=== PATIENT | female | born 1960 | race Caucasian/White ===

== ENCOUNTER → 2016-11-02 | Outpatient (CLI) | payer OTHER ==
--- NOTE | 2016-11-02 17:00 | XR ---
EXAMINATION TYPE: XR shoulder complete RT DATE OF EXAM: 11/02/2016 4:42 PM COMPARISON: NONE HISTORY: Pain after injury today, anterior pain TECHNIQUE: 3 views FINDINGS: Bones and joints and soft tissues are unremarkable. IMPRESSION: No acute process.
== END | disposition home or self-care (01) ==
LOC: RADXRMAIN 16:26
PROVIDERS: ATTEND Emergency Medicine
DX: S43.401A Unspecified sprain of right shoulder joint, initial encounter (principal); X58.XXXA Exposure to other specified factors, initial encounter; Y93.89 Activity, other specified; Y92.69 Other specified industrial and construction area as the place of occurrence of the external cause; Y99.0 Civilian activity done for income or pay

== ENCOUNTER → 2016-11-16 | Outpatient (CLI) | payer OTHER ==
--- NOTE | 2016-11-16 08:38 | MR ---
EXAMINATION TYPE: MR shoulder RT wo con DATE OF EXAM: 11/16/2016 7:30 AM COMPARISON: NONE HISTORY: Right shoulder pain TECHNIQUE: Multiplanar multispin echo imaging of the right shoulder was performed. FINDINGS: Rotator cuff : Partial intrasubstance tear involving the supraspinatus tendon near its humeral insert ion with superimposed chronic tendinopathy. Partial undersurface tear involving the infraspinatus ten don without full-thickness component. Bursa: No bursal effusion or thickening is seen. Musculature: There is no muscular tear, contusion, or atrophy. Acromioclavicular joint : Subacromial spur results in a degree of impingement. Mild AC joint arthropa thy. Osseous structures : There are no fractures or regions of abnormal bone marrow signal intensity. Long biceps tendon : The biceps tendon is normally situated within the bicipital groove. No complete or partial biceps tendon tear is present. Glenohumeral Joint fluid : There is no glenohumeral joint effusion. Cartilage and Bone : No focal hyaline cartilage defects are noted. No Hill-Sachs, reverse Hill-Sachs, or bony Bankart lesions are seen. Labrum : There are no SLAP or soft tissue Bankart lesions. No paralabral cysts are seen. OTHER FINDINGS : none IMPRESSION: 1. Partial tears of the supra and infraspinatus tendons superimposed chronic tendinopathy. 2. Mild impingement secondary subacromial spurring.
== END | disposition home or self-care (01) ==
LOC: RADMRIMAIN 06:51
PROVIDERS: ATTEND Emergency Medicine
DX: S46.811D Strain of other muscles, fascia and tendons at shoulder and upper arm level, right arm, subsequent encounter (principal); M25.811 Other specified joint disorders, right shoulder; M75.81 Other shoulder lesions, right shoulder

== ENCOUNTER → 2017-12-25 | Outpatient (CLI) | payer BC, OTHER ==
[2017-12-25 09:06] LABS: Basophils # (A) 0.1 k/uL (0-0.2); Basophils % (A) 1 %; Eosinophils # (A) 0.1 k/uL (0-0.7); Eosinophils % (A) 2 %; HCT 39.1 % (34.0-46.0); HGB 12.5 gm/dL (11.4-16.0); Lymphocytes # (A) 1.8 k/uL (1.0-4.8); Lymphocytes % (A) 33 %; MCH 26.6 pg (25.0-35.0); MCHC 31.9 g/dL (31.0-37.0); MCV 83.5 fL (80.0-100.0); Mean Platelet Volume 7.1; Monocytes # (A) 0.3 k/uL (0-1.0); Monocytes % (A) 5 %; Neutrophils % (A) 56 %; Platelet Count 248 k/uL (150-450); RBC 4.69 m/uL (3.80-5.40); RDW 13.2 % (11.5-15.5); WBC 5.4 k/uL (3.8-10.6)
[2017-12-25 09:25] LABS: ALT 50 U/L (9-52); AST 40 U/L (14-36); Albumin 4.3 g/dL (3.5-5.0); Alkaline Phosphatase 54 U/L (38-126); Anion Gap 12 mmol/L; Blood Urea Nitrogen 16 mg/dL (7-17); Calcium 9.7 mg/dL (8.4-10.2); Carbon Dioxide 30 mmol/L (22-30); Chloride 101 mmol/L (98-107); Cholesterol 153 mg/dL (<200); Glucose 91 mg/dL (74-99); HDL Cholesterol 60 mg/dL (40-60); LDL Cholesterol,Calculated 50 mg/dL (0-99); Potassium 4.5 mmol/L (3.5-5.1); Sodium 143 mmol/L (137-145); Total Bilirubin 0.2 mg/dL (0.2-1.3); Triglycerides 213 mg/dL (<150)
[2017-12-25 16:18] LABS: Vitamin D 25 Hydroxy 23.8 ng/mL (30.0-100.0)
[2017-12-25 16:32] LABS: Folate, Serum 17.3 ng/mL
[2017-12-27 14:17] LABS: Vitamin B1 90 ug/L (38-122)
[2017-12-28 05:30] LABS: Vitamin A 49 ug/dL (38-106)
== END | disposition home or self-care (01) ==
LOC: LABWHC1 08:20
DX: Z00.01 Encounter for general adult medical examination with abnormal findings (principal); Z98.84 Bariatric surgery status
CPT/HCPCS: 36415; 80053; 80061; 82306; 82607; 82728; 82746; 84425; 84443; 84590; 85025

== ENCOUNTER 2018-05-30 09:07 | Observation (INO) | payer BC, OTHER ==
[2018-05-30] MEDS ORDERED: ASPIRIN 81 MG PO STA (09:20)
[2018-05-30] MEDS ORDERED: LORazepam 2 MG/ML INJ IV STA (09:31)
--- NOTE | 2018-05-30 09:35 | ED ---
Chest Pain HPI - General Chief Complaint: Chest Pain Stated Complaint: CHEST PAIN Time Seen by Provider: 05/30/18 09:20 Source: patient, RN notes reviewed Mode of arrival: wheelchair Limitations: no limitations - History of Present Illness Initial Comments: This a 57-year-old female with past medical history significant for hypertension , anxiety, fibromyalgia presents emergency Department chief complaint of chest discomfort. She states she woke up this morning with the symptoms. She states that she is under a large amount of stress with her daughters which increases her anxiety. She states she normally takes Elavil at nighttime and Xanax when necessary which she normally does not take very often though she did take this morning with no relief of her symptoms. Patient states that she called her primary care physician to get some help with her anxiety but told her that she had chest pain and was directed towards the emergency department. Patient states that she has no cardiac history she states that she normally does not take anything for blood pressure because it has been controlled. Patient denies hyperlipidemia, diabetes, smoking history. She denies any current nausea , vomiting Diarrhea constipation, shortness of breath. Patient states that her symptoms are related to anxiety at this time. - Related Data Home Medications Medication Instructions Recorded Confirmed ALPRAZolam [Xanax] 0.25 mg PO DAILY PRN 05/30/18 05/30/18 Amitriptyline HCl [Elavil] 100 mg PO HS 05/30/18 05/30/18 Butalb/APAP/Caff 50-325-40Mg 1 tab PO Q4H PRN 05/30/18 05/30/18 [Fioricet 50-325-40] Cyanocobalamin (Vitamin B-12) 1,000 mcg PO DAILY 05/30/18 05/30/18 [Vitamin B-12] Multivitamins, Thera [Multivitamin 1 tab PO DAILY 05/30/18 05/30/18 (formulary)] Allergies Allergy/AdvReac Type Severity Reaction Status Date / Time codeine AdvReac gastric Verified 05/30/18 09:31 pain NSAIDS (Non-Steroidal AdvReac Unknown Verified 05/30/18 09:31 Anti-Inflamma ondansetron [From Zofran] AdvReac gastric Verified 05/30/18 09:31 pain oral steroids AdvReac Unknown Uncoded 05/30/18 09:31 Review of Systems ROS Statement: Those systems with pertinent positive or pertinent negative responses have been documented in the HPI. ROS Other: All systems not noted in ROS Statement are negative. EKG Findings - EKG Comments: EKG Findings:: EKG performed at 9:21 normal sinus rhythm with rate 81 OH 118 QRS 86 QT/ QTC 384/446 Past Medical History Past Medical History: Fibromyalgia, Hypertension Additional Past Medical History / Comment(s): ARTHRITIS History of Any Multi-Drug Resistant Organisms: None Reported Past Surgical History: Appendectomy, Cholecystectomy Additional Past Surgical History / Comment(s): GASTRIC BYPASS, LEFT OOPHERECTOMY Past Psychological History: Anxiety Smoking Status: Never smoker Past Alcohol Use History: None Reported Past Drug Use History: None Reported General Exam Limitations: no limitations General appearance: alert, in no apparent distress, anxious (Patient is tearful) Head exam: Present: atraumatic, normocephalic, normal inspection Eye exam: Present: normal appearance, PERRL, EOMI. Absent: scleral icterus, conjunctival injection, periorbital swelling ENT exam: Present: normal exam, normal oropharynx, mucous membranes moist, TM's normal bilaterally, normal external ear exam Neck exam: Present: normal inspection, full ROM. Absent: tenderness, meningismus, lymphadenopathy Respiratory exam: Present: normal lung sounds bilaterally. Absent: respiratory distress, wheezes, rales, rhonchi, stridor Cardiovascular Exam: Present: regular rate, normal rhythm, normal heart sounds. Absent: systolic murmur, diastolic murmur, rubs, gallop, clicks GI/Abdominal exam: Present: soft, normal bowel sounds. Absent: distended, tenderness, guarding, rebound, rigid Neurological exam: Present: alert, oriented X3, CN II-XII intact Course Vital Signs 05/30/18 05/30/18 09:09 10:33 Temperature 97.8 F Pulse Rate 98 80 Respiratory 18 16 Rate Blood Pressure 177/96 159/90 O2 Sat by Pulse 100 100 Oximetry Disposition Clinical Impression: Chest pain Disposition: ADMITTED IP TO THIS HOSP Condition: Stable Referrals: Mariano Franco MD [Primary Care Provider] - 1-2 days
[2018-05-30 10:06] LABS: Basophils % (A) 1 %; Eosinophils # (A) 0.1 k/uL (0-0.7); Eosinophils % (A) 2 %; Lymphocytes # (A) 1.5 k/uL (1.0-4.8); Lymphocytes % (A) 26 %; MCH 26.6 pg (25.0-35.0); MCHC 31.9 g/dL (31.0-37.0); MCV 83.4 fL (80.0-100.0); Mean Platelet Volume 7.3; Monocytes # (A) 0.3 k/uL (0-1.0); Monocytes % (A) 5 %; Neutrophils # (A) 3.6 k/uL (1.3-7.7); Neutrophils % (A) 64 %; Platelet Count 251 k/uL (150-450); RBC 5.28 m/uL (3.80-5.40); RDW 14.3 % (11.5-15.5); WBC 5.7 k/uL (3.8-10.6)
[2018-05-30 10:22] LABS: ALT 48 U/L (9-52); AST 50 U/L (14-36); Alkaline Phosphatase 56 U/L (38-126); Anion Gap 11 mmol/L; Blood Urea Nitrogen 17 mg/dL (7-17); Calcium 9.8 mg/dL (8.4-10.2); Carbon Dioxide 27 mmol/L (22-30); Chloride 103 mmol/L (98-107); Glucose 88 mg/dL (74-99); Lipase 180 U/L (23-300); Potassium 4.6 mmol/L (3.5-5.1); Sodium 141 mmol/L (137-145); Total Bilirubin 0.2 mg/dL (0.2-1.3); Total Protein 8.2 g/dL (6.3-8.2)
--- NOTE | 2018-05-30 10:26 | XR ---
EXAMINATION TYPE: XR chest 2V DATE OF EXAM: 05/30/2018 COMPARISON: None HISTORY: 57-year-old female with chest pain TECHNIQUE: Frontal and lateral views FINDINGS: The cardiomediastinal silhouette, aorta, and pulmonary vasculature are within normal limits. Right-si ded nipple shadow. Otherwise, lungs and pleural spaces are clear. IMPRESSION: No acute cardiopulmonary process.
[2018-05-30 10:34] LABS: Creatine Kinase 96 U/L (30-135)
[2018-05-30 10:47] LABS: Troponin I <0.012 ng/mL (0.000-0.034)
[2018-05-30 10:50] LABS: INR 1.1 (<1.2); Partial Thromboplastin Time 22.6 sec (22.0-30.0); Prothrombin Time 10.8 sec (9.0-12.0)
[2018-05-30] MEDS ORDERED: NITROGLYCERIN SL TABS 0.4 MG TAB SUBLINGUAL PRN (11:10)
[2018-05-30] MEDS ORDERED: HEPARIN SODIUM,PORCINE 5,000 UNIT/ML 1 ML VIAL IV ONE (11:10)
[2018-05-30] MEDS ORDERED: HEPARIN SOD,PORK IN 0.45% NACL 25,000 UNIT in 0.45% NACL 1 500ML.BAG IV SCH (11:15)
[2018-05-30] MEDS ORDERED: ALPRAZolam 0.25 MG TAB PO PRN (14:05)
--- NOTE | 2018-05-30 14:07 | P.HPIM ---
History of Present Illness H&P Date: 05/30/18 57 years old female patient of Dr. Simons with past medical history of fibromyalgia, depression/anxiety, hypertension comes in with acute chest pain that started this morning, substernal in location nonradiating in character and not associated with shortness of breath or sweating. Patient is undergoing a lot of stress in the family with a recent diagnosis of cancer in one of her daughters and the daughter dealing with mental health. 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 She has seeked psych counselling but has not seen one yet called her primary care this morning and was sent to ER for chest pain. Vitals in the ER suggested a temp of 97.8, pulse of 98, blood pressure 177/96 saturating well on room air. Labs were unremarkable including a CBC and CMP. Troponin 1 is negative EKG obtained in the ER was in normal sinus rhythm. Patient is awaiting cardiology evaluation. Another set of troponin will be obtained Review of Systems Constitutional: Denies chills, Denies fever, Denies lethargy, Denies malaise, Denies poor appetite, Denies weakness, Denies weight loss Eyes: denies decreased vision, denies diplopia, denies discharge, denies pain Ears: deny: decreased hearing Ears, nose, mouth and throat: Denies dental pain, Denies headache, Denies nasal discharge, Denies nose pain Cardiovascular: Endorses chest pain, Denies decreased exercise tolerance, Denies edema, Denies high blood pressure, Denies irregular heart beat, Denies palpitations, Denies paroxysmal nocturnal dyspnea, Denies rapid heart beat, Denies shortness of breath Respiratory: Denies congestion, Denies cough, Denies cough with sputum, Denies dyspnea, Denies home oxygen, Denies wheezing Gastrointestinal: Denies abdominal pain, Denies change in bowel habits, Denies coffee ground emesis, Denies early satiety, Denies excessive gas, Denies heartburn, Denies hematemesis, Denies hematochezia, Denies loss of appetite, Denies nausea, Denies vomiting Genitourinary: Denies dysuria, Denies flank pain, Denies kidney stones, Denies menorrhagia, Denies urgency, Denies urinary frequency Musculoskeletal: Denies gait dysfunction, Denies limitation of motion, Denies morning stiffness, Denies muscle cramps Integumentary: Denies rash, Denies wounds, Denies brittle nails, Denies change in hair/nails, Denies darkening of skin Neurological: Denies balance difficulties, Denies change in speech, Denies double vision, Denies gait dysfunction, Denies loss of vision, Denies motor disturbance, Denies numbness, Denies paralysis, Denies paresthesias, Denies seizures Psychiatric: Endorses anxiety, endorses depression Endocrine: Denies excessive sweating, Denies excessive thirst, Denies high blood sugars, Denies palpitations Hematologic/Lymphatic: Denies easy bruising, Denies lymphadenopathy Past Medical History Past Medical History: Fibromyalgia, Hypertension Additional Past Medical History / Comment(s): ARTHRITIS History of Any Multi-Drug Resistant Organisms: None Reported Past Surgical History: Appendectomy, Cholecystectomy Additional Past Surgical History / Comment(s): GASTRIC BYPASS, LEFT OOPHERECTOMY Past Psychological History: Anxiety Smoking Status: Never smoker Past Alcohol Use History: None Reported Past Drug Use History: None Reported Medications and Allergies Home Medications Medication Instructions Recorded Confirmed Type ALPRAZolam [Xanax] 0.25 mg PO DAILY PRN 05/30/18 05/30/18 History Amitriptyline HCl [Elavil] 100 mg PO HS 05/30/18 05/30/18 History Butalb/APAP/Caff 50-325-40Mg 1 tab PO Q4H PRN 05/30/18 05/30/18 History [Fioricet 50-325-40] Cyanocobalamin (Vitamin B-12) 1,000 mcg PO DAILY 05/30/18 05/30/18 History [Vitamin B-12] Multivitamins, Thera [Multivitamin 1 tab PO DAILY 05/30/18 05/30/18 History (formulary)] Allergies Allergy/AdvReac Type Severity Reaction Status Date / Time codeine AdvReac gastric Verified 05/30/18 09:31 pain NSAIDS (Non-Steroidal AdvReac Unknown Verified 05/30/18 09:31 Anti-Inflamma ondansetron [From Zofran] AdvReac gastric Verified 05/30/18 09:31 pain oral steroids AdvReac Unknown Uncoded 05/30/18 09:31 Physical Exam Vitals: Vital Signs Temp Pulse Resp BP Pulse Ox 05/30/18 13:41 100 16 147/90 100 05/30/18 12:02 78 16 150/76 100 05/30/18 10:33 80 16 159/90 100 05/30/18 09:09 97.8 F 98 18 177/96 100 Intake and Output 05/29/18 05/30/18 05/30/18 22:59 06:59 14:59 Other: Weight 70.307 kg - Constitutional General appearance: cooperative, no acute distress, obese - EENT Eyes: anicteric sclerae, PERRLA, normal appearance ENT: hearing grossly normal - Neck Neck: no lymphadenopathy, normal ROM, no other, no rigidity, no stridor, no thyromegaly - Respiratory Respiratory: bilateral: CTA, negative: diminished, dullness, rales, rhonchi - Cardiovascular Rhythm: regular Heart sounds: normal: S1, S2 Abnormal Heart Sounds: no systolic murmur, no diastolic murmur, no rub, no S3 Gallop, no S4 Gallop, no click, no other - Gastrointestinal General gastrointestinal: normal bowel sounds, soft - Integumentary Integumentary: no rash - Neurologic Neurologic: CNII-XII intact - Musculoskeletal Musculoskeletal: gait normal, strength equal bilaterally - Psychiatric Psychiatric: A&O x's 3, labile affect Results CBC & Chem 7: 05/30/18 09:25 05/30/18 09:25 Labs: Abnormal Lab Results - Last 24 Hours (Table) 05/30/18 Range/Units 09:25 AST 50 H (14-36) U/L Thrombosis Risk Factor Assmnt - DVT/VTE Prophylaxis DVT/VTE Prophylaxis: Pharmacologic Prophylaxis ordered Assessment and Plan Plan: #1 acute chest pain likely secondary to hypertension and anxiety. Unlikely to be ACS Troponin 2 ordered every 6 hours, EKG normal sinus rhythm. Continue heparin drip cardiology evaluation in the morning. Aspirin 1 time dose 325 mg given #2 hypertension initiated patient on lisinopril 5 mg by mouth daily #3 fibromyalgia currently on Elavil #4 anxiety/depression controlled with Elavil and Xanax 0.25 mg as needed. Will add Xanax as when necessary for anxiety in case needed #5 DVT prophylaxis currently patient on heparin drip #6 CODE STATUS full code
[2018-05-30 16:04] LABS: Creatine Kinase 65 U/L (30-135)
[2018-05-30 16:17] LABS: Creatine Kinase MB 0.6 ng/mL (0.0-2.4); Troponin I <0.012 ng/mL (0.000-0.034)
[2018-05-30] MEDS: LISINOPRIL 5 MG TAB PO SCH (16:34)
[2018-05-30] MEDS ORDERED: BUTALB/APAP/CAFF 50-325-40MG TAB PO PRN (18:39)
[2018-05-30 19:33] VITALS: RESP 16
[2018-05-30] MEDS ORDERED: HEPARIN SODIUM,PORCINE 5,000 UNIT/ML 1 ML VIAL IV PRN (20:45)
[2018-05-30] MEDS ORDERED: AMITRIPTYLINE HCL 50 MG TAB PO SCH (21:00)
[2018-05-30 21:19] LABS: Creatine Kinase 72 U/L (30-135)
[2018-05-30 21:33] LABS: Creatine Kinase MB 0.6 ng/mL (0.0-2.4); Troponin I <0.012 ng/mL (0.000-0.034)
[2018-05-31 05:16] LABS: Cholesterol 134 mg/dL (<200); HDL Cholesterol 65 mg/dL (40-60); LDL Cholesterol,Calculated 56 mg/dL (0-99); Triglycerides 63 mg/dL (<150)
[2018-05-31 07:59] VITALS: TEMP 98.3
[2018-05-31] MEDS ORDERED: ASPIRIN 325 MG TAB PO SCH (09:00)
[2018-05-31] MEDS ORDERED: CYANOCOBALAMIN 500 MCG TAB PO SCH (09:00)
[2018-05-31 10:30] VITALS: BP 112/72; PULSE 69
--- NOTE | 2018-05-31 11:01 | P.CRDCN ---
History of Present Illness History of present illness: Mrs. Ovalle is a pleasant 57-year-old female past medical history significant for hypertension not on medications currently, fibromyalgia, anxiety and depression. She also states she has an arrhythmia that causes her to feel palpitations diagnosed by Dr. Turcios, no intervention required. She denies history of coronary artery disease. We have been asked to see her in consultation for chest pain. She states she woke up yesterday with a prickly squeezing sensation in the mid-sternal region associated with palpitations, shortness of breath and mild dizziness. She states she feels symptoms like this frequently and is usually associated with extreme stress and elevated blood pressure. She checked her blood pressure at home and it was 164/100. She called her PCP and was advised to come to hospital for evaluation. Her chest pain lasted approximately 2-3 hours and ultimately subsided on its own. She states she doesn't take anything for blood pressure because every time she goes to her PCP her pressures are normal. She denies any further symptoms of chest pain since admission. She denies associated nausea, vomiting or diaphoresis associated with the pain. There was no radiation to the arm, back, neck or jaw. EKG reveals sinus mechanism with no acute ST or T-wave abnormalities. Chest xray negative for an acute cardiopulmonary process. Laboratory data reviewed, hgb 14.0, plt 251, sodium 141, potassium 4.6, magnesium 2.0, creatinine 0.57, cardiac enzymes negative x3, TSH 2.99, LDL 56, HDL 65. She currently takes no daily cardiac medications. Review of Systems At the time of my exam: CONSTITUTIONAL: Denies fever. Denies chills. EYES: Denies blurred vision. Denies vision changes. Denies eye pain. EARS, NOSE, MOUTH & THROAT: Denies headache. Denies sore throat. Denies ear pain. CARDIOVASCULAR: Denies chest pain. Denies shortness of breath. Denies orthopnea. Denies PND. Denies palpitations. RESPIRATORY: Denies cough. GASTROINTESTINAL: Denies abdominal pain. Denies diarrhea. Denies constipation. Denies nausea. Denies vomiting. MUSCULOSKELETAL: Denies myalgias. INTEGUMENTARY: Denies pruitis. Denies rash. NEUROLOGIC: Denies numbness. Denies tingling. Denies weakness. PSYCHIATRIC: Denies anxiety. Denies depression. ENDOCRINE: Denies fatigue. Denies weight change. Denies polydipsia. Denies polyurina. GENITOURINARY: Denies burning, hematuria or urgency with micturation. HEMATOLOGIC: Denies history of anemia. Denies bleeding. Past Medical History Past Medical History: Fibromyalgia, Hypertension Additional Past Medical History / Comment(s): ARTHRITIS, arrythmia, anxiety, kidney stones, migarines, past fx wrists no sx just casted.past hiatal hernia(sx ), rt pinky finger nodule History of Any Multi-Drug Resistant Organisms: None Reported Past Surgical History: Adenoidectomy, Appendectomy, Bariatric Surgery, Cholecystectomy, Tonsillectomy, Tubal Ligation Additional Past Surgical History / Comment(s): GASTRIC BYPASS and repair of hiatal hernia,inc hernia repair LEFT OOPHERECTOMY and alfredo tubes removed, rt breast bx-neg, lithotripsy several times,colonoscpy-neg, Past Anesthesia/Blood Transfusion Reactions: No Reported Reaction Smoking Status: Former smoker - Past Family History Mother Additional Family Medical History / Comment(s): arrythmia Father Family Medical History: Cancer, Hyperlipidemia, Hypertension, Prostate Disorder Additional Family Medical History / Comment(s): prostate cancer Medications and Allergies Home Medications Medication Instructions Recorded Confirmed Type ALPRAZolam [Xanax] 0.25 mg PO DAILY PRN 05/30/18 05/30/18 History Amitriptyline HCl [Elavil] 100 mg PO HS 05/30/18 05/30/18 History Butalb/APAP/Caff 50-325-40Mg 1 tab PO Q4H PRN 05/30/18 05/30/18 History [Fioricet 50-325-40] Cyanocobalamin (Vitamin B-12) 1,000 mcg PO DAILY 05/30/18 05/30/18 History [Vitamin B-12] Multivitamins, Thera [Multivitamin 1 tab PO DAILY 05/30/18 05/30/18 History (formulary)] Allergies Allergy/AdvReac Type Severity Reaction Status Date / Time codeine AdvReac gastric Verified 05/30/18 09:31 pain NSAIDS (Non-Steroidal AdvReac Unknown Verified 05/30/18 09:31 Anti-Inflamma ondansetron [From Zofran] AdvReac gastric Verified 05/30/18 09:31 pain oral steroids AdvReac Unknown Uncoded 05/30/18 09:31 Physical Exam Vitals: Vital Signs Temp Pulse Pulse Resp BP BP BP 05/31/18 07:55 98.3 F 73 16 117/74 05/31/18 03:46 16 05/31/18 03:35 97.9 F 71 16 101/63 05/31/18 00:05 97.2 F L 73 16 104/64 05/30/18 23:55 16 05/30/18 20:00 16 05/30/18 19:00 98.4 F 79 16 118/72 05/30/18 15:35 98.2 F 71 18 149/82 05/30/18 14:22 98.3 F 89 18 163/88 05/30/18 13:41 100 16 147/90 05/30/18 12:02 78 16 150/76 05/30/18 10:33 80 16 159/90 05/30/18 09:09 97.8 F 98 18 177/96 Pulse Ox 05/31/18 07:55 95 05/31/18 03:46 05/31/18 03:35 97 05/31/18 00:05 100 05/30/18 23:55 05/30/18 20:00 05/30/18 19:00 98 05/30/18 15:35 100 05/30/18 14:22 98 05/30/18 13:41 100 05/30/18 12:02 100 05/30/18 10:33 100 05/30/18 09:09 100 Intake and Output 05/30/18 05/31/18 05/31/18 22:59 06:59 14:59 Intake Total 472.111 380.712 Balance 472.111 380.712 Intake: IV 120 240 0.9@20 60 120 Heparin Sod,Pork in 0.45% 60 120 NaCl 25,000 unit In 0.45 % NaCl 1 500ml.bag @ 12 UNITS/KG/HR 16.87 mls/hr IV .Q24H [facility] Rx#: [id number] Intake, IV Titration 152.111 140.712 Amount Heparin Sod,Pork in 0.45% 152.111 140.712 NaCl 25,000 unit In 0.45 % NaCl 1 500ml.bag @ 12 UNITS/KG/HR 16.87 mls/hr IV .Q24H [facility] Rx#: [id number] Oral 200 Other: Voiding Method Toilet Toilet # Voids 1 1 Blood pressure 112/72 heart rate 69 afebrile maintaining oxygen saturation on room air GENERAL: This is a 57-year-old female in no apparent distress at the time of my examination. HEENT: Head is atraumatic, normocephalic. Pupils are equal, round. Sclerae anicteric. Conjunctivae are clear. Mucous membranes of the mouth are moist. Neck is supple. There is no jugular venous distention. No carotid bruit is heard. LUNGS: Clear to auscultation no wheezes, rales or rhonchi. No chest wall tenderness is noted on palpation or with deep breathing. HEART: Regular rate and rhythm without murmurs, rubs or gallops. S1 and S2 heard. ABDOMEN: Soft, nontender. Bowel sounds are heard. No organomegaly noted. EXTREMITIES: No evidence of peripheral edema and no calf tenderness noted. VASCULAR: Radial and dorsalis pedis pulses palpated, no evidence of clubbing. NEUROLOGIC: Patient is awake, alert and oriented x3. Results 05/30/18 09:25 05/30/18 09:25 Cardiac Enzymes 05/30/18 05/30/18 05/30/18 Range/Units 09:25 09:25 15:27 AST 50 H (14-36) U/L CK-MB (CK-2) 1.0 0.6 (0.0-2.4) ng/mL Troponin I <0.012 <0.012 (0.000-0.034) ng/mL 05/30/18 Range/Units 20:53 AST (14-36) U/L CK-MB (CK-2) 0.6 (0.0-2.4) ng/mL Troponin I <0.012 (0.000-0.034) ng/mL Coagulation 05/30/18 05/30/18 05/31/18 Range/Units :25 19:40 03:00 PT 10.8 (9.0-12.0) sec APTT 22.6 45.9 H 92.1 H (22.0-30.0) sec Lipids 05/31/18 Range/Units 03:00 Triglycerides 63 (<150) mg/dL Cholesterol 134 (<200) mg/dL HDL Cholesterol 65 H (40-60) mg/dL CBC 05/30/18 Range/Units 09:25 WBC 5.7 (3.8-10.6) k/uL RBC 5.28 (3.80-5.40) m/uL Hgb 14.0 (11.4-16.0) gm/dL Hct 44.0 (34.0-46.0) % Plt Count 251 (150-450) k/uL Comprehensive Metabolic Panel 05/30/18 Range/Units 09:25 Sodium 141 (137-145) mmol/L Potassium 4.6 (3.5-5.1) mmol/L Chloride 103 (98-107) mmol/L Carbon Dioxide 27 (22-30) mmol/L BUN 17 (7-17) mg/dL Creatinine 0.57 (0.52-1.04) mg/dL Glucose 88 (74-99) mg/dL Calcium 9.8 (8.4-10.2) mg/dL AST 50 H (14-36) U/L ALT 48 (9-52) U/L Alkaline Phosphatase 56 (38-126) U/L Total Protein 8.2 (6.3-8.2) g/dL Albumin 5.0 (3.5-5.0) g/dL Current Medications Generic Name Dose Route Start Last Admin Trade Name Freq PRN Reason Stop Dose Admin Acetaminophen/Butalbital/Caffeine 1 each 05/30/18 18:39 Fioricet 50-325-40 PO Q4H PRN Headache Alprazolam 0.25 mg 05/30/18 14:05 05/30/18 21:03 Xanax PO 0.25 mg BID PRN Administration Anxiety Amitriptyline HCl 100 mg 05/30/18 21:00 05/30/18 20:58 Elavil PO 100 mg HS [facility] Administration Aspirin 325 mg 05/31/18 09:00 Aspirin PO DAILY [facility] Cyanocobalamin 1,000 mcg 05/31/18 09:00 Vitamin B-12 PO DAILY [facility] Heparin Sodium (Porcine) 0 unit 05/30/18 20:45 05/30/18 20:58 Heparin IV 1,750 unit PER PROTOCOL PRN Administration Low PTT Protocol Lisinopril 5 mg 05/30/18 14:15 05/30/18 16:34 Zestril PO 5 mg DAILY [facility] Administration Multivitamins 1 each 05/31/18 12:00 Theragran PO DAILY@1200 [facility] Nitroglycerin 0.4 mg 05/30/18 11:10 Nitrostat SUBLINGUAL Q5M PRN Chest Pain Intake and Output 05/30/18 05/31/18 05/31/18 22:59 06:59 14:59 Intake Total 472.111 380.712 Balance 472.111 380.712 Intake: IV 120 240 0.9@20 60 120 Heparin Sod,Pork in 0.45% 60 120 NaCl 25,000 unit In 0.45 % NaCl 1 500ml.bag @ 12 UNITS/KG/HR 16.87 mls/hr IV .Q24H [facility] Rx#: [id number] Intake, IV Titration 152.111 140.712 Amount Heparin Sod,Pork in 0.45% 152.111 140.712 NaCl 25,000 unit In 0.45 % NaCl 1 500ml.bag @ 12 UNITS/KG/HR 16.87 mls/hr IV .Q24H [facility] Rx#: [id number] Oral 200 Other: Voiding Method Toilet Toilet # Voids 1 1 05/30/18 09:25 05/30/18 09:25 Assessment and Plan Assessment: ASSESSMENT Chest pain, atypical. An acute coronary event has been ruled out with no EKG evidence of ischemia and negative cardiac enzymes. Paroxysmal hypertension at home Anxiety Depression PLAN Discontinue heparin infusion, an acute coronary event has been ruled out. Obtain 2-D echocardiogram and Doppler study to assess cardiac structure and function. Perform stress echocardiogram to assess for stress-induced cardiac ischemia. Discussed with patient checking her blood pressure at varying times once daily and keeping a regular log for the next 2 weeks at home. If stress test is normal she is stable from a cardiac perspective. Thank you kindly for this consultation. Nurse Practitioner note has been reviewed, I agree with a documented findings and plan of care. Patient was seen and examined.
[2018-05-31] MEDS ORDERED: MULTIVITAMINS, THERA 1 EACH TAB PO SCH (12:00)
[2018-05-31] MEDS: LISINOPRIL 5 MG TAB PO SCH (12:04)
--- NOTE | 2018-05-31 13:13 | P.DS ---
Providers Date of admission: 05/30/18 11:20 Attending physician: Nilesh Masterson Consults: 05/30/18 11:10 Consult Physician Urgent Consulting Provider: Gerson Mccarthy Consult Reason/Comments: chest pain Do you want consulting provider notified?: Yes Primary care physician: Mariano [facility] Course: 57 years old female patient of Dr. Simons with past medical history of fibromyalgia, depression/anxiety, hypertension comes in with acute chest pain that started this morning, substernal in location nonradiating in character and not associated with shortness of breath or sweating. Patient is undergoing a lot of stress in the family with a recent diagnosis of cancer in one of her daughters and the daughter dealing with mental health. 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 She has seeked psych counselling but has not seen one yet called her primary care this morning and was sent to ER for chest pain. Vitals in the ER suggested a temp of 97.8, pulse of 98, blood pressure 177/96 saturating well on room air. Labs were unremarkable including a CBC and CMP. Troponin 1 is negative EKG obtained in the ER was in normal sinus rhythm. Patient is awaiting cardiology evaluation. Another set of troponin will be obtained 05/31: Patient was evaluated today, she reports she is feeling well, she denies any chest pain or shortness of breath. She is scheduled to have a 2-D echocardiogram and Doppler study, and stress echocardiogram today. If clear she 'll be discharged home. Discharge diagnoses: #1 acute chest pain likely secondary to hypertension and anxiety. #2 hypertension #3 fibromyalgia #4 anxiety/depression controlled with Elavil and Xanax The above impression and plan of care have been discussed and directed by signing physician. Sol Abbott nurse practitioner acting as scribe for signing physician. Patient Condition at Discharge: Good Plan - Discharge Summary Discharge Rx Participant: No New Discharge Prescriptions: No Action Multivitamins, Thera [Multivitamin (formulary)] 1 tab PO DAILY Butalb/APAP/Caff 50-325-40Mg [Fioricet 50-325-40] 1 tab PO Q4H PRN PRN Reason: Headache Amitriptyline HCl [Elavil] 100 mg PO HS ALPRAZolam [Xanax] 0.25 mg PO DAILY PRN PRN Reason: Anxiety Cyanocobalamin (Vitamin B-12) [Vitamin B-12] 1,000 mcg PO DAILY Discharge Medication List ALPRAZolam [Xanax] 0.25 mg PO DAILY PRN 05/30/18 [History] Amitriptyline HCl [Elavil] 100 mg PO HS 05/30/18 [History] Butalb/APAP/Caff 50-325-40Mg [Fioricet 50-325-40] 1 tab PO Q4H PRN 05/30/18 [ History] Cyanocobalamin (Vitamin B-12) [Vitamin B-12] 1,000 mcg PO DAILY 05/30/18 [ History] Multivitamins, Thera [Multivitamin (formulary)] 1 tab PO DAILY 05/30/18 [History ] Follow up Appointment(s)/Referral(s): Mariano Franco MD [Primary Care Provider] - 1-2 days
--- NOTE | 2018-05-31 13:31 | ECHOS ---
STRESS ECHOCARDIOGRAM DATE OF SERVICE: 05/31/2018 INDICATIONS: Chest pain. MEDICATIONS: Multivitamin, alprazolam, amitriptyline. BASELINE HEART RATE: 84 BASELINE BLOOD PRESSURE: 103/67 MAXIMUM HEART RATE: 156 MAXIMUM BLOOD PRESSURE: 178/54 85% MPHR: 140 100% MPHR: 165 METS: 9.7 MAXIMUM STAGE REACHED: III TOTAL EXERCISE TIME: 8 minutes CLINICAL INFORMATION: Patient was exercised for a total period of 8 minutes. Peak heart rate of 156 was achieved. Maximum blood pressure of 178/54 mmHg was noted. Resting EKG shows normal sinus rhythm with normal AK interval and QRS duration and normal ST-T waves. No ST- segment depression suggestive of ischemia is noted. The baseline echocardiographic images reveals normal left ventricular chamber size with normal left ventricular systolic function. In the immediate postexercise period, normal increase in the wall thickness and contractility is noted. FINAL IMPRESSION: This stress echocardiographic study is negative for stress-induced ischemia. EKG portion of the stress test is not suggestive of ischemia. Patient's exercise tolerance is normal. MMODL / IJN: [id number] /
--- NOTE | 2018-06-07 16:31 | ECHOF ---
Referral Reason: MEASUREMENTS -------- HEIGHT: 0.0 cm WEIGHT: 0.0 kg BP: 117/74 RVIDd: 2.3 cm (< 3.3) IVSd: 1.0 cm (0.6 - 1.1) LVIDd: 3.7 cm (3.9 - 5.3) LVPWd: 1.0 cm (0.6 - 1.1) IVSs: 1.5 cm LVIDs: 2.3 cm LVPWs: 1.4 cm LA Diam: 2.7 cm (2.7 - 3.8) LAESV Index (A-L): 27.83 ml/m Ao Diam: 2.8 cm (2.0 - 3.7) AV Cusp: 1.8 cm (1.5 - 2.6) MV EXCURSION: 13.275 mm (> 18.000) MV EF SLOPE: 88 mm/s (70 - 150) EPSS: 0.5 cm MV E Zachary: 0.94 m/s MV DecT: 226 ms MV A Zachary: 0.78 m/s MV E/A Ratio: 1.21 RAP: 5.00 mmHg RVSP: 24.18 mmHg FINDINGS -------- Sinus rhythm. The left ventricular size is normal. Left ventricular wall thickness is normal. Overall left vent ricular systolic function is normal with, an EF between 60 - 65 %. The right ventricle is normal in size. Normal LA size by volume 22+/-6 ml/m2. The right atrium is normal in size. The aortic valve is trileaflet and appears structurally normal. The mitral valve is normal. Mild tricuspid regurgitation present. Right ventricular systolic pressure is normal at < 35 mmHg. Trace/mild (physiologic) pulmonic regurgitation. The aortic root size is normal. Normal inferior vena cava with normal inspiratory collapse consistent with estimated right atrial pre ssure of 5 mmHg. There is no pericardial effusion. CONCLUSIONS -------- 1. Sinus rhythm. 2. The left ventricular size is normal. 3. Left ventricular wall thickness is normal. 4. Overall left ventricular systolic function is normal with, an EF between 60 - 65 %. 5. The right ventricle is normal in size. 6. Normal LA size by volume 22+/-6 ml/m2. 7. The right atrium is normal in size. 8. The aortic valve is trileaflet and appears structurally normal. 9. The mitral valve is normal. 10. Mild tricuspid regurgitation present. 11. Right ventricular systolic pressure is normal at < 35 mmHg. 12. Trace/mild (physiologic) pulmonic regurgitation. 13. The aortic root size is normal. 14. Normal inferior vena cava with normal inspiratory collapse consistent with estimated right atrial pressure of 5 mmHg. 15. There is no pericardial effusion. SANITARY ENGINEER: Opal Stanton RDCS
== END 2018-05-31 13:57 | disposition home or self-care (01) ==
LOC: EC 09:07 → 3OBS 11:20
PROVIDERS: ADMIT Internal Medicine Geriatric Medicine; ATTEND Internal Medicine Geriatric Medicine
DX: R07.89 Other chest pain (principal); F32.9 Major depressive disorder, single episode, unspecified; F41.9 Anxiety disorder, unspecified; I10 Essential (primary) hypertension; M19.90 Unspecified osteoarthritis, unspecified site; M79.7 Fibromyalgia; Z82.49 Family history of ischemic heart disease and other diseases of the circulatory system; Z87.442 Personal history of urinary calculi; Z87.891 Personal history of nicotine dependence; Z98.84 Bariatric surgery status; Z90.49 Acquired absence of other specified parts of digestive tract; Z79.899 Other long term (current) drug therapy; Z88.6 Allergy status to analgesic agent; Z88.5 Allergy status to narcotic agent; Z88.8 Allergy status to other drugs, medicaments and biological substances
CPT/HCPCS: 96365; 96366 ×2; 96376 ×2; 96375; 99285; 36415; 93306; 93351; 80061; 80053; 84443; 82550; 82553; 83690; 83735; 84484; 85025; 85610; 85730 ×2; 71046; G0378 ×2; J2060; J1644 ×2

== ENCOUNTER 2018-11-22 18:10 | Emergency (ER) | payer OTHER, BC ==
[2018-11-22 18:35] VITALS: BP 144/88; PULSE 76; RESP 18; TEMP 97.8
[2018-11-22] MEDS ORDERED: LIDOCAINE 1% INJ 10MG/ML (20 ML MDV) SQ ONE (18:38)
[2018-11-22] MEDS ORDERED: ACETAMINOPHEN TAB 325 MG TAB PO STA (18:42)
--- NOTE | 2018-11-22 18:58 | ED ---
Lower Extremity Injury HPI - General Chief Complaint: Extremity Injury, Lower Stated Complaint: Knee injury-[facility] Time Seen by Provider: 11/22/18 18:15 Source: patient Mode of arrival: ambulatory Limitations: no limitations - History of Present Illness Initial Comments: 58-year-old female presenting today for chief complaint of left knee pain. Patient states she planted her left foot while attempting to move a chair and rotate her knee. Patient denies dislocation. Patient states she noticed pain in her left knee. Patient states she continued to work. Patient states she noticed increasing pain especially with full range of motion. Patient was concerned of injury and presents emergency department for evaluation. Patient denies any numbness tingling or loss sensation coolness or pallor of the extremity. Patient denies fall or injury to any other extremity. Patient denies any pain at the ankle or foot. Review of systems negative upon arrival patient appears well, patient denies any recent fever, chills, shortness of breath, chest pain, back pain, abdominal pain, nausea or vomiting, numbness or tingling, dysuria or hematuria, constipation or diarrhea, headaches or visual changes, or any other complaints. - Related Data Home Medications Medication Instructions Recorded Confirmed ALPRAZolam [Xanax] 0.25 mg PO DAILY PRN 05/30/18 11/22/18 Amitriptyline HCl [Elavil] 100 mg PO HS 05/30/18 11/22/18 Butalb/APAP/Caff 50-325-40Mg 1 tab PO Q4H PRN 05/30/18 11/22/18 [Fioricet 50-325-40] Cyanocobalamin (Vitamin B-12) 1,000 mcg PO DAILY 05/30/18 11/22/18 [Vitamin B-12] Multivitamins, Thera [Multivitamin 1 tab PO DAILY 05/30/18 11/22/18 (formulary)] Calcium Carbonate/Vitamin D3 1 cap PO DAILY 11/22/18 11/22/18 [Calcium 600-Vit D3 500 Softgel] DULoxetine HCL [Cymbalta] 60 mg PO DAILY 11/22/18 11/22/18 Ferrous Sulfate [Feosol] 325 mg PO DAILY 11/22/18 11/22/18 L.acidoph,Paracasei, B.lactis 1 cap PO DAILY 11/22/18 11/22/18 [Probiotic] Losartan [Cozaar] 25 mg PO DAILY 11/22/18 11/22/18 [place]-3 Fatty Acids [[place]-3] 1,000 mg PO DAILY 11/22/18 11/22/18 Ubidecarenone [Co Q-10] 100 mg PO DAILY 11/22/18 11/22/18 amLODIPine [Norvasc] 10 mg PO DAILY 11/22/18 11/22/18 Allergies Allergy/AdvReac Type Severity Reaction Status Date / Time aspirin AdvReac Unknown Verified 11/22/18 19:31 codeine AdvReac gastric Verified 11/22/18 19:31 pain NSAIDS (Non-Steroidal AdvReac Unknown Verified 11/22/18 19:31 Anti-Inflamma ondansetron [From Zofran] AdvReac gastric Verified 11/22/18 19:31 pain oral steroids AdvReac Unknown Uncoded 11/22/18 18:43 Review of Systems ROS Statement: Those systems with pertinent positive or pertinent negative responses have been documented in the HPI. ROS Other: All systems not noted in ROS Statement are negative. Past Medical History Past Medical History: Fibromyalgia, Hypertension Additional Past Medical History / Comment(s): ARTHRITIS, arrythmia, anxiety, kidney stones, migarines, past fx wrists no sx just casted.past hiatal hernia(sx ), rt pinky finger nodule History of Any Multi-Drug Resistant Organisms: None Reported Past Surgical History: Adenoidectomy, Appendectomy, Bariatric Surgery, Cholecystectomy, Tonsillectomy, Tubal Ligation Additional Past Surgical History / Comment(s): GASTRIC BYPASS and repair of hiatal hernia,inc hernia repair LEFT OOPHERECTOMY and alfredo tubes removed, rt breast bx-neg, lithotripsy several times,colonoscpy-neg, Past Anesthesia/Blood Transfusion Reactions: No Reported Reaction Past Psychological History: Anxiety Smoking Status: Former smoker Past Alcohol Use History: None Reported Past Drug Use History: None Reported - Past Family History Mother Additional Family Medical History / Comment(s): arrythmia Father Family Medical History: Cancer, Hyperlipidemia, Hypertension, Prostate Disorder Additional Family Medical History / Comment(s): prostate cancer General Exam - General Exam Comments Initial Comments: General: The patient is awake and alert, in no distress, and does not appear acutely ill. Eye: Pupils are equal, round and reactive to light, extra-ocular movements are intact. No nystagmus. There is normal conjunctiva bilaterally. No signs of icterus. Ears, nose, mouth and throat: There are moist mucous membranes and no oral lesions. Neck: The neck is supple, there is no tenderness or JVD. Cardiovascular: There is a regular rate and rhythm. No murmur, rub or gallop is appreciated. Respiratory: Lungs are clear to auscultation, respirations are non-labored, breath sounds are equal. No wheezes, stridor, rales, or rhonchi. Musculoskeletal: Normal inspection the knees bilaterally there is no evidence of soft tissue swelling of the left knee. There is no significant tenderness palpation of the left knee. Normal ROM at the knees equal comparison bilaterally, no tenderness of the right knee however there is significant tenderness with full range of motion of the left knee no noted laxity. Strength 5/5. Sensation intact both proximal and distal to injury equal comparison to unaffected extremity. DP and radial pulses equal bilaterally 2+. Compartments soft and compressible. Extensor mechanism intact. No evidence of foot drop. Neurological: A&O x 3. CN II-XII intact, There are no obvious motor or sensory deficits. Coordination appears grossly intact. Speech is normal. Skin: Skin is warm and dry and no rashes or lesions are noted. Psychiatric: Cooperative, appropriate mood & affect, normal judgment. Limitations: no limitations Course Vital Signs 11/22/18 18:17 Temperature 97.8 F Pulse Rate 76 Respiratory 18 Rate Blood Pressure 144/88 O2 Sat by Pulse 98 Oximetry Medical Decision Making - Medical Decision Making Well-appearing 58-year-old male presenting for left knee pain. Patient neurovascularly intact. X-ray negative for acute osseous process. There is concern for meniscus injury. Given mechanism of action. Patient was placed in a knee immobilizer, given Rice instructions as well as instruction to use Tylenol for pain management. Patient given orthopedic surgery referral for further evaluation. Patient agreeable with plan and discharge, denied questions at this time. Patient discharged stable condition appearing well I did discuss the case attending provider Dr. Ferrell prior to patient's discharge. Disposition Clinical Impression: Knee sprain Disposition: HOME SELF-CARE Condition: Good Instructions (If sedation given, give patient instructions): Knee Sprain (ED) Additional Instructions: Please use medication as discussed. Please follow-up with orthopedic surgery in the next 1-2 days. Please return to emergency room if the symptoms increase or worsen or for any other concerns. Please wear knee immobilizer for ambulation. Is patient prescribed a controlled substance at d/c from ED?: No Referrals: Cristal Aguilar MD [Primary Care Provider] - 1-2 days Ac Gutierrez PAC [PHYSICIAN STRATEGIC PARTNERSHIP REPRESENTATIVE] - 1-2 days Time of Disposition: 19:45
--- NOTE | 2018-11-22 19:44 | XR ---
EXAMINATION TYPE: XR knee complete LT DATE OF EXAM: 11/22/2018 COMPARISON: NONE HISTORY: Knee pain TECHNIQUE: 3 views FINDINGS: I see no fracture nor dislocation. Joint spaces are normal. There are no pathologic calcifi cations. IMPRESSION: Negative left knee exam. No fracture seen.
--- NOTE | 2018-11-25 01:11 | CDI ---
Documentation Clarification OP Dear Jyoti CARTWIRGHT, PAC Please provide procedure done related to lidocaine administered. Thank you, Annika Villegas [employer] If you have any questions, please contact [employer] at [phone] [facility]
== END 2018-11-22 20:21 | disposition home or self-care (01) ==
LOC: EC 18:10
DX: S83.92XA Sprain of unspecified site of left knee, initial encounter (principal); I10 Essential (primary) hypertension; F41.9 Anxiety disorder, unspecified; Z87.891 Personal history of nicotine dependence; Z79.899 Other long term (current) drug therapy; Z88.5 Allergy status to narcotic agent; Z88.6 Allergy status to analgesic agent; Z88.8 Allergy status to other drugs, medicaments and biological substances; Z87.39 Personal history of other diseases of the musculoskeletal system and connective tissue; X50.1XXA Overexertion from prolonged static or awkward postures, initial encounter; Y93.89 Activity, other specified; Y99.0 Civilian activity done for income or pay
CPT/HCPCS: 99283; 73562; L1830; J2001

== ENCOUNTER → 2018-11-28 | Outpatient (CLI) | payer OTHER ==
--- NOTE | 2018-11-28 15:35 | MR ---
EXAMINATION TYPE: MR knee LT wo con DATE OF EXAM: 11/28/2018 COMPARISON: 11/22/2018 left knee x-ray HISTORY: Left knee pain TECHNIQUE: Multiplanar, multisequence imaging of the left knee is performed without IV contrast. FINDINGS: MEDIAL MENISCUS: There is a very small radial tear of the posterior horn of the medial meniscus as it extends towards the meniscal root. Meniscal root appears intact. Remainder of the medial meniscus is of unremarkable signal and morphology. LATERAL MENISCUS: Anterior and posterior horns are intact without tear. CRUCIATE LIGAMENTS: The anterior and posterior cruciate ligaments are intact however there is very mi ld increased signal of the insertional fibers of the anterior cruciate ligament suggestive of mild lo w-grade sprain. COLLATERAL LIGAMENTS: The medial collateral ligament and lateral collateral ligament complex are inta ct and unremarkable. EXTENSOR MECHANISM: Visualized quadriceps and patellar tendons are intact. Very minimal increased sig nal seen of the insertional fibers of the quadriceps tendon and patellar tendon with overlying subcut aneous edema of the insertion of the patellar tendon indicative of very mild tendinosis. EFFUSION: No significant suprapatellar joint effusion. POPLITEAL CYST: Small popliteal cyst is multiloculated. TRICOMPARTMENT SPACES: There is development of a subchondral cyst within the patellar apex with surro unding mild bone marrow edema secondary to a near full-thickness cartilaginous defect of the patellar apex extending into the lateral patellar facet measuring approximately 1.2 cm. Multifocal fissuring is seen within the patellofemoral cartilage. Generalized cartilaginous thinning of the medial compartment is seen. Lateral compartment cartilage i s maintained. Very small marginal osteophytes are present of the patellofemoral compartment. BONE MARROW SIGNAL: Focal abnormal bone marrow signal as described above within the patellar apex. IMPRESSION: 1. Very small radial tear of the posterior horn of the medial meniscus at the free edge as a extends posteriorly towards the meniscal root. 2. Low-grade sprain of the anterior cruciate ligament and mild insertional tendinosis of the patellar tendon and quadriceps tendon. 3. Near full-thickness cartilaginous defect of the patellar apex and lateral facet with underlying pa tellar bone marrow edema and development of a subchondral cyst. 4. Mild patellofemoral compartment arthrosis and mild medial compartment chondrosis.
== END | disposition home or self-care (01) ==
LOC: RADMRIMAIN 10:51
PROVIDERS: ATTEND Emergency Medicine
DX: S83.512A Sprain of anterior cruciate ligament of left knee, initial encounter (principal); S83.242A Other tear of medial meniscus, current injury, left knee, initial encounter; M17.12 Unilateral primary osteoarthritis, left knee; M85.48 Solitary bone cyst, other site

== ENCOUNTER → 2018-12-19 | Outpatient (CLI) | payer OTHER ==
[2018-12-19 16:54] LABS: Basophils # (A) 0.1 k/uL (0-0.2); Basophils % (A) 1 %; Eosinophils # (A) 0.1 k/uL (0-0.7); Eosinophils % (A) 1 %; HCT 41.1 % (34.0-46.0); HGB 13.2 gm/dL (11.4-16.0); Lymphocytes # (A) 2.9 k/uL (1.0-4.8); Lymphocytes % (A) 35 %; MCH 27.3 pg (25.0-35.0); MCHC 32.1 g/dL (31.0-37.0); Mean Platelet Volume 6.8; Monocytes # (A) 0.5 k/uL (0-1.0); Monocytes % (A) 6 %; Neutrophils # (A) 4.7 k/uL (1.3-7.7); Neutrophils % (A) 55 %; Platelet Count 298 k/uL (150-450); RBC 4.83 m/uL (3.80-5.40); RDW 14.7 % (11.5-15.5); WBC 8.5 k/uL (3.8-10.6)
== END | disposition home or self-care (01) ==
LOC: LABPAT 16:36
PROVIDERS: ATTEND Orthopaedic Surgery
DX: Z01.812 Encounter for preprocedural laboratory examination (principal); M23.92 Unspecified internal derangement of left knee
CPT/HCPCS: 80051; 85025

== ENCOUNTER 2018-12-26 13:25 | Day surgery (SDC) | payer BC, OTHER ==
[2018-12-23 16:15] VITALS: BMI 25.8
--- NOTE | 2018-12-25 19:02 | HP ---
HISTORY AND PHYSICAL DATE OF SURGERY: 12/26/2018 Kelsea Ovalle is a 58-year-old patient seen with progressive left knee pain. We discussed options for treatment. She elected to proceed with arthroscopy. Consent was obtained. PAST MEDICAL HISTORY: 1. Hyperlipidemia. 2. Hypertension. PAST SURGICAL HISTORY: 1. Appendectomy. 2. Tubal ligation. 3. Cholecystectomy. 4. Gastric bypass surgery. 5. Laparoscopy. DAILY MEDICATIONS: 1. Amitriptyline. 2. Cymbalta. 3. Losartan. 4. Norvasc. 5. Xanax. ALLERGIES: 1. NSAIDs. 2. ASPIRIN. 3. CODEINE. 4. ZOFRAN. 5. ORAL STEROIDS. SOCIAL HISTORY: She denies current tobacco use. PHYSICAL EVALUATION OF THE LEFT KNEE: Range of motion is 0 to 130 degrees. There is a mild to moderate effusion present. Tenderness along the medial and lateral joint lines. Positive medial Rony's. Plus 1 Rayna's. Ligaments otherwise stable. Distal neurovascular exam is intact. Hip rotation is without pain. RADIOGRAPHS: Radiographs of the left knee revealed mild osteoarthritic changes. Left knee MRI revealed medial meniscal tear, osteoarthritis changes and ACL sprain. IMPRESSION: Internal derangement of the left knee with medial meniscal tear. PLAN: Left knee arthroscopy with partial meniscectomy and debridement. MMODL / IJN: [id number] /
[~2018-12-26 13:25] MED LIST: DEXAMETHASONE SOD PHOSPHATE 10 MG/ML 1 ML VIAL IV ONE; LACTATED RINGERS 1,000 ML IV SCH; LIDOCAINE 1% 20 ML VIAL (10MG/ML) FOR IV START INTRADERMA PRN; MIDAZOLAM (PF) 2 MG/2 ML VIAL IV PRN; SCOPOLAMINE 1.5MG/72HR PATCH TRANSDERM ONE; ceFAZolin 1,000 MG in DEXTROSE/WATER 1 50ML.BAG IVPB ONE
[2018-12-26 13:59] VITALS: RESP 16
[2018-12-26] MEDS ORDERED: LIDOCAINE 1% INJ 10MG/ML (20 ML MDV) ONE (15:09)
[2018-12-26] MEDS ORDERED: fentaNYL (PF) 50 MCG/ML 2 ML AMP ONE (15:09)
[2018-12-26] MEDS ORDERED: PROPOFOL 10 MG/ML 20 ML VIAL IV ONE (15:09)
[2018-12-26] MEDS ORDERED: MIDAZOLAM 2 MG/2 ML VIAL ONE (15:09)
[2018-12-26] MEDS ORDERED: BUPIVACAIN-EPI 0.5%-1:200,000 30 ML VIAL SQ ONE (15:32)
--- NOTE | 2018-12-26 16:00 | P.OP ---
Date of Procedure: 12/26/18 Preoperative Diagnosis: Internal derangement left knee Postoperative Diagnosis: 1. Tear lateral meniscus left knee 2. Reactive synovitis medial, lateral and suprapatellar compartments left knee Procedure(s) Performed: 1. Arthroscopic partial lateral meniscectomy left knee 2. Arthroscopic partial synovectomy medial, lateral and suprapatellar compartments left knee Anesthesia: MARKA, local Surgeon: Angel Rodriguez Estimated Blood Loss (ml): 5 Pathology: none sent Condition: stable Disposition: PACU Indications for Procedure: 58-year-old patient seen with progressive left knee pain. After treatment options were discussed, she elected to proceed with arthroscopy. Operative Findings: See description of procedure Description of Procedure: Patient was taken to the operative suite. Patient underwent a general anesth etic by the department of anesthesia. Patient was given preoperative antibiotics. The left lower extremity was placed in a well-padded arthroscopic leg padilla. The left leg was prepped and draped in the normal sterile orthopedic fashion. A lateral parapatellar and suprapatellar incision was made. Trochars were inserted. Arthroscopy was initiated. Suprapatellar pouch revealed diffuse thick reactive synovitis. The patellofemoral joint appeared to articulate congruently. There was grade 1 chondromalacia with no osteochondral tears present. The scope was guided into the medial gutter. No loose bodies or plica were identified The scope was then guided into the medial compartment. A medial parapatellar incision was made. Trocar inserted followed by probe. Medial meniscus was found to be stable. There was thick reactive synovitis anteriorly. There was no significant chondromalacia. I performed a partial synovectomy decompressing the reactive synovitis. There was good decompression of the synovitis. Scope and probe were then guided into the intercondylar notch. Cruciates were identified, probed and found to be stable. The scope and probe were then guided into lateral compartment. There was a radial tear midbody lateral meniscus. There was thick reactive synovitis anteriorly. There was no significant chondromalacia present. I performed a partial lateral meniscectomy down to stable tissue. I performed a partial synovectomy decompressing the reactive synovitis. The residual meniscus was stable. There was good decompression of the synovitis. The scope was in guided back into the suprapatellar compartment. I introduced a motorized shaver into the super patellar compartment. I debrided some piecemeal fragments of meniscus I encountered. I performed a partial synovectomy decompressing the reactive synovitis. There was good decompression of synovitis. I took one more look on the entire knee, no residual debris. Instruments were now removed from the joint. The joint was infiltrated with .25% Marcaine. Steri-Strips were applied to the portal sites. Sterile dressings were applied. The patient was placed into a LIGIA hose. No tourniquet was utilized. The patient was awakened, transferred to a bed and taken to recovery stable satisfactory condition.
[2018-12-26 16:02] VITALS: TEMP 97.4
[2018-12-26] MEDS: HYDROmorphone 0.5 MG/0.5 ML SYRINGE IVP PRN ×4 (16:04→16:33)
[2018-12-26] MEDS ORDERED: LACTATED RINGERS 1,000 ML IV ONE ×2 (16:27)
[2018-12-26 17:11] VITALS: BP 138/70; PULSE 98
== END 2018-12-26 17:46 | disposition home or self-care (01) ==
LOC: OR 13:25
PROVIDERS: ATTEND Orthopaedic Surgery
DX: S83.282A Other tear of lateral meniscus, current injury, left knee, initial encounter (principal); M65.9 Synovitis and tenosynovitis, unspecified; I10 Essential (primary) hypertension; E78.5 Hyperlipidemia, unspecified; Z79.899 Other long term (current) drug therapy; Z88.6 Allergy status to analgesic agent; Z88.5 Allergy status to narcotic agent; Z88.8 Allergy status to other drugs, medicaments and biological substances
CPT/HCPCS: 29881; 29876; J2250 ×2; J2001; J3010; J0690; J2704; J1170

== ENCOUNTER 2019-03-31 16:51 | Emergency (ER) | payer BC, OTHER ==
[2019-03-31 18:08] VITALS: TEMP 97.8
--- NOTE | 2019-03-31 18:51 | XR ---
EXAMINATION TYPE: XR knee complete LT DATE OF EXAM: 03/31/2019 COMPARISON: 11/22/2018 HISTORY: 58-year-old female pain after twisting injury TECHNIQUE: 3 views FINDINGS: Prepatellar soft tissue swelling. No sizable joint effusion. Mild degenerative change patellofemoral compartment with a suspected 8 mm subchondral geode within the patella. No acute fracture, subluxatio n, or dislocation seen. IMPRESSION: 1. Prepatellar soft tissue swelling. 2. Mild degenerative change patellofemoral compartment with a suspected subchondral cyst in the hernández la. 3. No acute osseous abnormality otherwise seen.
--- NOTE | 2019-03-31 19:02 | ED ---
Lower Extremity Injury HPI - General Chief Complaint: Extremity Injury, Lower Stated Complaint: [facility] - lt knee injury Time Seen by Provider: 03/31/19 18:09 Source: patient Mode of arrival: ambulatory Limitations: no limitations - History of Present Illness Initial Comments: 58-year-old female presenting for left knee pain. Patient states she went from sitting to standing she states her foot was planted she twisted her left knee. Denies dislocation. Patient states she was told to come to work for evaluation because it occurred at work. Patient states she is able to weight-bear and bend at the knee without difficulty. Patient states it is slightly tender. Denies any significant soft tissue swelling. Patient denies numbness tingling loss sensation coolness or pallor of the extremity. Denies fall injury to head or neck. Remaining review of systems negative upon arrival patient appears well there is no signs of acute distress. Patient states she did have previous meniscal repair performed by Dr. Tyler - Related Data Home Medications Medication Instructions Recorded Confirmed ALPRAZolam [Xanax] 0.25 mg PO DAILY PRN 05/30/18 12/23/18 Amitriptyline HCl [Elavil] 100 mg PO HS 05/30/18 12/23/18 Butalb/APAP/Caff 50-325-40Mg 1 tab PO Q4H PRN 05/30/18 12/26/18 [Fioricet 50-325-40] Cyanocobalamin (Vitamin B-12) 1,000 mcg PO DAILY 05/30/18 12/23/18 [Vitamin B-12] Multivitamins, Thera [Multivitamin 1 tab PO DAILY 05/30/18 12/23/18 (formulary)] Calcium Carbonate/Vitamin D3 1 cap PO DAILY 11/22/18 12/23/18 [Calcium 600-Vit D3 500 Softgel] DULoxetine HCL [Cymbalta] 60 mg PO DAILY 11/22/18 12/23/18 L.acidoph,Paracasei, B.lactis 1 cap PO DAILY 11/22/18 12/23/18 [Probiotic] Losartan [Cozaar] 25 mg PO DAILY 11/22/18 12/23/18 [place]-3 Fatty Acids [[place]-3] 1,000 mg PO DAILY 11/22/18 12/23/18 Ubidecarenone [Co Q-10] 100 mg PO DAILY 11/22/18 12/23/18 amLODIPine [Norvasc] 10 mg PO DAILY 11/22/18 12/23/18 Acetaminophen [Tylenol Extra 1,000 mg PO Q6H PRN 12/23/18 12/23/18 Strength] Allergies Allergy/AdvReac Type Severity Reaction Status Date / Time aspirin AdvReac Unknown Verified 03/31/19 18:07 codeine AdvReac gastric Verified 03/31/19 18:07 pain NSAIDS (Non-Steroidal AdvReac Unknown Verified 03/31/19 18:07 Anti-Inflamma ondansetron [From Zofran] AdvReac gastric Verified 03/31/19 18:07 pain tramadol AdvReac Abdominal Verified 03/31/19 18:07 Pain oral steroids AdvReac Unknown Uncoded 03/31/19 18:07 Review of Systems ROS Statement: Those systems with pertinent positive or pertinent negative responses have been documented in the HPI. ROS Other: All systems not noted in ROS Statement are negative. Past Medical History Past Medical History: Fibromyalgia, Hypertension Additional Past Medical History / Comment(s): ARTHRITIS, arrythmia, anxiety,kidney stones, migarines, past fx wrists no sx just casted.past hiatal hernia(sx), rt pinky finger nodule History of Any Multi-Drug Resistant Organisms: None Reported Past Surgical History: Adenoidectomy, Appendectomy, Bariatric Surgery, Ale cystectomy, Tonsillectomy, Tubal Ligation Additional Past Surgical History / Comment(s): GASTRIC BYPASS and repair of hiatal hernia,inc hernia repair LEFT OOPHERECTOMY and alfredo tubes removed, rt breast bx-neg, lithotripsy several times,colonoscpy-neg, Past Anesthesia/Blood Transfusion Reactions: No Reported Reaction Past Psychological History: Anxiety Smoking Status: Former smoker - Past Family History Mother Additional Family Medical History / Comment(s): arrythmia Father Family Medical History: Cancer, Hyperlipidemia, Hypertension, Prostate Disorder Additional Family Medical History / Comment(s): prostate cancer General Exam - General Exam Comments Initial Comments: General: The patient is awake and alert, in no distress, and does not appear acutely ill. Eye: Pupils are equal, round and reactive to light, extra-ocular movements are intact. No nystagmus. There is normal conjunctiva bilaterally. No signs of icterus. Ears, nose, mouth and throat: There are moist mucous membranes and no oral lesions. Neck: The neck is supple, there is no tenderness or JVD. Cardiovascular: There is a regular rate and rhythm. No murmur, rub or gallop is appreciated. Respiratory: Lungs are clear to auscultation, respirations are non-labored, breath sounds are equal. No wheezes, stridor, rales, or rhonchi. Musculoskeletal: No inspection of the knees bilaterally. No soft tissue swelling. Normal ROM of the hips knees ankles bilaterally patient does have tenderness with range of motion at the left knee.. Strength 5/5 of the lower extremities equal bilaterally including distal to the knee.. Sensation intact both proximal and distal to injury site.. DP ulses equal bilaterally 2+. No noted laxity. Neurological: A&O x 3. CN II-XII intact, There are no obvious motor or sensory deficits. Coordination appears grossly intact. Speech is normal. Skin: Skin is warm and dry and no rashes or lesions are noted. Psychiatric: Cooperative, appropriate mood & affect, normal judgment. Limitations: no limitations Course Vital Signs 03/31/19 03/31/19 18:06 19:16 Temperature 97.8 F Pulse Rate 85 68 Respiratory 16 18 Rate Blood Pressure 159/102 152/85 O2 Sat by Pulse 100 100 Oximetry Medical Decision Making - Medical Decision Making 58yo female presenting for left knee pain. Patient states she planted her foot and twisted her knee. Patient had previous meniscal injury in that knee. Patient has no limitation to range of motion. Neurovascular intact. X-ray revealed no acute osseous injury. Patient most likely has left knee strain. It is recommended the patient follow up with her orthopedic surgeon. Patient states she has knee immobilizer hold needs to use it. Patient states that she is ready for discharge per patient was discharged. Well given [facility] instructions. Did discuss the case but they provider Dr. Romero prior to discharge. Disposition Clinical Impression: Left knee pain, Left knee injury, Elevated blood pressure reading Disposition: HOME SELF-CARE Condition: Good Instructions (If sedation given, give patient instructions): Knee Sprain (ED) Additional Instructions: Please use medication as discussed. Please follow-up with family doctor in the next 2 days, and Dr. Tyler in the next week if symptoms are persistent. Please return to emergency room if the symptoms increase or worsen or for any other concerns. Is patient prescribed a controlled substance at d/c from ED?: No Referrals: Cristal Aguilar MD [Primary Care Provider] - 1-2 days Angel Rodriguez DO [Doctor of Osteopathic Medicine] - 1-2 days Time of Disposition: 19:01
[2019-03-31 19:16] VITALS: BP 152/85; PULSE 68; RESP 18
== END 2019-03-31 19:16 | disposition home or self-care (01) ==
LOC: EC 16:51
DX: S89.92XA Unspecified injury of left lower leg, initial encounter (principal); I10 Essential (primary) hypertension; F41.9 Anxiety disorder, unspecified; Z87.891 Personal history of nicotine dependence; Z79.899 Other long term (current) drug therapy; Z88.5 Allergy status to narcotic agent; Z88.6 Allergy status to analgesic agent; Z88.8 Allergy status to other drugs, medicaments and biological substances; X50.1XXA Overexertion from prolonged static or awkward postures, initial encounter; Y92.69 Other specified industrial and construction area as the place of occurrence of the external cause; Y99.0 Civilian activity done for income or pay
CPT/HCPCS: 99283

== ENCOUNTER 2019-04-10 13:59 | Observation (INO) | payer BC, OTHER ==
[2019-04-10] MEDS ORDERED: NITROGLYCERIN OINT 1 INCH/GM PACKET TOPICAL STA (14:18)
[2019-04-10 14:43] LABS: Basophils # (A) 0.1 k/uL (0-0.2); Basophils % (A) 1 %; Eosinophils # (A) 0.1 k/uL (0-0.7); Eosinophils % (A) 1 %; HCT 40.7 % (34.0-46.0); HGB 13.2 gm/dL (11.4-16.0); Lymphocytes # (A) 1.8 k/uL (1.0-4.8); Lymphocytes % (A) 18 %; MCH 27.4 pg (25.0-35.0); MCHC 32.3 g/dL (31.0-37.0); MCV 84.7 fL (80.0-100.0); Mean Platelet Volume 6.9; Monocytes # (A) 0.4 k/uL (0-1.0); Monocytes % (A) 4 %; Neutrophils # (A) 7.9 k/uL (1.3-7.7); Neutrophils % (A) 75 %; Platelet Count 297 k/uL (150-450); RDW 12.8 % (11.5-15.5); WBC 10.4 k/uL (3.8-10.6)
[2019-04-10 15:00] LABS: Prothrombin Time 10.7 sec (9.0-12.0)
[2019-04-10 15:06] LABS: ALT 24 U/L (9-52); AST 46 U/L (14-36); African American GFR (CKD) >90 (>60 ml/min/1.73 sqM); Albumin 4.9 g/dL (3.5-5.0); Alkaline Phosphatase 67 U/L (38-126); Anion Gap 11 mmol/L; Blood Urea Nitrogen 20 mg/dL (7-17); Calcium 9.6 mg/dL (8.4-10.2); Carbon Dioxide 29 mmol/L (22-30); Chloride 98 mmol/L (98-107); Glucose 92 mg/dL (74-99); Magnesium 2.2 mg/dL (1.6-2.3); Potassium 5.1 mmol/L (3.5-5.1); Sodium 138 mmol/L (137-145); Total Bilirubin 0.4 mg/dL (0.2-1.3)
[2019-04-10 15:08] LABS: Partial Thromboplastin Time 19.8 sec (22.0-30.0)
--- NOTE | 2019-04-10 15:10 | XR ---
EXAMINATION TYPE: XR chest 2V DATE OF EXAM: 04/10/2019 COMPARISON: 05/30/2018 INDICATION: Chest pain x5 days TECHNIQUE: Frontal and lateral views of the chest are obtained. FINDINGS: The heart size is normal. The pulmonary vasculature is normal. The lungs are clear. IMPRESSION: 1. No acute pulmonary process.
--- NOTE | 2019-04-10 15:29 | ED ---
General Adult HPI - General Chief complaint: Chest Pain Stated complaint: chest pain Time Seen by Provider: 04/10/19 14:00 Source: patient, RN notes reviewed Mode of arrival: wheelchair Limitations: no limitations - History of Present Illness Initial comments: This is a 58-year-old female presents emergency department with past medical history significant for high blood pressure high cholesterol. Patient comes in today because she's been experiencing chest pain that radiates up into her neck intermittently since Sunday. Patient states the pain never goes away but it does subside quite a bit. Patient states he saw her primary medical care doctor on Sunday and things not improved since then. Patient states she has no shortness of breath she denies any diaphoretic episodes. Patient denies any nausea. Patient denies abdominal pain. Patient denies any lightheadedness dizziness or near syncopal episode. Patient denies any swelling to the legs or calf tenderness. Patient denies any recent fever chills or cough. Patient still is expecting chest pain. Patient also states she does have history of anxiety. - Related Data Home Medications Medication Instructions Recorded Confirmed ALPRAZolam [Xanax] 0.25 mg PO DAILY PRN 05/30/18 04/10/19 Amitriptyline HCl [Elavil] 100 mg PO HS 05/30/18 04/10/19 Butalb/APAP/Caff 50-325-40Mg 1 tab PO Q4H PRN 05/30/18 04/10/19 [Fioricet 50-325-40] Cyanocobalamin (Vitamin B-12) 1,000 mcg PO DAILY 05/30/18 04/10/19 [Vitamin B-12] Multivitamins, Thera [Multivitamin 1 tab PO DAILY 05/30/18 04/10/19 (formulary)] Calcium Carbonate/Vitamin D3 1 cap PO DAILY 11/22/18 04/10/19 [Calcium 600-Vit D3 500 Softgel] DULoxetine HCL [Cymbalta] 60 mg PO DAILY 11/22/18 04/10/19 L.acidoph,Paracasei, B.lactis 1 cap PO DAILY 11/22/18 04/10/19 [Probiotic] [place]-3 Fatty Acids [[place]-3] 1,000 mg PO DAILY 11/22/18 04/10/19 Ubidecarenone [Co Q-10] 100 mg PO DAILY 11/22/18 04/10/19 amLODIPine [Norvasc] 10 mg PO DAILY 11/22/18 04/10/19 Acetaminophen [Tylenol Extra 1,000 mg PO Q6H PRN 12/23/18 04/10/19 Strength] Hydrochlorothiazide [Hydrodiuril] 25 mg PO DAILY 04/10/19 04/10/19 Allergies Allergy/AdvReac Type Severity Reaction Status Date / Time aspirin AdvReac Unknown Verified 04/10/19 14:36 codeine AdvReac gastric Verified 04/10/19 14:36 pain NSAIDS (Non-Steroidal AdvReac Unknown Verified 04/10/19 14:36 Anti-Inflamma ondansetron [From Zofran] AdvReac gastric Verified 04/10/19 14:36 pain tramadol AdvReac Abdominal Verified 04/10/19 14:36 Pain oral steroids AdvReac Unknown Uncoded 04/10/19 14:04 Review of Systems ROS Statement: Those systems with pertinent positive or pertinent negative responses have been documented in the HPI. ROS Other: All systems not noted in ROS Statement are negative. Past Medical History Past Medical History: Fibromyalgia, Hypertension Additional Past Medical History / Comment(s): ARTHRITIS, arrythmia, anxiety,kidney stones, migarines, past fx wrists no sx just casted.past hiatal hernia(sx), rt pinky finger nodule History of Any Multi-Drug Resistant Organisms: None Reported Past Surgical History: Adenoidectomy, Appendectomy, Bariatric Surgery, Cholecystectomy, Tonsillectomy, Tubal Ligation Additional Past Surgical History / Comment(s): GASTRIC BYPASS and repair of hiatal hernia,inc hernia repair LEFT OOPHERECTOMY and alfredo tubes removed, rt breast bx-neg, lithotripsy several times,colonoscpy-neg, Past Anesthesia/Blood Transfusion Reactions: No Reported Reaction Past Psychological History: Anxiety Smoking Status: Former smoker Past Alcohol Use History: None Reported Past Drug Use History: None Reported - Past Family History Mother Additional Family Medical History / Comment(s): arrythmia Father Family Medical History: Cancer, Hyperlipidemia, Hypertension, Prostate Disorder Additional Family Medical History / Comment(s): prostate cancer General Exam - General Exam Comments Initial Comments: GENERAL: Patient is well-developed and well-nourished. Patient is nontoxic and well- hydrated and is in mild distress. ENT: Neck is soft and supple. No significant lymphadenopathy is noted. Oropharynx is clear. Moist mucous membranes. Neck has full range of motion without eliciting any pain. EYES: The sclera were anicteric and conjunctiva were pink and moist. Extraocular movements were intact and pupils were equal round and reactive to light. Eyelids were unremarkable. PULMONARY: Unlabored respirations. Good breath sounds bilaterally. No audible rales rhonchi or wheezing was noted. CARDIOVASCULAR: There is a regular rate and rhythm without any murmurs gallops or rubs. ABDOMEN: Soft and nontender with normal bowel sounds. No palpable organomegaly was noted. There is no palpable pulsatile mass. SKIN: Skin is clear with no lesions or rashes and otherwise unremarkable. NEUROLOGIC: Patient is alert and oriented x3. Cranial nerves II through XII are grossly intact. Motor and sensory are also intact. Normal speech, volume and content. Symmetrical smile. MUSCULOSKELETAL: Normal extremities with adequate strength and full range of motion. LYMPHATICS: No significant lymphadenopathy is noted PSYCHIATRIC: Normal psychiatric evaluation. Limitations: no limitations Course Vital Signs 04/10/19 04/10/19 04/10/19 14:01 14:47 15:45 Temperature 97.8 F Pulse Rate 94 82 81 Respiratory 16 20 13 Rate Blood Pressure 144/79 137/76 147/75 O2 Sat by Pulse 100 99 98 Oximetry Medical Decision Making - Medical Decision Making EKG shows normal sinus rhythm at 70 bpm HI interval is 116 QRS 86 QT interval 376 QTC is 428. Patient's EKG shows no ST segment elevation or depression or T wave abnormalities are noted. Chest x-ray shows no acute abnormality. I spoke with Dr. Masterson he agreed to admit the patient admitted the patient and I consult cardiology. - Lab Data Result diagrams: 04/10/19 14:25 04/10/19 14:25 Lab Results 04/10/19 04/10/19 04/10/19 Range/Units 14:25 14:25 14:25 WBC 10.4 (3.8-10.6) k/uL RBC 4.80 (3.80-5.40) m/uL Hgb 13.2 (11.4-16.0) gm/dL Hct 40.7 (34.0-46.0) % MCV 84.7 (80.0-100.0) fL MCH 27.4 (25.0-35.0) pg MCHC 32.3 (31.0-37.0) g/dL RDW 12.8 (11.5-15.5) % Plt Count 297 (150-450) k/uL Neutrophils % 75 % Lymphocytes % 18 % Monocytes % 4 % Eosinophils % 1 % Basophils % 1 % Neutrophils # 7.9 H (1.3-7.7) k/uL Lymphocytes # 1.8 (1.0-4.8) k/uL Monocytes # 0.4 (0-1.0) k/uL Eosinophils # 0.1 (0-0.7) k/uL Basophils # 0.1 (0-0.2) k/uL PT 10.7 (9.0-12.0) sec INR 1.0 (<1.2) APTT 19.8 L (22.0-30.0) sec Sodium 138 (137-145) mmol/L Potassium 5.1 (3.5-5.1) mmol/L Chloride 98 (98-107) mmol/L Carbon Dioxide 29 (22-30) mmol/L Anion Gap 11 mmol/L BUN 20 H (7-17) mg/dL Creatinine 0.63 (0.52-1.04) mg/dL Est GFR (CKD-EPI)AfAm >90 (>60 ml/min/1.73 sqM) Est GFR (CKD-EPI)NonAf >90 (>60 ml/min/1.73 sqM) Glucose 92 (74-99) mg/dL Calcium 9.6 (8.4-10.2) mg/dL Magnesium 2.2 (1.6-2.3) mg/dL Total Bilirubin 0.4 (0.2-1.3) mg/dL AST 46 H (14-36) U/L ALT 24 (9-52) U/L Alkaline Phosphatase 67 (38-126) U/L Troponin I (0.000-0.034) ng/mL Total Protein 8.0 (6.3-8.2) g/dL Albumin 4.9 (3.5-5.0) g/dL 04/10/19 Range/Units 14:25 WBC (3.8-10.6) k/uL RBC (3.80-5.40) m/uL Hgb (11.4-16.0) gm/dL Hct (34.0-46.0) % MCV (80.0-100.0) fL MCH (25.0-35.0) pg MCHC (31.0-37.0) g/dL RDW (11.5-15.5) % Plt Count (150-450) k/uL Neutrophils % % Lymphocytes % % Monocytes % % Eosinophils % % Basophils % % Neutrophils # (1.3-7.7) k/uL Lymphocytes # (1.0-4.8) k/uL Monocytes # (0-1.0) k/uL Eosinophils # (0-0.7) k/uL Basophils # (0-0.2) k/uL PT (9.0-12.0) sec INR (<1.2) APTT (22.0-30.0) sec Sodium (137-145) mmol/L Potassium (3.5-5.1) mmol/L Chloride (98-107) mmol/L Carbon Dioxide (22-30) mmol/L Anion Gap mmol/L BUN (7-17) mg/dL Creatinine (0.52-1.04) mg/dL Est GFR (CKD-EPI)AfAm (>60 ml/min/1.73 sqM) Est GFR (CKD-EPI)NonAf (>60 ml/min/1.73 sqM) Glucose (74-99) mg/dL Calcium (8.4-10.2) mg/dL Magnesium (1.6-2.3) mg/dL Total Bilirubin (0.2-1.3) mg/dL AST (14-36) U/L ALT (9-52) U/L Alkaline Phosphatase (38-126) U/L Troponin I <0.012 (0.000-0.034) ng/mL Total Protein (6.3-8.2) g/dL Albumin (3.5-5.0) g/dL Disposition Clinical Impression: Chest pain Disposition: ADMITTED IP TO THIS [facility] Referrals: Cristal Aguilar MD [Primary Care Provider] - 1-2 days Time of Disposition: 16:22
[2019-04-10] MEDS ORDERED: TRANEXAMIC ACID 1,000 MG in SODIUM CHLORIDE 0.9% 100 ML IVPB ONE (15:50)
[2019-04-10] MEDS ORDERED: NITROGLYCERIN SL TABS 0.4 MG TAB SUBLINGUAL PRN (16:24)
[2019-04-10] MEDS: NITROGLYCERIN OINT 1 INCH/GM PACKET TOPICAL SCH (17:48)
[2019-04-10] MEDS ORDERED: ALPRAZolam 0.25 MG TAB PO PRN (18:39)
[2019-04-10] MEDS ORDERED: ACETAMINOPHEN TAB 500 MG TAB PO PRN (18:39)
[2019-04-10] MEDS ORDERED: BUTALB/APAP/CAFF 50-325-40MG TAB PO PRN (18:39)
[2019-04-10 19:39] VITALS: RESP 16
[2019-04-10] MEDS ORDERED: AMITRIPTYLINE HCL 50 MG TAB PO SCH (21:00)
[2019-04-11] MEDS: NITROGLYCERIN OINT 1 INCH/GM PACKET TOPICAL SCH ×2 (00:21→06:16)
[2019-04-11 03:15] LABS: Cholesterol 151 mg/dL (<200); HDL Cholesterol 64 mg/dL (40-60); LDL Cholesterol,Calculated 71 mg/dL (0-99); Triglycerides 81 mg/dL (<150)
[2019-04-11] MEDS ORDERED: DULoxetine HCL 60 MG CAPSULE.DR PO SCH (09:00)
[2019-04-11] MEDS ORDERED: CALCIUM CARB-VIT D 500MG-200UN 1 EACH TAB PO SCH (09:00)
[2019-04-11] MEDS ORDERED: MULTIVITAMINS, THERA 1 EACH TAB PO SCH (09:00)
[2019-04-11] MEDS ORDERED: amLODIPine 10 MG TAB PO SCH (09:00)
[2019-04-11] MEDS ORDERED: NON-FORMULARY DRUG (Ubidecarenone [Co Q-10] 100 MG) PO SCH (09:00)
[2019-04-11] MEDS ORDERED: HYDROCHLOROTHIAZIDE 25 MG TAB PO SCH (09:00)
[2019-04-11] MEDS ORDERED: LACTOBACILLUS ACIDOPH & BULGAR 1 EACH PACKET PO SCH (09:00)
[2019-04-11] MEDS ORDERED: CYANOCOBALAMIN 500 MCG TAB PO SCH (09:00)
[2019-04-11] MEDS ORDERED: NON-FORMULARY DRUG (Omega-3 Fatty Acids [Omega-3] 1,000 MG) PO SCH (09:00)
[2019-04-11] MEDS: ASPIRIN 325 MG TAB PO SCH ×2 (09:04→12:06)
--- NOTE | 2019-04-11 11:33 | P.CRDCN ---
History of Present Illness History of present illness: This is a pleasant 58-year-old female past medical history significant for hypertension fibromyalgia, anxiety and remote history of arrhythmia in the past. Should follow-up with Dr. Jewell many years ago. She denies history of coronary artery disease. We've been asked to see her in consultation secondary to chest discomfort. She complains of chest pressure off an on for the last few days with achy feeling in mid-sternal region with intermittent sharp pains behind the left breast. She states she does feel these symptoms intermittently at times when her blood pressure is elevated. She has been checking her blood pressures at home and they range from 150-160/90. She was in the emergency department last week secondary to an injury at work at that time her blood pres sure is elevated as well. She saw follow-up for post-hospital evaluation and her blood pressure regimen was adjusted. She just started taking hydrochlorothiazide for the first time yesterday. She denies radiation of pain to the arm, back, neck or jaw. She denies associated shortness of breath, palpitations, dizziness, nausea, vomiting or diaphoresis. Since approximately February she has noticed increased swelling in her bilateral lower extremities. She is maintained on amlodipine. EKG reveals sinus mechanism with no acute ST or T wave abnormalities noted. Chest x-ray is negative for an acute cardiopulmonary process. Laboratory data reviewed, cardiac enzymes negative 3, LDL 71. Current cardiac medications include hydrochlorothiazide 25 mg daily and amlodipine 10 mg daily. Most recent stress test performed in July 2018 reveals no evidence of stress-induced ischemia. At the time of my exam: CONSTITUTIONAL: Denies fever. Denies chills. EYES: Denies blurred vision. Denies vision changes. Denies eye pain. EARS, NOSE, MOUTH & THROAT: Denies headache. Denies sore throat. Denies ear pain. CARDIOVASCULAR: Denies chest pain. Denies shortness of breath. Denies orthopnea. Denies PND. Denies palpitations. RESPIRATORY: Denies cough. GASTROINTESTINAL: Denies abdominal pain. Denies diarrhea. Denies constipation. Denies nausea. Denies vomiting. MUSCULOSKELETAL: Denies myalgias. INTEGUMENTARY: Denies pruitis. Denies rash. NEUROLOGIC: Denies numbness. Denies tingling. Denies weakness. PSYCHIATRIC: Denies anxiety. Denies depression. ENDOCRINE: Denies fatigue. Denies weight change. Denies polydipsia. Denies polyurina. GENITOURINARY: Denies burning, hematuria or urgency with micturation. HEMATOLOGIC: Denies history of anemia. Denies bleeding. Blood pressure 123/76 heart rate 89 afebrile maintaining oxygen saturation on room air GENERAL: This is a 58-year-old female in no apparent distress at the time of my examination. HEENT: Head is atraumatic, normocephalic. Pupils are equal, round. Sclerae anicteric. Conjunctivae are clear. Mucous membranes of the mouth are moist. Neck is supple. There is no jugular venous distention. No carotid bruit is heard. LUNGS: Clear to auscultation no wheezes, rales or rhonchi. No chest wall tenderness is noted on palpation or with deep breathing. HEART: Regular rate and rhythm without murmurs, rubs or gallops. S1 and S2 heard. ABDOMEN: Soft, nontender. Bowel sounds are heard. No organomegaly noted. EXTREMITIES: No evidence of peripheral edema and no calf tenderness noted. VASCULAR: Radial and dorsalis pedis pulses palpated, no evidence of clubbing. NEUROLOGIC: Patient is awake, alert and oriented x3. ASSESSMENT Chest pain, atypical. An acute coronary event has been ruled out. Bilateral lower extremity edema, possibly secondary to amlodipine. Hypertension Fibromyalgia Anxiety PLAN An acute coronary event has been ruled out. Increase activity and ambulation in the halls. No evidence of ischemic heart disease, recent normal stress test. Repeat echocardiogram and doppler study to assess cardiac structure and function. Check D-dimer, if elevated will check b/l lower extremity duplex. Swelling of the legs could be secondary to amlodipine. Thank you kindly for this consultation. Nurse Practitioner note has been reviewed, I agree with a documented findings and plan of care. Patient was seen and examined. Past Medical History Past Medical History: Fibromyalgia, Hypertension Additional Past Medical History / Comment(s): ARTHRITIS, arrythmia, anxiety, kidney stones, migarines, past fx wrists no sx just casted.past hiatal hernia(sx), rt pinky finger nodule History of Any Multi-Drug Resistant Organisms: None Reported Past Surgical History: Adenoidectomy, Appendectomy, Bariatric Surgery, Cholecystectomy, Tonsillectomy, Tubal Ligation Additional Past Surgical History / Comment(s): GASTRIC BYPASS and repair of hiatal hernia,inc hernia repair LEFT OOPHERECTOMY and alfredo tubes removed, rt breast bx-neg, lithotripsy several times,colonoscpy-neg, arthroscopic surgery for torn maniscus Past Anesthesia/Blood Transfusion Reactions: No Reported Reaction Past Psychological History: Anxiety Additional Psychological History / Comment(s): pt is independant. 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 1 pack per week Past Drug Use History: None Reported - Past Family History Mother Additional Family Medical History / Comment(s): arrythmia Father Family Medical History: Cancer, Hyperlipidemia, Hypertension, Prostate Disorder Additional Family Medical History / Comment(s): prostate cancer Medications and Allergies Home Medications Medication Instructions Recorded Confirmed Type ALPRAZolam [Xanax] 0.25 mg PO DAILY PRN 05/30/18 04/10/19 History Amitriptyline HCl [Elavil] 100 mg PO HS 05/30/18 04/10/19 History Butalb/APAP/Caff 50-325-40Mg 1 tab PO Q4H PRN 05/30/18 04/10/19 History [Fioricet 50-325-40] Cyanocobalamin (Vitamin B-12) 1,000 mcg PO DAILY 05/30/18 04/10/19 History [Vitamin B-12] Multivitamins, Thera [Multivitamin 1 tab PO DAILY 05/30/18 04/10/19 History (formulary)] Calcium Carbonate/Vitamin D3 1 cap PO DAILY 11/22/18 04/10/19 History [Calcium 600-Vit D3 500 Softgel] DULoxetine HCL [Cymbalta] 60 mg PO DAILY 11/22/18 04/10/19 History L.acidoph,Paracasei, B.lactis 1 cap PO DAILY 11/22/18 04/10/19 History [Probiotic] [place]-3 Fatty Acids [[place]-3] 1,000 mg PO DAILY 11/22/18 04/10/19 History Ubidecarenone [Co Q-10] 100 mg PO DAILY 11/22/18 04/10/19 History amLODIPine [Norvasc] 10 mg PO DAILY 11/22/18 04/10/19 History Acetaminophen [Tylenol Extra 1,000 mg PO Q6H PRN 12/23/18 04/10/19 History Strength] Hydrochlorothiazide [Hydrodiuril] 25 mg PO DAILY 04/10/19 04/10/19 History Allergies Allergy/AdvReac Type Severity Reaction Status Date / Time aspirin AdvReac Unknown Verified 04/10/19 14:36 codeine AdvReac gastric Verified 04/10/19 14:36 pain NSAIDS (Non-Steroidal AdvReac Unknown Verified 04/10/19 14:36 Anti-Inflamma ondansetron [From Zofran] AdvReac gastric Verified 04/10/19 14:36 pain tramadol AdvReac Abdominal Verified 04/10/19 14:36 Pain oral steroids AdvReac Unknown Uncoded 04/10/19 14:04 Physical Exam Vitals: Vital Signs Temp Pulse Pulse Resp BP BP Pulse Ox 04/11/19 04:00 98.5 F 74 16 126/66 96 04/10/19 23:57 98.5 F 89 16 112/68 95 04/10/19 19:38 97.6 F 100 16 123/69 97 04/10/19 17:03 98.7 F 84 19 138/77 100 04/10/19 15:45 81 13 147/75 98 04/10/19 15:15 98.3 F 87 16 133/76 100 04/10/19 14:47 82 20 137/76 99 04/10/19 14:01 97.8 F 94 16 144/79 100 Intake and Output 04/10/19 04/11/19 04/11/19 22:59 06:59 14:59 Other: # Voids 2 Results 04/10/19 14:25 04/10/19 14:25 Cardiac Enzymes 04/10/19 04/10/19 04/10/19 Range/Units 14:25 14:25 21:05 AST 46 H (14-36) U/L Troponin I <0.012 <0.012 (0.000-0.034) ng/mL 04/11/19 Range/Units 02:43 AST (14-36) U/L Troponin I <0.012 (0.000-0.034) ng/mL Coagulation 04/10/19 Range/Units 14:25 PT 10.7 (9.0-12.0) sec APTT 19.8 L (22.0-30.0) sec Lipids 04/11/19 Range/Units 02:43 Triglycerides 81 (<150) mg/dL Cholesterol 151 (<200) mg/dL HDL Cholesterol 64 H (40-60) mg/dL CBC 04/10/19 Range/Units 14:25 WBC 10.4 (3.8-10.6) k/uL RBC 4.80 (3.80-5.40) m/uL Hgb 13.2 (11.4-16.0) gm/dL Hct 40.7 (34.0-46.0) % Plt Count 297 (150-450) k/uL Comprehensive Metabolic Panel 04/10/19 Range/Units 14:25 Sodium 138 (137-145) mmol/L Potassium 5.1 (3.5-5.1) mmol/L Chloride 98 (98-107) mmol/L Carbon Dioxide 29 (22-30) mmol/L BUN 20 H (7-17) mg/dL Creatinine 0.63 (0.52-1.04) mg/dL Glucose 92 (74-99) mg/dL Calcium 9.6 (8.4-10.2) mg/dL AST 46 H (14-36) U/L ALT 24 (9-52) U/L Alkaline Phosphatase 67 (38-126) U/L Total Protein 8.0 (6.3-8.2) g/dL Albumin 4.9 (3.5-5.0) g/dL Current Medications Generic Name Dose Route Start Last Admin Trade Name Freq PRN Reason Stop Dose Admin Acetaminophen 1,000 mg 04/10/19 18:39 Tylenol Tab PO Q6H PRN Pain Acetaminophen/Butalbital/Caffeine 1 each 04/10/19 18:39 Fioricet 50-325-40 PO Q4H PRN Migraine Headache Alprazolam 0.25 mg 04/10/19 18:39 Xanax PO DAILY PRN Anxiety Amitriptyline HCl 100 mg 04/10/19 21:00 04/10/19 20:51 Elavil PO 100 mg HS DEBRA Administration Amlodipine Besylate 10 mg 04/11/19 09:00 Norvasc PO DAILY DEBRA Aspirin 325 mg 04/11/19 09:00 Aspirin PO DAILY [facility] Calcium Carbonate 1 each 04/11/19 09:00 Oscal 500+D PO DAILY [facility] Cyanocobalamin 1,000 mcg 04/11/19 09:00 Vitamin B-12 PO DAILY [facility] Duloxetine HCl 60 mg 04/11/19 09:00 Cymbalta PO DAILY [facility] Hydrochlorothiazide 25 mg 04/11/19 09:00 Hydrodiuril PO DAILY [facility] Lactobacillus Acidoph/Bulgaricus 1 each 04/11/19 09:00 Lactinex PO DAILY [facility] Multivitamins 1 each 04/11/19 09:00 Theragran PO DAILY [facility] Nitroglycerin 1 inch 04/10/19 18:00 04/11/19 06:16 Nitro-Bid Oint TOPICAL Not Given Q6HR [facility] Nitroglycerin 0.4 mg 04/10/19 16:24 Nitrostat SUBLINGUAL Q5M PRN Chest Pain Intake and Output 04/10/19 04/11/19 04/11/19 22:59 06:59 14:59 Other: # Voids 2 04/10/19 14:25 04/10/19 14:25
--- NOTE | 2019-04-11 11:58 | ECHOF ---
Referral Reason:cp, sob, lower extrem swelling MEASUREMENTS -------- HEIGHT: 167.6 cm WEIGHT: 77.1 kg BP: 126/66 RVIDd: 2.5 cm (< 3.3) IVSd: 1.0 cm (0.6 - 1.1) LVIDd: 4.2 cm (3.9 - 5.3) LVPWd: 1.0 cm (0.6 - 1.1) IVSs: 1.2 cm LVIDs: 2.7 cm LVPWs: 1.3 cm LA Diam: 2.5 cm (2.7 - 3.8) LAESV Index (A-L): 24.52 ml/m Ao Diam: 3.0 cm (2.0 - 3.7) AV Cusp: 1.7 cm (1.5 - 2.6) MV EXCURSION: 13.015 mm (> 18.000) MV EF SLOPE: 75 mm/s (70 - 150) EPSS: 0.6 cm MV E Zachary: 0.85 m/s MV DecT: 294 ms MV A Zachary: 0.84 m/s MV E/A Ratio: 1.01 FINDINGS -------- Sinus rhythm. This was a technically good study. The left ventricular size is normal. Left ventricular wall thickness is normal. Overall left vent ricular systolic function is normal with, an EF between 60 - 65 %. The right ventricle is normal in size. Normal LA size by volume 22+/-6 ml/m2. The right atrium is normal in size. Interatrial and interventricular septum intact. The aortic valve is trileaflet and appears structurally normal. The mitral valve is normal. Trace tricuspid regurgitation present. Trace/mild (physiologic) pulmonic regurgitation. The aortic root size is normal. Normal inferior vena cava with normal inspiratory collapse consistent with estimated right atrial pre ssure of 5 mmHg. There is no pericardial effusion. CONCLUSIONS -------- 1. Sinus rhythm. 2. This was a technically good study. 3. The left ventricular size is normal. 4. Left ventricular wall thickness is normal. 5. Overall left ventricular systolic function is normal with, an EF between 60 - 65 %. 6. The right ventricle is normal in size. 7. Normal LA size by volume 22+/-6 ml/m2. 8. The right atrium is normal in size. 9. Interatrial and interventricular septum intact. 10. The aortic valve is trileaflet and appears structurally normal. 11. The mitral valve is normal. 12. Trace tricuspid regurgitation present. 13. Trace/mild (physiologic) pulmonic regurgitation. 14. The aortic root size is normal. 15. Normal inferior vena cava with normal inspiratory collapse consistent with estimated right atrial pressure of 5 mmHg. 16. There is no pericardial effusion. SPEECH THERAPY DIRECTOR: Opal Stanton RDCS
[2019-04-11 12:18] VITALS: BP 127/77; PULSE 88; TEMP 98.3
--- NOTE | 2019-04-11 13:39 | P.HPIM ---
History of Present Illness H&P Date: 04/11/19 HISTORY AND PHYSICAL AND DISCHARGE SUMMARY: This is a 58-year-old female patient of Dr. Aguilar with past medical history of fibromyalgia, depression/anxiety, hypertension. Patient was recently started on hydrochlorothiazide. The patient comes in the hospital with complaints of chest pain on and off for several days and achy feeling in the midsternal region. She states pain radiates into her neck. It has been constant but sometimes less intense. Patient denies any shortness of breath, diaphoresis, nausea, and abdominal pain. She denies lightheadedness or dizziness. Patient was evaluated in the emergency center and placed on the observation unit. Her initial blood pressure 145/79, heart rate 94, pulse ox 100% on room air. Troponins have been negative on 3 draws. Tragus is 81, cholesterol 151, LDL 71, HDL 64. EKG reveals sinus mechanism with no acute ST or T wave abnormalities noted. Echocardiogram revealed EF of 60-65% with trace tricuspid regurgitation. Patient has been evaluated by cardiology and cleared for discharge home. Patient will be discharged home today in stable condition. Review of Systems All systems: negative Constitutional: Denies chills, Denies fatigue, Denies fever, Denies malaise, Denies weakness Eyes: denies blurred vision, denies pain Ears, nose, mouth and throat: Denies dysphagia, Denies headache, Denies sore throat Cardiovascular: Reports chest pain, Denies decreased exercise tolerance, Denies dyspnea on exertion, Denies edema, Denies leg edema, Denies lightheadedness, Denies shortness of breath, Denies syncope Respiratory: Denies cough, Denies cough with sputum, Denies dyspnea, Denies excessive sputum, Denies hemoptysis, Denies home oxygen, Denies wheezing Gastrointestinal: Denies abdominal pain, Denies diarrhea, Denies nausea, Denies vomiting Genitourinary: Denies dysuria, Denies hematuria Musculoskeletal: Denies frequent falls, Denies gait dysfunction, Denies muscle weakness, Denies myalgias Integumentary: Denies pruritus, Denies rash, Denies wounds Neurological: Denies aphasia, Denies change in mentation, Denies change in speech, Denies numbness, Denies seizures, Denies weakness Psychiatric: Denies anxiety, Denies depression Endocrine: Denies fatigue, Denies weight change Past Medical History Past Medical History: Fibromyalgia, Hypertension Additional Past Medical History / Comment(s): ARTHRITIS, arrythmia, anxiety, kidney stones, migarines, past fx wrists no sx just casted.past hiatal hernia(sx), rt pinky finger nodule History of Any Multi-Drug Resistant Organisms: None Reported Past Surgical History: Adenoidectomy, Appendectomy, Bariatric Surgery, Cholecystectomy, Tonsillectomy, Tubal Ligation Additional Past Surgical History / Comment(s): GASTRIC BYPASS and repair of hiatal hernia,inc hernia repair LEFT OOPHERECTOMY and alfredo tubes removed, rt breast bx-neg, lithotripsy several times,colonoscpy-neg, arthroscopic surgery for torn maniscus Past Anesthesia/Blood Transfusion Reactions: No Reported Reaction Past Psychological History: Anxiety Additional Psychological History / Comment(s): pt is independant. 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 1 pack per week Past Drug Use History: None Reported - Past Family History Mother Additional Family Medical History / Comment(s): arrythmia Father Family Medical History: Cancer, Hyperlipidemia, Hypertension, Prostate Disorder Additional Family Medical History / Comment(s): prostate cancer Medications and Allergies Home Medications Medication Instructions Recorded Confirmed Type ALPRAZolam [Xanax] 0.25 mg PO DAILY PRN 05/30/18 04/10/19 History Amitriptyline HCl [Elavil] 100 mg PO HS 05/30/18 04/10/19 History Butalb/APAP/Caff 50-325-40Mg 1 tab PO Q4H PRN 05/30/18 04/10/19 History [Fioricet 50-325-40] Cyanocobalamin (Vitamin B-12) 1,000 mcg PO DAILY 05/30/18 04/10/19 History [Vitamin B-12] Multivitamins, Thera [Multivitamin 1 tab PO DAILY 05/30/18 04/10/19 History (formulary)] Calcium Carbonate/Vitamin D3 1 cap PO DAILY 11/22/18 04/10/19 History [Calcium 600-Vit D3 500 Softgel] DULoxetine HCL [Cymbalta] 60 mg PO DAILY 11/22/18 04/10/19 History L.acidoph,Paracasei, B.lactis 1 cap PO DAILY 11/22/18 04/10/19 History [Probiotic] [place]-3 Fatty Acids [[place] Heart-3] 1,000 mg PO DAILY 11/22/18 04/10/19 History Ubidecarenone [Co Q-10] 100 mg PO DAILY 11/22/18 04/10/19 History amLODIPine [Norvasc] 10 mg PO DAILY 11/22/18 04/10/19 History Acetaminophen [Tylenol Extra 1,000 mg PO Q6H PRN 12/23/18 04/10/19 History Strength] Hydrochlorothiazide [Hydrodiuril] 25 mg PO DAILY 04/10/19 04/10/19 History Allergies Allergy/AdvReac Type Severity Reaction Status Date / Time aspirin AdvReac Unknown Verified 04/10/19 14:36 codeine AdvReac gastric Verified 04/10/19 14:36 pain NSAIDS (Non-Steroidal AdvReac Unknown Verified 04/10/19 14:36 Anti-Inflamma ondansetron [From Zofran] AdvReac gastric Verified 04/10/19 14:36 pain tramadol AdvReac Abdominal Verified 04/10/19 14:36 Pain oral steroids AdvReac Unknown Uncoded 04/10/19 14:04 Physical Exam Vitals: Vital Signs Temp Pulse Pulse Resp BP BP Pulse Ox 04/11/19 08:00 98.1 F 89 16 123/76 98 04/11/19 04:00 98.5 F 74 16 126/66 96 04/10/19 23:57 98.5 F 89 16 112/68 95 04/10/19 19:38 97.6 F 100 16 123/69 97 04/10/19 17:03 98.7 F 84 19 138/77 100 04/10/19 15:45 81 13 147/75 98 04/10/19 15:15 98.3 F 87 16 133/76 100 04/10/19 14:47 82 20 137/76 99 04/10/19 14:01 97.8 F 94 16 144/79 100 Intake and Output 04/10/19 04/11/19 04/11/19 22:59 06:59 14:59 Other: # Voids 2 Gen: This is a 58-year-old female. Patient is resting in bed and appears to be comfortable and in no acute distress. HEENT: Head is atraumatic, normocephalic. Pupils equal, round. Sclerae is anicteric. NECK: Supple. No JVD. No lymphadenopathy. No thyromegaly. LUNGS: Clear to auscultation. No wheezes or rhonchi. No intercostal retractions. HEART: Regular rate and rhythm. No murmur. ABDOMEN: Soft. Bowel sounds are present. No masses. No tenderness. EXTREMITIES: No pedal edema. No calf tenderness. NEUROLOGICAL: Patient is awake, alert and oriented x3. Cranial nerves 2 through 12 are grossly intact. Results CBC & Chem 7: 04/10/19 14:25 04/10/19 14:25 Labs: Abnormal Lab Results - Last 24 Hours (Table) 04/10/19 04/10/19 04/10/19 Range/Units 14:25 14:25 14:25 Neutrophils # 7.9 H (1.3-7.7) k/uL APTT 19.8 L (22.0-30.0) sec BUN 20 H (7-17) mg/dL AST 46 H (14-36) U/L HDL Cholesterol (40-60) mg/dL 04/11/19 Range/Units 02:43 Neutrophils # (1.3-7.7) k/uL APTT (22.0-30.0) sec BUN (7-17) mg/dL AST (14-36) U/L HDL Cholesterol 64 H (40-60) mg/dL Thrombosis Risk Factor Assmnt - Choose All That Apply Any of the Below Risk Factors Present?: Yes Each Factor Represents 1 point: Age 41-60 years, Obesity (BMI >25) Other Risk Factors: No Thrombosis Risk Factor Assessment Total Risk Factor Score: 2 Thrombosis Risk Factor Assessment Level: Low Risk Assessment and Plan Plan: 1. Chest pain, acute coronary syndrome ruled out, possibly related to hypertension versus anxiety. 2. Hypertension. 3. Fibromyalgia. 4. Generalized anxiety disorder, recurrent depression. Patient placed on the observation unit. Discharge plan: Return home Discharge Medication List--no changes to her home medications have been made. ALPRAZolam [Xanax] 0.25 mg PO DAILY PRN 05/30/18 [History] Amitriptyline HCl [Elavil] 100 mg PO HS 05/30/18 [History] Butalb/APAP/Caff 50-325-40Mg [Fioricet 50-325-40] 1 tab PO Q4H PRN 05/30/18 [History] Cyanocobalamin (Vitamin B-12) [Vitamin B-12] 1,000 mcg PO DAILY 05/30/18 [History] Multivitamins, Thera [Multivitamin (formulary)] 1 tab PO DAILY 05/30/18 [History] Calcium Carbonate/Vitamin D3 [Calcium 600-Vit D3 500 Softgel] 1 cap PO DAILY 11/22/18 [History] DULoxetine HCL [Cymbalta] 60 mg PO DAILY 11/22/18 [History] L.acidoph,Paracasei, B.lactis [Probiotic] 1 cap PO DAILY 11/22/18 [History] [place] Heart-3 Fatty Acids [[place] Heart-3] 1,000 mg PO DAILY 11/22/18 [History] Ubidecarenone [Co Q-10] 100 mg PO DAILY 11/22/18 [History] amLODIPine [Norvasc] 10 mg PO DAILY 11/22/18 [History] Acetaminophen [Tylenol Extra Strength] 1,000 mg PO Q6H PRN 12/23/18 [History] Hydrochlorothiazide [Hydrodiuril] 25 mg PO DAILY 04/10/19 [History] Impression and plan of care have been directed as dictated by the signing physician. Porsha Ellis nurse practitioner acting as scribe for signing physician.
== END 2019-04-11 14:10 | disposition home or self-care (01) ==
LOC: EC 13:59 → 1SOBS 16:24
PROVIDERS: ADMIT Internal Medicine Geriatric Medicine; ATTEND Internal Medicine Geriatric Medicine
DX: R07.89 Other chest pain (principal); R60.0 Localized edema; I10 Essential (primary) hypertension; F41.1 Generalized anxiety disorder; F33.9 Major depressive disorder, recurrent, unspecified; M79.7 Fibromyalgia; M19.90 Unspecified osteoarthritis, unspecified site; G43.909 Migraine, unspecified, not intractable, without status migrainosus; E78.00 Pure hypercholesterolemia, unspecified; I49.9 Cardiac arrhythmia, unspecified; E66.9 Obesity, unspecified; Z68.27 Body mass index [BMI] 27.0-27.9, adult; Z88.5 Allergy status to narcotic agent; Z79.899 Other long term (current) drug therapy; Z88.6 Allergy status to analgesic agent; Z88.8 Allergy status to other drugs, medicaments and biological substances; Z87.442 Personal history of urinary calculi; Z90.49 Acquired absence of other specified parts of digestive tract; Z98.84 Bariatric surgery status; Z87.891 Personal history of nicotine dependence; Z82.49 Family history of ischemic heart disease and other diseases of the circulatory system; Z80.42 Family history of malignant neoplasm of prostate
CPT/HCPCS: 99285; 36415; 93005; 93306; 85379; 80061; 80053; 83735; 84484 ×2; 85025; 85610; 85730; 71046; G0378 ×2

== ENCOUNTER 2019-07-10 13:58 | Emergency (ER) | payer BC, OTHER ==
[2019-07-10 14:03] VITALS: TEMP 97.9
[2019-07-10] MEDS ORDERED: diphenhydrAMINE 50 MG/ML 1 ML VIAL IVP STA (14:18)
[2019-07-10] MEDS ORDERED: METOCLOPRAMIDE 5 MG/ML 2 ML VIAL IVP STA (14:18)
[2019-07-10] MEDS ORDERED: HYDROmorphone 0.5 MG/0.5 ML SYRINGE IVP STA (14:18)
[2019-07-10] MEDS ORDERED: SODIUM CHLORIDE 0.9% 1,000 ML IV STA (14:18)
[2019-07-10] MEDS ORDERED: SODIUM CHLORIDE 0.9% 500 ML 500 ML IV STA (14:18)
--- NOTE | 2019-07-10 14:29 | ED ---
Abdominal Pain HPI - General Chief Complaint: Abdominal Pain Stated Complaint: Kidney stone Time Seen by Provider: 07/10/19 14:10 Source: patient Mode of arrival: ambulatory Limitations: no limitations - History of Present Illness Initial Comments: 58 year-old female patient presents to the emergency department today for evaluation of right flank pain. Patient does have history of kidney stone and states her pain feels similar. States pain started suddenly 2 hours ago. States she has been nauseated but has not vomited. She denies any constipation or diarrhea. She denies any hematuria, dysuria, urinary frequency, urinary urgency. Denies fever or chills. She denies any chest pain, shortness breath, or cough. Patient denies any recent rash, shortness breath, numbness, tingling, dizziness, weakness, headache, visual changes, or any other complaints. - Related Data Home Medications Medication Instructions Recorded Confirmed ALPRAZolam [Xanax] 0.25 mg PO DAILY PRN 05/30/18 04/10/19 Amitriptyline HCl [Elavil] 100 mg PO HS 05/30/18 04/10/19 Butalb/APAP/Caff 50-325-40Mg 1 tab PO Q4H PRN 05/30/18 04/10/19 [Fioricet 50-325-40] Cyanocobalamin (Vitamin B-12) 1,000 mcg PO DAILY 05/30/18 04/10/19 [Vitamin B-12] Multivitamins, Thera [Multivitamin 1 tab PO DAILY 05/30/18 04/10/19 (formulary)] Calcium Carbonate/Vitamin D3 1 cap PO DAILY 11/22/18 04/10/19 [Calcium 600-Vit D3 500 Softgel] DULoxetine HCL [Cymbalta] 60 mg PO DAILY 11/22/18 04/10/19 L.acidoph,Paracasei, B.lactis 1 cap PO DAILY 11/22/18 04/10/19 [Probiotic] [place]-3 Fatty Acids [[place]-3] 1,000 mg PO DAILY 11/22/18 04/10/19 Ubidecarenone [Co Q-10] 100 mg PO DAILY 11/22/18 04/10/19 amLODIPine [Norvasc] 10 mg PO DAILY 11/22/18 04/10/19 Acetaminophen [Tylenol Extra 1,000 mg PO Q6H PRN 12/23/18 04/10/19 Strength] Hydrochlorothiazide [Hydrodiuril] 25 mg PO DAILY 04/10/19 04/10/19 Allergies Allergy/AdvReac Type Severity Reaction Status Date / Time aspirin AdvReac Unknown Verified 04/10/19 14:36 codeine AdvReac gastric Verified 04/10/19 14:36 pain NSAIDS (Non-Steroidal AdvReac Unknown Verified 04/10/19 14:36 Anti-Inflamma ondansetron [From Zofran] AdvReac gastric Verified 04/10/19 14:36 pain tramadol AdvReac Abdominal Verified 04/10/19 14:36 Pain oral steroids AdvReac Unknown Uncoded 04/10/19 14:04 Review of Systems ROS Statement: Those systems with pertinent positive or pertinent negative responses have been documented in the HPI. ROS Other: All systems not noted in ROS Statement are negative. Past Medical History Past Medical History: Fibromyalgia, Hypertension Additional Past Medical History / Comment(s): ARTHRITIS, arrythmia, anxiety, kidney stones, migarines, past fx wrists no sx just casted.past hiatal hernia(sx), rt pinky finger nodule History of Any Multi-Drug Resistant Organisms: None Reported Past Surgical History: Adenoidectomy, Appendectomy, Bariatric Surgery, Cholecystectomy, Hernia Repair, Tonsillectomy, Tubal Ligation Additional Past Surgical History / Comment(s): GASTRIC BYPASS and repair of hiatal hernia,inc hernia repair LEFT OOPHERECTOMY and alfredo tubes removed, rt breast bx-neg, lithotripsy several times,colonoscpy-neg, arthroscopic surgery for torn maniscus Past Anesthesia/Blood Transfusion Reactions: No Reported Reaction Past Psychological History: Anxiety Smoking Status: Former smoker Past Alcohol Use History: None Reported Past Drug Use History: None Reported - Past Family History Mother Additional Family Medical History / Comment(s): arrythmia Father Family Medical History: Cancer, Hyperlipidemia, Hypertension, Prostate Disorder Additional Family Medical History / Comment(s): prostate cancer General Exam Limitations: no limitations General appearance: alert, in distress (Mild), other (Physical well-developed, well-nourished adult female patient in mild distress related to pain. Vital signs upon presentation are temperature 97.9F, pulse 92, respirations 18, blood pressure 156/90, pulse ox 100% on room air.) Eye exam: Present: normal appearance, PERRL, EOMI. Absent: scleral icterus, conjunctival injection, periorbital swelling ENT exam: Present: normal exam, normal oropharynx, mucous membranes moist Respiratory exam: Present: normal lung sounds bilaterally. Absent: respiratory distress, wheezes, rales, rhonchi, stridor Cardiovascular Exam: Present: regular rate, normal rhythm, normal heart sounds. Absent: systolic murmur, diastolic murmur, rubs, gallop, clicks GI/Abdominal exam: Present: soft, tenderness (Right upper quadrant), normal bowel sounds. Absent: distended, guarding, rebound, rigid Back exam: Present: normal inspection, CVA tenderness (R). Absent: CVA tenderness (L) Neurological exam: Present: alert, oriented X3, CN II-XII intact Psychiatric exam: Present: normal affect, normal mood Skin exam: Present: warm, dry, intact, normal color. Absent: rash Course Vital Signs 07/10/19 07/10/19 14:00 16:19 Temperature 97.9 F Pulse Rate 92 74 Respiratory 18 16 Rate Blood Pressure 156/90 145/82 O2 Sat by Pulse 100 100 Oximetry Medical Decision Making - Medical Decision Making 58 year-old female patient presents to the emergency department today for evaluation of right flank pain. Physical examination reveals right CVA tenderness and right upper quadrant tenderness. Labs reviewed and are unremarkable. Urinalysis is negative shows no hematuria. Given patient's level of pain we will perform CT abdomen and pelvis. CT was also unremarkable. Upon reevaluation patient states her pain has resolved, she did not receive pain medication. We did give IV fluids. We did discuss possible passage of a small kidney stone. She'll be discharged home at this time to follow-up with her primary care physician. Return parameters were discussed in detail. She verbalizes understanding and agrees with this plan for - Lab Data Result diagrams: 07/10/19 15:08 07/10/19 15:08 Lab Results 07/10/19 07/10/19 07/10/19 Range/Units 15:08 15:08 15:15 WBC 7.8 (3.8-10.6) k/uL RBC 4.75 (3.80-5.40) m/uL Hgb 12.3 (11.4-16.0) gm/dL Hct 40.1 (34.0-46.0) % MCV 84.3 (80.0-100.0) fL MCH 25.8 (25.0-35.0) pg MCHC 30.6 L (31.0-37.0) g/dL RDW 13.7 (11.5-15.5) % Plt Count 299 (150-450) k/uL Neutrophils % 65 % Lymphocytes % 25 % Monocytes % 5 % Eosinophils % 1 % Basophils % 1 % Neutrophils # 5.1 (1.3-7.7) k/uL Lymphocytes # 2.0 (1.0-4.8) k/uL Monocytes # 0.4 (0-1.0) k/uL Eosinophils # 0.1 (0-0.7) k/uL Basophils # 0.0 (0-0.2) k/uL Sodium 139 (137-145) mmol/L Potassium 4.9 (3.5-5.1) mmol/L Chloride 101 (98-107) mmol/L Carbon Dioxide 28 (22-30) mmol/L Anion Gap 10 mmol/L BUN 13 (7-17) mg/dL Creatinine 0.62 (0.52-1.04) mg/dL Est GFR (CKD-EPI)AfAm >90 (>60 ml/min/1.73 sqM) Est GFR (CKD-EPI)NonAf >90 (>60 ml/min/1.73 sqM) Glucose 101 H (74-99) mg/dL Calcium 9.6 (8.4-10.2) mg/dL Total Bilirubin 0.2 (0.2-1.3) mg/dL AST 40 H (14-36) U/L ALT 28 (9-52) U/L Alkaline Phosphatase 74 (38-126) U/L Total Protein 7.6 (6.3-8.2) g/dL Albumin 4.6 (3.5-5.0) g/dL Amylase 68 (30-110) U/L Lipase 179 (23-300) U/L Urine Color Yellow Urine Appearance Clear (Clear) Urine pH 6.5 (5.0-8.0) Ur Specific [place] 1.010 (1.001-1.035) Urine Protein Negative (Negative) Urine Glucose (UA) Negative (Negative) Urine Ketones Negative (Negative) Urine Blood Negative (Negative) Urine Nitrite Negative (Negative) Urine Bilirubin Negative (Negative) Urine Urobilinogen <2.0 (<2.0) mg/dL Ur Leukocyte Esterase Negative (Negative) - Radiology Data Radiology results: report reviewed, image reviewed CT abdomen and pelvis is obtained. Report was reviewed in its entirety. Impression by Dr. Manjarrez shows no suspicious acute abnormality. Disposition Clinical Impression: Right flank pain Disposition: HOME SELF-CARE Condition: Good Instructions (If sedation given, give patient instructions): Flank Pain (ED) Additional Instructions: Increase fluids. Rest. Follow-up through primary care physician for recheck in 1-2 days. Return to the emergency department immediately for any new, worsening, or concerning symptoms. Is patient prescribed a controlled substance at d/c from ED?: No Referrals: Todd Fuentes MD [Primary Care Provider] - 1-2 days Time of Disposition: 16:39
[2019-07-10 15:16] LABS: Basophils % (A) 1 %; Eosinophils # (A) 0.1 k/uL (0-0.7); Eosinophils % (A) 1 %; HCT 40.1 % (34.0-46.0); HGB 12.3 gm/dL (11.4-16.0); Lymphocytes % (A) 25 %; MCH 25.8 pg (25.0-35.0); MCHC 30.6 g/dL (31.0-37.0); MCV 84.3 fL (80.0-100.0); Mean Platelet Volume 6.8; Monocytes # (A) 0.4 k/uL (0-1.0); Monocytes % (A) 5 %; Neutrophils # (A) 5.1 k/uL (1.3-7.7); Neutrophils % (A) 65 %; Platelet Count 299 k/uL (150-450); RBC 4.75 m/uL (3.80-5.40); RDW 13.7 % (11.5-15.5); WBC 7.8 k/uL (3.8-10.6)
[2019-07-10 15:25] LABS: ALT 28 U/L (9-52); AST 40 U/L (14-36); African American GFR (CKD) >90 (>60 ml/min/1.73 sqM); Albumin 4.6 g/dL (3.5-5.0); Alkaline Phosphatase 74 U/L (38-126); Amylase 68 U/L (30-110); Anion Gap 10 mmol/L; Blood Urea Nitrogen 13 mg/dL (7-17); Calcium 9.6 mg/dL (8.4-10.2); Carbon Dioxide 28 mmol/L (22-30); Chloride 101 mmol/L (98-107); Glucose 101 mg/dL (74-99); Potassium 4.9 mmol/L (3.5-5.1); Sodium 139 mmol/L (137-145); Total Bilirubin 0.2 mg/dL (0.2-1.3); Total Protein 7.6 g/dL (6.3-8.2)
[2019-07-10 15:33] LABS: Appearance,Urine Clear (Clear); Bilirubin,Urine Negative (Negative); Blood,Urine Negative (Negative); Color,Urine Yellow; Glucose,Urine (UA) Negative (Negative); Ketones,Urine Negative (Negative); Leukocyte Esterase,Urine Negative (Negative); Nitrite,Urine Negative (Negative); PH, Urine 6.5 (5.0-8.0); Protein,Urine Negative (Negative); Urobilinogen,Urine <2.0 mg/dL (<2.0)
[2019-07-10 16:20] VITALS: BP 145/82; PULSE 74; RESP 16
--- NOTE | 2019-07-10 16:20 | CT ---
EXAMINATION TYPE: CT abdomen pelvis w con DATE OF EXAM: 07/10/2019 COMPARISON: None INDICATION: Right sided abdominal pain DLP: 962.9 mGycm, Automated exposure control for dose reduction was used. CONTRAST: 100 mL of Isovue 300. Study performed without Oral Contrast TECHNIQUE: Axial images were obtained from above the diaphragm to the pubic rami in the axial plane a t 5 mm thick sections. Reconstructed images are reviewed on the computer in the coronal plane. FINDINGS: Limited CT sections are obtained the lung bases. The lung bases are clear. There is a hiatal hernia . CT ABDOMEN: Liver: Normal Spleen: Normal Pancreas: Normal Adrenal glands: The adrenal glands are normal. Gallbladder: Surgically absent Kidneys: No masses are evident. No hydronephrosis is present. No cysts are present. Delayed images were obtained through the kidneys, which remain unremarkable. Aorta: Normal Inferior vena cava: Normal. CT PELVIS: Loops of bowel within the abdomen and pelvis are normal. This study is performed without oral con trast limiting bowel evaluation. Appendix: Not identified. No suspicious tubular structures or inflammatory changes are evident. Urinary bladder: Normal. Genitourinary structures: Uterus is unremarkable. Adnexal regions are clear. Osseous structures: No suspicious lytic or sclerotic lesions. IMPRESSIONS: 1. No suspicious acute abnormality.
== END 2019-07-10 17:30 | disposition home or self-care (01) ==
LOC: EC 13:58
DX: R10.11 Right upper quadrant pain (principal); R11.0 Nausea; I10 Essential (primary) hypertension; M79.7 Fibromyalgia; F41.9 Anxiety disorder, unspecified; Z87.891 Personal history of nicotine dependence; Z87.442 Personal history of urinary calculi; Z87.19 Personal history of other diseases of the digestive system; Z87.81 Personal history of (healed) traumatic fracture; Z90.49 Acquired absence of other specified parts of digestive tract; Z90.721 Acquired absence of ovaries, unilateral; Z98.51 Tubal ligation status; Z98.84 Bariatric surgery status; Z98.890 Other specified postprocedural states; Z79.899 Other long term (current) drug therapy; Z88.5 Allergy status to narcotic agent; Z88.6 Allergy status to analgesic agent; Z88.8 Allergy status to other drugs, medicaments and biological substances
CPT/HCPCS: 36415; 80053; 82150; 83690; 85025; 81003; 74177; 99284; 96360; Q9967

== ENCOUNTER → 2019-12-12 | Outpatient (CLI) | payer OTHER ==
--- NOTE | 2019-12-12 17:09 | XR ---
EXAMINATION TYPE: XR shoulder complete RT DATE OF EXAM: 12/12/2019 COMPARISON: 11/02/2016 HISTORY: Shoulder pain heavy lifting. TECHNIQUE: 3 views FINDINGS: I see no fracture nor dislocation. Joint spaces are fairly normal. AC joint is intact. Ther e are no pathologic calcifications. IMPRESSION: Negative right shoulder exam. No fracture. No change.
== END | disposition home or self-care (01) ==
LOC: RADXRMAIN 16:50
PROVIDERS: ATTEND Emergency Medicine
DX: S46.011A Strain of muscle(s) and tendon(s) of the rotator cuff of right shoulder, initial encounter (principal)

== ENCOUNTER → 2019-12-23 | Outpatient (CLI) | payer BC, OTHER ==
--- NOTE | 2019-12-23 11:41 | MR ---
EXAMINATION TYPE: MR shoulder RT wo con DATE OF EXAM: 12/23/2019 COMPARISON: 11/16/2016, radiograph 12/12/2019 HISTORY: 59 year-old female right shoulder pain, pulling injury TECHNIQUE: Multiplanar, multisequence imaging of the right shoulder is performed without contrast. FINDINGS: The long head biceps tendon is intact and remains situated along the bicipital. Mild tenosynovial flu id is noted. Subscapularis tendon is intact. Moderate degenerative joint space narrowing with marginal spurring and capsular hypertrophy at the ac romioclavicular joint. Mild mass effect onto the underlying myotendinous junction of the supraspinatu s. Mild to moderate effusion/thickening of the subacromial/subdeltoid bursa. There is heterogeneous signal of both supraspinatus and infraspinatus tendons. There is a full-thickness tear of the anterior supraspinatus tendon measuring 1.1 x 1.1 cm versus 9 x 6 mm on 11/16/2016. There is some articular sided tearing extending 8 mm back into the mid supraspina tus tendon. Heterogeneous signal of the infraspinatus tendon without tear. No atrophy of the rotator cuff musculature. Glenohumeral joint appears intact. No significant joint effusion. Degenerative and blunted posterior labrum. No paralabral cyst. There is bony irregularity at the greater tuberosity suggesting chronic tendinopathy but no Hill-Sach s deformity. No os acromiale. No suspicious bone marrow replacement. IMPRESSION: 1. Diffuse rotator cuff tendinosis with a full-thickness tear of the anterior supraspinatus tendon me asuring 11 x 11 mm (increased in size from 11/16/2016). Some contiguous articular sided tearing extend s 8 mm back into the mid supraspinatus tendon. No rotator cuff muscle atrophy. 2. Moderate AC joint OA with mild subacromial impingement and mild subacromial/subdeltoid bursitis/ef fusion. 3. Degenerative and blunted posterior labrum.
== END | disposition home or self-care (01) ==
LOC: RADMRIMAIN 09:59
PROVIDERS: ATTEND Emergency Medicine
DX: M75.101 Unspecified rotator cuff tear or rupture of right shoulder, not specified as traumatic (principal); M19.011 Primary osteoarthritis, right shoulder; M25.811 Other specified joint disorders, right shoulder

== ENCOUNTER → 2020-02-11 | Outpatient (CLI) | payer BC, OTHER ==
[2020-02-11 14:48] VITALS: BP 143/85; PULSE 101; RESP 20; TEMP 98.1; BMI 30.4
--- NOTE | 2020-02-11 15:35 | P.HPBAR ---
Bariatric H&P - History & Physicial H&P Date: 02/11/20 History & Physicial: Visit/CC: Getting established with Dr Shearer today Patient initial contact: Initial weight: Initial weight in pounds: Height: 5 ft 6 in Initial BMI: Last weight: Current weight: 85.684 kg Current weight in pounds: 188.90 Current BMI: 30.4 [place] body weight (based on NIH guidelines): 58.967 kg Excess body weight loss: The patient is a 59 year-old F who presents for Bariatric Assessment. DATE OF SERVICE: 02/11/2020 REASON FOR CONSULTATION: Status post gastric bypass with dysphagia HISTORY OF PRESENT ILLNESS: Kelsea Ovalle is a 59-year-old female who comes with lifelong morbid obesity. She comes in for the first time to establish bariatric care. She had surgery in 2005 gastric bypass at [facility] with micro-pouch. She has regained weigh in the past 4 to 5 years and has been lost to follow-up in the same time frame. She was seeing Dr. Norris. No labs has been done since 2018. Her highest weight was 273 pounds. Lowest weight was 129 pounds 10 months after surgery. Since then, she skin 60 pounds in over 14 years. She denies any immediate complications following surgery. She reports incisional hernia repair with mesh failure following her surgery. She denies troubles with her gastric pouch. She had open surgery done. She reports troubles from her hernia. She reports a clip failure from her hernia surgery. She got food getting stuck on occassion. She had her gallbladder removed. She has occasional dumping syndrome. Her last colonoscopy was 1 year ago without polyps. She has not had an upper endoscopy. She has hair loss. She has short term memory loss. She denies numbness. She reports poor nails. She is not taking any multivitamins. Her protein intake is low. She reports trouble with her skin. At height of 5 feet 6 inches, her ideal body weight is 154 pounds. Her highest weight was 273 pounds, BMI 44.2. Her lowest weight was 129 pounds. She has gained 60 pounds in 14 years. She comes in 189 pounds. Her body mass index is 30.5. She has lost 84 pounds. Her percent excess weight loss is 71%. She is 35 pounds overweight. PAST MEDICAL HISTORY: 1. Morbid obesity due to excess calories 2. Body mass index of 44.2, initial 3. Generalized anxiety disorder 4. Depressive disorder 5. Hypertensive heart disease 6. Kidney stones PAST SURGICAL HISTORY: 1. Gastric bypass 2. Cholecystectomy 3. Appendectomy 4. Adenoidectomy 5. Open incisional hernia repair 6. Tonsillectomy 7. Tubal ligation 8. Left oophorectomy 9. Right breast biopsy 10. Arthroscopy 11. Lithotripsy 12. Colonoscopy HOME MEDICATIONS: Home Medications Medication Instructions Recorded Confirmed ALPRAZolam [Xanax] 0.25 mg PO DAILY PRN 05/30/18 02/11/20 Amitriptyline HCl [Elavil] 100 mg PO HS 05/30/18 02/11/20 Butalb/APAP/Caff 50-325-40Mg 1 tab PO Q4H PRN 05/30/18 02/11/20 [Fioricet 50-325-40] Cyanocobalamin (Vitamin B-12) 1,000 mcg PO DAILY 05/30/18 02/11/20 [Vitamin B-12] Multivitamins, Thera [Multivitamin 1 tab PO DAILY 05/30/18 02/11/20 (formulary)] Calcium Carbonate/Vitamin D3 1 cap PO DAILY 11/22/18 02/11/20 [Calcium 600-Vit D3 500 Softgel] DULoxetine HCL [Cymbalta] 60 mg PO DAILY 11/22/18 02/11/20 L.acidoph,Paracasei, B.lactis 1 cap PO DAILY 11/22/18 02/11/20 [Probiotic] [place]-3 Fatty Acids [[place]-3] 1,000 mg PO DAILY 11/22/18 02/11/20 amLODIPine [Norvasc] 10 mg PO DAILY 11/22/18 02/11/20 Acetaminophen [Tylenol Extra 1,000 mg PO Q6H PRN 12/23/18 02/11/20 Strength] Hydrochlorothiazide [Hydrodiuril] 25 mg PO DAILY 04/10/19 02/11/20 Cholecalciferol (Vitamin D3) 5,000 unit PO 02/11/20 [Vitamin D3] ALLERGIES: SOCIAL HISTORY: Past tobacco use. FAMILY HISTORY: No family history of ulcerative colitis disease or Crohn's disease. Family history of morbid obesity. No lupus in the family. No reports of stomach or esophageal cancer. REVIEW OF ORGAN SYSTEMS: CONSTITUTIONAL: At height of 5 feet 6 inches, her ideal body weight is 154 pounds. Her highest weight was 273 pounds, BMI 44.2. Her lowest weight was 129 pounds. HEENT: Denies any active troubles with vision or hearing. Has troubles with swallowing. ENDOCRINE: No diabetes. No hypothyroidism. CARDIOVASCULAR: Denies palpitations or heart attacks or chest pain. RESPIRATORY: Denies daytime somnolence. No asthma. GASTROINTESTINAL: Denies any bright red blood per rectum. Has dumping syndrome. No constipation. MUSCULOSKELETAL: Has lower back pain and joint pain. Has osteoarthritis of the knees. NEURO: No headaches. No seizure disorders. PSYCH: Has depression. No suicidal ideation. Has anxiety. RHEUMATOLOGIC: No lupus. No rheumatoid arthritis. HEMATOLOGIC: Denies any abnormal bleeding or bruising. No personal history of DVTs. SKIN: Has rash along pannus. No skin cancer. PHYSICAL EXAM: VITAL SIGNS: Height 5 foot 6 inches, weight 189 pounds. BMI 30.5 Vital Signs Temp 98.1 F 02/11/20 14:42 Pulse 101 H 02/11/20 14:42 Resp 20 02/11/20 14:42 BP 143/85 02/11/20 14:42 Pulse Ox GENERAL: Well-developed in no acute distress. HEENT: No scleral icterus. Extraocular movements grossly intact. Hears conversational speech. No nasal drainage. NECK: Supple without lymphadenopathy. CHEST: Nonlabored respirations with equal bilateral excursions. CARDIOVASCULAR: Tachycardic. Distal 2+ pulses. ABDOMEN: Obese, soft, nontender, nondistended. MUSCULOSKELETAL: No clubbing, cyanosis. NEURO: No focal or lateralizing signs. Cranial nerves 2 through 12 grossly within normal limits. PSYCH: Appropriate affect. Alert and oriented to person, place and time. SKIN: Good skin turgor. Well perfused. ASSESSMENT: 1. Morbid obesity due to excess calories 2. Body mass index of 44.2 to 30.5 3. Generalized anxiety disorder 4. Depressive disorder 5. Hypertensive heart disease 6. Kidney stones 7. Dysphagia 8. Hair loss 9. Inadequate protein intake 10. Diverticulitis PLAN: 1. Recommend bariatric labs to identify macro and micro-nutritional deficiencies 2. Recommend upper endoscopy for history of dysphagia 3. Recommend bariatric dietitian regarding dumping syndrome and inadequate protein intake 4 Recommend start multivitamin for appropriate nutritional augmentation 5. Recommend CT scan of the abdomen for diverticulitis Past Medical History Past Medical History: Fibromyalgia, Hypertension Additional Past Medical History / Comment(s): ARTHRITIS, arrythmia, anxiety, kidney stones, migarines, past fx wrists no sx just casted.past hiatal hernia(sx), rt pinky finger nodule History of Any Multi-Drug Resistant Organisms: None Reported Past Surgical History: Adenoidectomy, Appendectomy, Bariatric Surgery, Cholecystectomy, Hernia Repair, Tonsillectomy, Tubal Ligation Additional Past Surgical History / Comment(s): GASTRIC BYPASS and repair of hiatal hernia,inc hernia repair LEFT OOPHERECTOMY and alfredo tubes removed, rt breast bx-neg, lithotripsy several times,colonoscpy-neg, arthroscopic surgery for torn maniscus Past Anesthesia/Blood Transfusion Reactions: No Reported Reaction Smoking Status: Former smoker - Past Family History Mother Additional Family Medical History / Comment(s): arrythmia Father Family Medical History: Cancer, Hyperlipidemia, Hypertension, Prostate Disorder Additional Family Medical History / Comment(s): prostate cancer Surgical - Exam Vital Signs Temp Pulse Resp BP 98.1 F 101 H 20 143/85 02/11/20 14:42 02/11/20 14:42 02/11/20 14:42 02/11/20 14:42 Bariatric Checklist Checklist: Plan: Checklist: EGD: 1. Hiatal hernia: 2. H. Pylori: HgbA1c: Vitamin D: Smoking: Former smoker Primary care physician referral: Alfredo Psychiatry clearance: Cardiology clearance: Sleep study: Diet journal: VTE risk score: VTE risk level: Rehab needs at discharge:
== END | disposition home or self-care (01) ==
LOC: BARWHC3 14:19
PROVIDERS: ATTEND Surgery Plastic and Reconstructive Surgery
DX: Z48.815 Encounter for surgical aftercare following surgery on the digestive system (principal); E66.01 Morbid (severe) obesity due to excess calories; F41.8 Other specified anxiety disorders; I11.9 Hypertensive heart disease without heart failure; N20.0 Calculus of kidney; R13.10 Dysphagia, unspecified; L65.9 Nonscarring hair loss, unspecified; E46 Unspecified protein-calorie malnutrition; K57.92 Diverticulitis of intestine, part unspecified, without perforation or abscess without bleeding; Z87.891 Personal history of nicotine dependence; Z68.30 Body mass index [BMI] 30.0-30.9, adult; Z98.84 Bariatric surgery status; Z83.49 Family history of other endocrine, nutritional and metabolic diseases; Z79.899 Other long term (current) drug therapy
CPT/HCPCS: 97803; 99211

== ENCOUNTER → 2020-02-12 | Outpatient (CLI) | payer BC, OTHER ==
[2020-02-12 10:16] LABS: HCT 37.6 % (34.0-46.0); HGB 11.8 gm/dL (11.4-16.0); Hypochromasia Slight; MCH 25.9 pg (25.0-35.0); MCHC 31.4 g/dL (31.0-37.0); MCV 82.6 fL (80.0-100.0); Mean Platelet Volume 7.5; Platelet Count 265 k/uL (150-450); RBC 4.55 m/uL (3.80-5.40); RDW 13.7 % (11.5-15.5); WBC 6.5 k/uL (3.8-10.6)
[2020-02-12 10:39] LABS: Partial Thromboplastin Time 22.1 sec (22.0-30.0); Prothrombin Time 10.5 sec (9.0-12.0)
[2020-02-12 17:43] LABS: % Iron Saturation 10.34 (12.00-45.00); African American GFR (CKD) 111.5 (60.0-200.0); Albumin 4.2 g/dL (3.80-4.90); Albumin/Globulin Ratio 1.91 (1.60-3.17); Anion Gap 14.1 mmol/L (4.00-12.00); BUN/Creat Ratio 22.86 Ratio (12.00-20.00); Calcium 9.4 mg/dL (8.7-10.3); Carbon Dioxide 27.9 mmol/L (21.6-31.8); Chol/HDL Ratio 2.47; Globulin 2.2 g/dL (1.6-3.3); LDL Cholesterol,Calculated 101.8 mg/dL (0.0-131.0); Non-African American GFR(CKD) 96.2 (60.0-200.0); Phosphorus 4.3 mg/dL (2.4-5.1); Potassium 4.2 mmol/L (3.5-5.5); Total Bilirubin 0.3 mg/dL (0.3-1.2); Total Protein 6.4 g/dL (6.2-8.2); VLDL Calculation 11.2 mg/dL (5.00-40.00)
[2020-02-12 17:51] LABS: Hemoglobin A1C 5.8 % (4.0-6.0)
[2020-02-12 18:02] LABS: Ferritin 6.3 ng/mL (10.0-291.0)
== END | disposition home or self-care (01) ==
LOC: LABWHC1 09:05
PROVIDERS: ATTEND Surgery Plastic and Reconstructive Surgery
DX: E21.1 Secondary hyperparathyroidism, not elsewhere classified (principal); E89.1 Postprocedural hypoinsulinemia; E50.9 Vitamin A deficiency, unspecified; K90.89 Other intestinal malabsorption; E55.9 Vitamin D deficiency, unspecified; N19 Unspecified kidney failure; K50.90 Crohn's disease, unspecified, without complications
CPT/HCPCS: 36415; 80053; 80061; 82306; 82525; 82607; 82728; 82746; 83036; 83540; 83550; 83735; 83970; 84100; 84134; 84255; 84425; 84443; 84590; 84630; 85027; 85610; 85730

== ENCOUNTER → 2020-02-24 | Outpatient (CLI) | payer BC, OTHER | END | disposition home or self-care (01) | LOC: LABWHC1 08:19 | PROVIDERS: ATTEND Surgery Plastic and Reconstructive Surgery | DX: Z11.59 Encounter for screening for other viral diseases (principal) ==

== ENCOUNTER 2020-02-26 09:00 | Day surgery (SDC) | payer BC, OTHER ==
[2020-02-25 10:32] VITALS: BMI 30.7
--- NOTE | 2020-02-25 19:48 | P.GSHP ---
History of Present Illness H&P Date: 02/26/20 CHIEF COMPLAINT: GERD HISTORY OF PRESENT ILLNESS: The patient is a 59-year-old female who presents reports gastroesophageal reflux disease. Upper endoscopy was offered for further evaluation and management. PAST MEDICAL HISTORY: Please see list. PAST SURGICAL HISTORY: Please see list. MEDICATIONS: Please see list. ALLERGIES: Please see list. SOCIAL HISTORY: No illicit drug use FAMILY HISTORY: No reports of Crohn disease or ulcerative colitis. REVIEW OF ORGAN SYSTEMS: CONSTITUTIONAL: No reports of fevers or chills. GI: Denies any blood in stools or constipation. PHYSICAL EXAM: VITAL SIGNS: Stable GENERAL: Well-developed and pleasant in no acute distress. HEENT: No scleral icterus. Extraocular movements grossly intact. Moist buccal mucosa. NECK: Supple without lymphadenopathy. CHEST: Unlabored respirations. Equal bilateral excursions. CARDIOVASCULAR: Regular rate and rhythm. Distal 2+ pulses. ABDOMEN: Soft, nondistended. MUSCULOSKELETAL: No clubbing, cyanosis, or edema. ASSESSMENT: 1. Gastroesophageal reflux disease PLAN: 1. Recommend proceeding with an upper endoscopy Past Medical History Past Medical History: Fibromyalgia, Hypertension, Osteoarthritis (OA) Additional Past Medical History / Comment(s): hx of atrial tachycardia hx kidney stones, migraines, past hiatal hernia(sx), rt pinky finger nodule History of Any Multi-Drug Resistant Organisms: None Reported Past Surgical History: Adenoidectomy, Appendectomy, Bariatric Surgery, Cholecystectomy, Hernia Repair, Tonsillectomy, Tubal Ligation Additional Past Surgical History / Comment(s): GASTRIC BYPASS 2005, and repair of hiatal hernia, inc hernia repair LEFT OOPHERECTOMY and alfredo tubes removed, rt breast bx-neg, lithotripsy several times,colonoscpy-neg, arthroscopic surgery for torn meniscus left knee Past Anesthesia/Blood Transfusion Reactions: No Reported Reaction Smoking Status: Former smoker - Past Family History Mother Additional Family Medical History / Comment(s): arrythmia Father Family Medical History: Cancer, Hyperlipidemia, Hypertension, Prostate Disorder Additional Family Medical History / Comment(s): prostate cancer Medications and Allergies Home Medications Medication Instructions Recorded Confirmed Type ALPRAZolam [Xanax] 0.25 mg PO DAILY PRN 05/30/18 02/25/20 History Amitriptyline HCl [Elavil] 100 mg PO HS 05/30/18 02/25/20 History Cyanocobalamin (Vitamin B-12) 1,000 mcg PO DAILY 05/30/18 02/25/20 History [Vitamin B-12] Multivitamins, Thera [Multivitamin 1 tab PO DAILY 05/30/18 02/25/20 History (formulary)] Calcium Carbonate/Vitamin D3 1 cap PO DAILY 11/22/18 02/25/20 History [Calcium 600-Vit D3 500 Softgel] DULoxetine HCL [Cymbalta] 60 mg PO QAM 11/22/18 02/25/20 History L.acidoph,Paracasei, B.lactis 1 cap PO DAILY 11/22/18 02/25/20 History [Probiotic] [place]-3 Fatty Acids [[place]-3] 1,000 mg PO DAILY 11/22/18 02/25/20 History Acetaminophen [Tylenol Extra 1,000 mg PO Q6H PRN 12/23/18 02/25/20 History Strength] Hydrochlorothiazide [Hydrodiuril] 25 mg PO QAM 04/10/19 02/25/20 History Cholecalciferol (Vitamin D3) 5,000 unit PO DAILY 02/11/20 02/25/20 History [Vitamin D3] Metoprolol Tartrate [Lopressor] 25 mg PO QAM 02/25/20 02/25/20 History amLODIPine [Norvasc] 5 mg PO QAM 02/25/20 02/25/20 History Allergies Allergy/AdvReac Type Severity Reaction Status Date / Time aspirin AdvReac does not Verified 02/25/20 10:25 take r/t gastric bypass codeine AdvReac gastric Verified 02/11/20 14:49 pain NSAIDS (Non-Steroidal AdvReac Unknown Verified 02/11/20 14:49 Anti-Inflamma ondansetron [From Zofran] AdvReac gastric Verified 02/11/20 14:49 pain tramadol AdvReac Abdominal Verified 02/11/20 14:49 Pain oral steroids AdvReac Unknown Uncoded 02/11/20 14:49
[~2020-02-26 09:00] MED LIST changes: -DEXAMETHASONE SOD PHOSPHATE 10 MG/ML 1 ML VIAL IV ONE; -LIDOCAINE 1% 20 ML VIAL (10MG/ML) FOR IV START INTRADERMA PRN; -MIDAZOLAM (PF) 2 MG/2 ML VIAL IV PRN; -SCOPOLAMINE 1.5MG/72HR PATCH TRANSDERM ONE; -ceFAZolin 1,000 MG in DEXTROSE/WATER 1 50ML.BAG IVPB ONE
[2020-02-26 09:31] VITALS: TEMP 97.4
[2020-02-26] MEDS ORDERED: PROPOFOL 10 MG/ML 20 ML VIAL IV ONE (10:24)
[2020-02-26] MEDS ORDERED: LIDOCAINE 1% INJ 10MG/ML (20 ML MDV) ONE (10:24)
--- NOTE | 2020-02-26 10:35 | P.HPADDEND ---
H&P Addendum H&P Addendum Date: 02/26/20 Patient presents with history of intermittent dysphagia. We'll proceed with upper endoscopy.
[2020-02-26 10:44] VITALS: BP 110/71
[2020-02-26 10:53] VITALS: PULSE 77; RESP 18
--- NOTE | 2020-02-26 10:57 | P.PCN ---
Date of Procedure: 02/26/20 Description of Procedure: PREOPERATIVE DIAGNOSES: 1. Dysphagia POSTOPERATIVE DIAGNOSES: 1. Dysphagia PROCEDURE PERFORMED: Esophagogastrojejunoscopy. SURGEON: Kelsea Shearer MD ANESTHESIA: MAC. INDICATIONS: The patient is a 59-year-old male with prior history of Good-en-Y gastric bypass approximately over 8 years ago. She has history of intermittent dysphagia. With her history of Good-en-Y gastric bypass, upper endoscopy was offered for further evaluation and management. DESCRIPTION: Patient was brought to the endoscopy suite and laid in the left lateral decubitus position. After adequate IV sedation, a bite block was placed. An Olympus gastroscope was passed along the posterior oropharynx down to the distal esophagus where the squamocolumnar junction was found at approximately 38 cm from the incisors. Her anastomosis was found at 43 cm, consistent with approximately 5 cm gastric pouch. The scope was advanced 60 cm from the incisors. No evidence of foreign body was found. No evidence of active gastrojejunal ulcerations were encountered. The GI tract was desufflated. The patient tolerated the procedure well. FINDINGS: 1. No acute gastrojejunal ulceration. 2. No foreign body found along the anastomosis. 3. Blind jejunal limb 5 cm PLAN: 1. Recommend upper endoscopy as needed. Plan - Discharge Summary Discharge Rx Participant: No New Discharge Prescriptions: Continue RX: Multivitamins, Thera [Multivitamin (formulary)] 1 tab PO DAILY RX: Amitriptyline HCl [Elavil] 100 mg PO HS RX: ALPRAZolam [Xanax] 0.25 mg PO DAILY PRN PRN Reason: Anxiety RX: Cyanocobalamin (Vitamin B-12) [Vitamin B-12] 1,000 mcg PO DAILY RX: DULoxetine HCL [Cymbalta] 60 mg PO QAM RX: Satin-3 Fatty Acids [Satin-3] 1,000 mg PO DAILY RX: L.acidoph,Paracasei, B.lactis [Probiotic] 1 cap PO DAILY RX: Calcium Carbonate/Vitamin D3 [Calcium 600-Vit D3 500 Softgel] 1 cap PO DAILY RX: Acetaminophen [Tylenol Extra Strength] 1,000 mg PO Q6H PRN PRN Reason: Pain RX: Hydrochlorothiazide [Hydrodiuril] 25 mg PO QAM RX: Cholecalciferol (Vitamin D3) [Vitamin D3] 5,000 unit PO DAILY RX: amLODIPine [Norvasc] 5 mg PO QAM RX: Metoprolol Tartrate [Lopressor] 25 mg PO QAM Discharge Medication List RX: ALPRAZolam [Xanax] 0.25 mg PO DAILY PRN 05/30/18 [History] RX: Amitriptyline HCl [Elavil] 100 mg PO HS 05/30/18 [History] RX: Cyanocobalamin (Vitamin B-12) [Vitamin B-12] 1,000 mcg PO DAILY 05/30/18 [History] RX: Multivitamins, Thera [Multivitamin (formulary)] 1 tab PO DAILY 05/30/18 [History] RX: Calcium Carbonate/Vitamin D3 [Calcium 600-Vit D3 500 Softgel] 1 cap PO DAILY 11/22/18 [History] RX: DULoxetine HCL [Cymbalta] 60 mg PO QAM 11/22/18 [History] RX: L.acidoph,Paracasei, B.lactis [Probiotic] 1 cap PO DAILY 11/22/18 [History] RX: Satin-3 Fatty Acids [Satin-3] 1,000 mg PO DAILY 11/22/18 [History] RX: Acetaminophen [Tylenol Extra Strength] 1,000 mg PO Q6H PRN 12/23/18 [History] RX: Hydrochlorothiazide [Hydrodiuril] 25 mg PO QAM 04/10/19 [History] RX: Cholecalciferol (Vitamin D3) [Vitamin D3] 5,000 unit PO DAILY 02/11/20 [History] RX: Metoprolol Tartrate [Lopressor] 25 mg PO QAM 02/25/20 [History] RX: amLODIPine [Norvasc] 5 mg PO QAM 02/25/20 [History] [facility] [facility] [place] [place] [facility] [place] [facility] Patient Instructions/Handouts: *[facility] - (Anesthesia) Endoscopy Discharge Instructions Discharge Disposition: HOME SELF-CARE
== END 2020-02-26 11:31 | disposition home or self-care (01) ==
LOC: ORWHC2ENDO 09:00
PROVIDERS: ATTEND Surgery Plastic and Reconstructive Surgery
DX: R13.10 Dysphagia, unspecified (principal); I10 Essential (primary) hypertension; F41.9 Anxiety disorder, unspecified; M79.7 Fibromyalgia; G43.909 Migraine, unspecified, not intractable, without status migrainosus; Z87.442 Personal history of urinary calculi; Z98.84 Bariatric surgery status; Z79.899 Other long term (current) drug therapy; Z88.5 Allergy status to narcotic agent; Z88.6 Allergy status to analgesic agent; Z88.8 Allergy status to other drugs, medicaments and biological substances
CPT/HCPCS: 43235; J2001; J2704

== ENCOUNTER → 2020-02-27 | Outpatient (CLI) | payer BC, OTHER ==
--- NOTE | 2020-02-27 11:27 | CT ---
EXAMINATION TYPE: CT abdomen pelvis w con DATE OF EXAM: 02/27/2020 HISTORY: Diverticulitis of intestine unspecified. Food sticking after gastric bypass surgery per nakita ent. CT DLP: 1155mGycm Automated Exposure Control for Dose Reduction was Utilized. CONTRAST: CT scan of the abdomen and pelvis is performed with oral and with IV Contrast, patient injected with 100 ml mL of Isovue 300. COMPARISON: CT abdomen and pelvis July 10, 2019 FINDINGS: LUNG BASES: No significant abnormality is appreciated. LIVER/GB: Cholecystectomy clips are redemonstrated. PANCREAS: No significant abnormality is seen. SPLEEN: No significant abnormality is seen. ADRENALS: No significant abnormality is seen. KIDNEYS: No significant abnormality is seen. BOWEL: The oral contrast reaches the level of the cecum. Surgical changes above and below diaphragmat ic hiatus from gastric bypass surgery redemonstrated with stable small size hiatal hernia. Remnant by passed stomach is poorly distended and thus suboptimally evaluated. There is no suspicious small or l arge bowel dilatation. Suboptimal evaluation of some small enlarged bowel loops due to poor contrast opacification particularly right mid abdominal small bowel loops where there is suggestion of mild/mo derate wall thickening coronal image 32 for reference. Surgical sutures near this level are suspected . Mild to moderate amount of fecal prominent in the transverse and left colon. No CT evidence for sig nificant diverticulosis or acute diverticulitis. UTERUS/ADNEXA: No gross abnormality seen. LYMPH NODES: No greater than 1cm abdominal or pelvic lymph nodes are appreciated. OSSEOUS STRUCTURES: Some facet arthropathy lower lumbar spine. OTHER: Numerous coils from ventral wall hernia repair surgery are redemonstrated. No recurrent hernia is seen. A few scattered pelvic phleboliths. IMPRESSION: No CT evidence for diverticulosis or acute diverticulitis. Overall nonobstructive bowel g as pattern. Gastric bypass changes redemonstrated with fixed small hiatal hernia. Mild to moderate mi d to distal colonic fecal stasis noted. Possible uncomplicated mild right-sided acute enteritis, pasha elate clinically.
--- NOTE | 2020-02-27 11:54 | FL ---
EXAMINATION TYPE: FL barium swallow DATE OF EXAM: 02/27/2020 CLINICAL HISTORY: History of gastric bypass, dysphagia, globus sensation. TECHNIQUE: A single contrast esophagram is performed utilizing air and barium. A total of 1 minute and 16 seconds of fluoroscopic time was utilized during procedure. 37 fluoroscopic images were saved during the examination. COMPARISON: None FINDINGS: The esophagus shows normal motility and emptying into the stomach. Moderate hiatal hernia i s seen increasing in size over the examination there are time in the supine position. No stricture st ricture noted. Mild degree gastroesophageal reflux was seen during real time performance of this stud y. Gastric bypass performed. Contrast extends from the stomach into the proximal small bowel smoothly . IMPRESSION: Moderate hiatal hernia in the supine position, sliding-type increasing in size over the e xamination. Mild degree gastroesophageal reflux.
== END | disposition home or self-care (01) ==
LOC: RADCTMAIN 09:08
PROVIDERS: ATTEND Surgery Plastic and Reconstructive Surgery
DX: R13.10 Dysphagia, unspecified (principal); K44.9 Diaphragmatic hernia without obstruction or gangrene; Z98.84 Bariatric surgery status; Z88.5 Allergy status to narcotic agent; Z88.8 Allergy status to other drugs, medicaments and biological substances; Z88.6 Allergy status to analgesic agent
CPT/HCPCS: 74220; 74177; Q9967

== ENCOUNTER → 2020-03-09 | Outpatient (CLI) | payer BC, OTHER ==
[2020-03-09 11:51] LABS: Basophils % (A) 1 %; Eosinophils # (A) 0.1 k/uL (0-0.7); Eosinophils % (A) 2 %; HCT 38.2 % (34.0-46.0); Hypochromasia Moderate; Lymphocytes # (A) 1.8 k/uL (1.0-4.8); Lymphocytes % (A) 25 %; MCH 26.1 pg (25.0-35.0); MCHC 31.3 g/dL (31.0-37.0); MCV 83.2 fL (80.0-100.0); Mean Platelet Volume 7.5; Monocytes # (A) 0.4 k/uL (0-1.0); Monocytes % (A) 6 %; Neutrophils # (A) 4.7 k/uL (1.3-7.7); Neutrophils % (A) 65 %; Platelet Count 291 k/uL (150-450); RBC 4.59 m/uL (3.80-5.40); RDW 13.7 % (11.5-15.5); WBC 7.2 k/uL (3.8-10.6)
[2020-03-09 12:00] LABS: Potassium 4.5 mmol/L (3.5-5.1)
== END | disposition home or self-care (01) ==
LOC: LABPAT 09:36
PROVIDERS: ATTEND Orthopaedic Surgery
DX: Z01.818 Encounter for other preprocedural examination (principal); M75.41 Impingement syndrome of right shoulder
CPT/HCPCS: 80051; 85025

== ENCOUNTER → 2020-03-10 | Outpatient (CLI) | payer BC, OTHER ==
[2020-03-10 13:57] VITALS: BP 114/78; PULSE 102; RESP 16; TEMP 98; BMI 29.8
--- NOTE | 2020-03-10 14:33 | P.PN ---
Subjective Progress Note Date: 03/10/20 DATE OF SERVICE: 03/10/2020 CHIEF COMPLAINT: Morbid obesity HISTORY OF PRESENT ILLNESS: Kelsea Ovalle is a 59-year-old female status post gastric bypass in 2005 at [facility] with micro-pouch. Her highest weight was 273 pounds. Lowest weight was 129 pounds 10 months after surgery. She reports complications from her surgeries including incisional hernia with mesh failure. She had dysphagia now improved. At present, she denies any current problems. She has not been taking nutritional supplements. She does not take iron. At height of 5 feet 6 inches, her ideal body weight is 154 pounds. Her highest weight was 273 pounds, BMI 44.2. Her lowest weight was 129 pounds. She comes in 185 pounds from 189 pounds. She has lost 4 pounds in 1 month. Her body mass index is 29.9. She has lost 88 pounds. Her percent excess weight loss is 74%. She is 31 pounds overweight. PAST MEDICAL HISTORY: 1. Morbid obesity due to excess calories 2. Body mass index of 44.2, initial 3. Generalized anxiety disorder 4. Depressive disorder 5. Hypertensive heart disease 6. Kidney stones PAST SURGICAL HISTORY: 1. Gastric bypass 2. Cholecystectomy 3. Appendectomy 4. Adenoidectomy 5. Open incisional hernia repair 6. Tonsillectomy 7. Tubal ligation 8. Left oophorectomy 9. Right breast biopsy 10. Arthroscopy 11. Lithotripsy 12. Colonoscopy HOME MEDICATIONS: Home Medications Medication Instructions Recorded Confirmed ALPRAZolam [Xanax] 0.25 mg PO DAILY PRN 05/30/18 02/11/20 Amitriptyline HCl [Elavil] 100 mg PO HS 05/30/18 02/11/20 Butalb/APAP/Caff 50-325-40Mg 1 tab PO Q4H PRN 05/30/18 02/11/20 [Fioricet 50-325-40] Cyanocobalamin (Vitamin B-12) 1,000 mcg PO DAILY 05/30/18 02/11/20 [Vitamin B-12] Multivitamins, Thera [Multivitamin 1 tab PO DAILY 05/30/18 02/11/20 (formulary)] Calcium Carbonate/Vitamin D3 1 cap PO DAILY 11/22/18 02/11/20 [Calcium 600-Vit D3 500 Softgel] DULoxetine HCL [Cymbalta] 60 mg PO DAILY 11/22/18 02/11/20 L.acidoph,Paracelenai, B.lactis 1 cap PO DAILY 11/22/18 02/11/20 [Probiotic] Columbia-3 Fatty Acids [Columbia-3] 1,000 mg PO DAILY 11/22/18 02/11/20 amLODIPine [Norvasc] 10 mg PO DAILY 11/22/18 02/11/20 Acetaminophen [Tylenol Extra 1,000 mg PO Q6H PRN 12/23/18 02/11/20 Strength] Hydrochlorothiazide [Hydrodiuril] 25 mg PO DAILY 04/10/19 02/11/20 Cholecalciferol (Vitamin D3) 5,000 unit PO 02/11/20 [Vitamin D3] ALLERGIES: SOCIAL HISTORY: Past tobacco use. FAMILY HISTORY: No family history of ulcerative colitis disease or Crohn's disease. Family history of morbid obesity. No lupus in the family. No reports of stomach or esophageal cancer. REVIEW OF ORGAN SYSTEMS: CONSTITUTIONAL: At height of 5 feet 6 inches, her ideal body weight is 154 pounds. Her highest weight was 273 pounds, BMI 44.2. Her lowest weight was 129 pounds. HEENT: Denies any active troubles with vision or hearing. Has troubles with swallowing, now improved. ENDOCRINE: No diabetes. No hypothyroidism. CARDIOVASCULAR: Denies palpitations or heart attacks or chest pain. RESPIRATORY: Denies daytime somnolence. No asthma. GASTROINTESTINAL: Denies any bright red blood per rectum. Has dumping syndrome. No constipation. MUSCULOSKELETAL: Has lower back pain and joint pain. Has osteoarthritis of the knees. NEURO: No headaches. No seizure disorders. PSYCH: Has depression. No suicidal ideation. Has anxiety. RHEUMATOLOGIC: No lupus. No rheumatoid arthritis. HEMATOLOGIC: Denies any abnormal bleeding or bruising. No personal history of DVTs. SKIN: Has rash along pannus. No skin cancer. PHYSICAL EXAM: VITAL SIGNS: Height 5 foot 6 inches, weight 185 pounds. BMI 29.9 Vital Signs Temp 98 F 03/10/20 13:54 Pulse 102 H 03/10/20 13:54 Resp 16 03/10/20 13:54 BP 114/78 03/10/20 13:54 Pulse Ox GENERAL: Well-developed in no acute distress. HEENT: No scleral icterus. Extraocular movements grossly intact. Hears conversational speech. No nasal drainage. NECK: Supple without lymphadenopathy. CHEST: Nonlabored respirations with equal bilateral excursions. CARDIOVASCULAR: Tachycardic. Distal 2+ pulses. ABDOMEN: Obese, soft, nontender, nondistended. MUSCULOSKELETAL: No clubbing, cyanosis. NEURO: No focal or lateralizing signs. Cranial nerves 2 through 12 grossly within normal limits. PSYCH: Appropriate affect. Alert and oriented to person, place and time. SKIN: Good skin turgor. Well perfused. LABS: Iron is low, 42. Zinc is low. MEDICAL REPORT: EGD FINDINGS: 1. No acute gastrojejunal ulceration. 2. No foreign body found along the anastomosis. 3. Blind jejunal limb 5 cm STUDIES: CT of the abdomen/pelvis independently reviewed shows hiatal hernia. Moderate retained stool. Multiple mesh studding of the abdominal wall from prior ventral hernia repair. Esophagram independently reviewed shows moderate sliding hiatal hernia including reflux. RADIOLOGY: CT of the abdomen and pelvis with right sided enteritis including fecal stasis disease. Esophagram report Also confirms hiatal hernia and reflux disease. ASSESSMENT: 1. Morbid obesity due to excess calories 2. Body mass index of 44.2 to 29.9 3. Generalized anxiety disorder 4. Depressive disorder 5. Hypertensive heart disease 6. Kidney stones 7. Dysphagia 8. Hair loss 9. Inadequate protein intake 10. Diverticulitis 11. Hiatal hernia 12. Gastroesophageal reflux disease PLAN: 1. She reports having surgery tomorrow. 2. Her labs reviewed shows low Zinc and iron. Currently, she does not take iron. Recommend start of iron supplement and zinc supplement. 3. All studies were reviewed with her showing hiatal hernia identified on CT scan and esophogram. May benefit from repair. 4. Gastric protection with NSAIDS include protonix 40 mg BID advised. 5. Otherwise, routine follow-up for any abdominal pain or bariatric related issues described. Objective - Vital Signs Vital signs: Vital Signs Temp 98 F 03/10/20 13:54 Pulse 102 H 03/10/20 13:54 Resp 16 03/10/20 13:54 BP 114/78 03/10/20 13:54 Pulse Ox Intake & Output 03/09/20 03/10/20 03/10/20 18:59 06:59 18:59 Weight 83.915 kg
== END | disposition home or self-care (01) ==
LOC: BARWHC3 13:23
PROVIDERS: ATTEND Surgery Plastic and Reconstructive Surgery
DX: E66.01 Morbid (severe) obesity due to excess calories (principal); F41.9 Anxiety disorder, unspecified; F32.9 Major depressive disorder, single episode, unspecified; N20.0 Calculus of kidney; I11.9 Hypertensive heart disease without heart failure; R13.10 Dysphagia, unspecified; K57.92 Diverticulitis of intestine, part unspecified, without perforation or abscess without bleeding; Z68.29 Body mass index [BMI] 29.0-29.9, adult; Z79.899 Other long term (current) drug therapy; Z79.891 Long term (current) use of opiate analgesic
CPT/HCPCS: 99211

== ENCOUNTER 2020-03-11 06:03 | Day surgery (SDC) | payer BC, OTHER ==
[2020-03-09 15:24] VITALS: BMI 30.7
--- NOTE | 2020-03-10 17:47 | HP ---
HISTORY AND PHYSICAL DATE OF SURGERY: 03/11/2020 Kelsea Ovalle is a 59-year-old patient seen with progressive right shoulder pain. We discussed options. She elected to proceed with arthroscopy. Consent was obtained. PAST MEDICAL HISTORY: Hyperlipidemia. Hypertension. PAST SURGICAL HISTORY: Appendectomy, tubal ligation, cholecystectomy, gastric bypass, knee arthroscopy. DAILY MEDICATIONS: Amitriptyline, Norvasc, Xanax. ALLERGIES: NSAIDS, ASPIRIN, CODEINE, ZOFRAN. SOCIAL HISTORY: She denies current tobacco use. PHYSICAL EVALUATION OF THE RIGHT SHOULDER: Flexion 50 degrees, abduction 30 degrees. External rotation is 20 degrees with pain and weakness. Tenderness along the anterolateral acromion and rotator cuff insertion site. Impingement is positive at 90 degrees. Drop-arm sign is positive. Distal neurovascular exam is intact. RADIOGRAPHS: Radiographs of the right shoulder revealed a type 2 anterior acromion, cystic changes of the tuberosity. Right shoulder MRI revealed rotator cuff tendon tear, possible labral tear and acromioclavicular joint osteoarthritis. IMPRESSION: 1. Right shoulder impingement with rotator cuff tear. 2. Right shoulder acromioclavicular joint osteoarthritis. 3. Right shoulder possible labral tear. 4. Hypertension. PLAN: Right shoulder arthroscopy with subacromial decompression, arthroscopic rotator cuff repair, Matthias procedure and debridement. MMODL / IJN: [id number] /
[~2020-03-11 06:03] MED LIST changes: +DEXAMETHASONE SOD PHOSPHATE 10 MG/ML 1 ML VIAL IV ONE; +LIDOCAINE 1% (10MG/ML) FOR IV START INTRADERMA PRN
[2020-03-11] MEDS ORDERED: MIDAZOLAM 2 MG/2 ML VIAL IV ONE (07:08)
[2020-03-11] MEDS ORDERED: MIDAZOLAM 2 MG/2 ML VIAL ONE (07:22)
[2020-03-11] MEDS ORDERED: SUCCINYLCHOLINE CHLORIDE 100 MG/5 ML SYR IV ONE (07:22)
[2020-03-11] MEDS ORDERED: PROPOFOL 10 MG/ML 20 ML VIAL IV ONE (07:22)
[2020-03-11] MEDS ORDERED: fentaNYL (PF) 50 MCG/ML 2 ML AMP ONE (07:22)
[2020-03-11] MEDS ORDERED: DEXAMETHASONE SOD PHOSPHATE 10 MG/ML 1 ML VIAL ONE (07:22)
[2020-03-11] MEDS ORDERED: ROPIVACAINE 5 MG/ML 30 ML VIAL ONE (07:22)
[2020-03-11] MEDS ORDERED: LACTATED RINGERS 1,000 ML IV ONE (08:30)
[2020-03-11 08:52] VITALS: TEMP 96.8
--- NOTE | 2020-03-11 08:52 | P.OP ---
Date of Procedure: 03/11/20 Preoperative Diagnosis: Right shoulder impingement Postoperative Diagnosis: 1. Right shoulder rotator cuff tear 2. Right shoulder impingement 3. Right shoulder acromioclavicular joint osteoarthritis 4. Right shoulder partial long head biceps tendon tear 5. Right shoulder superficial anterior labral tear Procedure(s) Performed: 1. Right shoulder arthroscopic rotator cuff repair 2. Right shoulder arthroscopic subacromial decompression 3. Right shoulder arthroscopic Matthias procedure 4. Right shoulder arthroscopic biceps tenotomy 5. Right shoulder arthroscopic debridement labral tear Implants: 25.5 Arthrex swivel lock anchors Anesthesia: GETA, regional (Interscalene block) Surgeon: Angel Rodriguez License Clerk #1: Jonathan Newton Estimated Blood Loss (ml): 7 Pathology: none sent Condition: stable Disposition: PACU Indications for Procedure: 59-year-old patient seen with progressive right shoulder pain. After treatment options were discussed, she elected to proceed with arthroscopy. Operative Findings: See description of procedure Description of Procedure: Patient underwent an interscalene block by department of anesthesia. The patient was then taken to the operative suite. The patient underwent a general anesthetic by the department of anesthesia. The patient was placed into a lateral position and secured. There was appropriate padding of the bony prominence. Right shoulder was then prepped and draped in normal sterile orthopedic fashion. We placed the extremity in 10 pounds of longitudinal traction. A posterior incision was now made for a posterior working portal site. The trocar and cannula were inserted into the glenohumeral joint. Arthroscopy was initiated. Spinal needle was now inserted anteriorly, to ascertain the anterior working portal site. An incision was now made in that area, a trocar was inserted followed by a probe. There was superficial tearing of the anterior labrum. There was some hyperemia and partial tearing long head biceps tendon. I could visualize the rotator cuff tear from the glenohumeral joint. I performed an arthroscopic biceps tenotomy. I debrided the labral tear getting down to stable labral tissue. The residual labrum was stable. Instruments were now removed from glenohumeral joint. Utilizing the posterior working portal site, the trocar and cannula were inserted into the subacromial space. Arthroscopy initiated. I made an incision 2 fingerbreadths lateral to the acromion. I introduced my trocar followed by my ArthroCare ablator. I now began ablating thick subacromial bursal tissue, which exposed the undersurface of the anterior acromion. There was diminished subacromial space. There was a very prominent anterior acromion. A motorized bur was introduced and a subacromial decompression was performed. I also excised some osteophytes off the inferior aspect of the distal clavicle. The AC joint was visualized and noted to be fairly arthritic. The motorized bur was introd uced in the anterior portal site and a Matthias procedure was performed without difficulty, decompressing the AC joint nicely. I turned my attention to the rotator cuff. There was a 1. 52 cm rotator cuff tear. I debrided the margins getting down to stable tendon tissue. I introduced my motorized bur and abraded the footprint area, getting some petechial bleeding. I now passed for everted mattress sutures through good bites of rotator cuff tendon with the assistance of Kavon OROZCO. We now punched 2 holes for insertion of anchors. I now one at a time introduced and the anchor with all suture limbs through the pre-punch hole and held in position while Kavon OROZCO tensioned the sutures and deployed the anchor. This was done anteriorly and posteriorly. All residual suture limbs were now clipped. We had good compression of the tendon along the entire footprint. I injected 1 mL Renyte intra-articular. Instruments now removed from the portal sites. All portal sites were approximated with nylon suture. Sterile dressings were applied followed by a shoulder sling. Jonathan OROZCO assisted in this complex case. The patient was awakened, transferred to a bed, and taken to recovery in stable condition.
[2020-03-11] MEDS: HYDROmorphone 0.5 MG/0.5 ML SYRINGE IVP PRN ×3 (09:22→09:46)
[2020-03-11 10:31] VITALS: BP 141/83; PULSE 99; RESP 18
[2020-03-11] MEDS ORDERED: ACETAMINOPHEN TAB 500 MG TAB ONE (10:55)
--- NOTE | 2020-03-12 09:02 | P.ANPRN ---
Procedure Note - Anesthesia - Nerve Block Performed Right Interscalene Single Time Out Performed: Yes Date of Procedure: 03/12/20 Procedure Start Time: 06:52 Procedure Stop Time: 06:59 Location of Patient: PreOp Indication: Acute Post-Operative Pain, Requested by Surgeon Sedation Type: Sedate with meaningful contact maintained Preparation: Sterile Prep Position: Supine Needle Types: Pajunk Needle Gauge: 21 Ultrasound used to visualize needle placement: Yes Ultrasound used to observe medication spread: Yes Blood Aspirated: No Pain Paresthesia on Injection Noted: No Resistance on Injection: Normal Image Stored and Saved: Yes Events: Uneventful and Well Tolerated (ropi .5% 30cc plus dexamethasone 4mg)
== END 2020-03-11 11:25 | disposition home or self-care (01) ==
LOC: OR 06:03
PROVIDERS: ATTEND Orthopaedic Surgery
DX: M75.101 Unspecified rotator cuff tear or rupture of right shoulder, not specified as traumatic (principal); M75.41 Impingement syndrome of right shoulder; M19.011 Primary osteoarthritis, right shoulder; S43.431A Superior glenoid labrum lesion of right shoulder, initial encounter; S46.111A Strain of muscle, fascia and tendon of long head of biceps, right arm, initial encounter; I10 Essential (primary) hypertension; E78.5 Hyperlipidemia, unspecified; F41.9 Anxiety disorder, unspecified; Z88.5 Allergy status to narcotic agent; Z88.6 Allergy status to analgesic agent; Z88.8 Allergy status to other drugs, medicaments and biological substances; Z79.899 Other long term (current) drug therapy; Z90.49 Acquired absence of other specified parts of digestive tract; Z90.89 Acquired absence of other organs; Z98.84 Bariatric surgery status; Z98.51 Tubal ligation status
CPT/HCPCS: 64415; 76942; 29824; 29826; 29827; C1713; C1894; Q4212; J2250; J1100; J0690; J3010; J2795; J0330; J2704; J1170

== ENCOUNTER → 2020-05-25 | Outpatient (CLI) | payer BC, OTHER ==
--- NOTE | 2020-05-25 11:26 | XR ---
EXAMINATION TYPE: XR lumbar spine 3 views, XR Hip Complete 2 views RT DATE OF EXAM: 05/25/2020 Comparison: None Clinical History: 59-year-old female M47.16 Lumbar spondylosis M25.551 R hip pain Findings: LUMBAR SPINE: Coils from prior mesh repair. Cholecystectomy clips. 5 lumbar type vertebral bodies. Facet arthropath y mid to lower lumbar spine. Mild endplate spondylosis throughout. Vertebral body heights are preserv ed and alignment is maintained. Straightening of the normal lumbar lordosis. RIGHT HIP: Mild marginal spurring at the femoral head neck junction. Hip joint spaces relatively maintained. No acute fracture, subluxation, or dislocation. Phleboliths in the right side of the pelvis. Impression: 1. Lumbar spine: Facet arthropathy mid to lower lumbar spine. No vertebral compression collapse or ma lalignment. Straightening of the normal lumbar lordosis could be positional or due to muscle spasm. 2. Right hip: Mild degenerative spurring. No acute osseous abnormality seen.
== END | disposition home or self-care (01) ==
LOC: RADXRMAIN 10:33
PROVIDERS: ATTEND Internal Medicine
DX: M25.751 Osteophyte, right hip (principal); M47.16 Other spondylosis with myelopathy, lumbar region
CPT/HCPCS: 72100; 73502

== ENCOUNTER → 2020-07-09 | Outpatient (CLI) | payer BC, OTHER ==
--- NOTE | 2020-07-10 07:40 | MR ---
EXAMINATION TYPE: MR lumbar spine wo con DATE OF EXAM: 07/09/2020 COMPARISON: X-ray 9 1999 HISTORY: LOW BACK PAIN AND SEVERE RT HIP PAIN AND THIGH/XRAY ON PACS TECHNIQUE: T1 and T2 axial and sagittal images of the lumbar spine are submitted. FINDINGS: There is no abnormal signal seen within the visualized spinal cord or paraspinal soft tissu es. Heterogeneous marrow signal basis of osteopenia reconversion. At L1-2 there is mild disc desiccation but no disc herniation or canal stenosis. No foraminal encroac hment. At L2-3 there is degenerative disc disease with circumferential disc bulging but no focal herniation canal stenosis hypertrophic change of the ligamentum flavum and facet joints. At L3-4 there is moderate to advanced facet arthropathy. No disc herniation, canal stenosis or encroa chment. Degenerative disc disease noted. At L4-5 there is advanced facet arthropathy. No disc herniation or canal stenosis. No foraminal encro achment. Disc desiccation noted. At L5-S1 there is a annular tear and small broad-based central disc protrusion with mild effacement o f thecal sac. No Canal stenosis. Advanced facet arthropathy. Mild bilateral foraminal encroachment. IMPRESSION: 1. Multilevel mild degenerative disease multilevel severe advanced arthropathy. 2. broad-based disc protrusion with annular tear L5-S1 and mild effacement of thecal sac. 3. Circumferential disc bulging L2-L3 but no canal stenosis or foraminal
== END | disposition home or self-care (01) ==
LOC: RADMRIMAIN 21:27
PROVIDERS: ATTEND Orthopaedic Surgery
DX: M51.26 Other intervertebral disc displacement, lumbar region (principal); M51.27 Other intervertebral disc displacement, lumbosacral region; M51.36 Other intervertebral disc degeneration, lumbar region; M46.96 Unspecified inflammatory spondylopathy, lumbar region
CPT/HCPCS: 72148

== ENCOUNTER 2020-08-24 12:05 | Day surgery (SDC) | payer BC, OTHER ==
[2020-08-18 15:22] VITALS: BMI 30.7
[2020-08-24 12:26] VITALS: RESP 16; TEMP 98.1
[2020-08-24] MEDS ORDERED: LACTATED RINGERS 1,000 ML IV ONE (12:32)
[2020-08-24] MEDS ORDERED: LIDOCAINE 1% (10MG/ML) FOR IV START INTRADERMA ONE (12:33)
[2020-08-24] MEDS ORDERED: MIDAZOLAM 2 MG/2 ML VIAL ONE (12:45)
[2020-08-24] MEDS ORDERED: fentaNYL (PF) 50 MCG/ML 2 ML AMP ONE (12:45)
[2020-08-24] MEDS ORDERED: IOPAMIDOL M200 10 ML VIAL ONE (12:45)
[2020-08-24] MEDS ORDERED: DEXAMETHASONE SOD PHOSPHATE 10 MG/ML 1 ML VIAL ONE (12:45)
[2020-08-24] MEDS ORDERED: IV FLUID CONTINUATION 650 ML IV ONE (13:05)
--- NOTE | 2020-08-24 13:17 | FL ---
Fluoroscopy HISTORY: Pain 15 seconds fluoroscopy time supplied to the referring clinician. 2 intraoperative C-arm images docum ent the procedure. See dictated report from anesthesia.
[2020-08-24 13:31] VITALS: BP 117/70; PULSE 56
--- NOTE | 2020-09-06 14:44 | P.PCN ---
Date of Procedure: 08/24/20 Description of Procedure: PREOPERATIVE DIAGNOSIS: Lumbar radiculopathy POSTOPERATIVE DIAGNOSIS: Lumbar radiculopathy Attending physician: Nicolas Houser PROCEDURE 1. Transforaminal epidural steroid injection under fluoroscopic guidance L5- P4rpuen, R side 2. Lumbar epidurogram ANESTHESIA: Local with 1% lidocaine 3 ml ; PROCEDURE INDICATION: The patient with low back pain and radiculopathy symptoms unresponsive to conservative treatment. Fluoroscopy was used for the procedure and fluoroscopic images were saved to the radiology portion of patient's chart. PROCEDURE DESCRIPTION / TECHNIQUE: The patient was seen and identified in the preoperative area. Risks, benefits, complications, and alternatives were discussed with the patient. The patient agreed to proceed with the procedure and signed the consent. IV was started, and vital signs were stable. Patient was taken to the OR and time out was completed. The patient was placed in the prone position on procedure table and a pillow was placed under the abdomen to reduce lumbar lordosis. The lumbosacral area was prepped and draped in the usual sterile fashion. Vital signs were closely monitored during the procedure. Conscious sedation was used. Using oblique fluoroscopy, the chin of the ``Carmine dog and the skin and de eper tissues just below was localized with 1% lidocaine. Subsequently, a 22- gauge 3.5-inch spinal needle was advanced under a tunneled view fluoroscopic guidance just underneath the chin of the ``Carmine dog . Under lateral fluoroscopy, the needle was then advanced to the posterior border of the foramen. After negative aspiration of CSF and blood and with no paresthesias, 1 mL of Isovue-200 contrast dye was injected under live fluoroscopy and there was no evidence of intravascular injection. The injectate solution consisting of 10 mg of dexamethasone with 1 mL of 1% lidocaine was then delivered. The needle was withdrawn intact. At the end of the procedure, skin was cleansed, and bandages were applied. COMPLICATIONS: None COMMENTS: DISPOSITION / PLANS: The patient was placed in a supine position and transferred to the recovery area in a stable condition for observation. There was no evidence of lower extremity motor or sensory deficit after the procedure. Patient was discharged from the recovery room after meeting discharge criteria. Home discharge instructions were given to the patient by the staff. The patient will follow up procedure in 2-4 weeks.
== END 2020-08-24 13:46 | disposition home or self-care (01) ==
LOC: ORPAIN 12:05
PROVIDERS: ATTEND Anesthesiology
DX: M54.5 Low back pain (principal); Z88.6 Allergy status to analgesic agent; Z88.5 Allergy status to narcotic agent; Z88.8 Allergy status to other drugs, medicaments and biological substances; Z98.51 Tubal ligation status
CPT/HCPCS: 64483; J2250; J1100; J3010; Q9966; 99152

== ENCOUNTER → 2020-08-31 | Outpatient (CLI) | payer BC, OTHER ==
--- NOTE | 2020-09-01 10:09 | MM ---
Reason for exam: screening (asymptomatic). Last mammogram was performed 5 years and 1 month ago. History: Patient is postmenopausal. Benign excisional biopsy of the right breast, 2013. Physical Findings: A clinical breast exam by your physician is recommended on an annual basis and results should be correlated with mammographic findings. MG 3D Screening Mammo W/Cad Bilateral CC and MLO view(s) were taken. Prior study comparison: August 02, 2015, mammogram, performed at [facility]. December 22, 2013, mammogram, performed at [facility]. There are scattered fibroglandular densities. No significant changes when compared with prior studies. ASSESSMENT: Benign, BI-RAD 2 RECOMMENDATION: Routine screening mammogram of both breasts in 1 year.
== END | disposition home or self-care (01) ==
LOC: RADMAMWWP 09:00
PROVIDERS: ATTEND Obstetrics & Gynecology
DX: Z12.31 Encounter for screening mammogram for malignant neoplasm of breast (principal)
CPT/HCPCS: 77063; 77067

== ENCOUNTER 2020-09-09 07:59 | Day surgery (SDC) | payer BC, OTHER ==
[2020-09-09 08:14] VITALS: RESP 18; TEMP 97.8
[2020-09-09] MEDS ORDERED: LACTATED RINGERS 1,000 ML IV SCH (08:16)
[2020-09-09] MEDS ORDERED: methylPREDNISolone ACETATE 80 MG/ML 1 ML VIAL ONE (08:21)
[2020-09-09] MEDS ORDERED: IOPAMIDOL M200 10 ML VIAL ONE (08:21)
--- NOTE | 2020-09-09 08:47 | P.PCN ---
Date of Procedure: 09/09/20 Procedure(s) Performed: PREOPERATIVE DIAGNOSIS: Lumbar radiculopathy . POSTOPERATIVE DIAGNOSIS: Same as preoperative diagnoses. PROCEDURE 1. Transforaminal epidural steroid injection under fluoroscopic guidance at right L5-S1 level. (Fluoroscopy images stored on file in the radiology Department ) 2. Lumbar epidurogram . ANESTHESIA: Local with 1% lidocaine 3 ml . EBL: Minimal PROCEDURE INDICATION: The patient with low back pain and radiculopathy symptoms unresponsive to conservative treatment. PROCEDURE DESCRIPTION / TECHNIQUE: The patient was seen and identified in the preoperative area. Risks, benefits, complications, and alternatives were discussed with the patient. The patient agreed to proceed with the procedure and signed the consent. IV was started, and vital signs were stable. Patient was taken to the OR and time out was completed. The patient was placed in the prone position on procedure table and a pillow was placed under the abdomen to reduce lumbar lordosis. The lumbosacral area was prepped and draped in the usual sterile fashion. Critical pause was taken. Vital signs were closely monitored during the procedure. Conscious sedation was used during the procedure to decrease patient s anxiety. Using oblique fluoroscopy, the chin of the ``Carmine dog at right L5-S1 level was identified, and the skin and deeper tissues just below was localized with 1% lidocaine. Subsequently, a 22-gauge 5-inch spinal needle was advanced under a tunneled view fluoroscopic guidance just underneath the chin of the ``Carmine dog at the right L5-S1 Under lateral fluoroscopy, the needle was then advanced to the posterior border of the interforaminal space. After negative aspiration of CSF and blood and with no paresthesias, 1 mL Isovue 200 contrast dye was injected excellent epidurogram and outlining of the nerve root Subsequently, 3 mL of block solution containing 80 mg Depo-Medrol and 2 mL of 0.9% normal saline PF was injected. Needle was removed . At the end of the procedure, skin was cleansed, and bandages were applied. COMPLICATIONS:none DISPOSITION / PLANS: The patient was placed in a supine position and transferred to the recovery area in a stable condition for observation. There was no eviden ce of lower extremity motor or sensory deficit after the procedure. Patient was discharged from the recovery room after meeting discharge criteria. Home discharge instructions were given to the patient by the staff. The patient was reexamined prior to discharge.
[2020-09-09 08:57] VITALS: BP 120/80; PULSE 79
--- NOTE | 2020-09-09 11:09 | FL ---
Fluoroscopy INDICATION: Pain FINDINGS: Fluoroscopy time: 0.16 minutes Images obtained: 4. IMPRESSIONS: 1. Documentation of fluoroscopy.
== END 2020-09-09 09:10 | disposition home or self-care (01) ==
LOC: ORPAIN 07:59
PROVIDERS: ATTEND Specialist
DX: M54.16 Radiculopathy, lumbar region (principal); Z88.6 Allergy status to analgesic agent; Z88.5 Allergy status to narcotic agent; Z78.0 Asymptomatic menopausal state
CPT/HCPCS: 64483; J1040; Q9966

== ENCOUNTER 2020-11-04 12:20 | Day surgery (SDC) | payer BC, OTHER ==
[2020-11-04 12:56] VITALS: TEMP 98.4
[2020-11-04] MEDS ORDERED: LACTATED RINGERS 1,000 ML IV SCH (13:07)
[2020-11-04] MEDS ORDERED: LIDOCAINE 1% (10MG/ML) FOR IV START INTRADERMA ONE (13:09)
[2020-11-04] MEDS ORDERED: LACTATED RINGERS 1,000 ML IV ONE (13:09)
[2020-11-04] MEDS ORDERED: fentaNYL (PF) 50 MCG/ML 2 ML AMP ONE (13:17)
[2020-11-04] MEDS ORDERED: methylPREDNISolone ACETATE 80 MG/ML 1 ML VIAL ONE (13:17)
[2020-11-04] MEDS ORDERED: MIDAZOLAM 2 MG/2 ML VIAL ONE (13:17)
[2020-11-04] MEDS ORDERED: IOPAMIDOL M200 10 ML VIAL ONE (13:17)
--- NOTE | 2020-11-04 13:40 | P.PCN ---
Date of Procedure: 11/04/20 Procedure(s) Performed: PREOPERATIVE DIAGNOSIS: Lumbar radiculopathy . POSTOPERATIVE DIAGNOSIS: Same as preoperative diagnoses. PROCEDURE 1. Transforaminal epidural steroid injection under fluoroscopic guidance at right L5-S1 level. (Fluoroscopy images stored on file in the radiology Department ) 2. Lumbar epidurogram . ANESTHESIA: Moderate sedation with Versed 2 mg and fentanyl 50 g Local with 1% lidocaine 3 ml . EBL: Minimal PROCEDURE INDICATION: The patient with low back pain and radiculopathy symptoms unresponsive to conservative treatment. PROCEDURE DESCRIPTION / TECHNIQUE: The patient was seen and identified in the preoperative area. Risks, benefits, complications, and alternatives were discussed with the patient. The patient agreed to proceed with the procedure and signed the consent. Moderate sedation was given to decrease the patient's anxiety IV was started, and vital signs were stable. Patient was taken to the OR and time out was completed. The patient was placed in the prone position on procedure table and a pillow was placed under the abdomen to reduce lumbar lordosis. The lumbosacral area was prepped and draped in the usual sterile fashion. Critical pause was taken. Vital signs were closely monitored during the procedure. Conscious sedation was used during the procedure to decrease patient s anxiety. Using oblique fluoroscopy, the chin of the ``Carmine dog at right L5-S1 level was identified, and the skin and deeper tissues just below was localized with 1% lidocaine. Subsequently, a 22-gauge 5-inch spinal needle was advanced under a tunneled view fluoroscopic guidance just underneath the chin of the ``Carmine dog at the right L5-S1 Under lateral fluoroscopy, the needle was then advanced to the posterior border of the interforaminal space. After negative aspiration of CSF and blood and with no paresthesias, 1 mL Isovue 200 contrast dye was injected excellent epidurogram and outlining of the nerve root Subsequently, 3 mL of block solution containing 80 mg Depo-Medrol and 2 mL of 0.9% normal saline PF was injected. Needle was removed . At the end of the procedure, skin was cleansed, and bandages were applied. COMPLICATIONS:none DISPOSITION / PLANS: The patient was placed in a supine position and transferred to the recovery area in a stable condition for observation. There was no evidence of lower extremity motor or sensory deficit after the procedure. Patient was discharged from the recovery room after meeting discharge criteria. Home discharge instructions were given to the patient by the staff. The patient was reexamined prior to discharge.
[2020-11-04] MEDS ORDERED: IV FLUID CONTINUATION 1,000 ML IV ONE ×2 (13:45)
--- NOTE | 2020-11-04 13:59 | FL ---
Fluoroscopy History: R. transthoracic epi 12 sec fl time, Dr. Brantley, 1 image saved
[2020-11-04 14:08] VITALS: BP 125/82; PULSE 63; RESP 18
== END 2020-11-04 14:15 | disposition home or self-care (01) ==
LOC: ORPAIN 12:20
PROVIDERS: ATTEND Specialist
DX: M54.16 Radiculopathy, lumbar region (principal); Z88.6 Allergy status to analgesic agent; Z88.5 Allergy status to narcotic agent; Z88.8 Allergy status to other drugs, medicaments and biological substances
CPT/HCPCS: 64483; J2250; J1040; J3010; Q9966; 99152

== ENCOUNTER → 2020-12-27 | Outpatient (CLI) | payer BC, OTHER ==
[2020-12-27 14:08] VITALS: BP 132/80; PULSE 106; RESP 16; TEMP 97.8
--- NOTE | 2020-12-27 14:22 | P.PN ---
Subjective Progress Note Date: 12/27/20 This is for visit for this 60 years old female with a chronic history of severe low back pain she is diagnosed with lumbar radiculopathy, lumbar degenerative disc disease and lumbar spondylosis with lumbar facet arthropathy, status post right-sided transforaminal epidural steroid injection at L5-S1 x3 , patient had minimal benefit from it, she continued to have severe low back pain the pain is constant and increases with any activity interference with the quality of life, she denies any change in the bowel movements or urination, she feels some weakness in her lower extremity, she had some numbness and tingling sensation in the posterior lateral aspect of her right lower extremity. Objective - Vital Signs Vital signs: Vital Signs Temp 97.8 F 12/27/20 14:02 Pulse 106 H 12/27/20 14:02 Resp 16 12/27/20 14:02 BP 132/80 12/27/20 14:02 Pulse Ox 100 12/27/20 14:02 - Constitutional Constitutional Comment(s): Physical Examinations : -Constitutiona : Cooperative , not in acute distress . -HEENT : nech : supple , no Lymphadenopathy , normal thyroid size . : eyes : no ptosis , no icterus, no photophobia . - neurologic : Cranial nerve II to XII intact , no focal neurological deffecit . -psychatric : alert , oriented X 3 , appropriate affect , intact judgment and insight . -Lymphatic : no Lymphadenopathy . - musculoskeltal : Lumber spine moter stegnth lower extremities ,thigh and legs 5/5 Right side , 5/5 Left side deep tendon reflexes : normal Knee Jerk , normal ankle Jerk lumber facet Loading Test =positive Right , positive Left Range of motion of the lumbar spine Flexion 30 degrees, extension 10 degrees strait leg raising test = positive at 60 degree Fabere test= positive Right , and positive LT . Sever tenderness over the Sacroiliac joint on the Right , and Left sides Tenderness over the right trochanteric bursa. MRI of the lumbar spine multilevel lumbar degenerative disc disease, L5-S1 disc protrusion, multilevel lumbar facet arthropathy Assessment and Plan Plan: Assessment and plan=1-lumbar radiculopathy. 2-lumbar degenerative disc disease. 3-lumbar spondylosis with lumbar facet arthropathy without myelopathy. Patient continued to have severe low back pain after a right transforaminal epidural steroid injection at L5-S1 x3 Patient will be referred to Dr Lawrence for evaluation. Patient could benefit from diagnostic medial branch block and possible RFA - PQRS measures = - Patient's medications are documented in the chart. -Tobacco use is negative and counseling.Given. -Patient's has not received pneumococcal vaccine. -Advanced care planning discussed, patient not eligible. -Opiate contract not signed. -Pain positive and follow-up visit/procedure is scheduled. -Patient's blood pressure measured [132/80 ] , and documented in the record ,and patient will follow up with the primary care. -Patient's weight was measured and body mass index [ ] above the,n ormal limits and counseling was done. and patient instructed to follow-up with the primary care physician. -Patient was not identified as an unhealthy alcohol user Time with Patient: Less than 30
== END ==
LOC: PNWHC3 13:33
PROVIDERS: ATTEND Specialist
DX: M47.26 Other spondylosis with radiculopathy, lumbar region (principal); M51.36 Other intervertebral disc degeneration, lumbar region; Z87.891 Personal history of nicotine dependence
CPT/HCPCS: 99211

== ENCOUNTER → 2021-01-17 | Outpatient (CLI) | payer BC, OTHER ==
--- NOTE | 2021-01-18 04:29 | MR ---
EXAMINATION TYPE: MR shoulder RT wo con DATE OF EXAM: 01/17/2021 COMPARISON: 12/23/2019 HISTORY: Right shoulder pain, hurts to raise her arm up. Prior Surgery in February 2020, had a recent fal l on it and re-injured it. Multiplanar multiecho imaging of the right shoulder was performed without contrast. There are artifact from pins in the greater tuberosity of the humerus. The subscapularis tendon is in tact. There is some edema on both sides of the AC joint. There is small amount of fluid in the subacr omial bursa. There is small shoulder joint effusion. There is increased signal in the supraspinatus t endon with small areas of full-thickness tear. There is no retraction. There is no evidence for fract ure. IMPRESSION: There is small tear in the supraspinatus tendon that is significantly smaller than the previous MR sc an before the surgery.. There is evidence for supraspinatus mild tendinitis. There is mild shoulder j oint effusion and also subacromial effusion which is increased compared to old exam. There is new sma ll degenerative cyst formation or bone bruise in the superior head compared to old exam.
== END | disposition home or self-care (01) ==
LOC: RADMRIMAIN 13:02
PROVIDERS: ATTEND Orthopaedic Surgery
DX: S46.011A Strain of muscle(s) and tendon(s) of the rotator cuff of right shoulder, initial encounter (principal)

== ENCOUNTER → 2021-02-02 | Outpatient (CLI) | payer BC, OTHER ==
--- NOTE | 2021-02-02 13:36 | MR ---
EXAMINATION TYPE: MR lumbar spine wo con DATE OF EXAM: 02/02/2021 1:22 PM COMPARISON: NONE HISTORY: Low back pain, right hip pain Multiplanar, MultiSpin echo imaging of the lumbar spine was performed. L1-L2: Normal disc appearance without desiccation. No herniation, protrusion or disc bulging. No ca nal stenosis is present. Foramina are patent bilaterally. L2-L3: Mild decreased signal ossified compatible degenerative disc disease. Posterior disc bulge with small annular tear. No evidence of herniation or protrusion. No central stenosis or foraminal encroa chment. L3-L4: Normal disc appearance without desiccation. No herniation, protrusion or disc bulging. No ca nal stenosis is present. Foramina are patent bilaterally. L4-L5: Normal disc appearance without desiccation. No herniation, protrusion or disc bulging. No ca nal stenosis is present. Foramina are patent bilaterally. L5-S1: Mild decreased signal ossified compatible degenerative disc disease. Posterior disc bulge with small annular tear. No evidence of herniation or protrusion. No central stenosis or foraminal encroa chment. Lumbar segments are intact. No paraspinal masses are identified. Conus medullaris has a normal appe arance. IMPRESSION: 1. Degenerative disc disease with posterior disc bulge and annular tear at L2-3 and L5-S1.
== END | disposition home or self-care (01) ==
LOC: RADMRIMAIN 12:45
PROVIDERS: ATTEND Orthopaedic Surgery
DX: M51.37 Other intervertebral disc degeneration, lumbosacral region (principal); M51.27 Other intervertebral disc displacement, lumbosacral region
CPT/HCPCS: 72148

== ENCOUNTER → 2021-02-02 | Outpatient (CLI) | payer BC, OTHER ==
[2021-02-02 15:19] VITALS: BP 136/78; PULSE 79; RESP 18; TEMP 98.3; BMI 32.5
--- NOTE | 2021-02-02 15:24 | P.HPBAR ---
Bariatric H&P - History & Physicial H&P Date: 02/02/21 History & Physicial: Visit/CC: follow up Patient initial contact: Initial weight: 83.915 kg Initial weight in pounds: 185.00 Height: 5 ft 6 in Initial BMI: 29.8 Last weight: Current weight: 91.626 kg Current weight in pounds: 202.00 Current BMI: 32.5 [place] body weight (based on NIH guidelines): 58.967 kg Excess body weight loss: The patient is a 60 year-old F who presents for Bariatric Assessment. She reports GERD and had gastric bypass. She has recurrent symptoms and she had retorn her right shoulder repair. She reports possible tear of skin. Recommend EGD. She has hernia repair. She reports weight gain since 2013. She has midline incision. She has gained 20 pounds. Will get EGD. CT scan reviewed. She has moderate scar tissue. Has upper esophageal dysphagia. 12-lead EKG for pre-surg. Get Labs. Past Medical History Past Medical History: Fibromyalgia, Hypertension Additional Past Medical History / Comment(s): ARTHRITIS, arrythmia, anxiety, kidney stones, migarines, past fx wrists no sx just casted.past hiatal hernia(sx), rt pinky finger nodule History of Any Multi-Drug Resistant Organisms: None Reported Past Surgical History: Adenoidectomy, Appendectomy, Bariatric Surgery, Cholecystectomy, Hernia Repair, Orthopedic Surgery, Tonsillectomy, Tubal Ligation Additional Past Surgical History / Comment(s): GASTRIC BYPASS and repair of hiatal hernia,inc hernia repair LEFT OOPHERECTOMY and alfredo tubes removed, rt breast bx-neg, lithotripsy several times,colonoscpy-neg, arthroscopic surgery for torn meniscus, EGD. right rotator cuff repair Past Anesthesia/Blood Transfusion Reactions: No Reported Reaction Past Psychological History: Anxiety Additional Psychological History / Comment(s): pt is independant. 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 1 pack per week Past Drug Use History: None Reported - Past Family History Mother Additional Family Medical History / Comment(s): arrythmia Father Family Medical History: Cancer, Hyperlipidemia, Hypertension, Prostate Disorder Additional Family Medical History / Comment(s): prostate cancer Surgical - Exam Vital Signs Temp Pulse Resp BP 98.3 F 79 18 136/78 02/02/21 15:08 02/02/21 15:08 02/02/21 15:08 02/02/21 15:08 Bariatric Checklist Checklist: Plan: Checklist: EGD: 1. Hiatal hernia: 2. H. Pylori: HgbA1c: Vitamin D: Smoking: Former smoker Primary care physician referral: Dr. Fuentes Psychiatry clearance: Cardiology clearance: Sleep study: Diet journal: VTE risk score: VTE risk level: Rehab needs at discharge:
[2021-02-02 17:19] LABS: HCT 42.3 % (34.0-46.0); HGB 13.6 gm/dL (11.4-16.0); MCH 27.2 pg (25.0-35.0); MCHC 32.1 g/dL (31.0-37.0); MCV 84.6 fL (80.0-100.0); Mean Platelet Volume 7.5; Platelet Count 313 k/uL (150-450); RDW 13.5 % (11.5-15.5)
[2021-02-02 17:24] LABS: Prothrombin Time 10.8 sec (9.0-12.0)
[2021-02-03 00:40] LABS: Hemoglobin A1C 5.5 % (4.0-6.0)
[2021-02-03 04:36] LABS: % Iron Saturation 14.16 (12.00-45.00); African American GFR (CKD) 110.7 (60.0-200.0); Albumin 4.4 g/dL (3.80-4.90); Albumin/Globulin Ratio 1.83 (1.60-3.17); Anion Gap 10.6 mmol/L (4.00-12.00); BUN/Creat Ratio 22.86 Ratio (12.00-20.00); Calcium 9.4 mg/dL (8.7-10.3); Carbon Dioxide 30.4 mmol/L (21.6-31.8); Chol/HDL Ratio 3.4; Ferritin 10.2 ng/mL (10.0-291.0); Folate, Serum 11.1 ng/mL; Globulin 2.4 g/dL (1.6-3.3); LDL Cholesterol,Calculated 100.2 mg/dL (0.0-131.0); Non-African American GFR(CKD) 95.5 (60.0-200.0); Phosphorus 4.2 mg/dL (2.4-5.1); Potassium 4.1 mmol/L (3.5-5.5); Total Bilirubin 0.3 mg/dL (0.3-1.2); Total Protein 6.8 g/dL (6.2-8.2); VLDL Calculation 38.8 mg/dL (5.00-40.00)
[2021-02-04 12:26] LABS: Zinc, Serum 69 ug/dL (60-130)
[2021-02-07 05:54] LABS: Vit B1(Thiamine) 95 ug/L (38-122)
[2021-02-07 07:17] LABS: Vitamin A 55 ug/dL (38-106)
[2021-02-07 19:32] LABS: Selenium 148 mcg/L (63-160)
== END ==
LOC: BARWHC3 13:50
PROVIDERS: ATTEND Surgery Plastic and Reconstructive Surgery
DX: E66.01 Morbid (severe) obesity due to excess calories (principal); E89.1 Postprocedural hypoinsulinemia; D50.8 Other iron deficiency anemias; E44.0 Moderate protein-calorie malnutrition; E55.9 Vitamin D deficiency, unspecified; K74.1 Hepatic sclerosis; N19 Unspecified kidney failure; K50.90 Crohn's disease, unspecified, without complications; F41.9 Anxiety disorder, unspecified; I10 Essential (primary) hypertension; M19.90 Unspecified osteoarthritis, unspecified site; Z68.31 Body mass index [BMI] 31.0-31.9, adult; Z88.6 Allergy status to analgesic agent; Z88.8 Allergy status to other drugs, medicaments and biological substances; Z88.5 Allergy status to narcotic agent; Z79.899 Other long term (current) drug therapy; Z87.891 Personal history of nicotine dependence
CPT/HCPCS: 36415; 80053; 80061; 82306; 82525; 82607; 82728; 82746; 83036; 83540; 83550; 83735; 83970; 84100; 84134; 84255; 84425; 84443; 84590; 84630; 85027; 85610; 85730; 99211

== ENCOUNTER 2021-02-28 08:05 | Day surgery (SDC) | payer BC, OTHER ==
[2021-02-24 13:22] VITALS: BMI 32.3
[~2021-02-28 08:05] MED LIST changes: -DEXAMETHASONE SOD PHOSPHATE 10 MG/ML 1 ML VIAL IV ONE
--- NOTE | 2021-02-28 08:06 | P.GSHP ---
History of Present Illness H&P Date: 02/28/21 CHIEF COMPLAINT: GERD HISTORY OF PRESENT ILLNESS: The patient is a 60-year-old female who presents reports gastroesophageal reflux disease. Upper endoscopy was offered for further evaluation and management. PAST MEDICAL HISTORY: Please see list. PAST SURGICAL HISTORY: Please see list. MEDICATIONS: Please see list. ALLERGIES: Please see list. SOCIAL HISTORY: No illicit drug use FAMILY HISTORY: No reports of Crohn disease or ulcerative colitis. REVIEW OF ORGAN SYSTEMS: CONSTITUTIONAL: No reports of fevers or chills. GI: Denies any blood in stools or constipation. PHYSICAL EXAM: VITAL SIGNS: Stable GENERAL: Well-developed and pleasant in no acute distress. HEENT: No scleral icterus. Extraocular movements grossly intact. Moist buccal mucosa. NECK: Supple without lymphadenopathy. CHEST: Unlabored respirations. Equal bilateral excursions. CARDIOVASCULAR: Regular rate and rhythm. Distal 2+ pulses. ABDOMEN: Soft, nondistended. MUSCULOSKELETAL: No clubbing, cyanosis, or edema. ASSESSMENT: 1. Gastroesophageal reflux disease PLAN: 1. Recommend proceeding with an upper endoscopy Past Medical History Past Medical History: Fibromyalgia, Hypertension, Osteoarthritis (OA) Additional Past Medical History / Comment(s): arrythmia, migraines, hx kidney stones, hx hiatal hernia, "food getting stuck", History of Any Multi-Drug Resistant Organisms: None Reported Past Surgical History: Adenoidectomy, Appendectomy, Bariatric Surgery, Cholecystectomy, Hernia Repair, Orthopedic Surgery, Tonsillectomy, Tubal Ligation Additional Past Surgical History / Comment(s): GASTRIC BYPASS and repair of hiatal hernia,Rt OOPHERECTOMY and alfredo salpinectomy, rt breast biopsy, lithotripsy several times,colonoscpy, arthroscopic surgery for left torn meniscus, EGD. right shoulder rotator cuff Past Anesthesia/Blood Transfusion Reactions: No Reported Reaction Smoking Status: Former smoker - Past Family History Mother Additional Family Medical History / Comment(s): arrythmia Father Family Medical History: Cancer Additional Family Medical History / Comment(s): prostate cancer Medications and Allergies Home Medications Medication Instructions Recorded Confirmed Type ALPRAZolam [Xanax] 0.25 mg PO DAILY PRN 05/30/18 02/24/21 History Amitriptyline HCl [Elavil] 100 mg PO HS 05/30/18 02/24/21 History Cyanocobalamin (Vitamin B-12) 1,000 mcg PO DAILY 05/30/18 02/24/21 History [Vitamin B-12] Multivitamins, Thera [Multivitamin 1 tab PO DAILY 05/30/18 02/24/21 History (formulary)] Calcium Carbonate/Vitamin D3 1 cap PO DAILY 11/22/18 02/24/21 History [Calcium 600-Vit D3 12.5 Mcg (500 Iu)] DULoxetine HCL [Cymbalta] 60 mg PO QAM 11/22/18 02/24/21 History L.acidoph,Paracasei, B.lactis 1 cap PO DAILY 11/22/18 02/24/21 History [Probiotic] [place]-3 Fatty Acids [[place]-3] 1,000 mg PO DAILY 11/22/18 02/24/21 History Acetaminophen [Tylenol Extra 1,000 mg PO Q6H PRN 12/23/18 02/24/21 History Strength] hydroCHLOROthiazide [Hydrodiuril] 25 mg PO QAM 04/10/19 02/24/21 History Metoprolol Tartrate [Lopressor] 50 mg PO QAM 02/25/20 02/24/21 History Gabapentin [Neurontin] 300 mg PO HS 12/08/20 02/24/21 History Cetirizine HCl [Zyrtec] 10 mg PO DAILY 02/24/21 02/24/21 History Cholecalciferol (Vitamin D3) 125 mcg PO DAILY 02/24/21 02/24/21 History [Vitamin D3 (5000 Iu)] Allergies Allergy/AdvReac Type Severity Reaction Status Date / Time aspirin AdvReac does not Verified 02/24/21 13:10 take r/t gastric bypass codeine AdvReac gastric Verified 02/24/21 13:10 pain NSAIDS (Non-Steroidal AdvReac Patient Verified 02/24/21 13:10 Anti-Inflamma states she cannot take due to gastric bypass ondansetron [From Zofran] AdvReac gastric Verified 02/24/21 13:10 pain tramadol AdvReac Abdominal Verified 02/24/21 13:10 Pain oral steroids AdvReac Patient Uncoded 02/24/21 13:10 states she cannot take due to gastric bypass
[2021-02-28] MEDS ORDERED: LIDOCAINE 1% (10MG/ML) FOR IV START INTRADERMA ONE (08:38)
[2021-02-28] MEDS ORDERED: LACTATED RINGERS 1,000 ML IV ONE (08:39)
[2021-02-28 08:43] VITALS: RESP 16; TEMP 98.2
[2021-02-28] MEDS ORDERED: LIDOCAINE 1% INJ 10MG/ML (20 ML MDV) ONE (08:57)
[2021-02-28] MEDS ORDERED: PROPOFOL 10 MG/ML 20 ML VIAL IV ONE (08:57)
--- NOTE | 2021-02-28 09:27 | P.PCN ---
Date of Procedure: 02/28/21 Description of Procedure: PREOPERATIVE DIAGNOSIS: Dysphagia. History of gastric bypass POSTOPERATIVE DIAGNOSIS: Esophageal stenosis, upper History of gastric bypass Diaphragmatic hiatal hernia OPERATION: Esophagogastrojejunoscopy with rigid dilatation, 54 Fr SURGEON: Kelsea Shearer MD ANESTHESIA: MAC. INDICATIONS: The patient is a 60-year-old female who presents with a history of dysphagia. Benefits and risks of the procedure were described. Informed consent was obtained. DESCRIPTION: The patient was brought into the endoscopy suite and laid in the left lateral decubitus position. After a timeout was confirmed, the procedure was initiated. An Olympus gastroscope was passed along the posterior oropharynx down to the distal esophagus where the squamocolumnar junction was unremarkable. The gastric pouch was entered. Additional findings below. Esophageal dysmotility was found as the adult gastroscope was 9.5 mm in size. A guidewire was placed through the scope. The scope was removed. A rigid dilator 54-Norwegian placed for dilation performed for 2 minutes. The patient tolerated the procedure well. FINDINGS: Esophageal dysmotility addressed with rigid dilator, 54-Norwegian No chronic gastrojejunal ulceration encountered. Diaphragmatic hiatal hernia, 33-38 cm (5cm) from the incisors RECOMMENDATIONS: 1. Upper endoscopy as needed 2. Hiatal hernia repair recommended Plan - Discharge Summary New Discharge Prescriptions: Continue Multivitamins, Thera [Multivitamin (formulary)] 1 tab PO DAILY Amitriptyline HCl [Elavil] 100 mg PO HS ALPRAZolam [Xanax] 0.25 mg PO DAILY PRN PRN Reason: Anxiety Cyanocobalamin (Vitamin B-12) [Vitamin B-12] 1,000 mcg PO DAILY DULoxetine HCL [Cymbalta] 60 mg PO QAM [place]-3 Fatty Acids [[place]-3] 1,000 mg PO DAILY L.acidoph,Paracasei, B.lactis [Probiotic] 1 cap PO DAILY Calcium Carbonate/Vitamin D3 [Calcium 600-Vit D3 12.5 Mcg (500 Iu)] 1 cap PO DAILY Acetaminophen [Tylenol Extra Strength] 1,000 mg PO Q6H PRN PRN Reason: Pain hydroCHLOROthiazide [Hydrodiuril] 25 mg PO QAM Metoprolol Tartrate [Lopressor] 50 mg PO QAM Gabapentin [Neurontin] 300 mg PO HS Cholecalciferol (Vitamin D3) [Vitamin D3 (5000 Iu)] 125 mcg PO DAILY Cetirizine HCl [Zyrtec] 10 mg PO DAILY Discharge Medication List ALPRAZolam [Xanax] 0.25 mg PO DAILY PRN 05/30/18 [History] Amitriptyline HCl [Elavil] 100 mg PO HS 05/30/18 [History] Cyanocobalamin (Vitamin B-12) [Vitamin B-12] 1,000 mcg PO DAILY 05/30/18 [History] Multivitamins, Thera [Multivitamin (formulary)] 1 tab PO DAILY 05/30/18 [History] Calcium Carbonate/Vitamin D3 [Calcium 600-Vit D3 12.5 Mcg (500 Iu)] 1 cap PO DAILY 11/22/18 [History] DULoxetine HCL [Cymbalta] 60 mg PO QAM 11/22/18 [History] L.acidoph,Paracasei, B.lactis [Probiotic] 1 cap PO DAILY 11/22/18 [History] [place]-3 Fatty Acids [[place]-3] 1,000 mg PO DAILY 11/22/18 [History] Acetaminophen [Tylenol Extra Strength] 1,000 mg PO Q6H PRN 12/23/18 [History] hydroCHLOROthiazide [Hydrodiuril] 25 mg PO QAM 04/10/19 [History] Metoprolol Tartrate [Lopressor] 50 mg PO QAM 02/25/20 [History] Gabapentin [Neurontin] 300 mg PO HS 12/08/20 [History] Cetirizine HCl [Zyrtec] 10 mg PO DAILY 02/24/21 [History] Cholecalciferol (Vitamin D3) [Vitamin D3 (5000 Iu)] 125 mcg PO DAILY 02/24/21 [History] Follow [facility]ment[facility] [place] [facility] - [facility]21 Patient Instructions/Handouts: Esophageal Dilation (DC) Activity/Diet/Wound Care/Special Instructions: Diet as tolerated Discharge Disposition: HOME SELF-CARE
[2021-02-28 09:40] VITALS: BP 125/79; PULSE 63
== END 2021-02-28 10:00 | disposition home or self-care (01) ==
LOC: ORWHC2ENDO 08:05
PROVIDERS: ATTEND Surgery Plastic and Reconstructive Surgery
DX: K22.2 Esophageal obstruction (principal); Z98.84 Bariatric surgery status; K44.9 Diaphragmatic hernia without obstruction or gangrene; Z79.899 Other long term (current) drug therapy; M79.7 Fibromyalgia; I10 Essential (primary) hypertension; M19.90 Unspecified osteoarthritis, unspecified site; Z98.890 Other specified postprocedural states; Z88.6 Allergy status to analgesic agent; Z88.5 Allergy status to narcotic agent; Z88.8 Allergy status to other drugs, medicaments and biological substances
CPT/HCPCS: 43249; J2001; J2704

== ENCOUNTER → 2021-03-09 | Outpatient (CLI) | payer BC, OTHER ==
[2021-03-09 15:36] VITALS: BP 137/78; PULSE 83; RESP 18; TEMP 98.2; BMI 32.8
--- NOTE | 2021-03-09 15:58 | P.PN ---
Subjective Progress Note Date: 03/09/21 DATE OF SERVICE: 03/09/2021 CHIEF COMPLAINT: Status post gastric bypass HISTORY OF PRESENT ILLNESS: Kelsea Ovalle is a 60-year-old female status post gastric bypass in 2005 at [facility] with micro-pouch. She reports dysphagia for over 1 month. She also reports weight re-gain. She presents for management of her morbid obesity. At height of 5 feet 6 inches, her ideal body weight is 154 pounds. Her highest weight was 273 pounds, BMI 44.2. Her lowest weight was 129 pounds. She comes in 203 pounds from 202 pounds 1 month ago. She has gained 1 pounds in 1 month. Her body mass index is 32.9. She has lost 70 pounds lifetime. Her percent excess weight loss is 59 % lifetime. She is 49 pounds overweight. PAST MEDICAL HISTORY: 1. Morbid obesity due to excess calories 2. Body mass index of 44.2, initial 3. Generalized anxiety disorder 4. Depressive disorder 5. Hypertensive heart disease 6. Kidney stones PAST SURGICAL HISTORY: 1. Gastric bypass 2. Cholecystectomy 3. Appendectomy 4. Adenoidectomy 5. Open incisional hernia repair 6. Tonsillectomy 7. Tubal ligation 8. Left oophorectomy 9. Right breast biopsy 10. Arthroscopy 11. Lithotripsy 12. Colonoscopy 13. Shoulder repair HOME MEDICATIONS: Home Medications Medication Instructions Recorded Confirmed ALPRAZolam [Xanax] 0.25 mg PO DAILY PRN 05/30/18 03/09/21 Amitriptyline HCl [Elavil] 100 mg PO HS 05/30/18 03/09/21 Cyanocobalamin (Vitamin B-12) 1,000 mcg PO DAILY 05/30/18 03/09/21 [Vitamin B-12] Multivitamins, Thera [Multivitamin 1 tab PO DAILY 05/30/18 03/09/21 (formulary)] Calcium Carbonate/Vitamin D3 1 cap PO DAILY 11/22/18 03/09/21 [Calcium 600-Vit D3 12.5 Mcg (500 Iu)] DULoxetine HCL [Cymbalta] 60 mg PO QAM 11/22/18 03/09/21 L.acidoph,Paracasei, B.lactis 1 cap PO DAILY 11/22/18 03/09/21 [Probiotic] [place]-3 Fatty Acids [[place]-3] 1,000 mg PO DAILY 11/22/18 03/09/21 Acetaminophen [Tylenol Extra 1,000 mg PO Q6H PRN 12/23/18 03/09/21 Strength] hydroCHLOROthiazide [Hydrodiuril] 25 mg PO QAM 04/10/19 03/09/21 Metoprolol Tartrate [Lopressor] 50 mg PO QAM 02/25/20 03/09/21 Gabapentin [Neurontin] 300 mg PO HS 12/08/20 03/09/21 Cetirizine HCl [Zyrtec] 10 mg PO DAILY 02/24/21 03/09/21 Cholecalciferol (Vitamin D3) 125 mcg PO DAILY 02/24/21 03/09/21 [Vitamin D3 (5000 Iu)] Previous Rx's Medication Instructions Recorded Levothyroxine Sodium [Synthroid] 25 mcg PO DAILY #30 tab 03/09/21 ALLERGIES: Allergies Allergy/AdvReac Type Severity Reaction Status Date / Time aspirin AdvReac does not Verified 03/09/21 15:36 take r/t gastric bypass codeine AdvReac gastric Verified 03/09/21 15:36 pain NSAIDS (Non-Steroidal AdvReac Patient Verified 03/09/21 15:36 Anti-Inflamma states she cannot take due to gastric bypass ondansetron [From Zofran] AdvReac gastric Verified 03/09/21 15:36 pain tramadol AdvReac Abdominal Verified 03/09/21 15:36 Pain oral steroids AdvReac Patient Uncoded 03/09/21 15:36 states she cannot take due to gastric bypass SOCIAL HISTORY: Past tobacco use. FAMILY HISTORY: No family history of ulcerative colitis disease or Crohn's disease. Family history of morbid obesity. No lupus in the family. No reports of stomach or esophageal cancer. REVIEW OF ORGAN SYSTEMS: CONSTITUTIONAL: At height of 5 feet 6 inches, her ideal body weight is 154 pounds. Her highest weight was 273 pounds, BMI 44.2. Her lowest weight was 129 pounds. HEENT: Denies any active troubles with vision or hearing. Has troubles with swallowing, now improved. ENDOCRINE: No diabetes. No hypothyroidism. CARDIOVASCULAR: Denies palpitations or heart attacks or chest pain. RESPIRATORY: Denies daytime somnolence. No asthma. GASTROINTESTINAL: Denies any bright red blood per rectum. Has dumping syndrome. No constipation. MUSCULOSKELETAL: Has lower back pain and joint pain. Has osteoarthritis of the knees. NEURO: No headaches. No seizure disorders. PSYCH: Has depression. No suicidal ideation. Has anxiety. RHEUMATOLOGIC: No lupus. No rheumatoid arthritis. HEMATOLOGIC: Denies any abnormal bleeding or bruising. No personal history of DVTs. SKIN: Has rash along pannus. No skin cancer. PHYSICAL EXAM: VITAL SIGNS: Height 5 foot 6 inches, weight 203 pounds. BMI 32.9 Vital Signs Temp 98.2 F 03/09/21 15:31 Pulse 83 03/09/21 15:31 Resp 18 03/09/21 15:31 BP 137/78 03/09/21 15:31 Pulse Ox GENERAL: Well-developed in no acute distress. HEENT: No scleral icterus. Extraocular movements grossly intact. Hears conversational speech. No nasal drainage. NECK: Supple without lymphadenopathy. CHEST: Nonlabored respirations with equal bilateral excursions. CARDIOVASCULAR: Regular rate and rhythm. Distal 2+ pulses. ABDOMEN: Obese, soft, nontender, nondistended. She has midline incision. MUSCULOSKELETAL: No clubbing, cyanosis. NEURO: No focal or lateralizing signs. Cranial nerves 2 through 12 grossly within normal limits. PSYCH: Appropriate affect. Alert and oriented to person, place and time. SKIN: Good skin turgor. Well perfused. LABS: Reviewed. No vitamin deficiences. Triglycerides elevated. TSH 1.790. EGD FINDINGS: Esophageal dysmotility addressed with rigid dilator, 54-Slovak No chronic gastrojejunal ulceration encountered. Diaphragmatic hiatal hernia, 33-38 cm (5cm) from the incisors IMAGES: CT of the abdomen and pelvis reviewed with large hiatal hernia with incarceration of gastric pouch. This is my independent interpretation. Barium swallow reviewed with moderate reflux. This is my independent interpretation. ASSESSMENT: 1. Morbid obesity due to excess calories 2. Body mass index of 44.2 to 32.9 3. Generalized anxiety disorder 4. Depressive disorder 5. Hypertensive heart disease 6. Kidney stones 7. Dysphagia 8. Hair loss 9. Inadequate protein intake 10. Diverticulitis 11. Hiatal hernia 12. Gastroesophageal reflux disease 13. Dietary surveillance and counseling. PLAN: 1. She has symtomatic hiatal hernia. Recommend robotic repair of hiatal hernia. She is elevated risk of complications due to multiple prior abdominal surgies. 2. Her TSH is over 1.0. Trial of synthroid for goal TSH 1.0 described. 3. Recommend increase protein intake 65 grams daily. 4. Last EKG and cardiology clearance in 2019. Recommend update. Objective - Vital Signs Vital signs: Vital Signs Temp 98.2 F 03/09/21 15:31 Pulse 83 03/09/21 15:31 Resp 18 03/09/21 15:31 BP 137/78 03/09/21 15:31 Pulse Ox Intake & Output 03/08/21 03/09/21 03/09/21 18:59 06:59 18:59 Weight 92.442 kg
== END ==
LOC: BARWHC3 14:29
PROVIDERS: ATTEND Surgery Plastic and Reconstructive Surgery
DX: E66.01 Morbid (severe) obesity due to excess calories (principal); F32.9 Major depressive disorder, single episode, unspecified; F41.1 Generalized anxiety disorder; I11.9 Hypertensive heart disease without heart failure; K21.9 Gastro-esophageal reflux disease without esophagitis; K44.9 Diaphragmatic hernia without obstruction or gangrene; K57.92 Diverticulitis of intestine, part unspecified, without perforation or abscess without bleeding; L65.9 Nonscarring hair loss, unspecified; N20.0 Calculus of kidney; Z71.3 Dietary counseling and surveillance; Z98.84 Bariatric surgery status; Z79.899 Other long term (current) drug therapy; Z88.5 Allergy status to narcotic agent; Z87.891 Personal history of nicotine dependence; Z88.6 Allergy status to analgesic agent; Z88.8 Allergy status to other drugs, medicaments and biological substances; Z68.32 Body mass index [BMI] 32.0-32.9, adult
CPT/HCPCS: 99211

== ENCOUNTER → 2021-03-25 | Outpatient (CLI) | payer BC, OTHER | END | disposition home or self-care (01) | LOC: LABWHC1 09:17 | PROVIDERS: ATTEND Surgery Plastic and Reconstructive Surgery | DX: E03.9 Hypothyroidism, unspecified (principal) | CPT/HCPCS: 36415; 84443 ==

== ENCOUNTER → 2021-05-05 | Outpatient (CLI) | payer BC, OTHER | END | disposition home or self-care (01) | LOC: LABWHC1 12:43 | PROVIDERS: ATTEND Surgery Plastic and Reconstructive Surgery | DX: E66.01 Morbid (severe) obesity due to excess calories (principal); E44.0 Moderate protein-calorie malnutrition; E45 Retarded development following protein-calorie malnutrition; Z98.84 Bariatric surgery status | CPT/HCPCS: 36415; 84443 ==

== ENCOUNTER → 2021-06-28 | Outpatient (CLI) | payer BC, OTHER ==
--- NOTE | 2021-07-01 09:38 | P.PN ---
Progress Note - Text Progress Note Date: 07/01/21 Synthroid 50 mcg sent for refill.
== END | disposition home or self-care (01) ==
LOC: LABWHC1 11:20
PROVIDERS: ATTEND Surgery Plastic and Reconstructive Surgery
DX: E03.9 Hypothyroidism, unspecified (principal)
CPT/HCPCS: 36415; 84443

== ENCOUNTER 2021-08-11 21:31 | Emergency (ER) | payer BC, OTHER ==
[2021-08-11] MEDS ORDERED: ACETAMINOPHEN TAB 500 MG TAB PO STA (21:45)
--- NOTE | 2021-08-11 21:55 | ED ---
General Adult HPI - General Chief complaint: Shortness of Breath Stated complaint: Covid+,SOB Time Seen by Provider: 08/11/21 21:41 Source: patient Mode of arrival: ambulatory Limitations: no limitations - History of Present Illness Initial comments: Dictation was produced using [employer] dictation software. please excuse any grammatical, word or spelling errors. Chief Complaint: 61-year-old female past medical history of hypertension fibromyalgia osteo-arthritis presents to emergency department for coronavirus History of Present Illness: Patient is a 61-year-old female she is vaccinated for Covid 19. She received her vaccinations in January. She received the Pfizer vaccine. She has never had Covid. Over the last 2 days she's been having symptoms of myalgias, dry cough shortness of breath and fever. She tested positive at work yesterday. She is not sure how she contracted disease. The ROS documented in this emergency department record has been reviewed and confirmed by me. Those systems with pertinent positive or negative responses have been documented in the HPI. All other systems are other negative and/or noncontributory. PHYSICAL EXAM: General Impression: Alert and oriented x3, not in acute distress HEENT: Normocephalic atraumatic, extra-ocular movements intact, pupils equal and reactive to light bilaterally, mucous membranes moist. Cardiovascular: Heart regular rate and rhythm Chest: Able to complete full sentences, no retractions, no tachypnea Musculoskeletal: no peripheral edema Motor: no focal deficits noted Neurological: CN II-XII grossly intact, no focal motor or sensory deficits noted Skin: Intact with no visualized rashes Psych: Normal affect and mood ED course: 61-year-old feel presents to the emergency department for Covid 19. Patient's been symptomatic for 2 days. She is vaccinated. As upon arrival shows temperature 11.8, heart rate of 106, rest of vital signs within acceptable limits. She is 90% on room air. She is vaccinated. Patient given Tylenol. X- ray ordered. Patient requesting monoclonal antibodies. Chest x-ray is unremarkable. Patient given monoclonal antibodies. She is observed in the emergency department. Patient discharged after observation period. - Related Data Home Medications Medication Instructions Recorded Confirmed ALPRAZolam [Xanax] 0.25 mg PO DAILY PRN 05/30/18 08/11/21 Amitriptyline HCl [Elavil] 100 mg PO HS 05/30/18 08/11/21 Cyanocobalamin (Vitamin B-12) 1,000 mcg PO DAILY 05/30/18 08/11/21 [Vitamin B-12] Multivitamins, Thera [Multivitamin 1 tab PO DAILY 05/30/18 08/11/21 (formulary)] DULoxetine HCL [Cymbalta] 60 mg PO DAILY 11/22/18 08/11/21 L.acidoph,Paracasei, B.lactis 1 cap PO DAILY 11/22/18 08/11/21 [Probiotic] [place]-3 Fatty Acids [[place]-3] 1,000 mg PO DAILY 11/22/18 08/11/21 Acetaminophen [Tylenol Extra 1,000 mg PO Q6H PRN 12/23/18 08/11/21 Strength] hydroCHLOROthiazide [Hydrodiuril] 25 mg PO DAILY 04/10/19 08/11/21 Metoprolol Tartrate [Lopressor] 50 mg PO DAILY 02/25/20 08/11/21 Gabapentin [Neurontin] 300 mg PO HS 12/08/20 08/11/21 Cholecalciferol (Vitamin D3) 125 mcg PO DAILY 02/24/21 08/11/21 [Vitamin D3 (5000 Iu)] Calcium Carbonate [Calcium] 600 mg PO DAILY 08/11/21 08/11/21 valACYclovir HCL [Valtrex] 1,000 mg PO DAILY PRN 08/11/21 08/11/21 Previous Rx's Medication Instructions Recorded Levothyroxine Sodium [Synthroid] 50 mcg PO DAILY #30 tab 05/11/21 Allergies Allergy/AdvReac Type Severity Reaction Status Date / Time aspirin AdvReac does not Verified 08/11/21 22:17 take r/t gastric bypass codeine AdvReac gastric Verified 08/11/21 22:17 pain NSAIDS (Non-Steroidal AdvReac Patient Verified 08/11/21 22:17 Anti-Inflamma states she cannot take due to gastric bypass ondansetron [From Zofran] AdvReac gastric Verified 08/11/21 22:17 pain tramadol AdvReac Abdominal Verified 08/11/21 22:17 Pain oral steroids AdvReac Patient Uncoded 08/11/21 22:17 states she cannot take due to gastric bypass Review of Systems ROS Statement: Those systems with pertinent positive or pertinent negative responses have been documented in the HPI. ROS Other: All systems not noted in ROS Statement are negative. Past Medical History Past Medical History: Fibromyalgia, Hypertension, Osteoarthritis (OA) Additional Past Medical History / Comment(s): arrythmia, migraines, hx kidney stones, hx hiatal hernia, "food getting stuck", History of Any Multi-Drug Resistant Organisms: None Reported Past Surgical History: Adenoidectomy, Appendectomy, Bariatric Surgery, Cholecy stectomy, Hernia Repair, Orthopedic Surgery, Tonsillectomy, Tubal Ligation Additional Past Surgical History / Comment(s): GASTRIC BYPASS and repair of hiatal hernia,Rt OOPHERECTOMY and alfredo salpinectomy, rt breast biopsy, lithotripsy several times,colonoscpy, arthroscopic surgery for left torn meniscus, EGD. right shoulder rotator cuff Past Anesthesia/Blood Transfusion Reactions: No Reported Reaction Past Psychological History: Anxiety Smoking Status: Former smoker Past Alcohol Use History: Occasional Past Drug Use History: None Reported - Past Family History Father Family Medical History: Cancer, Hyperlipidemia, Hypertension, Prostate Disorder Additional Family Medical History / Comment(s): prostate cancer General Exam Limitations: no limitations Course Vital Signs 08/11/21 08/11/21 08/11/21 21:35 22:20 22:45 Temperature 101.8 F H 100.4 F H 100.1 F H Pulse Rate 106 H 91 91 Respiratory 24 18 18 Rate Blood Pressure 125/73 133/89 110/72 O2 Sat by Pulse 99 96 96 Oximetry 08/11/21 23:59 Temperature 98.7 F Pulse Rate 87 Respiratory 16 Rate Blood Pressure 133/78 O2 Sat by Pulse 95 Oximetry Disposition Clinical Impression: COVID-19 virus infection Disposition: HOME SELF-CARE Condition: Good Instructions (If sedation given, give patient instructions): Coronavirus Disease 2019 (COVID-19) Is patient prescribed a controlled substance at d/c from ED?: No Referrals: Todd Fuentes MD [Primary Care Provider] - 1-2 days
--- NOTE | 2021-08-11 22:04 | XR ---
EXAMINATION TYPE: XR chest 1V portable DATE OF EXAM: 08/11/2021 CLINICAL HISTORY: covid. TECHNIQUE: Portable frontal view of the chest. COMPARISON: 04/10/2019 FINDINGS: The cardiomediastinal silhouette is within normal limits for size. Pulmonary vasculature i s normal. There is no focal air space opacity. No pleural effusion. No pneumothorax seen. No acute d isplaced osseous fracture. IMPRESSION: No acute cardiopulmonary process.
[2021-08-11] MEDS ORDERED: SODIUM CHLORIDE 0.9% 50 ML IVPB ONE (22:15)
[2021-08-11] MEDS ORDERED: BAMLANIVIMAB (EUA) 700 MG, ETESEVIMAB (EUA) 1,400 MG in SODIUM CHLORIDE 0.9% 50 ML IVPB ONE (22:15)
[2021-08-12 00:01] VITALS: BP 133/78; PULSE 87; RESP 16; TEMP 98.7
== END 2021-08-12 00:01 | disposition home or self-care (01) ==
LOC: EC 21:31
DX: U07.1 COVID-19 (principal); I10 Essential (primary) hypertension; M19.90 Unspecified osteoarthritis, unspecified site; F41.9 Anxiety disorder, unspecified; Z88.5 Allergy status to narcotic agent; Z88.1 Allergy status to other antibiotic agents; Z87.442 Personal history of urinary calculi; Z90.49 Acquired absence of other specified parts of digestive tract; Z90.89 Acquired absence of other organs; Z98.51 Tubal ligation status; Z98.84 Bariatric surgery status; Z87.891 Personal history of nicotine dependence
CPT/HCPCS: 99284; 96365; 71045; J3490

== ENCOUNTER → 2021-11-03 | Outpatient (CLI) | payer BC, OTHER ==
[~2021-11-03] MED LIST changes: +DOBUTamine DRIP for NUC MED 500 MG in DEXTROSE/WATER 1 250ML.BAG IV PRN; -LACTATED RINGERS 1,000 ML IV SCH; -LIDOCAINE 1% (10MG/ML) FOR IV START INTRADERMA PRN
--- NOTE | 2021-11-10 09:26 | HM ---
HOLTER MONITOR REPORT Patient was monitored for 24 hours. The baseline rhythm is a sinus mechanism with normal conduction, the average rate 67 beats per minute, minimum 49, maximum 104 beats per minute. Ventricular ectopic activity was present in the form of rare single PVCs. Supraventricular ectopic activity was present in the form of rare single PACs. There were short bursts of PSVT, the longest being 7 complexes. Symptoms of chest discomfort and palpitations did not correlate with any dysrhythmia. CONCLUSION: 1. Sinus mechanism baseline rhythm. 2. Rare ventricular ectopic activity. 3. Rare supraventricular ectopic activity with short bursts of PSVT. 4. Symptoms did not correlate with any dysrhythmia. MMODL / IJN: [id number] /
== END | disposition home or self-care (01) ==
LOC: RADECHMAIN 11:53
PROVIDERS: ATTEND Internal Medicine
DX: I49.3 Ventricular premature depolarization (principal)
CPT/HCPCS: 93225; 93226

== ENCOUNTER → 2021-11-09 | Outpatient (CLI) | payer BC, OTHER ==
[~2021-11-09] MED LIST changes: +DOBUTamine DRIP for NUC MED 500 MG/250 ML BAG IV ONE
--- NOTE | 2021-11-09 14:06 | ECHOS ---
STRESS ECHOCARDIOGRAM INDICATIONS: Palpitations BASELINE HEART RATE: 91 BASELINE BLOOD PRESSURE: 118/55 MAXIMUM HEART RATE: 137 MAXIMUM BLOOD PRESSURE: 209/44 85% MPHR: 137 100% MPHR: 161 METS: NA MAXIMUM STAGE REACHED: III TOTAL EXERCISE TIME: 7:51 CLINICAL INFORMATION: Baseline rhythm is sinus mechanism, rate of 91, normal axis and intervals. Voltage criteria for left ventricular hypertrophy. Baseline blood pressure 118/55 mmHg. Patient exercised on Yuan protocol for 7 minutes 51 seconds, reaching peak rate of 137 beats per minute, which is equal to 85% of maximum predicted heart rate. Peak blood pressure 100/64 mmHg. Test was terminated secondary to fatigue. There was no chest pain. Electrocardiograph monitoring revealed no evidence of diagnostic ischemic ST deviation. FINDINGS: Baseline echocardiogram revealed normal wall thickening and motion. At peak exercise there was normal wall motion augmentation with no hypokinesis or dyskinesis. CONCLUSION: 1. Average exercise tolerance with normal echocardiograph response to exercise. 2. Hypotensive response to exercise. 3. Normal stress echocardiogram with no evidence of stress-induced ischemia. MMODL / IJN: [id number] /
== END | disposition home or self-care (01) ==
LOC: RADNMMAIN 09:12
PROVIDERS: ATTEND Internal Medicine
DX: R00.2 Palpitations (principal)
CPT/HCPCS: 93351

== ENCOUNTER → 2021-11-25 | Outpatient (CLI) | payer BC, OTHER ==
--- NOTE | 2021-11-28 14:07 | MM ---
Reason for exam: screening (asymptomatic). Last mammogram was performed 1 year and 3 months ago. History: Patient is postmenopausal. Benign excisional biopsy of the right breast, 2013. Physical Findings: A clinical breast exam by your physician is recommended on an annual basis and results should be correlated with mammographic findings. MG 3D Screening Mammo W/Cad Bilateral CC and MLO view(s) were taken. Prior study comparison: August 31, 2020, bilateral MG 3d screening mammo w/cad. August 02, 2015, mammogram, performed at [facility]. There are scattered fibroglandular densities. No significant changes when compared with prior studies. ASSESSMENT: Benign, BI-RAD 2 RECOMMENDATION: Routine screening mammogram of both breasts in 1 year.
== END | disposition home or self-care (01) ==
LOC: RADMAMWWP 09-30 15:09
PROVIDERS: ATTEND Obstetrics & Gynecology
DX: Z12.31 Encounter for screening mammogram for malignant neoplasm of breast (principal); Z78.0 Asymptomatic menopausal state
CPT/HCPCS: 77063; 77067

== ENCOUNTER 2022-01-06 06:07 | Day surgery (SDC) | payer BC, OTHER ==
[2022-01-05 12:58] VITALS: BMI 31.4
[~2022-01-06 06:07] MED LIST changes: -DOBUTamine DRIP for NUC MED 500 MG in DEXTROSE/WATER 1 250ML.BAG IV PRN; -DOBUTamine DRIP for NUC MED 500 MG/250 ML BAG IV ONE; +LACTATED RINGERS 1,000 ML IV SCH; +LIDOCAINE 1% (10MG/ML) FOR IV START INTRADERMA PRN
[2022-01-06 06:45] VITALS: TEMP 97
[2022-01-06] MEDS ORDERED: ROPIVACAINE 5MG/ML 20ML VIAL ONE (06:55)
[2022-01-06] MEDS ORDERED: methylPREDNISolone ACETATE 40 MG/ML 1 ML VIAL ONE (06:55)
[2022-01-06] MEDS ORDERED: MIDAZOLAM 2 MG/2 ML VIAL ONE (06:57)
--- NOTE | 2022-01-06 07:12 | P.PCN ---
Date of Procedure: 01/06/22 Procedure(s) Performed: PREOPERATIVE DIAGNOSIS : 1- Lumbar spondylosis with Facet Arthropathy without myelopathy . 2- Lumber degenerative disc disease POSTOPERATIVE DIAGNOSIS: 1- Lumbar spondylosis with Facet Arthropathy without myelopathy . 2- Lumber degenerative disc disease PROCEDURE: Diagnostic Right L4 , and L5 medial branch block under fluoroscopy guidance(fluoroscopy images available in the radiology Department ) ( To target the facet joint between Right L5-S1 ) ANESTHESIA:, monitered anesthesia care as per anesthesia department. EBL: Minimal COMPLICATION: None PROCEDURE INDICATION: Chronic low back pain secondary to Facet arthropathy unresponsive to conservative treatment. PROCEDURE DESCRIPTION: the patient was seen and identified in the preop holding area , risks and benefits and possible complications of the procedure and alternative were discussed with the patient, and the patient agreed to proceed with the procedure and signed the consent and vital signs monitored during the procedure and fluoroscopy was used to maximize the benefit and accuracy of the needle placement, and sedation was given to decrease patient anxiety, patient was taken to the procedure room and placed in prone position vital signs monitored in the back prepped with chlorhexidine X3 then under strict sterile technique using a right oblique fluoroscopy ,the junction of the transverse process and the superior articulating process of the right L4 , and L5 vertebra which corresponding to the fluoroscopy image of the eye of the Carmine dog on the block side for the medial branches and subsequently , after local infiltration of skin and subcu tissuies with Ropivacaine 0.5 % , one mL at each level ,then 22-gauge Quincke-type needles , 2 needle was used , each one of them placed at the junction of the base of the transverse process and the superior articular process at the appropriate level, and the needle was advanced until the periosteum contacted, needle placement confirmed with AP oblique and lateral view and after appropriate needle placement confirmed, and after negative aspiration for heme and CSF and there was no paresthesia 1 mL of Ropivacaine 0.5% mixed with 20 mg Depo-Medrol , then half mL injected at each level after negative aspiration the needle subsequently removed At the end of the procedure and the needles removed and a bandage applied after the skin was cleaned the cleaning solution patient taken to recovery room in stable condition and monitors in the recovery room for 20-30 minutes and discharged home in stable condition after discharge criteria met and patient will follow up with the pain clinic in 2-4 weeks
[2022-01-06] MEDS ORDERED: IV FLUID CONTINUATION 750 ML IV ONE (07:14)
[2022-01-06 07:19] VITALS: BP 121/78
--- NOTE | 2022-01-06 07:29 | FL ---
EXAMINATION TYPE: FL guided pain mgmt statistic DATE OF EXAM: 01/06/2022 CLINICAL HISTORY: Low back pain. TECHNIQUE: Fluoroscopy. COMPARISON: None. FINDINGS: Fluoroscopic guidance was provided during pain relief procedure performed by Dr. Pinedo . A total of 4 seconds of fluoroscopic time was utilized during the procedure and two spot images ar e acquired. Images acquired shows needle localization at L5 level. IMPRESSION: As Above.
[2022-01-06 07:34] VITALS: PULSE 74; RESP 16
== END 2022-01-06 07:46 | disposition home or self-care (01) ==
LOC: ORPAIN 06:07
PROVIDERS: ATTEND Specialist
DX: M47.816 Spondylosis without myelopathy or radiculopathy, lumbar region (principal); M51.36 Other intervertebral disc degeneration, lumbar region
CPT/HCPCS: 64493; J2250; J1030; J2795

== ENCOUNTER → 2022-01-31 | Outpatient (CLI) | payer BC, OTHER ==
[2022-01-31 15:19] LABS: Basophils # (A) 0.05 X 10*3/uL (0.00-0.10); Basophils % (A) 0.8 %; Eosinophils # (A) 0.11 X 10*3/uL (0.04-0.35); Eosinophils % (A) 1.8 %; HCT 39.5 % (37.2-46.3); HGB 12.2 g/dL (12.0-15.0); Immature Grans, Automated 0.3 %; Lymphocytes # (A) 1.98 X 10*3/uL (0.90-5.00); Lymphocytes % (A) 32.5 %; MCH 25.9 pg (27.0-32.0); MCHC 30.9 g/dL (32.0-37.0); MCV 83.9 fL (80.0-97.0); Mean Platelet Volume 11.1 fL (9.5-12.2); Monocytes % (A) 8.2 %; NRBC Per 100 WBC 0 /100 WBCS (0.0-0.0); Neutrophils # (A) 3.44 X 10*3/uL (1.80-7.70); Neutrophils % (A) 56.4 %; Platelet Count 272 X 10*3/uL (140-440); RBC 4.71 X 10*6/uL (4.10-5.20); RBC Morphology NORMAL; RDW 15.4 % (11.5-14.5)
[2022-01-31 16:11] LABS: Estradiol <5.0 pg/mL
[2022-01-31 17:04] LABS: ALT 29 U/L (8-44); AST 28 U/L (13-35); African American GFR (CKD) 107.9 (60.0-200.0); Albumin 4.2 g/dL (3.8-4.9); Albumin/Globulin Ratio 1.78 (1.60-3.17); Alkaline Phosphatase 72 U/L (41-126); BUN/Creat Ratio 19.83 Ratio (12.00-20.00); Blood Urea Nitrogen 14.1 mg/dL (9.0-27.0); Calcium 9.2 mg/dL (8.7-10.3); Carbon Dioxide 30.3 mmol/L (20.0-27.5); Chloride 101 mmol/L (96-109); Ferritin 12.6 ng/mL (10.0-291.0); Globulin 2.4 g/dL (1.6-3.3); Glucose 95 mg/dL (70-110); Non-African American GFR(CKD) 93.1 (60.0-200.0); Potassium 4.6 mmol/L (3.5-5.5); Sodium 141 mmol/L (135-145); Total Bilirubin <0.15 mg/dL (0.30-1.20); Total Protein 6.6 g/dL (6.2-8.2)
[2022-01-31 17:05] LABS: Thyroid Peroxidase Antibodies <9.0 U/mL (0.0-33.0)
[2022-02-02 10:30] LABS: Methylmalonic Acid 0.29 umol/L (<0.40)
== END | disposition home or self-care (01) ==
LOC: LABWHC1 09:17
PROVIDERS: ATTEND Nurse Practitioner
DX: I10 Essential (primary) hypertension (principal); K21.9 Gastro-esophageal reflux disease without esophagitis; G89.29 Other chronic pain; L20.84 Intrinsic (allergic) eczema; Z98.84 Bariatric surgery status; R68.82 Decreased libido; N95.1 Menopausal and female climacteric states; M79.7 Fibromyalgia
CPT/HCPCS: 36415; 80053; 82306; 82533; 82627; 82670; 82728; 82746; 83036; 83090; 83704; 83735; 83921; 84140; 84144; 84207; 84305; 84402; 84403; 84439; 84443; 84481; 84482; 85025; 86141; 86376; 86800

== ENCOUNTER → 2022-02-27 | Outpatient (CLI) | payer BC, OTHER ==
[2022-02-27 11:13] VITALS: BMI 33.4
== END ==
LOC: BARWHC3 08:35
PROVIDERS: ATTEND Surgery Plastic and Reconstructive Surgery
DX: E66.01 Morbid (severe) obesity due to excess calories (principal); Z71.3 Dietary counseling and surveillance; Z88.6 Allergy status to analgesic agent; Z88.5 Allergy status to narcotic agent; Z88.8 Allergy status to other drugs, medicaments and biological substances; Z68.33 Body mass index [BMI] 33.0-33.9, adult; Z87.891 Personal history of nicotine dependence
CPT/HCPCS: 97804

== ENCOUNTER 2022-03-03 10:36 | Day surgery (SDC) | payer BC, OTHER ==
[2022-03-03] MEDS ORDERED: LIDOCAINE 1% (10MG/ML) FOR IV START INTRADERMA PRN (11:22)
[2022-03-03] MEDS ORDERED: LACTATED RINGERS 1,000 ML IV SCH (11:22)
[2022-03-03 11:33] VITALS: RESP 16; TEMP 97.5
[2022-03-03] MEDS ORDERED: MIDAZOLAM 2 MG/2 ML VIAL ONE (13:04)
[2022-03-03] MEDS ORDERED: ROPIVACAINE 5MG/ML 20ML VIAL ONE (13:04)
[2022-03-03] MEDS ORDERED: methylPREDNISolone ACETATE 40 MG/ML 1 ML VIAL ONE (13:04)
[2022-03-03] MEDS ORDERED: fentaNYL (PF) 50 MCG/ML 2 ML AMP ONE (13:04)
--- NOTE | 2022-03-03 13:16 | P.PCN ---
Date of Procedure: 03/03/22 Procedure(s) Performed: PREOPERATIVE DIAGNOSIS : 1- Lumbar spondylosis with Facet Arthropathy without myelopathy . 2- Lumber degenerative disc disease POSTOPERATIVE DIAGNOSIS: 1- Lumbar spondylosis with Facet Arthropathy without myelopathy . 2- Lumber degenerative disc disease PROCEDURE: Diagnostic Right L4 , and L5 medial branch block under fluoroscopy guidance(fluoroscopy images available in the radiology Department ) ( To target the facet joint between Right L5-S1 )# 2nd ANESTHESIA:, monitered anesthesia care as per anesthesia department. EBL: Minimal COMPLICATION: None PROCEDURE INDICATION: Chronic low back pain secondary to Facet arthropathy unresponsive to conservative treatment. PROCEDURE DESCRIPTION: the patient was seen and identified in the preop holding area , risks and benefits and possible complications of the procedure and alternative were discussed with the patient, and the patient agreed to proceed with the procedure and signed the consent and vital signs monitored during the procedure and fluoroscopy was used to maximize the benefit and accuracy of the needle placement, and sedation was given to decrease patient anxiety, patient was taken to the procedure room and placed in prone position vital signs monitored in the back prepped with chlorhexidine X3 then under strict sterile technique using a right oblique fluoroscopy ,the junction of the transverse process and the superior articulating process of the right L4 , and L5 vertebra which corresponding to the fluoroscopy image of the eye of the Carmine dog on the block side for the medial branches and subsequently , after local infiltration of skin and subcu tissuies with Ropivacaine 0.5 % , one mL at each level ,then 22-gauge Quincke-type needles , 2 needle was used , each one of them placed at the junction of the base of the transverse process and the superior articular process at the appropriate level, and the needle was advanced until the periosteum contacted, needle placement confirmed with AP oblique and lateral view and after appropriate needle placement confirmed, and after negative aspiration for heme and CSF and there was no paresthesia 1 mL of Ropivacaine 0.5% mixed with 20 mg Depo-Medrol , then half mL injected at each level after negative aspiration the needle subsequently removed At the end of the procedure and the needles removed and a bandage applied after the skin was cleaned the cleaning solution patient taken to recovery room in stable condition and monitors in the recovery room for 20-30 minutes and discharged home in stable condition after discharge criteria met and patient will follow up with the pain clinic in 2-4 weeks note= recommend to use 150 mm nedles for the RFA
[2022-03-03] MEDS ORDERED: IV FLUID CONTINUATION 1,000 ML IV ONE (13:20)
[2022-03-03 13:43] VITALS: BP 119/66; PULSE 69
--- NOTE | 2022-03-03 16:57 | FL ---
EXAMINATION TYPE: FL guided pain mgmt statistic DATE OF EXAM: 03/03/2022 FLUOROSCOPY Fluoroscopy time of 6 seconds was used during lumbar facet block. 2 image/s document/s the procedure .
== END 2022-03-03 14:02 | disposition home or self-care (01) ==
LOC: ORPAIN 10:36
PROVIDERS: ATTEND Specialist
DX: M51.36 Other intervertebral disc degeneration, lumbar region (principal); M54.50 Low back pain, unspecified; M47.816 Spondylosis without myelopathy or radiculopathy, lumbar region
CPT/HCPCS: 64493; 64494; J2250; J1030; J3010; J2795

== ENCOUNTER → 2022-03-30 | Outpatient (CLI) | payer BC, OTHER ==
[2022-03-30 09:32] VITALS: BP 113/78; PULSE 61; RESP 18; TEMP 98.1
--- NOTE | 2022-03-30 10:32 | P.PAINPG ---
Objective - Vital Signs Vital signs: Vital Signs Temp 98.1 F 03/30/22 09:20 Pulse 61 03/30/22 09:20 Resp 18 03/30/22 09:20 BP 113/78 03/30/22 09:20 Pulse Ox 97 03/30/22 09:20 FiO2 Intake & Output 03/29/22 03/30/22 03/30/22 18:59 06:59 18:59 Weight 96.162 kg PQRS Measure Charge Sheet Mode of Arrival: Ambulatory Comment: A 61 yr old female with a history of severe and chronic low back pain secondary to lumbar degenerative disc diseases and lumbar spondylosis with facet arthropathy presents today for evaluation status post R MBB L5-S1 #1. Patient states she experienced 20% relief x 3 days s/p procedure. Pain level is currently at 4/10 in intensity, localized in the lower aspect of her lumbar sine/ tail bone region, R side > L and shoots towards back of R knee occasionally. Pain is provoked by laying supine. Pain is alleviated with heat, occasional Tylenol use, standing. Interventional pain procedures completed include R TFESI L5-S1 x 2 Patient is currently on Tylenol Patient denies any side effects of the medication(s), denies excessive drowsiness or sleepiness, denies suicidal ideation and reports that the current pain medication is helping to control the pain and improve activities of daily living. Patient denies any motor or sensory deficits. Patient denies any fever or night sweats, denies any change in the bowel movements or urination. Physical Examination: -Constitutional: Cooperative. Not in acute distress . - Neurologic: Cranial nerve II to XII intact. No focal neurological deficits. - Psychatric: Alert & oriented x 3. Matching mood & appropriate affect. Judgment and insight intact. - Musculoskeletal: Cervical spine: Muscle bulk/ tone/ strength in the bilateral upper extremities normal Vertebral body tenderness to palpation over Spurling test positive Distraction test positive Facet loading test positive Thoracic spine Muscle bulk / tone/ strength in the bilateral paraspinal muscles normal Vertebral body tender to palpation over Facet loading test positive Lumbar spine: Motor bulk/ tone/ strength lower extremities , thigh and legs : 5/5 Deep tendon reflexes : Normal Knee Jerk. Normal Ankle Jerk . Vertebral body tenderness to palpation over Lumbar Facet Loading Test positive Straight Leg Raise: positive at 30 degrees right side/ left side Gaenslen's Test positive Sacral spine : Severe tenderness over the Sacroiliac joint: right side / left side Range of motion: Flexion of the lumbar spine <60 degrees Range of motion: Extension of the lumbar spine <20 degrees Gaenslen's Test positive Mehdi's Test positive Pelon test: positive right side > left side Thigh Thrust Test BL Sacral Thrust Test BL Assessment and plan: Chronic low back pain secondary to lumbar degenerative disc disease , lumbar spondylosis with facet arthropathy without myelopathy Recommendation of BL SI joint injection. He need a series of injections, up to every 3 months as needed, for optimal pain relief. Risks, benefits of procedure discussed and pt verbalized understanding. Denies anticoagulant use or medical history of diabetes. All patient questions answered MAPS reviewed and it was appropriate. I have spent less than 30 minutes on patient care today. Dr Pinedo was available by phone for the evaluation of this patient. The time was used to review the medical records including relevant urine studies and Prescription history (MAPs), review of the available imaging, evaluation and examination of the patient, coordination of care with the medical staff and if applicable referring physicians, as well as creation of the medical record - Pain Location Right Lower Back Non-Pharmacological Interventions: Heat, Standing Pharmacological Interventions: Block, Epidural, PRN Medication PQRS Narrative: Smoking Status Former smoker Blood Pressure 113/78 Pain Intensity [Right Lower 4 Back] Scale Used Numeric (1 - 10) Hx Alcohol Use (MH) No Home Medications: Ambulatory Orders ALPRAZolam [Xanax] 0.25 mg PO DAILY PRN 05/30/18 Amitriptyline HCl [Elavil] 100 mg PO HS 05/30/18 Cyanocobalamin (Vitamin B-12) [Vitamin B-12] 1,000 mcg PO DAILY 05/30/18 Multivitamins, Thera [Multivitamin (formulary)] 1 tab PO DAILY 05/30/18 DULoxetine HCL [Cymbalta] 60 mg PO DAILY 11/22/18 L.acidoph,Paracasei, B.lactis [Probiotic] 1 cap PO DAILY 11/22/18 [place]-3 Fatty Acids [[place]-3] 1,000 mg PO DAILY 11/22/18 Acetaminophen [Tylenol Extra Strength] 1,000 mg PO Q6H PRN 12/23/18 hydroCHLOROthiazide [Hydrodiuril] 25 mg PO DAILY 04/10/19 Metoprolol Tartrate [Lopressor] 25 mg PO BID 02/25/20 Gabapentin [Neurontin] 300 mg PO HS 12/08/20 Cholecalciferol (Vitamin D3) [Vitamin D3 (5000 Iu)] 125 mcg PO DAILY 02/24/21 Calcium Carbonate [Calcium] 600 mg PO DAILY 08/11/21 Controlled Substance Measures - Controlled Substance Measures Is patient prescribed a controlled substance at discharge?: No
== END ==
LOC: PNWHC3 09:08
PROVIDERS: ATTEND Specialist
DX: M51.36 Other intervertebral disc degeneration, lumbar region (principal); M47.816 Spondylosis without myelopathy or radiculopathy, lumbar region; G89.29 Other chronic pain; Z87.891 Personal history of nicotine dependence
CPT/HCPCS: 99211

== ENCOUNTER 2022-05-09 05:57 | Day surgery (SDC) | payer BC, OTHER ==
[2022-05-09] MEDS ORDERED: LACTATED RINGERS 1,000 ML IV ONE (06:30)
[2022-05-09 06:32] VITALS: TEMP 96.7
[2022-05-09] MEDS ORDERED: LIDOCAINE 1% (10MG/ML) FOR IV START INTRADERMA PRN (06:39)
[2022-05-09] MEDS ORDERED: LACTATED RINGERS 1,000 ML IV SCH (06:45)
[2022-05-09] MEDS ORDERED: MIDAZOLAM 2 MG/2 ML VIAL ONE (06:58)
[2022-05-09] MEDS ORDERED: fentaNYL (PF) 50 MCG/ML 2 ML AMP ONE (06:58)
[2022-05-09] MEDS ORDERED: methylPREDNISolone ACETATE 80 MG/ML 1 ML VIAL ONE (06:58)
[2022-05-09] MEDS ORDERED: ROPIVACAINE 5 MG/ML 20 ML AMPULE ONE (06:58)
--- NOTE | 2022-05-09 07:12 | P.PCN ---
Date of Procedure: 05/09/22 Procedure(s) Performed: Procedure= bilateral sacroiliac joints steroid injection under fluoroscopy guidance (fluoroscopy image stored on file in the radiology Department ) Preoperative diagnosis= 1-bilateral sacroiliitis 2-lumbar degenerative disc disease 3-lumbar facet arthropathy Postoperative diagnosis=Same as preop Diagnosis . Complication = none Condition= stable Anesthesia= moderate sedation with intravenous Versed 2 mg , and fentanyl 100 micrograms . Sedation start time: 06:59 Sedation end time : 07:09 Indication for the procedure= patient complaining of low back pain , examination was positive for severe tenderness over the sacroiliac joints bilaterally and patient diagnosed with sacroiliitis, for this reason , she was good candidate for sacroiliac joint steroid injection. Description of the procedure= procedure risk and benefits discussed with the patient, including but not limited, risk of infection and bleeding, and ALLERGIC reaction to the medication and not complete pain relief and patient agreed with the preceding patient taken to the operating room, placed in prone position or standard monitors applied to the patient then after induction of anesthesia back prepped with chlorhexidine 3 times , Then under strict sterile technique, first I did the right sacroiliac joint the which was identified under fluoroscopy guidance been local infiltration of the skin and subcu interstitial with lidocaine 1% then 22-gauge Quincke Needle advanced slowly under fluoroscopy and placed in the right sacroiliac joint needle placement confirmed with AP and oblique and lateral view and after appropriate needle placement confirmed and after negative aspiration, or heme , then Ropivacaine 0.5% 4 mL, and 40 mg of Depo-Medrol mixed together and injected in the right sacroiliac joint after negative aspiration patient tolerated the procedure well without any complication. Then the left sacroiliac joint steroid injection done under strict sterile technique local infiltration of the skin and subcu interstitial at the location of the left sacroiliac joint then a 22-gauge Quincke Needle advanced slowly under fluoroscopy time placed in the left sacroiliac joint, needle placement confirmed with AP and oblique and lateral view then after appropriate needle placement confirmed and after negative aspiration 0.5% Ropivacaine 4 mL and 40 mg of Depo-Medrol injected in the left sacroiliac joint after negative aspiration patient tolerated the procedure well that any complications and she will follow up in clinic 3 weeks
[2022-05-09] MEDS ORDERED: IV FLUID CONTINUATION 1,000 ML IV ONE (07:15)
[2022-05-09 07:36] VITALS: BP 122/78; PULSE 61; RESP 15
--- NOTE | 2022-05-09 08:19 | FL ---
Intraoperative/procedural fluoroscopic services were provided. Total fluoroscopy time is 6 seconds wi th a total of 2 submitted images to PACS. Please see the operative/procedural note for further detail s.
== END 2022-05-09 07:45 | disposition home or self-care (01) ==
LOC: ORPAIN 05:57
PROVIDERS: ATTEND Specialist
DX: M46.1 Sacroiliitis, not elsewhere classified (principal); M51.36 Other intervertebral disc degeneration, lumbar region; M47.816 Spondylosis without myelopathy or radiculopathy, lumbar region; Z88.6 Allergy status to analgesic agent; Z88.5 Allergy status to narcotic agent; Z88.8 Allergy status to other drugs, medicaments and biological substances; Z79.899 Other long term (current) drug therapy; Z87.891 Personal history of nicotine dependence; Z80.42 Family history of malignant neoplasm of prostate; Z82.49 Family history of ischemic heart disease and other diseases of the circulatory system
CPT/HCPCS: 27096; J2250; J1040; J3010; J2795

== ENCOUNTER → 2022-05-25 | Outpatient (CLI) | payer BC, OTHER ==
[2022-05-25 14:03] VITALS: BP 128/80; PULSE 71; RESP 18
--- NOTE | 2022-05-25 14:20 | P.PAINPG ---
PQRS Measure Charge Sheet Comment: A 61 yr old female with a history of severe and chronic low back pain secondary to lumbar degenerative disc diseases and lumbar spondylosis with facet arthropathy without myelopathy presents today for evaluation s/p BL SI joint injection. Pt states she received 90% pain relief on L/ 50% on R relief x 2 wks s/p procedure. Pain level is currently at 2-3/10 in intensity when sitting, constant, localized in the lower aspect of her lumbar spine, achy in character w sharp/ shooting pain towards the R hip> L hip. Pain is provoked as high as 6- 7/10 in intensity by standing/ walking. Pain is alleviated with PT in May 2021, medications (Neurontin from Dr Fuentes), alternating heat & ice, repositioning and rest. Interventional pain procedures completed include BL SI joint, R TFESI L5-S1 x3 Patient is currently on Neurontin Patient denies any side effects of the medication(s), denies excessive drowsiness or sleepiness, denies suicidal ideation and reports that the current pain medication is helping to control the pain and improve activities of daily living. Patient denies any motor or sensory deficits. Patient denies any fever or night sweats, denies any change in the bowel movements or urination. Physical Examination: -Constitutional: Cooperative. Not in acute distress . - Neurologic: Cranial nerve II to XII intact. No focal neurological deficits. - Psychatric: Alert & oriented x 3. Matching mood & appropriate affect. Judgment and insight intact. - Musculoskeletal: Cervical spine: Muscle bulk/ tone/ strength in the bilateral upper extremities normal Vertebral body tenderness to palpation over Spurling test positive Distraction test positive Facet loading test positive Thoracic spine Muscle bulk / tone/ strength in the bilateral paraspinal muscles normal Vertebral body tender to palpation over Facet loading test positive Lumbar spine: Motor bulk/ tone/ strength lower extremities , thigh and legs : 5/5 Deep tendon reflexes : Normal Knee Jerk. Normal Ankle Jerk . Vertebral body tenderness to palpation over Lumbar Facet Loading Test positive Straight Leg Raise: positive at 30 degrees right side/ left side Gaenslen's Test positive Sacral spine : Severe tenderness over the Sacroiliac joint: right side / left side Range of motion: Flexion of the lumbar spine <60 degrees Range of motion: Extension of the lumbar spine <20 degrees BL Gaenslen's Test positive Pelon test: positive right side > left side +BL Thigh Thrust Test Sacral Thrust Test Bilaterally Assessment and plan: Chronic low back pain secondary to lumbar degenerative disc disease , lumbar spondylosis with facet arthropathy without myelopathy Recommendation of BL SI joint injection #2. May need a series of injections, up to 4 within a 12 mo period, for optimal pain relief. Risks, benefits of procedure discussed and pt verbalized understanding. Denies anticoagulant use or medical history of diabetes. All patient questions answered MAPS reviewed and it was appropriate. I have spent less than 30 minutes on patient care today. Dr Pinedo was available by phone for the evaluation of this patient. The time was used to review the medical records including relevant urine studies and Prescription history (MAPs), review of the available imaging, evaluation and examination of the patient, coordination of care with the medical staff and if applicable referring physicians, as well as creation of the medical record PQRS Narrative: Smoking Status Former smoker Hx Alcohol Use (MH) No Home Medications: Ambulatory Orders ALPRAZolam [Xanax] 0.25 mg PO DAILY PRN 05/30/18 Amitriptyline HCl [Elavil] 100 mg PO HS 05/30/18 Cyanocobalamin (Vitamin B-12) [Vitamin B-12] 1,000 mcg PO DAILY 05/30/18 Multivitamins, Thera [Multivitamin (formulary)] 1 tab PO DAILY 05/30/18 DULoxetine HCL [Cymbalta] 60 mg PO DAILY 11/22/18 L.acidoph,Paracasei, B.lactis [Probiotic] 1 cap PO DAILY 11/22/18 [place]-3 Fatty Acids [[place]-3] 1,000 mg PO DAILY 11/22/18 Acetaminophen [Tylenol Extra Strength] 1,000 mg PO Q6H PRN 12/23/18 hydroCHLOROthiazide [Hydrodiuril] 25 mg PO DAILY 04/10/19 Metoprolol Tartrate [Lopressor] 25 mg PO BID 02/25/20 Gabapentin [Neurontin] 300 mg PO HS 12/08/20 Cholecalciferol (Vitamin D3) [Vitamin D3 (5000 Iu)] 125 mcg PO DAILY 02/24/21 Calcium Carbonate [Calcium] 600 mg PO DAILY 08/11/21 Controlled Substance Measures - Controlled Substance Measures Is patient prescribed a controlled substance at discharge?: No
== END ==
LOC: PNWHC3 13:29
PROVIDERS: ATTEND Specialist
DX: M51.36 Other intervertebral disc degeneration, lumbar region (principal); M47.816 Spondylosis without myelopathy or radiculopathy, lumbar region; G89.29 Other chronic pain; Z87.891 Personal history of nicotine dependence; Z88.6 Allergy status to analgesic agent; Z88.5 Allergy status to narcotic agent; Z88.8 Allergy status to other drugs, medicaments and biological substances
CPT/HCPCS: 99211

== ENCOUNTER → 2022-06-29 | Outpatient (CLI) | payer BC, OTHER ==
[2022-06-29 14:28] LABS: Basophils # (A) 0.06 X 10*3/uL (0.00-0.10); Basophils % (A) 0.9 %; Eosinophils # (A) 0.11 X 10*3/uL (0.04-0.35); Eosinophils % (A) 1.6 %; HCT 44.7 % (37.2-46.3); HGB 14.7 g/dL (12.0-15.0); Immature Grans, Automated 0.3 %; Lymphocytes # (A) 1.67 X 10*3/uL (0.90-5.00); Lymphocytes % (A) 24.9 %; MCH 28.3 pg (27.0-32.0); MCHC 32.9 g/dL (32.0-37.0); Mean Platelet Volume 10.6 fL (9.5-12.2); Monocytes # (A) 0.63 X 10*3/uL (0.20-1.00); Monocytes % (A) 9.4 %; NRBC Per 100 WBC 0 /100 WBCS (0.0-0.0); Neutrophils # (A) 4.23 X 10*3/uL (1.80-7.70); Neutrophils % (A) 62.9 %; Platelet Count 337 X 10*3/uL (140-440); RDW 13.7 % (11.5-14.5); WBC 6.72 X 10*3/uL (4.50-10.00)
[2022-06-29 14:37] LABS: African American GFR (CKD) 109.9 (60.0-200.0); Albumin 4.3 g/dL (3.8-4.9); Albumin/Globulin Ratio 1.43 (1.60-3.17); Anion Gap 10.5 mmol/L (10.00-18.00); Blood Urea Nitrogen 15.4 mg/dL (9.0-27.0); Calcium 9.5 mg/dL (8.7-10.3); Carbon Dioxide 29.5 mmol/L (20.0-27.5); Non-African American GFR(CKD) 94.8 (60.0-200.0); Potassium 3.7 mmol/L (3.5-5.5); Total Bilirubin 0.3 mg/dL (0.30-1.20); Total Protein 7.3 g/dL (6.2-8.2)
== END | disposition home or self-care (01) ==
LOC: LABPAT 08:39
PROVIDERS: ATTEND Surgery Plastic and Reconstructive Surgery
DX: Z01.812 Encounter for preprocedural laboratory examination (principal); E66.01 Morbid (severe) obesity due to excess calories; R00.1 Bradycardia, unspecified
CPT/HCPCS: 36415; 80053; 85025; 93005

== ENCOUNTER 2022-07-03 09:40 | Inpatient (IN) | payer BC, OTHER ==
[~2022-07-03 09:40] MED LIST changes: +CHLORHEXIDINE GLUCONATE 15 ML CUP MUCOUS MEM PRN; +DEXAMETHASONE SOD PHOSPHATE 4 MG/ML 1 ML VIAL IV ONE; -LACTATED RINGERS 1,000 ML IV SCH; +PANTOPRAZOLE 40 MG/10 ML VIAL IVP PRN; +SCOPOLAMINE 1 MG/72 HR PATCH TRANSDERM ONE; +metroNIDAZOLE-NS PMX 500 MG in SALINE 1 100ML.BAG IVPB PRN
--- NOTE | 2022-07-03 09:58 | P.GSHP ---
History of Present Illness H&P Date: 07/03/22 CHIEF COMPLAINT: Paraesophageal hiatal hernia with gastroesophageal reflux disease. HISTORY OF PRESENT ILLNESS: The patient is a 61-year-old female who presents with paraesophageal hiatal hernia. She has completed upper endoscopy workup. She reports moderate to severe gastroesophageal reflux disease despite having prior gastric bypass. She also reports abdominal pain. Symptoms ongoing for over 1-2 years. Now she presents for surgical intervention. PAST MEDICAL HISTORY: Please see list. PAST SURGICAL HISTORY: Please see list. MEDICATIONS: Please see list. ALLERGIES: Please see list. SOCIAL HISTORY: No illicit drug use FAMILY HISTORY: No reports of Crohn disease or ulcerative colitis. REVIEW OF ORGAN SYSTEMS: CONSTITUTIONAL: No reports of fevers or chills. GI: Denies any blood in stools or constipation. Has gastroesophageal reflux disease. HEENT: Has intermittent dysphagia. Denies blindness. NECK: No lymphadenopathy. CHEST: No recent pneumonia. Denies active sleep apnea. CARDIOVASCULAR: Had a cardiac stress test. No recent chest pain or acute myocardial infarction. MUSCULOSKELETAL: Has diffuse osteoarthritis. PSYCH: Has depression. No bipolar disorder. SKIN: No cancer of the skin. No current rash of the skin. PHYSICAL EXAM: VITAL SIGNS: Stable GENERAL: Well-developed pleasant and in no acute distress. HEENT: No scleral icterus. Extraocular movements grossly intact. Moist buccal mucosa. NECK: Supple without lymphadenopathy. CHEST: Unlabored respirations. Equal bilateral excursions. CARDIOVASCULAR: Regular rate and rhythm. Distal 2+ pulses. ABDOMEN: Soft, nondistended. No peritoneal signs. MUSCULOSKELETAL: No clubbing, cyanosis, or edema. SKIN: Well-perfused. Good skin turgor. STUDIES: Barium swallow and pedal review demonstrates a large paraesophageal hiatal hernia with incarceration. This is my independent interpretation. CARDIAC: Cardiac stress test reports demonstrates stress test ejection fraction over 55%. ASSESSMENT: 1. Diaphragmatic paraesophageal hiatal hernia with severe gastroesophageal reflux disease. PLAN: 1. Recommend proceeding with a robotic paraesophageal hiatal hernia with possible mesh. 2. Benefits and risks of surgical intervention was discussed including possibility of open technique. 3. Inpatient hospitalization recommended of 2 nights 4. DVT prophylaxis. 5. Antibiotic prophylaxis. 6. She has also completed a very low caloric high-protein diet to address underlying hepatomegaly. 7. Non narcotic pain management including abdominal wall block described 8. Blood sugar glucose described. 9. Weight loss management described. 10. She is elevated for complications for pre-existing gastric bypass and cardiac disease Past Medical History Past Medical History: Fibromyalgia, GERD/Reflux, Hypertension, Osteoarthritis (OA) Additional Past Medical History / Comment(s): arrythmia not taking meds for it, migraines, hx kidney stones, hx hiatal hernia, "food getting stuck",. hx of Covid 08/14 History of Any Multi-Drug Resistant Organisms: None Reported Past Surgical History: Adenoidectomy, Appendectomy, Bariatric Surgery, Cholecystectomy, Hernia Repair, Orthopedic Surgery, Tonsillectomy, Tubal Ligation Additional Past Surgical History / Comment(s): GASTRIC BYPASS and repair of hiatal hernia,Rt OOPHERECTOMY and alfredo salpinectomy, rt breast biopsy, lithotripsy several times,colonoscpy, arthroscopic surgery for left torn meniscus, EGD. right shoulder rotator cuff Past Anesthesia/Blood Transfusion Reactions: No Reported Reaction Smoking Status: Former smoker - Past Family History Father Family Medical History: Cancer, Hyperlipidemia, Hypertension, Prostate Disorder Additional Family Medical History / Comment(s): prostate cancer Mother Family Medical History: No Reported History Medications and Allergies Home Medications Medication Instructions Recorded Confirmed Type ALPRAZolam [Xanax] 0.25 mg PO DAILY PRN 05/30/18 06/30/22 History Amitriptyline HCl [Elavil] 100 mg PO HS 05/30/18 06/30/22 History Cyanocobalamin (Vitamin B-12) 1,000 mcg PO DAILY 05/30/18 06/30/22 History [Vitamin B-12] Multivitamins, Thera [Multivitamin 1 tab PO DAILY 05/30/18 06/30/22 History (formulary)] DULoxetine HCL [Cymbalta] 60 mg PO DAILY 11/22/18 06/30/22 History L.acidoph,Paracasei, B.lactis 1 cap PO DAILY 11/22/18 06/30/22 History [Probiotic] [place]-3 Fatty Acids [[place]-3] 1,000 mg PO DAILY 11/22/18 06/30/22 History Acetaminophen [Tylenol Extra 1,000 mg PO Q6H PRN 12/23/18 06/30/22 History Strength] hydroCHLOROthiazide [Hydrodiuril] 25 mg PO DAILY 04/10/19 06/30/22 History Metoprolol Tartrate [Lopressor] 25 mg PO BID 02/25/20 06/30/22 History Gabapentin [Neurontin] 300 mg PO HS 12/08/20 06/30/22 History Cholecalciferol (Vitamin D3) 125 mcg PO DAILY 02/24/21 06/30/22 History [Vitamin D3 (5000 Iu)] Calcium Carbonate [Calcium] 600 mg PO DAILY 08/11/21 06/30/22 History Allergies Allergy/AdvReac Type Severity Reaction Status Date / Time aspirin AdvReac does not Verified 06/30/22 11:28 take r/t gastric bypass codeine AdvReac gastric Verified 06/30/22 11:28 pain NSAIDS (Non-Steroidal AdvReac Patient Verified 06/30/22 11:28 Anti-Inflamma states she cannot take due to gastric bypass ondansetron [From Zofran] AdvReac gastric Verified 06/30/22 11:28 pain psyllium [From Metamucil] AdvReac Abdominal Verified 06/30/22 11:28 Pain tramadol AdvReac Abdominal Verified 06/30/22 11:28 Pain oral steroids AdvReac Patient Uncoded 06/30/22 11:28 states she cannot take due to gastric bypass
[2022-07-03] MEDS ORDERED: ACETAMINOPHEN TAB 500 MG TAB PO STA (09:59)
[2022-07-03] MEDS: LACTATED RINGERS 1,000 ML IV SCH (12:30)
[2022-07-03] MEDS ORDERED: MIDAZOLAM 2 MG/2 ML VIAL IV ONE (12:45)
[2022-07-03] MEDS ORDERED: HEPARIN SODIUM,PORCINE/PF 5,000 UNIT/0.5 ML SYRINGE SQ ONE (12:51)
[2022-07-03] MEDS ORDERED: HEPARIN SODIUM,PORCINE 5,000 UNIT/ML 1 ML VIAL SQ ONE (12:54)
[2022-07-03] MEDS ORDERED: fentaNYL (PF) 50 MCG/ML 2 ML AMP ONE (15:22)
[2022-07-03] MEDS ORDERED: MIDAZOLAM 2 MG/2 ML VIAL ONE (15:22)
[2022-07-03] MEDS ORDERED: PROPOFOL 10 MG/ML 20 ML VIAL IV ONE (15:22)
[2022-07-03] MEDS ORDERED: ROCURONIUM 10 MG/ML (5 ML VIAL) IV ONE (15:22)
[2022-07-03] MEDS ORDERED: HYDROmorphone (PF) 1 MG/ML ONE (15:22)
[2022-07-03] MEDS ORDERED: SUCCINYLCHOLINE CHLORIDE 200 MG/10 ML VIAL IV ONE (15:22)
[2022-07-03] MEDS ORDERED: NEOSTIGMINE 1 MG/ML 10 ML VIAL ONE (15:22)
[2022-07-03] MEDS ORDERED: GLYCOPYRROLATE 0.2 MG/ML 2 ML VIAL ONE (15:22)
[2022-07-03] MEDS ORDERED: LIDOCAINE 2% INJ 20 MG/ML (2 ML VIAL) ONE (15:22)
[2022-07-03] MEDS ORDERED: LIDOCAINE 1%-EPI 1:100,000 20 ML VIAL SQ ONE (15:52)
[2022-07-03] MEDS ORDERED: LACTATED RINGERS 1,000 ML IV ONE (16:26)
[2022-07-03] MEDS ORDERED: SIMETHICONE 40 MG/0.6 ML DROPS 2,000 MG/30 ML BOTTLE PO PRN (17:16)
[2022-07-03] MEDS ORDERED: NALOXONE 0.4 MG/ML 1 ML VIAL IV PRN (17:16)
[2022-07-03] MEDS ORDERED: diphenhydrAMINE 50 MG/ML 1 ML VIAL IVP PRN (17:16)
--- NOTE | 2022-07-03 17:16 | P.OP ---
Date of Procedure: 07/03/22 Description of Procedure: SURGEON: BLADIMIR WILCOX MD PREOPERATIVE DIAGNOSES: 1. Gastroesophageal reflux disease, severe with erosive esophagitis 2. Paraesophageal hiatal hernia, midline. 3. History of gastric bypass 4. Hypertensive heart disease 5. Depressive disorder 6. Neuropathy 7. Fibromyalgia 8. Cardiac arrhythmia 9. Migraines 10. History kidney stone 11. Generalized anxiety disorder POSTOPERATIVE DIAGNOSES: 1. Gastroesophageal reflux disease, severe with erosive esophagitis 2. Paraesophageal hiatal hernia, midline, incarcerated and recurrent, 4 x 3 cm, type III 3. Severe intra-abdominal peritoneal adhesions of omentum to epigastric abdominal wall 4. Hypertensive heart disease 5. Depressive disorder 6. Neuropathy 7. Fibromyalgia 8. Cardiac arrhythmia 9. Migraines 10. History kidney stone 11. Generalized anxiety disorder 12. History of gastric bypass OPERATION: 1. Robotic-assisted da Braden Xi laparoscopic reduction and repair of recurrent incarcerated paraesophageal hiatal hernia, 4 x 3 cm, with [place] Biopatch A 8 x 8 cm. 2. Robotic-assisted da Braden Xi laparoscopic extensive lysis of adhesions over 1 hour 3. Intraoperative esophagogastroscopy ANESTHESIA: General with local anesthetic. ESTIMATED BLOOD LOSS: 5 mL Pathology: None COMPLICATIONS: None. FINDINGS: 1. Incarcerated upper pole of the stomach within the mediastinum with moderate dissection performed with resection of mediastinal hernia sac, type III paraesophageal hiatal hernia 2. 4 cm paraesophageal incarcerated diaphragmatic hiatal hernia with moderate dissection into the mediastinum. 3. [place] Biopatch A onlay mesh placed. 4. Identified previous hiatal hernia repair with retained suture consistent with recurrent incarcerated hiatal hernia 5. Reduction of incarcerated 4 cm superior pole of stomach from previous gastrectomy 6. Intra-abdominal esophageal length over 2 cm obtained 7. Severe intra-abdominal peritoneal adhesions of greater omentum and lesser omentum to abdominal wall including gastrectomy adherent to the epigastrium additional complexity to the case over 1 hour INDICATIONS: The patient is a 61-year-old female who presents with epigastric abdominal pain, history of sleeve gastrectomy and gastroesophageal reflux recalcitrant to medical therapy with a symptomatic diaphragmatic hiatal hernia. Preoperative workup including upper endoscopy demonstrated hiatal hernia with erosive esophagitis. Given the severity of her symptoms, she had elected for surgical intervention. Benefits and risks including bleeding, infection, recurrence, dysphagia, injury to the lung, need for further surgery was described at length. Informed consent was obtained. DESCRIPTION: The patient was brought into the operating room and placed in supine position. Preoperatively she had received Lovenox subcutaneously for DVT prophylaxis. After general induction, the abdomen was prepped and draped in standard sterile fashion. The patient had previously voided prior to coming to the operating room. [place] draping was placed along the abdomen. A timeout protocol was confirmed with the surgical team, for which the patient's name, procedure to be performed including DVT prophylaxis with bilateral SCDs, and preoperative antibiotics were also confirmed. A robotic da Braden Xi system was prepped and primed. At 15 cm from the xiphoid to just below the umbilicus, proposed port sites were marked with indelible marker along the left axillary line, left mid-clavicular line with each ports were marked 10 cm from each other. A 5 mm 0 degrees laparoscopic trocar entry was performed along the left upper quadrant. The abdomen was insufflated to 15 mmHg pressure was tolerated well. Diagnostic laparoscopy demonstrated no injury to bowel, viscera. Severe peritoneal adhesions of the epigastrium was identified. Next, one 8 mm robotic port was placed along the right upper abdomen. An 8-mm port was were placed along the left lateral abdominal wall. The camera 8-mm port was maintained along the epigastrium. Another 12 mm port was placed along the left upper abdominal wall after exchanging the 5 mm port. Please note that the ports were placed at least 20 cm away from the target anatomy. Care was taken to check that each robotic arm were safely away from collision with the bed or the patient. The patient was repositioned in reverse Trendelenburg position at 14-degrees after lowering the bed. The robot was docked above the left side of the patient. Using a grasper for arm 3, a grasper for arm 1, including vessel sealer for arm 2, the robotic system was docked and primed as described. Instruments were interchanged by the psychologist research assistant. I had sat at the console. Initial attention was brought to the severe peritoneal adhesions involving the greater omentum to the anterior abdominal wall of the epigastrium including midline and right including left upper quadrant. Using combination blunt dissection including vessel sealer for sharp dissection, extensive lysis of adhesions over 1 hour was performed. The stomach was adherent to the abdominal wall and carefully dissected free. Dissection was carried to the hiatus circumferentially using vessel sealer including blunt dissection. Previous retained suture was found along the hiatus consistent with a prior repair. The hiatus hernia recurred anteriorly including a retained sac acting as a lead point for recurrence. To prevent any injury to the esophagus including proximal stomach, I performed an intraoperative upper endoscopy with the scope entering along the posterior oropharynx into the distal stomach and left in place as a bougie. The remnant gastrohepatic ligament was cleaved using a vessel sealer. Next, the phrenoesophageal ligament was mobilized and the distal esophagus was mobilized circumferentially. An incarcerated hernia sac was found into the mediastinum. The left and right crura was identified. Significant mobilization of the distal to mid esophagus into the mediastinum was performed. Circumferentially, the hernia sac was excised and brought into the abdominal cavity. Care was taken to avoid any gastrotomy to the incarcerated upper pole of the stomach. The measured defect was measured with a ruler consistent with 4 cm axial length and 3 cm in width. After extensive dissection, the distal esophagus at least 2 cm was brought into the abdominal cavity. Once the hiatus and crura was dissected, 2-0 VLOC nonabsorbable suture was placed as a running suture to re-approximate the diaphragmatic hiatus posteriorly. To buttress the repair, a [place] Biopatch A was prepared along the back table and cut in a haines-hole fashion as to reinforce the repair as an underlay. The mesh was resized posteriorly placed along the crural repair and tagged using 2-0 VLOC. I went to the head of the bed to perform intraoperative esophagogastrodu odenoscopy. An Olympus gastroscope was passed through posterior oropharynx, where the squamocolumnar junction was confirmed below the hiatus. The stomach was entered. Features of gastric bypass was confirmed. The stomach had been desufflated. No evidence of leaks were found or mucosal defects of the esophagus or stomach. This concluded the endoscopic portion of the case. The robot was undocked from the patient. I re-scrubbed into the case. All instruments and pneumoperitoneum were evacuated from the abdominal cavity. The incisions were cleansed with dilute hydrogen peroxide with saline solution. Incisions were reapproximated using 4-0 Monocryl in an interrupted subcuticular fashion. The 12-mm port site fascial defect was less than 8 mm in size. Exofinwas applied to the skin. Local anesthetic was infiltrated in all wounds for postop analgesia. Multiple intra-abdominal films were obtained. At the end of the procedure, needle, sponge, and instrument count was verified correct by the neurosurgical physician assistant. The patient had tolerated the procedure well and was taken to the postanesthesia unit in stable condition. Intraoperative films were reviewed with the patient's family who were pleased with the level of care.
[2022-07-03] MEDS ORDERED: ALPRAZolam 0.25 MG TAB PO PRN (17:20)
[2022-07-03] MEDS: HYDROmorphone 0.5 MG/0.5 ML SYRINGE IVP PRN ×3 (17:26→18:06)
[2022-07-03] MEDS: ALBUTEROL NEBULIZED 2.5 MG/3 ML INHALATION SCH (19:09)
[2022-07-03] MEDS: ACETAMINOPHEN IV (For NPO) 1,000 MG in EMPTY BAG 1 BAG IVPB SCH (19:36)
[2022-07-03] MEDS: 0.9% NACL WITH KCL 20 MEQ/L 1,000 ML IV SCH (19:54)
[2022-07-03] MEDS: fentaNYL PCA 500 MCG/50 ML BAG IV PRN (19:54)
[2022-07-03] MEDS: METOPROLOL TARTRATE 25 MG TAB PO SCH (21:00)
[2022-07-03] MEDS ORDERED: GABAPENTIN 300 MG CAP PO SCH (21:00)
[2022-07-03] MEDS: HYOSCYAMINE ORAL DROPS 1.875 MG/15 ML BOTTLE PO SCH (21:00)
[2022-07-04] MEDS: ACETAMINOPHEN IV (For NPO) 1,000 MG in EMPTY BAG 1 BAG IVPB SCH ×3 (00:01→12:39)
[2022-07-04] MEDS: HYOSCYAMINE ORAL DROPS 1.875 MG/15 ML BOTTLE PO SCH ×3 (00:04→12:39)
[2022-07-04] MEDS: LACTATED RINGERS 1,000 ML IV SCH (02:54)
[2022-07-04] MEDS: 0.9% NACL WITH KCL 20 MEQ/L 1,000 ML IV SCH (05:31)
[2022-07-04] MEDS: ALBUTEROL NEBULIZED 2.5 MG/3 ML INHALATION SCH ×2 (07:09→11:29)
[2022-07-04 07:32] LABS: African American GFR (CKD) >90 (>60 ml/min/1.73 sqM); Anion Gap 10 mmol/L; Blood Urea Nitrogen 9 mg/dL (7-17); Calcium 8.5 mg/dL (8.4-10.2); Carbon Dioxide 27 mmol/L (22-30); Chloride 100 mmol/L (98-107); Magnesium 1.9 mg/dL (1.6-2.3); Non-African American GFR(CKD) >90 (>60 ml/min/1.73 sqM); Phosphorus 3.4 mg/dL (2.5-4.5); Sodium 137 mmol/L (137-145)
[2022-07-04 07:36] LABS: Basophils # (A) 0.1 k/uL (0-0.2); Basophils % (A) 1 %; Eosinophils # (A) 0.1 k/uL (0-0.7); Eosinophils % (A) 1 %; HCT 42.3 % (34.0-46.0); HGB 13.7 gm/dL (11.4-16.0); Hypochromasia Slight; Lymphocytes # (A) 1.3 k/uL (1.0-4.8); Lymphocytes % (A) 14 %; MCHC 32.4 g/dL (31.0-37.0); MCV 89.6 fL (80.0-100.0); Mean Platelet Volume 8.7; Monocytes # (A) 0.5 k/uL (0-1.0); Monocytes % (A) 6 %; Neutrophils # (A) 7.1 k/uL (1.3-7.7); Neutrophils % (A) 77 %; Platelet Count 245 k/uL (150-450); RBC 4.72 m/uL (3.80-5.40); RDW 13.7 % (11.5-15.5); WBC 9.3 k/uL (3.8-10.6)
[2022-07-04] MEDS ORDERED: 0.9% NACL WITH KCL 20 MEQ/L 1,000 ML IV SCH (08:00)
[2022-07-04] MEDS: METOPROLOL TARTRATE 25 MG TAB PO SCH (08:46)
[2022-07-04] MEDS ORDERED: ENOXAPARIN 40 MG/0.4 ML SYRINGE SQ SCH (09:00)
[2022-07-04] MEDS ORDERED: hydroCHLOROthiazide 25 MG TAB PO SCH (09:00)
[2022-07-04] MEDS ORDERED: PANTOPRAZOLE 40 MG/10 ML VIAL IV SCH (09:00)
--- NOTE | 2022-07-04 10:40 | FL ---
SINGLE CONTRAST UPPER GI EXAMINATION: CLINICAL HISTORY: 61-year-old female postop hiatal hernia repair. Patient with prior gastric bypass in 2005.. TECHNIQUE: Single contrast exam performed with 50 ml Isovue-370 contrast. Total fluoroscopy time: 1 minute 30 seconds. Total images: 85 save screens. FINDINGS: The patient swallowed oral contrast without difficulty or delay. Esophageal course and caliber withi n normal limits. There is some distal esophageal dysmotility with tertiary peristaltic waves and epi sodes of intraesophageal reflux which improves throughout the course of the study. There is prompt pa ssage of contrast from the esophagus into the stomach and subsequently across the gastrojejunostomy. Some blunted secondary peristaltic waves are encountered which delays complete clearance from the dis suzette esophagus there is no evidence of contrast extravasation to suggest leak. Trace postsurgical free air below the right hemidiaphragm. IMPRESSION: 1. No evidence of leak or significant obstruction status post bilateral hernia repair. Patient also w ith prior gastrojejunostomy. 2. Mild distal esophageal dysmotility. 3. Trace postsurgical free air below the right hemidiaphragm.
[2022-07-04 11:27] VITALS: BP 110/70; TEMP 97.8
[2022-07-04 11:38] VITALS: PULSE 102; RESP 18
[2022-07-04] MEDS: fentaNYL PCA 500 MCG/50 ML BAG IV PRN (11:40)
--- NOTE | 2022-07-04 14:31 | P.DS ---
Providers Date of admission: 07/03/22 10:58 Expected date of discharge: 07/04/22 Attending physician: Kelsea Shearer Primary care physician: Todd Fuentes Hospital Course: Discharge diagnosis 1. Gastroesophageal reflux disease, severe with erosive esophagitis 2. Paraesophageal hiatal hernia, midline, incarcerated and recurrent, 4 x 3 cm, type III 3. Severe intra-abdominal peritoneal adhesions of omentum to epigastric abdominal wall, sleeve gastrectomy to the liver Hospital course The patient is a 61-year-old female who presents with paraesophageal hiatal hernia. She has completed upper endoscopy workup. She reports moderate to severe gastroesophageal reflux disease despite having prior gastric bypass. She also reports abdominal pain. She is status post robotic-assisted laparoscopic reduction and repair of recurrent incarcerated paraesophageal hiatal hernia with [place] biopatch and status post lysis of adhesions. Patient tolerated surgery well. Upper GI shows no evidence of leak or obstruction. She is tolerating t. Her pain is controlled. She is up and ambulating. She is afebrile. Patient did have some mild tachycardia possibly due to her nebulizer treatments. This medication was discontinued. Patient denies any chest pain or shortness of breath. She is stable for discharge. Physician Wearing Apparel Shaker note has been reviewed by physician. Signing provider agrees with the documented findings, assessment, and plan of care. Patient Condition at Discharge: Stable Plan - Discharge Summary Discharge Rx Participant: No New Discharge Prescriptions: New Simethicone 40 mg/0.6 ml Drops [Mylicon Drops] 40 mg PO PCHS PRN #30 ml PRN Reason: Gas Omeprazole [PriLOSEC] 40 mg PO DAILY #30 cap Ondansetron Odt [Zofran Odt] 4 mg PO Q8HR PRN #9 tab PRN Reason: Nausea Acetaminophen Tab [Tylenol] 1,000 mg PO Q6HR PRN #30 tablet PRN Reason: Pain bisacodyL [Dulcolax] 5 mg PO DAILY PRN #10 tab PRN Reason: Constipation Continue Multivitamins, Thera [Multivitamin (formulary)] 1 tab PO DAILY Amitriptyline HCl [Elavil] 100 mg PO HS ALPRAZolam [Xanax] 0.25 mg PO DAILY PRN PRN Reason: Anxiety Cyanocobalamin (Vitamin B-12) [Vitamin B-12] 1,000 mcg PO DAILY DULoxetine HCL [Cymbalta] 60 mg PO DAILY [place]-3 Fatty Acids [Houston-3] 1,000 mg PO DAILY L.acidoph,Paracasei, B.lactis [Probiotic] 1 cap PO DAILY Acetaminophen [Tylenol Extra Strength] 1,000 mg PO Q6H PRN PRN Reason: Pain hydroCHLOROthiazide [Hydrodiuril] 25 mg PO DAILY Metoprolol Tartrate [Lopressor] 25 mg PO BID Gabapentin [Neurontin] 300 mg PO HS Cholecalciferol (Vitamin D3) [Vitamin D3 (5000 Iu)] 125 mcg PO DAILY Calcium Carbonate [Calcium] 600 mg PO DAILY Discharge Medication List ALPRAZolam [Xanax] 0.25 mg PO DAILY PRN 05/30/18 [History] Amitriptyline HCl [Elavil] 100 mg PO HS 05/30/18 [History] Cyanocobalamin (Vitamin B-12) [Vitamin B-12] 1,000 mcg PO DAILY 05/30/18 [History] Multivitamins, Thera [Multivitamin (formulary)] 1 tab PO DAILY 05/30/18 [History] DULoxetine HCL [Cymbalta] 60 mg PO DAILY 11/22/18 [History] L.acidoph,Paracasei, B.lactis [Probiotic] 1 cap PO DAILY 11/22/18 [History] [place]-3 Fatty Acids [Houston-3] 1,000 mg PO DAILY 11/22/18 [History] Acetaminophen [Tylenol Extra Strength] 1,000 mg PO Q6H PRN 12/23/18 [History] hydroCHLOROthiazide [Hydrodiuril] 25 mg PO DAILY 04/10/19 [History] Metoprolol Tartrate [Lopressor] 25 mg PO BID 02/25/20 [History] Gabapentin [Neurontin] 300 mg PO HS 12/08/20 [History] Cholecalciferol (Vitamin D3) [Vitamin D3 (5000 Iu)] 125 mcg PO DAILY 02/24/21 [History] Calcium Carbonate [Calcium] 600 mg PO DAILY 08/11/21 [History] Acetaminophen Tab [Tylenol] 1,000 mg PO Q6HR PRN #30 tablet 07/04/22 [Rx] Omeprazole [PriLOSEC] 40 mg PO DAILY #30 cap 07/04/22 [Rx] Ondansetron Odt [Zofran Odt] 4 mg PO Q8HR PRN #9 tab 07/04/22 [Rx] Simethicone 40 mg/0.6 ml Drops [Mylicon Drops] 40 mg PO PCHS PRN #30 ml 07/04/22 [Rx] bisacodyL [Dulcolax] 5 mg PO DAILY PRN #10 tab 07/04/22 [Rx] Follow up [facility]ment(s[facility]Ref[facility] [place] [facility] - [facility] Activity/Diet/Wound Care/Special Instructions: Wear abdominal binder at all times for comfort. No lifting over 4 pounds in 4 weeks You May shower. No bath tub soaks for two weeks Use Tylenol scheduled for the next 24-48 hours for best pain relief. Use ice along incisions for the today to prevent swelling. No straws or carbonated beverages Discharge Disposition: HOME SELF-CARE
[2022-07-04 15:04] VITALS: BMI 32.9
[2022-07-05] MEDS ORDERED: bisacodyL 5 MG TABLET.DR PO PRN (08:00)
== END 2022-07-04 16:31 | disposition home or self-care (01) | DRG 327 ==
LOC: 2ORMAIN 10:58 → 5NMEDONC 17:26
PROVIDERS: ADMIT Surgery Plastic and Reconstructive Surgery; ATTEND Surgery Plastic and Reconstructive Surgery
PROC: 8E0W4CZ Robotic Assisted Procedure of Trunk Region, Percutaneous Endoscopic Approach (ICD-10-PCS; principal; 2022-07-03 12:20)
PROC: 0DNU4ZZ Release Omentum, Percutaneous Endoscopic Approach (ICD-10-PCS; principal; 2022-07-03 12:20)
PROC: 0DNW4ZZ Release Peritoneum, Percutaneous Endoscopic Approach (ICD-10-PCS; principal; 2022-07-03 12:20)
PROC: 0DJ68ZZ Inspection of Stomach, Via Natural or Artificial Opening Endoscopic (ICD-10-PCS; principal; 2022-07-03 12:20)
PROC: 0BUT4JZ Supplement Diaphragm with Synthetic Substitute, Percutaneous Endoscopic Approach (ICD-10-PCS; principal; 2022-07-03 12:20)
DX: K44.0 Diaphragmatic hernia with obstruction, without gangrene (principal); K22.10 Ulcer of esophagus without bleeding; K21.00 Gastro-esophageal reflux disease with esophagitis, without bleeding; I10 Essential (primary) hypertension; K66.0 Peritoneal adhesions (postprocedural) (postinfection); M79.7 Fibromyalgia; Z79.899 Other long term (current) drug therapy; M19.90 Unspecified osteoarthritis, unspecified site; F32.A Depression, unspecified; F41.1 Generalized anxiety disorder; G43.909 Migraine, unspecified, not intractable, without status migrainosus; G62.9 Polyneuropathy, unspecified; Z86.16 Personal history of COVID-19; Z87.891 Personal history of nicotine dependence; Z98.84 Bariatric surgery status; Z88.6 Allergy status to analgesic agent; Z88.5 Allergy status to narcotic agent; Z98.51 Tubal ligation status; Z90.49 Acquired absence of other specified parts of digestive tract; Z87.442 Personal history of urinary calculi; Z90.3 Acquired absence of stomach [part of]
CPT/HCPCS: 74240; 80051; 82310; 82565; 83735; 84100; 84520; 85025; 94640

== ENCOUNTER → 2022-07-07 | Outpatient (CLI) | payer BC, OTHER ==
--- NOTE | 2022-07-07 09:33 | P.BASOAP ---
Subjective Progress Note Date: 07/07/22 Clinically doing well. Patient had gastric bypass [address] Flores. Hiatal hernia repair were reviewed including images. Close post bariatric gastric bypass follow-up described. 4 weeks complete recovery described. Patient wishes to return to work sooner however on restrictions. Follow up in 1 week advised. Post bariatric diet reviewed. Overall clinically doing well. Tampon weight loss identified. Assessment/Plan Plan: Date: Initial Weight: 83.915 kg Initial BMI: Current Weight: Current BMI: Type of Surgery: Total Volume in Band: Previous Volume: Volume Removed: Volume Added: Band Size:
--- NOTE | 2022-07-07 09:35 | P.PN ---
Progress Note - Text Progress Note Date: 07/07/22 To Whom It May Concern: Kelsea Ovalle is under my general surgical care. She may return to work on Sunday, July 17, 2022 on a 4-pound restriction, until August 13. She will be closely followed in that timeframe. Regards, Kelsea Shearer M.D. FACS [facility]
[2022-07-07 12:59] VITALS: BP 117/78; PULSE 76; TEMP 98; BMI 32.9
== END | disposition home or self-care (01) ==
LOC: BARWHC3 08:44
PROVIDERS: ATTEND Surgery Plastic and Reconstructive Surgery
DX: E66.01 Morbid (severe) obesity due to excess calories (principal)
CPT/HCPCS: 99211

== ENCOUNTER → 2022-08-02 | Outpatient (CLI) | payer BC, OTHER ==
[2022-08-02 16:28] VITALS: BP 123/64; PULSE 70; TEMP 98.2; BMI 32.4
--- NOTE | 2022-08-02 16:46 | P.HPBAR ---
Bariatric H&P - History & Physicial H&P Date: 08/02/22 History & Physicial: Visit/CC: hernia F/U Patient initial contact: Initial weight: 83.915 kg Initial weight in pounds: 185.00 Height: 5 ft 6 in Initial BMI: 29.8 Last weight: Current weight: 91.172 kg Current weight in pounds: 201.00 Current BMI: 32.4 [place] body weight (based on NIH guidelines): 58.967 kg Excess body weight loss: The patient is a 61 year-old F who presents for Bariatric Assessment. Finish omeprazole. Eating smaller bites to prevent dysphagia. She is eating 75 grams of protein. Lifting restrictions is being completed until tomorrow 08/03/22. Op note reviewed. Past Medical History Past Medical History: Fibromyalgia, Hypertension, Osteoarthritis (OA) Additional Past Medical History / Comment(s): arrythmia, migraines, hx kidney stones, hx hiatal hernia, "food getting stuck", History of Any Multi-Drug Resistant Organisms: None Reported Past Surgical History: Adenoidectomy, Appendectomy, Bariatric Surgery, Cholecystectomy, Hernia Repair, Orthopedic Surgery, Tonsillectomy, Tubal Ligation Additional Past Surgical History / Comment(s): GASTRIC BYPASS and repair of hiatal hernia,Rt OOPHERECTOMY and alfredo salpinectomy, rt breast biopsy, lithotripsy several times,colonoscpy, arthroscopic surgery for left torn meniscus, EGD. right shoulder rotator cuff. hiatal hernia repair 07-03-22 Past Anesthesia/Blood Transfusion Reactions: No Reported Reaction Past Psychological History: Anxiety Additional Psychological History / Comment(s): . Smoking Status: Former smoker Past Alcohol Use History: Occasional Additional Past Alcohol Use History / Comment(s): started smoking at age 21 and quit age 24. 1 pack per week Past Drug Use History: None Reported - Past Family History Father Family Medical History: Cancer, Hyperlipidemia, Hypertension, Prostate Disorder Additional Family Medical History / Comment(s): prostate cancer Mother Family Medical History: No Reported History Surgical - Exam Vital Signs Temp Pulse BP 98.2 F 70 123/64 08/02/22 16:25 08/02/22 16:25 08/02/22 16:25 Bariatric Checklist Checklist: Plan: Checklist: EGD: 1. Hiatal hernia: 2. H. Pylori: HgbA1c: Vitamin D: Smoking: Former smoker Primary care physician referral: Dr. Fuentes Psychiatry clearance: Cardiology clearance: Sleep study: Diet journal: VTE risk score: VTE risk level: Rehab needs at discharge:
== END ==
LOC: BARWHC3 15:34
PROVIDERS: ATTEND Surgery Plastic and Reconstructive Surgery
DX: E66.01 Morbid (severe) obesity due to excess calories (principal); Z88.8 Allergy status to other drugs, medicaments and biological substances; Z88.5 Allergy status to narcotic agent; Z88.6 Allergy status to analgesic agent; Z91.048 Other nonmedicinal substance allergy status; Z87.891 Personal history of nicotine dependence; Z68.32 Body mass index [BMI] 32.0-32.9, adult; Z71.3 Dietary counseling and surveillance
CPT/HCPCS: 97802; 99211

== ENCOUNTER 2023-03-30 10:56 | Day surgery (SDC) | payer BC, OTHER ==
--- NOTE | 2023-03-30 06:53 | P.HPOR ---
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 Location Posterior diffuse Activity Modification Yes, has difficulty with sit to stand. Hand Dominance Right TREATMENTS COMPLETED: 6 weeks of PT completed? Yes How many sessions? 12 Did it help? No Physician directed home exercise completed? Yes, without relief. Medications Yes; List: Cymbalta & Gabapentin Alternative interventions Chiropractic:No Massage therapy:No Brace: No Injections Yes (lumbar BLAKE) How many? 2 (most recent: bilateral SI injections on 05/09/22) Did they help? No RFA: No SUBJECTIVE: Ms. Ovalle returns to the office today for re-check on her low back pain. The patient continues to experience an ache-like and burning pain throughout the low back. The patient notes that her symptoms are exacerbated by prolonged activity, such as walking or standing. The patient also continues to experience severe pain when going from a seated to standing position. The patient previously trialed facet injections on 01/06/2022 and 03/03/2022 without any significant relief. The patient also trialed bilateral SI joint injections on 05/09/2022 wi thout significant relief. The patient has also trialed at home exercises, at home heat/ice therapies, and physical therapy, all without any relief of her symptoms. The patient is currently taking Cymbalta and Gabapentin. The patient notes that her symptoms make it very difficult for her to complete many of her daily tasks. She is having severe sleep disturbances due to her current symptoms. Otherwise she denies any bladder or bowel retention/incontinence, no perineal numbness/tingling, and ambulates independently today. HPI: Ms. Ovalle presents to the office on 11/20/2021 for a recheck of her lumbar spine. Since the time of the last appointment the patient reports that her symptoms have not improved in any notable fashion. Overall she reports that her symptoms are the same as they were at the time of the last appointment. She did complete one lumbar BLAKE injection without any relief. Patient denies any lasting relief with all conservative treatments trialed thus far. She reports continued dysfunction or any inability to complete most of her daily activities due toe severity of her symptoms. Otherwise she denies any bladder or bowel retenti on/incontinence, no perineal numbness/tingling, and ambulates without the use of any aids. Ms. Ovalle was last seen on 05/19/2021 regarding her low back. To review, at the patient's last appointment regarding their low back pain on 01/17/2021 she was given an order for a repeat MRI of the lumbar spine, along with being given an order for an SI HCl injection on the right side with pain management. The patient reports no improvement to her symptoms with the injection or the use of Tylenol and Neurontin. Additionally she denies completing any physical therapy for her low back pain. Regarding her symptoms, she states that her symptoms have worsened since the last appointment. She states that she has had increased lumbar pain, which increases with bending/lifting/twisting. Overall she is still concerned with her continued back pain. Other than her back pain the patient is doing well and ambulates without the use of any aides. Patient last returned on 01/17/2021 for a follow up on her back pain. She reported that she had been falling and has had a recent fall with increased back pain. She has had 3 transforaminal steroid injections with the most recent on 11/04/2020 with no relief. She reported low back pain and right hip pain that increases with bending, lifting, and sitting. Patient was taking Neurontin as needed for pain.Patient was ambulating independently. The patients' past social, medical, family, surgical history, as well as review of systems, have been reviewed. Please refer to the Neurosurgery History and Physical form that has been scanned in to our electronic medical record system. 14 points review of systems completed and as stated in HPI, all other systems reviewed are negative. Review of Systems 14 points review of systems completed and as stated in HPI, all other systems reviewed are negative. Past Medical History Past Medical History: Fibromyalgia, Hypertension, Osteoarthritis (OA), Skin Disorder Additional Past Medical History / Comment(s): terrymia, migraines, hx kidney stones, hx hiatal hernia, right hip & back pain, eczema History of Any Multi-Drug Resistant Organisms: None Reported Past Surgical History: Adenoidectomy, Appendectomy, Bariatric Surgery, Breast Surgery, Cholecystectomy, Hernia Repair, Orthopedic Surgery, Tonsillectomy, Tubal Ligation Additional Past Surgical History / Comment(s): GASTRIC BYPASS and repair of hiatal hernia,Rt OOPHERECTOMY and alfredo salpinectomy, rt breast biopsy, lithotripsy several times,colonoscpy, arthroscopic surgery for left torn meniscus, EGD. right shoulder rotator cuff. hiatal hernia repair 07-03-22 Past Anesthesia/Blood Transfusion Reactions: No Reported Reaction Smoking Status: Former smoker - Past Family History Father Family Medical History: Cancer, Hyperlipidemia, Hypertension, Prostate Disorder Additional Family Medical History / Comment(s): prostate cancer Mother Family Medical History: No Reported History Medications and Allergies Home Medications Medication Instructions Recorded Confirmed Type ALPRAZolam [Xanax] 0.25 mg PO DAILY PRN 05/30/18 03/29/23 History Amitriptyline HCl [Elavil] 100 mg PO HS 05/30/18 03/29/23 History Cyanocobalamin (Vitamin B-12) 1,000 mcg PO DAILY 05/30/18 03/29/23 History [Vitamin B-12] Multivitamins, Thera [Multivitamin 1 tab PO DAILY 05/30/18 03/29/23 History (formulary)] DULoxetine HCL [Cymbalta] 60 mg PO DAILY 11/22/18 03/29/23 History L.acidoph,Paracasei, B.lactis 1 cap PO DAILY 11/22/18 03/29/23 History [Probiotic] [place]-3 Fatty Acids [[place]-3] 1,000 mg PO DAILY 11/22/18 03/29/23 History Acetaminophen [Tylenol Extra 1,000 mg PO Q6H PRN 12/23/18 03/29/23 History Strength] hydroCHLOROthiazide [Hydrodiuril] 25 mg PO DAILY 04/10/19 03/29/23 History Metoprolol Tartrate [Lopressor] 25 mg PO BID 02/25/20 03/29/23 History Gabapentin [Neurontin] 300 mg PO HS 12/08/20 03/29/23 History Cholecalciferol (Vitamin D3) 125 mcg PO DAILY 02/24/21 03/29/23 History [Vitamin D3 (5000 Iu)] Calcium Carbonate [Calcium] 600 mg PO DAILY 08/11/21 03/29/23 History Allergies Allergy/AdvReac Type Severity Reaction Status Date / Time aspirin AdvReac does not Verified 03/29/23 08:59 take r/t gastric bypass codeine AdvReac gastric Verified 03/29/23 08:59 pain NSAIDS (Non-Steroidal AdvReac Patient Verified 03/29/23 08:59 Anti-Inflamma states she cannot take due to gastric bypass ondansetron [From Zofran] AdvReac gastric Verified 03/29/23 08:59 pain psyllium [From Metamucil] AdvReac Abdominal Verified 03/29/23 08:59 Pain tramadol AdvReac Abdominal Verified 03/29/23 08:59 Pain oral steroids AdvReac Patient Uncoded 03/29/23 08:59 states she cannot take due to gastric bypass Physical Examination Osteopathic Statement: *. No significant issues noted on an osteopathic structural exam other than those noted in the History and Physical/Consult. PHYSICAL EXAMINATION: General:Awake, alert, appropriate for age, in no acute distress. HEENT:No unusual neck masses around region of lateral neck triangle, thyroid, supraclavicular groove Extremities:Skin warm and dry without acute lesions, coloration, temperature, skin intact, no tenderness or erythema Integument: Hairy patches:Absent Dorsal skin dimples:Absent Cafe au lait spots:Absent Palpation: Please see Pain drawing on Intake sheet for further detail. no new SIJ TESTING: Right SI + TTP +compression R +Distraction R -Thigh Thrust +FABER4 +Hip thrust POSTURAL and MUSCULO-SKELETAL EVALUATION: Coronal Balance:NEUTRAL Recumbent testing:Patient is able to lay flat on back Sagittal Balance:NEUTRAL Shoulder Profile:LEVEL Pelvic Girdle:LEVEL Neck ROM:UNRESTRICTED Lumbar ROM:RESTRICTED Shoulder ROM: Symmetrical Hip ROM:Symmetrical Knee ROM:Symmetrical Hands: Normal appearance, symmetrical Feet:Normal appearance, Symmetrical VASCULAR STATUS : LEFTRIGHT Wrist Pulses INTACT INTACT Pedal Pulses (Dors. pedis & post.tibialis) INTACT INTACT Color NORMAL NORMAL Edema Absent Absent NEUROLOGIC EXAMINATION: Mental Status:Awake and alert, fully oriented, with normal attention, concentration and memory, and fluent, appropriate speech. Cranial Nerves: I: Olfactory not tested. II: Visual acuity normal, no visual field deficit noted with confrontation. III,IV: Normal pupillary reflexes & intact extraocular movements without nystagmus. V,: Intact symmetrical facial sensation. VII: Intact symmetrical facial motor movement VIII: Hearing intact. IX,X: Intact gag, swallow, & normal voice. XI: Sternocleidomastoid, trapezius function intact. XII: Tongue midline with normal movements. L'hermitte's Sign:Negative / absent Spurling'Sign: Absent bilaterally. Cubital percussion test: Absent bilaterally. Karmen-Tinel sign - Carpal region:Absent bilaterally. Straight Leg Raising:Absent bilaterally. Crossed straight leg raise:negative O8 MOTOR EXAM (0-5/5, N/T) STRENGTH RIGHT LEFT Shoulder Abd (not part of the SARAH score) 5 5 Elbow Flexors 5 5 Elbow Extensor 5 5 Wrist Dorsiflexors 5 5 Finger Abductor 5 5 Childcare Center Administrator 5 5 Hip Flexor (Not part of SARAH Motor score) 4+ 5 Knee Flexor 5 5 Knee Extensor 5 5 Ankle dorsiflexor 5 5 Ankle plantarflexion 4+ 5 Extensor hallucis 5 5 REFLEXES(0-4/2, NT) RIGHT LEFT Upper Extremities 2 2 Lower Extremities 2 2 Pathological Reflexes RIGHT LEFT Quiles's Absent Absent Clonus Absent Absent Babinski Absent Absent # Indicates mechanical impairment Muscle appearance: Symmetrical, without signs of atrophy or dystrophy. Rectal Tone:Deferred, Normal, strong with volition control Sensory system (0-4, N/T) Test type RU LIONEL RL LL Joint-Position 2 2 2 2 Vibration 2 2 2 2 Pain & LT sense 2 2 2 2 Dermatomal Deficit: None None None None Gait and Functional Evaluation: Ambulatory aids:Independent Romberg's test:Intact bilaterally Toe heel walk / heel-toe walk intact while maintaining satisfactory balance? yes Squatting/straightening w/o assistance to a min of 60 degree knee flexion? yes Single leg stance:intact Trendelenburg sign negative bilaterally Hand and finger dexterity intact bilaterally?yes Disdiadochokinesis examination negative bilaterally? yes Results Xrays from 05/19/2021 of the lumbar spine was reviewed and demonstrates: Small L5-S1 annular tear with small disc herniation at this level. There is no significant foraminal or central stenosis caused by this. There is mild spondylosis throughout the lumbar spine which is noted. There are no masses lesions or fractures noted. SI sclerosis noted b/l R>L. No fractures. Pelvis is stable. MRI scan of Lumbar spine from 02/02/2021 was reviewed today by Dr. Lawrence and indicates: MRI is reviewed which demonstrates annular tear at L5-S1 no significant stenosis noted throughout no significant spondylosis. No fracture dislocation or other lesions noted at this time some facet arthrosis is noted at L5-S1. Assessment and Plan Assessment: 1. Right degenerative sacroiliitis 2. Low back pain related to #1 Plan: Surgical Procedure Risk Review Kelsea Ovalle is a 62 year old female presenting for evaluation of onset of right SIJ pain and debility with hip pain , back pain and continued issues despite conservative measures and BLAKE. It was my pleasure to have seen and examined Ms. Ovalle. In our visit today we have had a chance to go over subjective complaints, physical examination findings and treatments, including the natural course history without intervention and various interventional options. The imaging demonstrates Small annular tear L5-S1 non contributory to her SIJ pain on the right. She has SIJ sclerosis noted on Xray and some increased signal on MRI. No infection or fracture . On physical exam, Ms. Ovalle demonstrates TTP right SIJ with +Compress, distraction, FABER4 and Hip thrust exams on the right . I explained to the patient that as her condition progresses it could cause Continued pain and debilty . At this time, based on the patients imaging and physical exam, I recommend surgery in the form or a: Right diagnostic SIJ injection . I discussed the risk and benefits of this procedure at length with Ms. Ovalle. The patient agreed to consider pursuing the procedure mentioned above. Plan: 1. Surgical plan: Right diagnostic SIJ injection under flouroscopic guidance 2. Follow up with PCP for surgical clearance 3. Review of surgical risks and benefits as well as an educational packet on the proposed surgical procedure. Risks: All surgical procedures come with inherent risks, including those related to positioning, anesthesia, intraoperative findings, and postoperative complications. It is important to understand that surgery does not come with any guarantee of a successful outcome as complications and adverse events are always possible. The patient was given a handout in office today discussing the surgical procedure and risks associated with the intervention, both of which were discussed with the patient. These risks include but are not limited to the following: ? Experiencing same, different or even worse symptoms in back, neck, arms, or legs compared to before surgery. ? Requiring further surgery or other forms of treatment presently or at some time in the future at same or other levels of the intended spine surgery. ? On an extreme but fortunately relatively rare basis severe complication such as blindness, stroke, heart attack, temporary and/or permanent nerve injury, paralysis, coma, or may occur, sometimes without known explanation. ? Surgical complications may include but are not limited to risk of infection, fluid accumulation in the surgical dissection site, including a seroma or hematoma, that requires additional surgery, wound drainage, bleeding, new numbness or weakness, vision changes/loss, spinal fluid leakage, non-healing and/or infected incision, headaches, difficulty or inability to swallow, hoarseness, hemopneumothorax, pneumothorax, impotence, retrograde ejaculation, vaginal dryness; injury to nerves, spinal cord, blood vessels, lymphatics or other vital organs (i.e., bowel injury, injury to the great vessels); heterotopic bone formation; complications related to the hardware such as screws, rods, cages including misplaced hardware, device failure, instrumentation at the wrong spine level, hardware fracture/breakage, or hardw are loosening; vertebral failure of the spinal column above or below the newly placed hardware; retained surgical instrumentations or devices and the need for further surgery. ? Medical risks of the planned spine surgery include but are not limited to generalized Infections to the whole body or local areas outside of the surgical site (sepsis), heart attack, bleeding, anaphylaxis, meningitis, seizure, epilepsy, hearing loss, burn lema, laceration of the head or other areas of the body, bruising, hypersensitivity of the skin, bladder over distension; allergic reaction; shoulder injury related to positioning; fat, blood and air clots to other areas of the body like heart, lungs, brain; failure of internal organs such as lungs, kidneys, liver and excessive bleeding. If blood transfusions are necessary, note that transfusions may cause intolerance reactions such as anaphylaxis or other complex reactions. Despite best efforts, the results of spine surgery might not heal in terms of bone, soft tissues such as skin, fascia, ligaments, and joints. Additionally, in order to achieve best possible results, spine surgery may be carried out beyond the initially planned levels and involve decompression, fusion including insertion of hardware at levels other than the original intended area of surgical interest change some portions of the procedure in order to ensure the best possible outcomes. With spine surgery and spinal fusion, there are different off label uses of instrumentation (devices, implants and hardware) as well as biological substances (bone morphogenic proteins, demineralized bone matrix) as well as using extra bone from allograft sources (i.e. cadaver bone) or autograft (iliac crest bone, ribs, or the spine itself). The patient has been given information about these practices and their inherent risks and benefits. [facility] Assistants are medically trained surgical providers who function in the outpatient, inpatient, and operating room setting under the direct supervision of the attending surgeon.They assist in the operating room with direct supervision of the attending surgeons. The patient has had a chance to review all the listed information, has been given print outs detailing this information, and has had all his/her questions answered to their satisfaction. It was my pleasure to have seen and examined Ms. Ovalle. In our visit today we have had a chance to go over my understanding of our patient's current condition, the natural course history without intervention and various interventional options. Questions were invited and answered, and the patient wishes to proceed as outlined above. I have seen and examined the patient for 25 minutes and we have spent more than 50% of the time in repeat and detailed counseling about the patient's condition, its natural course history with out and as much as can be predicted with surgery and re-review of various surgical treatment options. In conclusion,Ms. Ovalle and her spouse/partner requested we proceed with the above suggested surgery and are willing to accept risks and limitations of the suggested surgery as nature of the disease process and our best attempts at treatment for the condition. Thank you again for allowing us to be part of your patient's care. Please don't hesitate to contact me if you have any further questions. Signed and authenticated by: [facility] [address] [facility] [place] [address]
[~2023-03-30 10:56] MED LIST changes: -CHLORHEXIDINE GLUCONATE 15 ML CUP MUCOUS MEM PRN; -DEXAMETHASONE SOD PHOSPHATE 4 MG/ML 1 ML VIAL IV ONE; -LIDOCAINE 1% (10MG/ML) FOR IV START INTRADERMA PRN; -PANTOPRAZOLE 40 MG/10 ML VIAL IVP PRN; +Pre Op ABX Message 1 EACH MISC MISCELLANE ONE; -SCOPOLAMINE 1 MG/72 HR PATCH TRANSDERM ONE; -metroNIDAZOLE-NS PMX 500 MG in SALINE 1 100ML.BAG IVPB PRN
[2023-03-30 11:28] VITALS: TEMP 97.8
[2023-03-30] MEDS ORDERED: IOPAMIDOL-370 50ML BTL MISCELLANE ONE ×3 (12:40→13:22)
[2023-03-30] MEDS ORDERED: LIDOCAINE 2% INJ 20 MG/ML SQ ONE ×2 (13:11→13:22)
[2023-03-30] MEDS ORDERED: BUPIVACAINE (PF) 0.5% 30 ML VIAL SQ ONE ×2 (13:11→13:22)
[2023-03-30] MEDS ORDERED: methylPREDNISolone ACETATE 40 MG/ML 1 ML VIAL INTRAARTIC ONE ×2 (13:12→13:22)
--- NOTE | 2023-03-30 13:41 | FL ---
Fluoroscopy INDICATION: Pain FINDINGS: Fluoroscopy time: 4.6 seconds. Total dose area product (DAP) in uGy*m?, mGy*cm? (or similar): 0.5261 Images obtained: 4. IMPRESSIONS: 1. Documentation of fluoroscopy.
[2023-03-30 14:02] VITALS: RESP 16
[2023-03-30 14:05] VITALS: BP 131/72; PULSE 61
--- NOTE | 2023-04-03 06:54 | P.OP ---
Date of Procedure: 03/30/23 Preoperative Diagnosis: 1. Right SIJ OA 2. Right low back pain Postoperative Diagnosis: 1. Right SIJ OA 2. Right low back pain Procedure(s) Performed: 1. Right SIJ injection under flouroscopy Anesthesia: none Surgeon: Cornell Lawrence Estimated Blood Loss (ml): 2 IV fluids (ml): 0 Urine output (ml): 0 Pathology: none sent Condition: stable Disposition: PACU Indications for Procedure: Kelsea Ovalle is a 62 year old female presenting for evaluation of onset of right SIJ pain and debility with hip pain , back pain and continued issues despite conservative measures and BLAKE. It was my pleasure to have seen and examined Ms. Ovalle. In our visit today we have had a chance to go over subjective complaints, physical examination findings and treatments, including the natural course history without intervention and various interventional options. The imaging demonstrates Small annular tear L5-S1 non contributory to her SIJ pain on the right. She has SIJ sclerosis noted on Xray and some increased signal on MRI. No infection or fracture . On physical exam, Ms. Ovalle demonstrates TTP right SIJ with +Compress, distraction, FABER4 and Hip thrust exams on the right . I explained to the patient that as her condition progresses it could cause Continued pain and debilty . At this time, based on the patients imaging and physical exam, I recommend surgery in the form or a: Right diagnostic SIJ injection . I discussed the risk and benefits of this procedure at length with Ms. Ovalle. The patient agreed to consider pursuing the procedure mentioned above. Plan: 1. Surgical plan: Right diagnostic SIJ injection under flouroscopic guidance Description of Procedure: RIGHT SIJ injection The patient was seen and examined in the preoperative area. All preoperative protocols were followed. Informed consent was obtained risks and benefits of the procedure were discussed at length. Risks including bleeding infection damage to the surrounding tissue and risk of reoperation were discussed with the patient. Risk of anesthesia up to and including was a discussed with the patient. These are outlined in the risk review. They were willing to accept these risks and all of the risks of surgery. The patient was seen and evaluated by the anesthesia team who deemed them fit for surgery. The site was marked, the patient was willing to proceed with the procedure. The patient was transferred to the operative suite by the Department of anesthesia. They were then drifted off to sleep by the department anesthesia and sedation with local was performed. The patient tolerated this well. Once confirmation of lines and ventilation the patient was transferred to a prone Ivan table very carefully. All bony prominences including wrists, elbows, axilla, chest, hips, and thighs, and feet were padded very well. Special attention was paid to the genitalia and these were padded accordingly. SCDs were placed on bilateral lower extremities and were connected. Arms were well padded and placed on arm boards up and out in the 90/90 position. Once in position, again we confirmed good ventilation capabilities and that lines were running appropriately. The patient's lumbopelvic spine was then exposed. 1010s were placed outlining the incision site. Standard alcohol was used to clean the incision site and allowed to dry. C-arm was used to biomark the patient and confirm level for incision which was marked with a skin marker. Operative briefing was performed with all teams and everyone in agreement to proceed. The patient was then prepped and draped in a normal sterile fashion. Timeout was then performed and all parties were in agreement with the procedure to be performed. Biplanar fluoroscopy was used to identify the RIGHT SI joint which were then accessed with a 18-gauge needle after anesthetic was placed into the subcutaneous tissue in the form of 1% with epinephrine of lidocaine along with a mixture of cortical percent Marcaine without epinephrine. Once there is good anesthesia and the SI joints were accessed Isovue was used to confirm within the joint space. Once this was confirmed 40 of Kenalog along with a mixture of lidocaine and Marcaine were injected into the SI joint. Patient remained stable the entire time without any radicular symptoms during the injection phase. The needles were withdrawn and the area cleaned and Band-Aids placed. The patient was transferred back to their hospital bed atraumatically. Patient was then awakened and extubated by the department of anesthesia having tolerated the procedure very well with no complications. They were transferred to the postoperative care unit in stable condition.
== END 2023-03-30 14:11 | disposition home or self-care (01) ==
LOC: OR 10:56
PROVIDERS: ATTEND Orthopaedic Surgery
DX: M46.1 Sacroiliitis, not elsewhere classified (principal); M25.551 Pain in right hip; I10 Essential (primary) hypertension; Z90.89 Acquired absence of other organs; Z90.49 Acquired absence of other specified parts of digestive tract; Z98.890 Other specified postprocedural states; Z98.84 Bariatric surgery status; Z98.51 Tubal ligation status; Z87.891 Personal history of nicotine dependence; Z82.49 Family history of ischemic heart disease and other diseases of the circulatory system; Z88.6 Allergy status to analgesic agent; Z80.49 Family history of malignant neoplasm of other genital organs; Z88.5 Allergy status to narcotic agent; Z87.442 Personal history of urinary calculi; Z79.899 Other long term (current) drug therapy
CPT/HCPCS: 27096; J2001; J1030; Q9967

== ENCOUNTER → 2023-04-02 | Outpatient (CLI) | payer BC, OTHER ==
--- NOTE | 2023-04-04 08:02 | MR ---
EXAMINATION TYPE: MR lumbar spine wo con DATE OF EXAM: 04/02/2023 8:49 PM COMPARISON: 02/02/2021. CLINICAL INDICATION: Female, 62 years old with history of M54.50; Low back pain that radiates down ri ght leg TECHNIQUE: Multi planar, multi sequence imaging was performed utilizing: T1-weighted, T2-weighted, a nd turbo inversion recovery imaging of the lumbar spine. IV Contrast: None. FINDINGS: Alignment: The lumbar vertebral bodies have preserved heights and draining of the alignment. Cord: The conus medullaris and the distal spinal cord appear unremarkable with regards to their signa l intensity and morphology. Bones/Discs: Somewhat heterogenous bone marrow signal. Scattered osteophyte formation and mild disc s pace narrowing present throughout the spine. Facet joint arthropathy throughout the spine. No abnorma l bony edema on inversion recovery sequences. . Intervertebral disc signal is maintained. T12-L1: No evidence of significant spinal canal stenosis or neural foraminal stenosis. L1-L2: No evidence of significant spinal canal stenosis. Facet joint arthropathy mild bilateral neura l foraminal stenosis. L2-L3: No evidence of significant spinal canal stenosis. Questionable posterior annular tear at this level. It is unchanged from prior Facet joint arthropathy mild bilateral neural foraminal stenosis. L3-L4: No evidence of significant spinal canal stenosis. Facet joint arthropathy mild bilateral neura l foraminal stenosis. L4-L5: No evidence of significant spinal canal stenosis. Facet joint arthropathy mild bilateral neura l foraminal stenosis. L5-S1: The disc is rounded posterior morphology without significant spinal canal stenosis. Posterior annular tear. Facet joint arthropathy with mild neural foraminal stenosis. No significant spinal canal or neural foraminal stenosis in the remainder of the visualized levels. Other findings: None. IMPRESSION: Findings are not significantly changed from prior in 2020. No definitive evidence of disc herniation or significant spinal canal or neural foraminal stenosis.
== END | disposition home or self-care (01) ==
LOC: RADMRIMAIN 20:15
PROVIDERS: ATTEND Orthopaedic Surgery
DX: M51.16 Intervertebral disc disorders with radiculopathy, lumbar region (principal); M99.73 Connective tissue and disc stenosis of intervertebral foramina of lumbar region
CPT/HCPCS: 72148

== ENCOUNTER 2023-05-01 06:44 | Day surgery (SDC) | payer BC, OTHER ==
--- NOTE | 2023-05-01 06:49 | P.HPOR ---
History of Present Illness H&P Date: 04/26/23 .D:Date: 04/26/23 : 02:13pm .T:Title: *[facility]... COPY... Date of :[birth year] R14 Allergies: Age: 62 year Height: 5'6" Weight: 200 lbs BP:118/78 BMI: 32.28 kg/m2 Occupation: Registered Nurse VAS: 3 CHIEF COMPLAINT: Re-check on lumbar pain HISTORY: Xrays No new xrays taken in office Trauma or injury No Work-Related No Pain description Aching, burning, & sharp. Location Posterior diffuse Activity Modification Yes, has difficulty with sit to stand. Hand Dominance Right TREATMENTS COMPLETED: 6 weeks of PT completed? Yes How many sessions? 12 Did it help? No Physician directed home exercise completed? Yes, without relief. Medications Yes; List: Gabapentin Alternative interventions Chiropractic:No Massage therapy:No Brace: No Injections Yes (lumbar BLAKE) How many? 2 (most recent: bilateral SI injections on 05/09/22) Did they help? No RFA: No SUBJECTIVE: Ms. Ovalle returns to the office today status post right SI joint injection and lumbar MRI results. Patient reports that her right SI joint injection on 03/30/23 provided her with relief. She reports her symptoms improved by 75-80% after the injection. The patient notes that her symptoms are exacerbated by prolonged activity, such as walking or standing. The patient has also trialed at home exercises, at home heat/ice therapies, and physical therapy, all without any relief of her symptoms. The patient is currently taking Gabapentin for her s ymptoms as hey arise. She is having mild sleep disturbances due to her current symptoms. Otherwise she denies any bladder or bowel retention/incontinence, no perineal numbness/tingling, and ambulates independently today. HPI: Ms. Ovalle returns to the office 03/14/23 for re-check on her low back pain. The patient continues to experience an ache-like and burning pain throughout the low back. The patient notes that her symptoms are exacerbated by prolonged activity, such as walking or standing. The patient also continues to experience severe pain when going from a seated to standing position. The patient previously trialed facet injections on 01/06/2022 and 03/03/2022 without any significant relief. The patient also trialed bilateral SI joint injections on 05/09/2022 w ithout significant relief. The patient has also trialed at home exercises, at home heat/ice therapies, and physical therapy, all without any relief of her symptoms. The patient is currently taking Cymbalta and Gabapentin. The patient notes that her symptoms make it very difficult for her to complete many of her daily tasks. She is having severe sleep disturbances due to her current symptoms. Otherwise she denies any bladder or bowel retention/incontinence, no perineal numbness/tingling, and ambulates independently today. Ms. Ovalle presents to the office on 11/20/2021 for a recheck of her lumbar spine. Since the time of the last appointment the patient reports that her symptoms have not improved in any notable fashion. Overall she reports that her symptoms are the same as they were at the time of the last appointment. She did complete one lumbar BLAKE injection without any relief. Patient denies any lasting relief with all conservative treatments trialed thus far. She reports continued dysfunction or any inability to complete most of her daily activities due toe severity of her symptoms. Otherwise she denies any bladder or bowel retention/incontinence, no perineal numbness/tingling, and ambulates without the use of any aids. Ms. Ovalle was last seen on 05/19/2021 regarding her low back. To review, at the patient's last appointment regarding their low back pain on 01/17/2021 she was given an order for a repeat MRI of the lumbar spine, along with being given an order for an SI HCl injection on the right side with pain management. The patient reports no improvement to her symptoms with the injection or the use of Tylenol and Neurontin. Additionally she denies completing any physical therapy for her low back pain. Regarding her symptoms, she states that her symptoms have worsened since the last appointment. She states that she has had increased lumbar pain, which increases with bending/lifting/twisting. Overall she is still concerned with her continued back pain. Other than her back pain the patient is doing well and ambulates without the use of any aides. Patient last returned on 01/17/2021 for a follow up on her back pain. She reported that she had been falling and has had a recent fall with increased back pain. She has had 3 transforaminal steroid injections with the most recent on 11/04/2020 with no relief. She reported low back pain and right hip pain that increases with bending, lifting, and sitting. Patient was taking Neurontin as needed for pain.Patient was ambulating independently. The patients' past social, medical, family, surgical history, as well as review of systems, have been reviewed. Please refer to the Neurosurgery History and Physical form that has been scanned in to our electronic medical record system. 14 points review of systems completed and as stated in HPI, all other systems reviewed are negative. Social History: Reviewed, see appropriate section of the chart for details. P3 Social History: Smoking: former smoker P3 Alcohol: none P3 Family History: Reviewed, see appropriate section of the chart for details. P2 Past Medical History: Reviewed, see appropriate section of the chart for details. [id number] Medications: Rx: AMITRIPTYLINE HCL 100MG ORAL Tablet, Ref: 0 Rx: Cymbalta Ref: 0 Rx: Fioricet 50 mg-300 mg-40 mg capsule Ref: 0 Rx: Xanax Ref: 0 Rx: Norvasc Ref: 0 Rx: chlorzoxazone 750 mg tablet Ref: 0 Rx: esomeprazole magnesium 40 mg capsule,delayed release Ref: 0 Rx: methylPREDNISolone 4 mg tablets in a dose pack Ref: 0 PHYSICAL EXAMINATION: General:Awake, alert, appropriate for age, in no acute distress. HEENT:No unusual neck masses around region of lateral neck triangle, thyroid, supraclavicular groove Extremities:Skin warm and dry without acute lesions, coloration, temperature, skin intact, no tenderness or erythema Integument: Hairy patches:Absent Dorsal skin dimples:Absent Cafe au lait spots:Absent Palpation: Please see Pain drawing on Intake sheet for further detail. no new POSTURAL and MUSCULO-SKELETAL EVALUATION: Coronal Balance:NEUTRAL Recumbent testing:Patient is able to lay flat on back Sagittal Balance:NEUTRAL Shoulder Profile:LEVEL Pelvic Girdle:LEVEL Neck ROM:UNRESTRICTED Lumbar ROM:RESTRICTED Shoulder ROM: Symmetrical Hip ROM:Symmetrical Knee ROM:Symmetrical Hands: Normal appearance, symmetrical Feet:Normal appearance, Symmetrical VASCULAR STATUS : LEFTRIGHT Wrist Pulses INTACT INTACT Pedal Pulses (Dors. pedis & post.tibialis) INTACT INTACT Color NORMAL NORMAL Edema Absent Absent NEUROLOGIC EXAMINATION: Mental Status:Awake and alert, fully oriented, with normal attention, concentration and memory, and fluent, appropriate speech. Cranial Nerves: I: Olfactory not tested. II: Visual acuity normal, no visual field deficit noted with confrontation. III,IV: Normal pupillary reflexes & intact extraocular movements without nystagmus. V,: Intact symmetrical facial sensation. VII: Intact symmetrical facial motor movement VIII: Hearing intact. IX,X: Intact gag, swallow, & normal voice. XI: Sternocleidomastoid, trapezius function intact. XII: Tongue midline with normal movements. L'hermitte's Sign:Negative / absent Spurling'Sign: Absent bilaterally. Cubital percussion test: Absent bilaterally. Karmen-Tinel sign - Carpal region:Absent bilaterally. Straight Leg Raising:Absent bilaterally. Crossed straight leg raise:negative O8 MOTOR EXAM (0-5/5, N/T) STRENGTH RIGHT LEFT Shoulder Abd (not part of the SARAH score) 5 5 Elbow Flexors 5 5 Elbow Extensor 5 5 Wrist Dorsiflexors 5 5 Finger Abductor 5 5 Grain Farmworker 5 5 Hip Flexor (Not part of SARAH Motor score) 4+ 5 Knee Flexor 5 5 Knee Extensor 5 5 Ankle dorsiflexor 5 5 Ankle plantarflexion 4+ 5 Extensor hallucis 5 5 REFLEXES(0-4/2, NT) RIGHT LEFT Upper Extremities 2 2 Lower Extremities 2 2 Pathological Reflexes RIGHT LEFT Quiles's Absent Absent Clonus Absent Absent Babinski Absent Absent # Indicates mechanical impairment Muscle appearance: Symmetrical, without signs of atrophy or dystrophy. Rectal Tone:Deferred, Normal, strong with volition control Sensory system (0-4, N/T) Test type RU LIONEL RL LL Joint-Position 2 2 2 2 Vibration 2 2 2 2 Pain & LT sense 2 2 2 2 Dermatomal Deficit: None None None None Gait and Functional Evaluation: Ambulatory aids:Independent Romberg's test:Intact bilaterally Toe heel walk / heel-toe walk intact while maintaining satisfactory balance? yes Squatting/straightening w/o assistance to a min of 60 degree knee flexion? yes Single leg stance:intact Trendelenburg sign negative bilaterally Hand and finger dexterity intact bilaterally?yes Disdiadochokinesis examination negative bilaterally? yes RADIOGRAPHS: [facility] Lum[facility] Spine: * IMPRESSION: It was my pleasure to have seen and examined Kelsea. I reviewed the patient's clinical syndrome, physical findings, and imaging studies during the appointment today. It is my impression that the patient has a diagnosis of. 1. Right sacroiliitis I outlined the natural course history without intervention and various int erventional options. PLAN: Based on my findings I suggest the following course of action: -Advised patient to continue with supplements, health maintenance, and home exercise programs. Patient expressed understanding and will continue with these modalities. -I discussed treatment options with the patient, including operative and non- operative options, and they have elected to proceed with the following surgical procedure: Second right SI joint injection The indications, risks, benefits, and alternatives to surgery were discussed with the patient ANDFAMILY at length. Specifically (but not limited to) the risks of infection, stiffness, recurrence of symptoms, need for revision surgery, local numbness, neurovascular injury, and blood clots were discussed. The patient's questions were answered.CALL BACK The decision to proceed was made. Consent will be obtained for the procedure. -Ambulate daily -Take medications as directed -Ice and rest for pain and swelling control. Surgical Procedure Risk Review Kelsea Ovalle is a 62 year old female presenting for evaluation of onset of right SIJ pain and debility with hip pain , back pain and continued issues despite conservative measures and BLAKE. It was my pleasure to have seen and examined Ms. Ovalle. In our visit today we have had a chance to go over subjective complaints, physical examination findings and treatments, including the natural course history without intervention and various interventional options. The imaging demonstrates Small annular tear L5-S1 non contributory to her SIJ pain on the right. She has SIJ sclerosis noted on Xray and some increased signal on MRI. No infection or fracture . On physical exam, Ms. Ovalle demonstrates TTP right SIJ with +Compress, distraction, FABER4 and Hip thrust exams on the right . I explained to the patient that as her condition progresses it could cause Continued pain and debilty . At this time, based on the patients imaging and physical exam, I recommend surgery in the form or a: Right diagnostic SIJ injection . I discussed the risk and benefits of this procedure at length with Ms. Ovalle. The patient agreed to consider pursuing the procedure mentioned above. Plan: 1. Surgical plan: Right SIJ injection under flouroscopic guidance 2. Follow up with PCP for surgical clearance 3. Review of surgical risks and benefits as well as an educational packet on the proposed surgical procedure. Follow-up: DEL Post procedure 1month 6wks 3 months 6 months 1 year Patient Education: (Informational booklet, instructions, etc) given at today's appointment: DEL Yes .ED:Patient Education: Y Medications Reviewed: YES In our visit today Ms. Ovalle and I have had a chance to go over my understanding of the patient's current condition, the natural course history without intervention and various interventional options. Questions were invited and answered, and the patient wishes to proceed as outlined above. I will be sure to keep you updated afterMs. Ovalle returns here for further follow-up. Thank you again for your referral. Please do not hesitate to contact me if you have any further questions. Signed and authenticated by: SAUMYA [facility] [address] [place] [address] This message is confidential, intended only for the named recipient(s) and may contain information that is privileged or exempt from disclosure under applicable law. If you are not the intended recipient(s), you are notified that the dissemination, distribution or copying of this information is strictly prohibited. If you received this message in error, please notify the sender then delete this message. Patient verbalizes understanding of the information discussed. The above note was initiated by Connor Cueva, physician recording teachers assistant for Dr. Cornell Lawrence. This note has been reviewed by Dr. Lawrence, who has made his personal changes and impressions for this document. CC: Todd Fuentes M.D. Past Medical History Past Medical History: Fibromyalgia, Hypertension, Osteoarthritis (OA), Skin Disorder Additional Past Medical History / Comment(s): arrythmia pvc and non sustained atrial tachycardia , migraines, hx kidney stones, hx hiatal hernia, right hip & back pain, eczema History of Any Multi-Drug Resistant Organisms: None Reported Past Surgical History: Adenoidectomy, Appendectomy, Bariatric Surgery, Breast Surgery, Cholecystectomy, Hernia Repair, Orthopedic Surgery, Tonsillectomy, Tubal Ligation Additional Past Surgical History / Comment(s): GASTRIC BYPASS and repair of hiatal hernia,Rt OOPHERECTOMY and alfredo salpinectomy, rt breast biopsy, lithotripsy several times,colonoscopy, arthroscopic surgery for left torn meniscus, EGD. right shoulder rotator cuff. hiatal hernia repair 07-03-22 Past Anesthesia/Blood Transfusion Reactions: No Reported Reaction Smoking Status: Former smoker - Past Family History Father Family Medical History: Cancer, Hyperlipidemia, Hypertension, Prostate Disorder Additional Family Medical History / Comment(s): prostate cancer Mother Family Medical History: No Reported History Medications and Allergies Home Medications Medication Instructions Recorded Confirmed Type ALPRAZolam [Xanax] 0.25 mg PO DAILY PRN 05/30/18 04/26/23 History Amitriptyline HCl [Elavil] 100 mg PO HS 05/30/18 04/26/23 History Cyanocobalamin (Vitamin B-12) 1,000 mcg PO DAILY 05/30/18 04/26/23 History [Vitamin B-12] Multivitamins, Thera [Multivitamin 1 tab PO DAILY 05/30/18 04/26/23 History (formulary)] DULoxetine HCL [Cymbalta] 60 mg PO DAILY 11/22/18 04/26/23 History L.acidoph,Paracasei, B.lactis 1 cap PO DAILY 11/22/18 04/26/23 History [Probiotic] Bronx-3 Fatty Acids [Bronx-3] 1,000 mg PO DAILY 11/22/18 04/26/23 History Acetaminophen [Tylenol Extra 1,000 mg PO Q6H PRN 12/23/18 04/26/23 History Strength] hydroCHLOROthiazide [Hydrodiuril] 25 mg PO DAILY 04/10/19 04/26/23 History Metoprolol Tartrate [Lopressor] 25 mg PO BID 02/25/20 04/26/23 History Gabapentin [Neurontin] 300 mg PO HS 12/08/20 04/26/23 History Cholecalciferol (Vitamin D3) 125 mcg PO DAILY 02/24/21 04/26/23 History [Vitamin D3 (5000 Iu)] Calcium Carbonate [Calcium] 600 mg PO DAILY 08/11/21 04/26/23 History Allergies Allergy/AdvReac Type Severity Reaction Status Date / Time aspirin AdvReac does not Verified 04/26/23 14:30 take r/t gastric bypass codeine AdvReac gastric Verified 04/26/23 14:30 pain NSAIDS (Non-Steroidal AdvReac Patient Verified 04/26/23 14:30 Anti-Inflamma states she cannot take due to gastric bypass ondansetron [From Zofran] AdvReac gastric Verified 04/26/23 14:30 pain psyllium [From Metamucil] AdvReac Abdominal Verified 04/26/23 14:30 Pain tramadol AdvReac Abdominal Verified 04/26/23 14:30 Pain oral steroids AdvReac Patient Uncoded 04/26/23 14:30 states she cannot take due to gastric bypass Physical Examination Osteopathic Statement: *. No significant issues noted on an osteopathic structural exam other than those noted in the History and Physical/Consult.
[2023-05-01 07:01] VITALS: TEMP 96.9
[2023-05-01] MEDS ORDERED: IOPAMIDOL-370 100ML BTL MISCELLANE ONE (07:40)
[2023-05-01] MEDS ORDERED: BUPIVACAINE (PF) 0.25% 30 ML VIAL SQ ONE (07:40)
[2023-05-01] MEDS ORDERED: methylPREDNISolone ACETATE 40 MG/ML 1 ML VIAL MISCELLANE ONE (07:41)
[2023-05-01] MEDS ORDERED: LIDOCAINE 0.5%-EPI 1:200,000 50 ML VIAL SQ ONE (07:41)
[2023-05-01 07:49] VITALS: BP 112/74; PULSE 61; RESP 16
--- NOTE | 2023-05-01 09:11 | FL ---
Intraoperative/procedural fluoroscopic services were provided. Total fluoroscopy time is 6.2 seconds with a total of 1 submitted images to PACS. Please see the operative/procedural note for further deta ils. DAP: 0.3225 mGym2
--- NOTE | 2023-05-01 10:53 | P.OP ---
Date of Procedure: 05/01/23 Preoperative Diagnosis: 1. RIGHT SIJ OA 2. LOW BACK PAIN Postoperative Diagnosis: 1. RIGHT SIJ OA 2. LOW BACK PAIN Procedure(s) Performed: 1. RIGHT SIJ INJECTION USING FLUOROSCOPIC GUIDANCE Anesthesia: local Surgeon: Cornell Lawrence Estimated Blood Loss (ml): 2 IV fluids (ml): 0 Urine output (ml): 0 Pathology: none sent Condition: stable Disposition: PACU Indications for Procedure: Kelsea Ovalle is a 62 year old female presenting for evaluation of onset of right SIJ pain and debility with hip pain , back pain and continued issues despite conservative measures and BLAKE. It was my pleasure to have seen and examined Ms. Ovalle. In our visit today we have had a chance to go over subjective complaints, physical examination findings and treatments, including the natural course history without intervention and various interventional options. The imaging demonstrates Small annular tear L5-S1 non contributory to her SIJ pain on the right. She has SIJ sclerosis noted on Xray and some increased signal on MRI. No infection or fracture . On physical exam, Ms. Ovalle demonstrates TTP right SIJ with +Compress, distraction, FABER4 and Hip thrust exams on the right . I explained to the patient that as her condition progresses it could cause Continued pain and debilty . At this time, based on the patients imaging and physical exam, I recommend surgery in the form or a: Right diagnostic SIJ injection . I discussed the risk and benefits of this procedure at length with Ms. Ovalle. The patient agreed to consider pursuing the procedure mentioned above. Plan: 1. Surgical plan: Right SIJ injection under flouroscopic guidance Description of Procedure: RIGHT SIJ injection The patient was seen and examined in the preoperative area. All preoperative protocols were followed. Informed consent was obtained, risks and benefits of the procedure were discussed at length. Risks including bleeding infection damage to the surrounding tissue and risk of reoperation were discussed with the patient. Risk of anesthesia up to and including was discussed with the patient. These are outlined in the risk review. They were willing to accept these risks and all of the risks of surgery. The patient was seen and evaluated by the anesthesia team who deemed them fit for surgery. The site was marked, the patient was willing to proceed with the procedure.\ The patient was transferred to the operative suite by the Department of anesthesia. They were then drifted off to sleep by the department anesthesia and sedation with local was performed. The patient tolerated this well. Once confirmation of lines and ventilation the patient was transferred to a prone Ivan table very carefully. All bony prominences including wrists, elbows, axilla, chest, hips, and thighs, and feet were padded very well. Special attention was paid to the genitalia and these were padded accordingly. SCDs were placed on bilateral lower extremities and were connected. Arms were well padded and placed on arm boards up and out in the 90/90 position. Once in position, again we confirmed good ventilation capabilities and that lines were running appropriately. The patient's lumbopelvic spine was then exposed. 1010s were placed outlining the incision site. Standard alcohol was used to clean the incision site and allowed to dry. C-arm was used to biomark the patient and co nfirm level for incision which was marked with a skin marker. Operative briefing was performed with all teams and everyone in agreement to proceed. The patient was then prepped and draped in a normal sterile fashion. Timeout was then performed and all parties were in agreement with the procedure to be performed. Biplanar fluoroscopy was used to identify the RIGHT SI joints which were then accessed with a 18-gauge needle after anesthetic was placed into the subcutaneous tissue in the form of 1% with epinephrine of lidocaine along with a mixture of cortical percent Marcaine without epinephrine. Once there is good anesthesia and the SI joints were accessed Isovue was used to confirm within the joint space. Once this was confirmed 40 of Kenalog along with a mixture of lidocaine and Marcaine were injected into the SI joint. Patient remained stable the entire time without any radicular symptoms during the injection phase. The needles were withdrawn and the area cleaned and Band-Aids placed. The patient was transferred back to their hospital bed atraumatically. Patient was then awakened and extubated by the department of anesthesia having tolerated the procedure very well with no complications. They were transferred to the postoperative care unit in stable condition.
== END 2023-05-01 08:21 | disposition home or self-care (01) ==
LOC: OR 06:44
PROVIDERS: ATTEND Orthopaedic Surgery
DX: M46.1 Sacroiliitis, not elsewhere classified (principal); I10 Essential (primary) hypertension; D65 Disseminated intravascular coagulation [defibrination syndrome]; M19.90 Unspecified osteoarthritis, unspecified site; M79.7 Fibromyalgia; Z88.5 Allergy status to narcotic agent; Z88.6 Allergy status to analgesic agent; Z91.09 Other allergy status, other than to drugs and biological substances; Z79.891 Long term (current) use of opiate analgesic; Z87.891 Personal history of nicotine dependence; Z79.899 Other long term (current) drug therapy
CPT/HCPCS: 27096; J1030; Q9967; J0665

== ENCOUNTER → 2023-05-01 | Outpatient (CLI) | payer BC, OTHER ==
[2023-05-01 15:31] LABS: Basophils # (A) 0.09 X 10*3/uL (0.00-0.10); Basophils % (A) 1.1 %; Eosinophils # (A) 0.13 X 10*3/uL (0.04-0.35); Eosinophils % (A) 1.6 %; HCT 44.2 % (37.2-46.3); Lymphocytes # (A) 1.83 X 10*3/uL (0.90-5.00); Lymphocytes % (A) 22.7 %; MCH 28.5 pg (27.0-32.0); MCHC 31.7 d/dL (32.0-37.0); MCV 89.8 FL (80.0-97.0); Mean Platelet Volume 10.2 FL (9.5-12.2); Monocytes # (A) 0.62 X 10*3/uL (0.20-1.00); Monocytes % (A) 7.7 %; NRBC Per 100 WBC 0 X 10*3/uL (0.00-0.01); Neutrophils # (A) 5.36 X 10*3/uL (1.80-7.70); Neutrophils % (A) 66.7 %; Platelet Count 329 X 10*3/uL (140-440); RBC 4.92 X 10*6/uL (4.10-5.20); RDW 14.1 % (11.5-14.5); WBC 8.05 X 10*3/uL (4.50-10.00)
[2023-05-01 16:03] LABS: ALT 30 U/L (8-44); AST 28 U/L (13-35); Albumin 4.5 d/dL (3.8-4.9); Albumin/Globulin Ratio 1.88 Ratio (1.60-3.17); Alkaline Phosphatase 71 U/L (41-126); BUN/Creat Ratio 16.57 Ratio (12.00-20.00); Blood Urea Nitrogen 11.6 mg/dL (9.0-27.0); Calcium 9.8 mg/dL (8.7-10.3); Carbon Dioxide 31.3 mmol/L (21.6-31.8); Chloride 101 mmol/L (96-109); Chol/HDL Ratio 2.64 Ratio; Globulin 2.4 d/dL (1.6-3.3); Glucose 98 mg/dL (70-110); LDL Cholesterol,Calculated 86.3 mg/dL (0.0-131.0); Magnesium 2.2 mg/dL (1.5-2.4); Potassium 5.2 mmol/L (3.5-5.5); Sodium 141 mmol/L (135-145); Total Bilirubin <0.2 mg/dL (0.3-1.2); Total Protein 6.9 d/dL (6.2-8.2); Uric Acid 4.9 mg/dL (2.9-7.7)
== END | disposition home or self-care (01) ==
LOC: LABWHC1 08:22
PROVIDERS: ATTEND Internal Medicine
DX: Z00.00 Encounter for general adult medical examination without abnormal findings (principal); E78.2 Mixed hyperlipidemia; I10 Essential (primary) hypertension; M85.851 Other specified disorders of bone density and structure, right thigh; E03.9 Hypothyroidism, unspecified
CPT/HCPCS: 36415; 80053; 80061; 82306; 83036; 83735; 84443; 84550; 85025

== ENCOUNTER 2023-05-21 13:34 | Emergency (ER) | payer BC, OTHER ==
[2023-05-21 13:43] VITALS: RESP 16
--- NOTE | 2023-05-21 14:24 | ED ---
Extremity Problem HPI - General Chief complaint: Extremity Problem,Nontraumatic Stated complaint: Right knee pain Time Seen by Provider: 05/21/23 13:45 Source: patient, RN notes reviewed Mode of arrival: ambulatory Limitations: no limitations - History of Present Illness Initial comments: This is a 62-year-old female who presents to the emergency department for right knee pain. Patient states over the last week she's been developing pain to the back of her right knee. Denies any injuries. States that the pain is becoming progressively worse. Denies any radiation of pain up or down the leg. She has not noticed any swelling or redness. She is on her feet a lot during the day. Her PCP ordered an ultrasound, but states that they could not schedule it for a couple of weeks. Denies any fevers, chills, sore throat, cough, dyspnea, chest pain, palpitations, abdominal pain, nausea, vomiting, diarrhea, back pain, or headaches. MD Complaint: extremity pain Onset/Timin -: week(s) - Related Data Home Medications Medication Instructions Recorded Confirmed ALPRAZolam [Xanax] 0.25 mg PO DAILY PRN 05/30/18 05/01/23 Amitriptyline HCl [Elavil] 100 mg PO HS 05/30/18 05/01/23 Cyanocobalamin (Vitamin B-12) 1,000 mcg PO DAILY 05/30/18 05/01/23 [Vitamin B-12] Multivitamins, Thera [Multivitamin 1 tab PO DAILY 05/30/18 05/01/23 (formulary)] DULoxetine HCL [Cymbalta] 60 mg PO DAILY 11/22/18 05/01/23 L.acidoph,Paracasei, B.lactis 1 cap PO DAILY 11/22/18 05/01/23 [Probiotic] [place]-3 Fatty Acids [[place]-3] 1,000 mg PO DAILY 11/22/18 05/01/23 Acetaminophen [Tylenol Extra 1,000 mg PO Q6H PRN 12/23/18 05/01/23 Strength] hydroCHLOROthiazide [Hydrodiuril] 25 mg PO DAILY 04/10/19 05/01/23 Metoprolol Tartrate [Lopressor] 25 mg PO BID 02/25/20 05/01/23 Gabapentin [Neurontin] 300 mg PO HS 12/08/20 05/01/23 Cholecalciferol (Vitamin D3) 125 mcg PO DAILY 02/24/21 05/01/23 [Vitamin D3 (5000 Iu)] Calcium Carbonate [Calcium] 600 mg PO DAILY 08/11/21 05/01/23 Previous Rx's Medication Instructions Recorded Diclofenac Sodium Gel [Voltaren 4 gm TOPICAL QID PRN #100 gm 05/21/23 Gel] methylPREDNISolone Dose Pack 4 mg PO DIRECTED #21 tab 05/21/23 [Medrol Dose Pack] Allergies Allergy/AdvReac Type Severity Reaction Status Date / Time aspirin AdvReac does not Verified 05/21/23 13:40 take r/t gastric bypass codeine AdvReac gastric Verified 05/21/23 13:40 pain NSAIDS (Non-Steroidal AdvReac Patient Verified 05/21/23 13:40 Anti-Inflamma states she cannot take due to gastric bypass ondansetron [From Zofran] AdvReac gastric Verified 05/21/23 13:40 pain psyllium [From Metamucil] AdvReac Abdominal Verified 05/21/23 13:40 Pain tramadol AdvReac Abdominal Verified 05/21/23 13:40 Pain oral steroids AdvReac Patient Uncoded 05/21/23 13:40 states she cannot take due to gastric bypass Review of Systems ROS Statement: Those systems with pertinent positive or pertinent negative responses have been documented in the HPI. ROS Other: All systems not noted in ROS Statement are negative. Past Medical History Past Medical History: Fibromyalgia, Hypertension, Osteoarthritis (OA), Skin Disorder Additional Past Medical History / Comment(s): arrythmia pvc and non sustained atrial tachycardia , migraines, hx kidney stones, hx hiatal hernia, right hip & back pain, eczema History of Any Multi-Drug Resistant Organisms: None Reported Past Surgical History: Adenoidectomy, Appendectomy, Bariatric Surgery, Breast Surgery, Cholecystectomy, Hernia Repair, Orthopedic Surgery, Tonsillectomy, Tubal Ligation Additional Past Surgical History / Comment(s): GASTRIC BYPASS and repair of hia suzette hernia,Rt OOPHERECTOMY and alfredo salpinectomy, rt breast biopsy, lithotripsy several times,colonoscopy, arthroscopic surgery for left torn meniscus, EGD. right shoulder rotator cuff. hiatal hernia repair 07-03-22 Past Anesthesia/Blood Transfusion Reactions: No Reported Reaction Past Psychological History: Anxiety Smoking Status: Former smoker Past Alcohol Use History: Occasional Past Drug Use History: None Reported - Past Family History Father Family Medical History: Cancer, Hyperlipidemia, Hypertension, Prostate Disorder Additional Family Medical History / Comment(s): prostate cancer Mother Family Medical History: No Reported History General Exam Limitations: no limitations General appearance: alert, in no apparent distress Head exam: Present: atraumatic, normocephalic, normal inspection Respiratory exam: Present: normal lung sounds bilaterally. Absent: respiratory distress, wheezes, rales, rhonchi, stridor Cardiovascular Exam: Present: regular rate, normal rhythm, normal heart sounds. Absent: systolic murmur, diastolic murmur, rubs, gallop, clicks Extremities exam: Present: other (Tenderness to palpation over the posterior aspect of the right knee. Full range of motion. No calf tenderness, overlying erythema, or swelling. 2+ DP and PT pulses. Capillary refill less than 1 second.) Neurological exam: Present: alert, oriented X3, CN II-XII intact Psychiatric exam: Present: normal affect, normal mood Skin exam: Present: warm, dry, intact, normal color. Absent: rash Course Vital Signs 05/21/23 05/21/23 13:40 16:08 Temperature 98.0 F 97.9 F Pulse Rate 75 71 Respiratory 16 16 Rate Blood Pressure 123/84 129/81 O2 Sat by Pulse 97 99 Oximetry Medical Decision Making - Medical Decision Making This is a 62-year-old female who presents to the emergency department for right knee pain. Was pt. sent in by a medical professional or institution? @ -No Did you speak to anyone other than the patient for history? @ -No Did you review nursing and triage notes? @ -Yes, and I agree, it is accurate with regards to the patient's symptoms. Were old charts reviewed? @ -No Differential Diagnosis? @ -Differential Leg Pain: Leg fracture, leg sprain, DVT, PVD, arterial insufficiency, iliac artery aneurysm, cellulitis, compartment syndrome, tendinopathy, nerve entrapment, piriformis syndrome, osteoarthritis, rhabdomyolysis, myositis, cramping from an electrolyte imbalance, this is not meant to be an all inclusive list. EKG interpreted by me (3pts min.)? @ -Not obtained X-rays interpreted by me (1pt min.)? @ -Not obtained CT interpreted by me (1pt min.)? @ -Not obtained U/S interpreted by me (1pt. min.)? @ -Duplex US of the right lower extremity obtained. My interpretation identifies no evidence of a DVT. What testing was considered but not performed? (CT, X-rays, U/S, labs)? Why? @ -None What meds were considered but not given? Why? @ -None Did you discuss the management of the patient with other professionals? @ -No Did you reconcile home meds? @ -No Was smoking cessation discussed for >3mins.? @ -No Was critical care preformed (if so, how long)? @ -No Were there social determinants of health that impacted care today? How? (Homelessness, low income, unemployed, alcoholism, drug addiction, transportation, low edu. Level, literacy, decrease access to med. care, [facility], rehab)? @ -No Was there de-escalation of care discussed even if they declined? (Discuss DNR or withdrawal of care, Hospice)? @ -No What co-morbidities impacted this encounter? (DM, HTN, Smoking, COPD, CAD, Cancer, CVA, Hep., AIDS, mental health diagnosis, sleep apnea, morbid obesity)? @ -OA, fibromyalgia Was patient admitted / discharged? @ -Discharged. Duplex ultrasound of the right lower extremity obtained revealing no acute process. Discussed with the patient that the cause of her symptoms is not entirely clear. It may be arthritic in nature. Prescription for Medrol Dosepak and diclofenac gel provided with dosing instructions reviewed. Advised to follow-up with her orthopedic provider and her PCP for reevaluation. Undiagnosed new problem with uncertain prognosis? @ -None Drug Therapy requiring intensive monitoring for toxicity (Heparin, Nitro, Insulin, Cardizem)? @ -None Were any procedures done? @ -None Diagnosis/symptom? @ -Right knee pain Acute, or Chronic, or Acute on Chronic? @ -Acute Uncomplicated (without systemic symptoms) or Complicated (systemic symptoms)? @ -Uncomplicated Side effects of treatment? @ -None Exacerbation, Progression, or Severe Exacerbation] @ -Not applicable Poses a threat to life or bodily function? @ -No Return precautions reviewed in depth, the patient is instructed to return to the emergency department with any new, worsening, or concerning symptoms. Patient verbalized understanding. This case was discussed in detail with the attending ED physician, Dr. Lugo. Presentation, findings, and treatment plan discussed in detail as well. - Radiology Data Radiology results: report reviewed, image reviewed Disposition Clinical Impression: Right knee pain, Osteoarthritis Disposition: HOME SELF-CARE Instructions (If sedation given, give patient instructions): Knee Pain (ED) Additional Instructions: Return to the emergency department with any new, worsening, or concerning symptoms. Take the Medrol Dosepak as prescribed. You can apply the diclofenac gel to the painful area up to 4 times daily for additional relief. Follow-up with orthopedics. Follow up with your primary care provider in 1-2 days. Prescriptions: methylPREDNISolone Dose Pack [Medrol Dose Pack] 4 mg PO DIRECTED #21 tab Diclofenac Sodium Gel [Voltaren Gel] 4 gm TOPICAL QID PRN #100 gm PRN Reason: Pain Is patient prescribed a controlled substance at d/c from ED?: No Referrals: Todd Fuentes MD [Primary Care Provider] - 1-2 days Angel Rodriguez DO [Doctor of Osteopathic Medicine] - 1-2 days
--- NOTE | 2023-05-21 15:41 | US ---
EXAMINATION TYPE: US venous doppler duplex LE RT DATE OF EXAM: 05/21/2023 3:19 PM COMPARISON: NONE CLINICAL INDICATION: Female, 62 years old with history of Pain behind right knee; pain SIDE PERFORMED: Right TECHNIQUE: The lower extremity deep venous system is examined utilizing real time linear array sonog antonio with graded compression, doppler sonography and color-flow sonography. VESSELS IMAGED: Common Femoral Vein Deep Femoral Vein Greater Saphenous Vein * Femoral Vein Popliteal Vein Small Saphenous Vein * Proximal Calf Veins (* superficial vessels) Grayscale, color doppler, spectral doppler imaging performed of the deep veins of the right lower ext remities. There is normal flow, compressibility, vascular waveforms. Right Leg: Negative for DVT IMPRESSION: No deep venous thrombosis of the right lower extremity.
[2023-05-21 16:09] VITALS: BP 129/81; PULSE 71; TEMP 97.9
== END 2023-05-21 16:15 | disposition home or self-care (01) ==
LOC: EC 13:34
DX: M17.11 Unilateral primary osteoarthritis, right knee (principal); I10 Essential (primary) hypertension; F41.9 Anxiety disorder, unspecified; Z79.899 Other long term (current) drug therapy; Z88.5 Allergy status to narcotic agent; Z88.6 Allergy status to analgesic agent; Z88.8 Allergy status to other drugs, medicaments and biological substances; Z98.84 Bariatric surgery status; Z87.891 Personal history of nicotine dependence
CPT/HCPCS: 99283

== ENCOUNTER → 2023-06-06 | Outpatient (CLI) | payer BC, OTHER ==
--- NOTE | 2023-06-07 08:53 | US ---
EXAMINATION TYPE: US extremity nonvasculr ltd RT DATE OF EXAM: 06/06/2023 COMPARISON: NONE CLINICAL INDICATION: Female, 62 years old with history of RLE M71.21 SYNOVIAL CYST OF POPLITEAL SPACE [CHAWAL; Pain popliteal fossa TECHNIQUE: FINDINGS: Possible small fluid collection posterior fossa (Chawla's cyst) = 1.8 x 0.8 x 1.1cm IMPRESSION: 1. Small right popliteal cyst.
== END | disposition home or self-care (01) ==
LOC: RADUSWWP 15:39
PROVIDERS: ATTEND Internal Medicine
DX: M71.21 Synovial cyst of popliteal space [Baker], right knee (principal)

== ENCOUNTER → 2023-06-11 | Outpatient (CLI) | payer BC, OTHER ==
--- NOTE | 2023-06-11 15:24 | MR ---
EXAMINATION TYPE: MR knee RT wo con DATE OF EXAM: 06/11/2023 COMPARISON: None HISTORY: Pain TECHNIQUE: Multiplanar, multisequence imaging of the right knee is performed without IV contrast. FINDINGS: MEDIAL MENISCUS: Myxoid degeneration posterior horn medial meniscus without evidence for tear. Anteri or horn is intact. LATERAL MENISCUS: Anterior and posterior horns are intact without tear. CRUCIATE LIGAMENTS: The anterior and posterior cruciate ligaments are intact and unremarkable. COLLATERAL LIGAMENTS: The medial collateral ligament and lateral collateral ligament complex are inta ct and unremarkable. EXTENSOR MECHANISM: Visualized quadriceps and patellar tendons are intact. EFFUSION: No significant suprapatellar joint effusion. POPLITEAL CYST: No popliteal/nice cyst. TRICOMPARTMENT SPACES: Mild narrowing medial tibiofemoral joint space with [id number] narrowing of patellofemoral joint space with early changes of chondromalacia patella. Mild insertional tendino sis of the quadriceps tendon. CARTILAGE: Intact BONE MARROW SIGNAL: No focal abnormal marrow signal is appreciated. OTHER: No additional significant abnormality is appreciated. IMPRESSION: 1. 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 2.Mild narrowing medial tibiofemoral joint space with [id number] narrowing of patellofemoral miguelito int space with early changes of chondromalacia patella. Mild insertional tendinosis of the quadriceps tendon.
== END | disposition home or self-care (01) ==
LOC: RADMRIMAIN 13:04
PROVIDERS: ATTEND Orthopaedic Surgery
DX: M17.11 Unilateral primary osteoarthritis, right knee (principal); M22.41 Chondromalacia patellae, right knee; M67.863 Other specified disorders of tendon, right knee

== ENCOUNTER 2023-07-07 12:26 | Emergency (ER) | payer BC, OTHER ==
[2023-07-07 12:34] VITALS: RESP 18
[2023-07-07] MEDS ORDERED: DIPH,PERTUS(ACELL)TETVAC-LF 0.5 ML VIAL IM ONE (12:53)
--- NOTE | 2023-07-07 13:45 | ED ---
Wound/Laceration HPI - General Chief Complaint: Wound/Laceration Stated Complaint: Rt hand injury Time Seen by Provider: 07/07/23 12:45 Source: patient Mode of arrival: ambulatory Limitations: no limitations - History of Present Illness Initial Comments: 62-year-old female presenting with chief complaint of laceration to the left middle finger. Patient states that she cut the finger on a metal filing cabinet this morning. She does not know when her last tetanus shot was. She has full range of motion with no numbness or tingling. Bleeding is well controlled at this time. - Related Data Home Medications Medication Instructions Recorded Confirmed ALPRAZolam [Xanax] 0.25 mg PO DAILY PRN 05/30/18 05/01/23 Amitriptyline HCl [Elavil] 100 mg PO HS 05/30/18 05/01/23 Cyanocobalamin (Vitamin B-12) 1,000 mcg PO DAILY 05/30/18 05/01/23 [Vitamin B-12] Multivitamins, Thera [Multivitamin 1 tab PO DAILY 05/30/18 05/01/23 (formulary)] DULoxetine HCL [Cymbalta] 60 mg PO DAILY 11/22/18 05/01/23 L.acidoph,Paracasei, B.lactis 1 cap PO DAILY 11/22/18 05/01/23 [Probiotic] [place]-3 Fatty Acids [[place]-3] 1,000 mg PO DAILY 11/22/18 05/01/23 Acetaminophen [Tylenol Extra 1,000 mg PO Q6H PRN 12/23/18 05/01/23 Strength] hydroCHLOROthiazide [Hydrodiuril] 25 mg PO DAILY 04/10/19 05/01/23 Metoprolol Tartrate [Lopressor] 25 mg PO BID 02/25/20 05/01/23 Gabapentin [Neurontin] 300 mg PO HS 12/08/20 05/01/23 Cholecalciferol (Vitamin D3) 125 mcg PO DAILY 02/24/21 05/01/23 [Vitamin D3 (5000 Iu)] Calcium Carbonate [Calcium] 600 mg PO DAILY 08/11/21 05/01/23 Previous Rx's Medication Instructions Recorded Diclofenac Sodium Gel [Voltaren 1% 4 gm TOPICAL QID PRN #100 gm 05/21/23 Gel] methylPREDNISolone Dose Pack 4 mg PO DIRECTED #21 tab 05/21/23 [Medrol Dose Pack] Allergies Allergy/AdvReac Type Severity Reaction Status Date / Time aspirin AdvReac does not Verified 07/07/23 12:34 take r/t gastric bypass codeine AdvReac gastric Verified 07/07/23 12:34 pain NSAIDS (Non-Steroidal AdvReac Patient Verified 07/07/23 12:34 Anti-Inflamma states she cannot take due to gastric bypass ondansetron [From Zofran] AdvReac gastric Verified 07/07/23 12:34 pain psyllium [From Metamucil] AdvReac Abdominal Verified 07/07/23 12:34 Pain tramadol AdvReac Abdominal Verified 07/07/23 12:34 Pain oral steroids AdvReac Patient Uncoded 07/07/23 12:34 states she cannot take due to gastric bypass Review of Systems ROS Statement: Those systems with pertinent positive or pertinent negative responses have been documented in the HPI. ROS Other: All systems not noted in ROS Statement are negative. Past Medical History Past Medical History: Fibromyalgia, Hypertension, Osteoarthritis (OA), Skin Disorder Additional Past Medical History / Comment(s): arrythmia pvc and non sustained atrial tachycardia , migraines, hx kidney stones, hx hiatal hernia, right hip & back pain, eczema History of Any Multi-Drug Resistant Organisms: None Reported Past Surgical History: Adenoidectomy, Appendectomy, Bariatric Surgery, Breast Surgery, Cholecystectomy, Hernia Repair, Orthopedic Surgery, Tonsillectomy, Tubal Ligation Additional Past Surgical History / Comment(s): GASTRIC BYPASS and repair of hiatal hernia,Rt OOPHERECTOMY and alfredo salpinectomy, rt breast biopsy, lithotripsy several times,colonoscopy, arthroscopic surgery for left torn meniscus, EGD. right shoulder rotator cuff. hiatal hernia repair 07-03-22 Past Anesthesia/Blood Transfusion Reactions: No Reported Reaction Past Psychological History: Anxiety Smoking Status: Former smoker Past Alcohol Use History: Occasional Past Drug Use History: None Reported - Past Family History Father Family Medical History: Cancer, Hyperlipidemia, Hypertension, Prostate Disorder Additional Family Medical History / Comment(s): prostate cancer Mother Family Medical History: No Reported History General Exam Limitations: no limitations General appearance: alert, in no apparent distress Head exam: Present: atraumatic, normocephalic, normal inspection Eye exam: Present: normal appearance, EOMI Neck exam: Present: normal inspection Respiratory exam: Absent: respiratory distress Neurological exam: Present: alert, oriented X3 Psychiatric exam: Present: normal affect, normal mood Expanded Type of lesion: Present: laceration (2 cm laceration to the left middle finger) Course Vital Signs 07/07/23 07/07/23 12:32 13:51 Temperature 98.2 F 97.9 F Pulse Rate 80 63 Respiratory 18 18 Rate Blood Pressure 133/83 113/80 O2 Sat by Pulse 99 98 Oximetry Procedures - Laceration Laceration #1 Consent Obtained: verbal consent Indication: laceration Site: hand Size (cm): 2 Description: linear Depth: simple, single layer Anesthetic Used: lidocaine 1%, without epi Anesthesia Technique: local infiltration Pre-repair: wound explored Type of Sutures: nylon Size of Sutures: 4-0 Number of Sutures: 3 Technique: simple, interrupted Patient Tolerated Procedure: well Medical Decision Making - Medical Decision Making Was pt. sent in by a medical professional or institution (, PA, DRY MILL OPERATOR, urgent care, hospital, or prison...) When possible be specific @ -No Did you speak to anyone other than the patient for history (EMS, parent, family, police, friend...)? What history was obtained from this source @ -No Did you review nursing and triage notes (agree or disagree)? Why? @ -I reviewed and agree with nursing and triage notes Were old charts reviewed (outside hosp., previous admission, EMS record, old EKG, old radiological studies, urgent care reports/EKG's, prison records)? Report findings @ -No old charts were reviewed Differential Diagnosis (chest pain, altered mental status, abdominal pain women, abdominal pain men, vaginal bleeding, weakness, fever, dyspnea, syncope, headach e, dizziness, GI bleed, back pain, seizure, CVA, palpatations, mental health, musculoskeletal)? @ -not applicable EKG interpreted by me (3pts min.). @ -As above X-rays interpreted by me (1pt min.). @ -None done CT interpreted by me (1pt min.). @ -None done U/S interpreted by me (1pt. min.). @ -None done What testing was considered but not performed or refused? (CT, X-rays, U/S, labs)? Why? @ -None What meds were considered but not given or refused? Why? @ -None Did you discuss the management of the patient with other professionals (professionals i.e. , PA, DRY MILL OPERATOR, lab, RT, psych nurse, social and human services assistant, flight agent, teacher, public records officer, behavioral health case manager)? Give summary @ -No Was smoking cessation discussed for >3mins.? @ -No Was critical care preformed (if so, how long)? @ -No Were there social determinants of health that impacted care today? How? (Homelessness, low income, unemployed, alcoholism, drug addiction, transportation, low edu. Level, literacy, decrease access to med. care, long term, rehab)? @ -No Was there de-escalation of care discussed even if they declined (Discuss DNR or withdrawal of care, Hospice)? DNR status @ -No What co-morbidities impacted this encounter? (DM, HTN, Smoking, COPD, CAD, Cancer, CVA, ARF, Chemo, Hep., AIDS, mental health diagnosis, sleep apnea, morbid obesity)? @ -None Was patient admitted / discharged? Hospital course, mention meds given and route, prescriptions, significant lab abnormalities, going to OR and other pertinent info. @ -[id number] female presenting with chief complaint of laceration to the left middle finger after cutting on a metal filing cabinet. Her tetanus is updated today. Laceration is repaired, see procedure note for details. Follow- up with PCP. Report back to ER with any new or worsening symptoms. Discussed return parameters and answered all questions. Patient conveyed verbal understan ding and agreed to the plan. I discussed this case in detail with my attending Dr. Breaux Undiagnosed new problem with uncertain prognosis? @ -No Drug Therapy requiring intensive monitoring for toxicity (Heparin, Nitro, Insulin, Cardizem)? @ -No Were any procedures done? @ -Laceration repair Diagnosis/symptom? @ -Laceration Acute, or Chronic, or Acute on Chronic? @ -Acute Uncomplicated (without systemic symptoms) or Complicated (systemic symptoms)? @ -Uncomplicated Side effects of treatment? @ -No Exacerbation, Progression, or Severe Exacerbation? @ -No Poses a threat to life or bodily function? How? (Chest pain, [place], [place], pneumonia, PE, COPD, DKA, ARF, appy, cholecystitis, CVA, Diverticulitis, Homicidal, Suicidal, threat to staff... and all critical care pts) @ -No Disposition Clinical Impression: Laceration Disposition: HOME SELF-CARE Condition: Good Instructions (If sedation given, give patient instructions): Care For Your Stitches (ED), Finger Laceration (ED) Additional Instructions: Follow-up with PCP. Report back to ER with any new or worsening symptoms. Wash gently with soap and water. Avoid prolonged submersion such as swimming or baths. Keep the wound clean and dry and covered. Sutures may be removed in 10- 14 days. Monitor for signs of infection, including but not limited to redness, swelling, warmth, tenderness, discharge. Is patient prescribed a controlled substance at d/c from ED?: No Referrals: Todd Fuentes MD [Primary Care Provider] - 1-2 days Time of Disposition: 13:45
[2023-07-07 14:06] VITALS: BP 113/80; PULSE 63; TEMP 97.9
== END 2023-07-07 14:07 | disposition home or self-care (01) ==
LOC: EC 12:26
DX: S61.213A Laceration without foreign body of left middle finger without damage to nail, initial encounter (principal); I10 Essential (primary) hypertension; M79.7 Fibromyalgia; F41.9 Anxiety disorder, unspecified; Z23 Encounter for immunization; Z79.899 Other long term (current) drug therapy; Z88.5 Allergy status to narcotic agent; Z88.6 Allergy status to analgesic agent; Z88.8 Allergy status to other drugs, medicaments and biological substances; Z87.891 Personal history of nicotine dependence; Z90.49 Acquired absence of other specified parts of digestive tract; W31.1XXA Contact with metalworking machines, initial encounter
CPT/HCPCS: 12001; 90471; 90715; 99282

== ENCOUNTER → 2023-09-26 | Outpatient (CLI) | payer BC ==
[2023-09-26 15:13] LABS: Basophils # (A) 0.11 X 10*3/uL (0.00-0.10); Basophils % (A) 1.2 %; Eosinophils # (A) 0.19 X 10*3/uL (0.04-0.35); HCT 43.9 % (37.2-46.3); HGB 13.6 g/dL (12.0-15.0); Lymphocytes # (A) 2.45 X 10*3/uL (0.90-5.00); Lymphocytes % (A) 26.3 %; MCH 27.7 pg (27.0-32.0); MCV 89.4 FL (80.0-97.0); Mean Platelet Volume 10.2 FL (9.5-12.2); Monocytes # (A) 0.63 X 10*3/uL (0.20-1.00); Monocytes % (A) 6.8 %; NRBC Per 100 WBC 0 X 10*3/uL (0.00-0.01); Neutrophils % (A) 63.4 %; Platelet Count 316 X 10*3/uL (140-440); RBC 4.91 X 10*6/uL (4.10-5.20); RDW 13.7 % (11.5-14.5); WBC 9.31 X 10*3/uL (4.50-10.00)
[2023-09-26 15:18] LABS: Anion Gap 9.8 mmol/L (4.00-12.00); Carbon Dioxide 31.2 mmol/L (21.6-31.8); Potassium 4.2 mmol/L (3.5-5.5)
== END | disposition home or self-care (01) ==
LOC: LABWHC1 08:26
PROVIDERS: ATTEND Orthopaedic Surgery
DX: Z01.812 Encounter for preprocedural laboratory examination (principal); M23.91 Unspecified internal derangement of right knee; R00.1 Bradycardia, unspecified
CPT/HCPCS: 36415; 80051; 85025; 93005

== ENCOUNTER 2023-10-04 08:04 | Day surgery (SDC) | payer BC, OTHER ==
[2023-10-02 13:28] VITALS: BMI 29.8
--- NOTE | 2023-10-03 19:21 | HP ---
HISTORY AND PHYSICAL DATE OF SURGERY: 10/04/2023. HISTORY OF PRESENT ILLNESS: Kelsea Ovalle is a 63-year-old patient seen with progressive right knee pain. We discussed options for treatment. She elected to proceed with right knee arthroscopy. Consent was obtained. PAST MEDICAL HISTORY: Gastroesophageal reflux disease, hypertension, hyperlipidemia. PAST SURGICAL HISTORY: Appendectomy, tubal ligation, cholecystectomy, gastric bypass surgery, shoulder arthroscopy. DAILY MEDICATIONS: 1. Cymbalta. 2. Gabapentin. 3. Hydrochlorothiazide. 4. Metoprolol. 5. Tylenol. ALLERGIES: NSAIDs, aspirin, codeine, Zofran, steroids. SOCIAL HISTORY: She denies tobacco use. PHYSICAL EVALUATION OF THE RIGHT KNEE: Range of motion is 0 to 120 degrees. Mild effusion. Tenderness along the medial and lateral joint lines. Positive medial Rony's. Positive lateral Rony's. Ligaments stable. Hip rotation without pain. Distal neurovascular exam is intact. IMAGING STUDIES: Right knee radiographs revealed mild osteoarthritis. MRI of right knee revealed abnormal signal of the medial meniscus. IMPRESSION: 1. Internal derangement of right knee with medial meniscal tear. 2. Hypertension. 3. Gastroesophageal reflux disease. PLAN: Right knee arthroscopy with partial medial meniscectomy and debridement. MMODL / IJN: [id number] /
[~2023-10-04 08:04] MED LIST changes: +DEXAMETHASONE SOD PHOSPHATE 4 MG/ML 1 ML VIAL IV ONE; +HYDROmorphone 0.5 MG/0.5 ML SYRINGE IVP PRN; +LACTATED RINGERS 1,000 ML IV SCH; +LIDOCAINE 1% (10MG/ML) FOR IV START INTRADERMA PRN; +MIDAZOLAM 2 MG/2 ML VIAL IV PRN; -Pre Op ABX Message 1 EACH MISC MISCELLANE ONE
[2023-10-04] MEDS ORDERED: ONDANSETRON 4 MG/2 ML VIAL ONE (08:20)
[2023-10-04] MEDS ORDERED: PROPOFOL 10 MG/ML 20 ML VIAL IV ONE (09:22)
[2023-10-04] MEDS ORDERED: MIDAZOLAM 2 MG/2 ML VIAL ONE (09:22)
[2023-10-04] MEDS ORDERED: fentaNYL (PF) 50 MCG/ML 2 ML AMP ONE (09:22)
[2023-10-04] MEDS ORDERED: LIDOCAINE 1% INJ 10MG/ML (20 ML MDV) ONE (09:22)
[2023-10-04] MEDS ORDERED: SUCCINYLCHOLINE CHLORIDE 200 MG/10 ML VIAL IV ONE (09:22)
[2023-10-04] MEDS ORDERED: BUPIVACAINE (PF) 0.25% 30 ML VIAL SQ ONE ×2 (09:50→10:01)
--- NOTE | 2023-10-04 10:27 | P.OP ---
Date of Procedure: 10/04/23 Preoperative Diagnosis: Internal derangement right knee Postoperative Diagnosis: 1. Tear medial and lateral meniscus right knee 2. Grade 4 chondromalacia medial femoral condyle right knee 3. Grade 4 chondromalacia femoral sulcus right knee 4. Reactive synovitis medial, lateral and suprapatellar compartments right knee Procedure(s) Performed: 1. Arthroscopic partial medial and lateral meniscectomy right knee 2. Arthroscopic microfracture medial femoral condyle right knee 3. Arthroscopic microfracture femoral sulcus right knee 4. Arthroscopic partial synovectomy medial, lateral and suprapatellar compartments right knee Anesthesia: MARKA, local Surgeon: Angel Rodriguez Estimated Blood Loss (ml): 6 Pathology: none sent Condition: stable Disposition: PACU Indications for Procedure: 63-year-old patient seen with progressive right knee pain. After treatment options were discussed, she elected to proceed with arthroscopy. Operative Findings: see description of procedure Description of Procedure: Patient was taken to the operative suite. Patient underwent a general anesthetic by the department of anesthesia. Patient was given preoperative antibiotics. The right lower extremity was placed in a well-padded arthroscopic leg padilla. The right leg was prepped and draped in the normal sterile orthopedic fashion. A lateral parapatellar and suprapatellar incision was made. Trochars were inserted. Arthroscopy was initiated. Suprapatellar pouch diffuse thick reactive synovitis. The patellofemoral joint appeared to articulate congruently. There with grade 4 chondromalacia of the patella and grade 4 chondromalacia the femoral sulcus with exposed bone laterally. The scope was guided into the medial gutter. No loose bodies or plica were identified. The scope was then guided into the medial compartment. A medial parapatellar incision was made. Trocar inserted followed by probe. There was a radial tear posterior horn medial meniscus. There were grade 3/4 chondromalacia changes along the medial femoral condyle with osteochondral flap tears present. There was thick reactive synovitis anteriorly. I performed a partial medial meniscectomy getting down to stable meniscal tissue. I performed a chondroplasty of the medial femoral condyle getting down to stable osteochondral tissue. I performed a partial synovectomy decompressing the reactive synovitis. I did note an area of exposed bone along the medial femoral condyle measuring less than a centimeter. I introduced a microfracture awl performed a microfracture to that area penetrating the bone with resultant bleeding at the microfracture site. The residual osteochondral surface was found to be stable. The residual meniscus was stable. There was good decompression of the synovitis. Scope and probe were then guided into the intercondylar notch. Cruciates were identified, probed and found to be stable. The scope and probe were then guided into lateral compartment. There was a radial tear mid body lateral meniscus. There were grade 2 chondromalacia changes lateral tibial plateau without tears. There was thick reactive synovitis anteriorly. I performed a partial lateral meniscectomy getting down to stable meniscal tissue. I performed a partial synovectomy decompressing the reactive synovitis. The residual meniscus was stable. There was good decompression of the synovitis. The scope was in guided back into the suprapatellar compartment. I introduced a motorized shaver into the suprapatellar compartment. I performed a partial synovectomy. I introduced a microfracture awl and I performed a microfracture to 2 separate areas of that exposed bone along the lateral femoral sulcus penetrating the bone with resultant bleeding at the microfracture sites. There was good decompression of the synovitis. I took one more look around the entire knee, no residual debris. Instruments were now removed from the joint. The joint was infiltrated with .25% Marcaine. Steri-Strips were applied to the portal sites. Sterile dressings were applied. The patient was placed into a LIGIA hose. No tourniquet was utilized. The patient was awakened, transferred to a bed and taken to recovery stable satisfactory condition.
[2023-10-04 10:29] VITALS: TEMP 97
[2023-10-04] MEDS ORDERED: HYDROcodone/APAP 5-325MG 1 EACH TAB ONE (11:55)
[2023-10-04 12:08] VITALS: BP 124/71; RESP 18
[2023-10-04 12:34] VITALS: PULSE 70
== END 2023-10-04 12:47 | disposition home or self-care (01) ==
LOC: OR 08:04
PROVIDERS: ATTEND Orthopaedic Surgery
DX: S83.281A Other tear of lateral meniscus, current injury, right knee, initial encounter (principal); S83.241A Other tear of medial meniscus, current injury, right knee, initial encounter; M22.41 Chondromalacia patellae, right knee; M65.161 Other infective (teno)synovitis, right knee; K21.9 Gastro-esophageal reflux disease without esophagitis; G89.29 Other chronic pain; I10 Essential (primary) hypertension; E78.5 Hyperlipidemia, unspecified; K44.9 Diaphragmatic hernia without obstruction or gangrene; Z90.49 Acquired absence of other specified parts of digestive tract; Z98.84 Bariatric surgery status; Z98.890 Other specified postprocedural states; Z79.899 Other long term (current) drug therapy; Z88.6 Allergy status to analgesic agent; Z88.8 Allergy status to other drugs, medicaments and biological substances; Z88.5 Allergy status to narcotic agent; Z86.79 Personal history of other diseases of the circulatory system; X58.XXXA Exposure to other specified factors, initial encounter
CPT/HCPCS: 29879; 29880; J2250; J0330; J1100; J0690; J2001; J3010; J2704; J1170; J0665

== ENCOUNTER → 2023-10-30 | Outpatient (CLI) | payer BC, OTHER ==
--- NOTE | 2023-10-30 12:25 | BD ---
EXAMINATION TYPE: Axial Bone Density DATE OF EXAM: 10/30/2023 CLINICAL HISTORY: 63 years old Female. ICD-10 CODE: M85.851 OSTEOPENIA Height: 5 ft 5 1/2 in Weight: 186 FRAX RISK QUESTIONS: Alcohol (3 or more units per day): no Family History (Parent hip fracture): no Glucocorticoids (More than 3mos): no (Ex: prednisone, prednisolone, methylprednisolone, dexamethasone, and hydrocortisone). History of Fracture in Adulthood: no Secondary Osteoporosis: 1. Type 1 Diabetes: no 2. Hyperthyroidism: no 3. Menopause before 45: no 4. Malnutrition: no 5. Chronic liver disease: no Rheumatoid Arthritis: no Current Tobacco Use: no RISK FACTORS HISTORY OF: Surgery to Spine/Hip(right/left)/Wrist (right/left): no MEDICATIONS: Thyroid Medications: none Osteoporosis Medications: none EXAM MEASUREMENTS: Bone mineral densitometry was performed using the Vdancer System. Bone mineral density as measured about the Lumbar spine is: ----- L1-L4(G/cm2): 0.991 T Score Values are as follows: ----- L1: -1.8 ----- L2: -2.2 ----- L3: -0.9 ----- L4: -1.6 ----- L1-L4: -1.6 Z Score Values are as follows: ----- L1: -1.2 ----- L2: -1.5 ----- L3: -0.3 ----- L4: -1.0 ----- L1-L4: -0.9 baseline Bone mineral density about the R hip (g/cm2): 0.781 Bone mineral density about the L hip (g/cm2): 0.788 T Score values are as follows: -----R Neck: -1.8 -----L Neck: -1.8 -----R Total: -1.5 -----L Total: -1.4 Z Score values are as follows: -----R Neck: -1.0 -----L Neck: -0.9 -----R Total: -1.0 -----L Total: -0.8 baseline FRAX%s: The graph provided illustrates a 9.1 % chance for a major osteoporotic fx and a 1.0 % chance for the hips probability for fx in 10 years time. IMPRESSION: Osteopenia (T Score between -2.5 and -1). There is slightly increased risk of fracture and the patient may be considered for treatment. Re-Screen 2-5 years. NOTE: T-SCORE=SD OF THE YOUNG ADULT MEAN.
--- NOTE | 2023-10-31 09:38 | MM ---
Reason for Exam: Screening (asymptomatic). Last mammogram was performed 1 year(s) and 11 month(s) ago. Patient History: Menarche at age 15. First Full-Term at age 25. Postmenopausal. 2013, Benign Excisional Biopsy on the right side. Risk Values: Em 5 year model risk: 1.6%. NCI Lifetime model risk: 7.5%. Prior Study Comparison: 08/02/2015 Screening Mammogram, [facility]. 08/31/2020 Bilateral Screening Mammogram, [facility]. 11/25/2021 Bilateral Screening Mammogram, [facility]. Tissue Density: There are scattered fibroglandular densities. Findings: Analyzed By CAD. There is no suspicious group of microcalcifications or new suspicious mass. Overall Assessment: Negative, BI-RAD 1 Management: Screening Mammogram of both breasts in [address] [facility] will attempt to contact patient to return for supplemental views and ultrasound if indicated. Patient should continue monthly self-breast exams. A clinical breast exam by your physician is recommended on an annual basis. This exam should not preclude additional follow-up of suspicious palpable abnormalities. Note on Em scores and lifetime risk: 1. A Em score greater than 3% is considered moderate risk. If this is the case, consider specialist referral to assess eligibility for a risk reducing agent. 2. If overall lifetime risk for the development of breast cancer is 20% or higher, the patient may qualify for future screening with alternating mammogram and breast MRI. Electronically signed and approved by: Tuan Peck DO
== END | disposition home or self-care (01) ==
LOC: RADMAMWWP 06:46
PROVIDERS: ATTEND Internal Medicine
DX: Z12.31 Encounter for screening mammogram for malignant neoplasm of breast (principal); M85.89 Other specified disorders of bone density and structure, multiple sites; Z78.0 Asymptomatic menopausal state
CPT/HCPCS: 77063; 77067; 77080

== ENCOUNTER → 2024-01-23 | Outpatient (CLI) | payer BC, OTHER ==
--- NOTE | 2024-01-23 09:47 | FL ---
EXAMINATION TYPE: FL barium swallow DATE OF EXAM: 01/23/2024 8:57 AM COMPARISON: . CT 02/27/2020. CLINICAL INDICATION:Female, 63 years old with history of K21.9 GASTRO-ESOPHAGEAL REFLUX DISEASE WITHO [facility]; [facility], TECHNIQUE: The procedure was explained and patient history elicited. All patient questions were ans wered prior to start of procedure. Multiple spot fluoroscopic images of the esophagus were obtained a fter the oral ingestion of effervescent crystals and liquid barium as the contrast agent. Fluoroscopic time: 27 sec Fluoroscopic images: 0 Radiographs taken: 80 DAP: 1149 mGym2 FINDINGS: Postsurgical changes to the stomach. The esophagus demonstrates normal primary and secondary peristal sis. The esophageal mucosa is smooth without evidence of focal stricture, ulceration, or abnormal ou tpouching. There is gastroesophageal reflux which originates from a small hiatal hernia. IMPRESSION: 1. Small hiatal hernia with small amount of reflux from the hiatal hernia into the esophagus.
== END | disposition home or self-care (01) ==
LOC: RADUSWWP 08:00
PROVIDERS: ATTEND Surgery Plastic and Reconstructive Surgery
DX: K21.9 Gastro-esophageal reflux disease without esophagitis (principal); K44.9 Diaphragmatic hernia without obstruction or gangrene
CPT/HCPCS: 74220

== ENCOUNTER → 2024-02-27 | Outpatient (CLI) | payer BC, OTHER ==
--- NOTE | 2024-02-27 08:58 | XR ---
EXAMINATION TYPE: XR hand complete RT DATE OF EXAM: 02/27/2024 8:05 AM CLINICAL INDICATION:Female, 63 years old with history of M79.644 FINGER PAIN; COMPARISON: None TECHNIQUE: XR hand complete RT Frontal, lateral and oblique views were obtained. FINDINGS: Normal alignment of the visualized joints. No acute osseous pathology is identified. No e vidence of soft tissue swelling. Multifocal degeneration changes with joint space narrowing and osteo phyte formation. IMPRESSION: 1. No acute osseous pathology. 2. Degeneration changes worse at the fifth digit proximal interphalangeal joint.
[2024-02-27 10:32] LABS: Basophils # (A) 0.08 X 10*3/uL (0.00-0.10); Basophils % (A) 1.4 %; Eosinophils % (A) 3.4 %; HCT 40.9 % (37.2-46.3); HGB 12.6 g/dL (12.0-15.0); Lymphocytes # (A) 1.93 X 10*3/uL (0.90-5.00); Lymphocytes % (A) 32.9 %; MCH 26.8 pg (27.0-32.0); MCHC 30.8 g/dL (32.0-37.0); Mean Platelet Volume 10.9 FL (9.5-12.2); Monocytes # (A) 0.53 X 10*3/uL (0.20-1.00); NRBC Per 100 WBC 0 X 10*3/uL (0.00-0.01); Neutrophils # (A) 3.11 X 10*3/uL (1.80-7.70); Platelet Count 292 X 10*3/uL (140-440); RDW 14.3 % (11.5-14.5); WBC 5.87 X 10*3/uL (4.50-10.00)
[2024-02-27 10:46] LABS: ALT 19 U/L (8-44); AST 25 U/L (13-35); Albumin 4.2 g/dL (3.8-4.9); Alkaline Phosphatase 67 U/L (41-126); BUN/Creat Ratio 18.17 Ratio (12.00-20.00); Blood Urea Nitrogen 10.9 mg/dL (9.0-27.0); Calcium 9.5 mg/dL (8.7-10.3); Carbon Dioxide 30.7 mmol/L (21.6-31.8); Chloride 99 mmol/L (96-109); Chol/HDL Ratio 2.22 Ratio; Globulin 2.1 g/dL (1.6-3.3); Glucose 96 mg/dL (70-110); Magnesium 2.1 mg/dL (1.5-2.4); Potassium 4.4 mmol/L (3.5-5.5); Sodium 142 mmol/L (135-145); Total Bilirubin 0.2 mg/dL (0.3-1.2); Total Protein 6.3 g/dL (6.2-8.2)
[2024-02-27 17:02] LABS: Appearance,Urine Clear (Clear); Bacteria,Urine None Seen (None Seen); Bilirubin,Urine Negative (Negative); Blood,Urine Negative (Negative); Color,Urine Yellow (Yellow); Ketones,Urine Negative (Negative); Nitrite,Urine Negative (Negative); PH, Urine 7.5
[2024-02-27 19:43] LABS: Urine Alcohol Negative (Negative); Urine Barbiturate Negative (Negative); Urine Cocaine Negative (Negative); Urine Methadone Negative (Negative); Urine Opiates Negative (Negative); Urine Phencyclidine Negative (Negative)
== END | disposition home or self-care (01) ==
LOC: LABWHC1 07:34
PROVIDERS: ATTEND Internal Medicine
DX: M19.041 Primary osteoarthritis, right hand (principal); I10 Essential (primary) hypertension; E78.2 Mixed hyperlipidemia; E03.9 Hypothyroidism, unspecified; R35.0 Frequency of micturition; Z79.899 Other long term (current) drug therapy
CPT/HCPCS: 36415; 80053; 80061; 80306; 81001; 83036; 83735; 84443; 85025

== ENCOUNTER → 2024-05-20 | Outpatient (CLI) | payer BC, OTHER ==
--- NOTE | 2024-05-20 10:05 | XR ---
EXAMINATION TYPE: XR sacroiliac joint comp 3 views BILAT, XR Hip complete 2 views RT DATE OF EXAM: 05/20/2024 COMPARISON: NONE HISTORY: 63-year-old female M46.1, sacroiliitis, having SI joint fusion next month FINDINGS: SI joints: The SI joints appear relatively symmetric and intact. No subarticular erosions. Smooth delineation to the arcuate lines of the sacrum. Right hip: Hip joint space is maintained. No acute fracture, subluxation or dislocation. Right-sided pelvic phle boliths. IMPRESSION: 1. SI joints: No specific radiographic findings of sacroiliitis by radiograph. 2. Right hip: No acute osseous abnormality seen.
--- NOTE | 2024-05-20 10:14 | CT ---
EXAMINATION TYPE: CT pelvis wo con DATE OF EXAM: 05/20/2024 COMPARISON: CT abdomen and pelvis 02/27/2020 HISTORY: 63-year-old female M46.1, right-sided back pain, sacroiliitis TECHNIQUE: Contiguous axial scanning of the pelvis without IV contrast. Coronal and sagittal reconstr uctions performed. CT DLP: 673 mGycm Automated exposure control for dose reduction was used. FINDINGS: Stable line relating to previous small bowel surgery in the mid abdomen. There also appears to be pre vious ventral abdominal wall mesh repair. There is moderate stool burden. No dilated small bowel loop s. No lower abdominal or pelvic lymphadenopathy or abnormal fluid collection seen. Bladder is only partially distended. Uterus anteverted. Ovaries difficult to delineate from cluster o f small bowel loops. Pelvic phleboliths. There is very mild degenerative spurring at the hips. SI joints appear symmetric and intact as does the pubic symphysis. No subarticular erosions or abnorm al sclerosis is seen. Osteopenia. IMPRESSION: 1. SI JOINTS APPEAR SYMMETRIC AND INTACT. NO SIGNIFICANT DEGENERATIVE CHANGE OR SUBARTICULAR EROSION to clearly indicate sacroiliitis by CT. 2. Very mild early degenerative spurring at the hips.
== END | disposition home or self-care (01) ==
LOC: RADCTMAIN 09:00
PROVIDERS: ATTEND Orthopaedic Surgery
DX: M46.1 Sacroiliitis, not elsewhere classified
CPT/HCPCS: 72192; 72202; 73501

== ENCOUNTER → 2024-06-11 | Outpatient (CLI) | payer BC, OTHER ==
[2024-06-11 09:36] LABS: Partial Thromboplastin Time 23.2 sec (22.0-30.0); Prothrombin Time 11.4 sec (10.0-12.5)
[2024-06-11 15:40] LABS: HCT 41.3 % (37.2-46.3); HGB 12.6 g/dL (12.0-15.0); MCH 26.1 pg (27.0-32.0); MCHC 30.5 g/dL (32.0-37.0); MCV 85.5 FL (80.0-97.0); Mean Platelet Volume 11.5 FL (9.5-12.2); NRBC Per 100 WBC 0 X 10*3/uL (0.00-0.01); Platelet Count 285 X 10*3/uL (140-440); RBC 4.83 X 10*6/uL (4.10-5.20); RDW 14.9 % (11.5-14.5); WBC 6.06 X 10*3/uL (4.50-10.00)
[2024-06-11 16:27] LABS: Prealbumin 21.1 mg/dL (18.0-42.0)
[2024-06-11 16:42] LABS: % Iron Saturation 5.84 (12.00-45.00); ALT 18 U/L (8-44); AST 25 U/L (13-35); Albumin 4.3 g/dL (3.8-4.9); Albumin/Globulin Ratio 1.72 Ratio (1.60-3.17); Alkaline Phosphatase 71 U/L (41-126); BUN/Creat Ratio 16.71 Ratio (12.00-20.00); Blood Urea Nitrogen 11.7 mg/dL (9.0-27.0); Calcium 9.5 mg/dL (8.7-10.3); Carbon Dioxide 29.2 mmol/L (21.6-31.8); Chloride 100 mmol/L (96-109); Chol/HDL Ratio 2.65 Ratio; Ferritin 12.4 ng/mL (10.0-291.0); Globulin 2.5 g/dL (1.6-3.3); Glucose 98 mg/dL (70-110); Iron 29 UG/DL (50-170); Magnesium 2.1 mg/dL (1.5-2.4); Phosphorus 4.2 mg/dL (2.4-5.1); Sodium 141 mmol/L (135-145); Total Bilirubin 0.2 mg/dL (0.3-1.2); Total Iron Binding Capacity 497 UG/DL (228-460); Total Protein 6.8 g/dL (6.2-8.2)
[2024-06-12 14:48] LABS: Zinc, Serum 115 ug/dL (60-130)
[2024-06-13 05:50] LABS: Vitamin A 63 ug/dL (38-106)
[2024-06-13 13:21] LABS: Vit B1(Thiamine) 116 ug/L (38-122)
[2024-06-20 07:40] LABS: Selenium 107 mcg/L (63-160)
== END | disposition home or self-care (01) ==
LOC: LABWHC1 08:09
PROVIDERS: ATTEND Surgery Plastic and Reconstructive Surgery
DX: E66.01 Morbid (severe) obesity due to excess calories (principal); E89.1 Postprocedural hypoinsulinemia; D50.8 Other iron deficiency anemias; K91.2 Postsurgical malabsorption, not elsewhere classified; E44.0 Moderate protein-calorie malnutrition; E45 Retarded development following protein-calorie malnutrition; E55.9 Vitamin D deficiency, unspecified; K74.1 Hepatic sclerosis; N19 Unspecified kidney failure; T56.894A Toxic effect of other metals, undetermined, initial encounter; K50.90 Crohn's disease, unspecified, without complications; E46 Unspecified protein-calorie malnutrition
CPT/HCPCS: 36415; 80053; 80061; 82306; 82525; 82607; 82728; 82746; 83036; 83540; 83550; 83735; 83970; 84100; 84134; 84255; 84425; 84443; 84590; 84630; 85027; 85610; 85730

== ENCOUNTER → 2024-06-11 | Outpatient (CLI) | payer BC, OTHER | END | disposition home or self-care (01) | LOC: LABPAT 08:16 | PROVIDERS: ATTEND Orthopaedic Surgery | DX: Z01.812 Encounter for preprocedural laboratory examination (principal); Z22.322 Carrier or suspected carrier of Methicillin resistant Staphylococcus aureus; M46.1 Sacroiliitis, not elsewhere classified | CPT/HCPCS: 86850; 86900; 86901; 87070 ==

== ENCOUNTER 2024-06-19 09:45 | Day surgery (SDC) | payer BC, OTHER ==
[2024-06-13 09:59] VITALS: BMI 30.7
[~2024-06-19 09:45] MED LIST changes: -DEXAMETHASONE SOD PHOSPHATE 4 MG/ML 1 ML VIAL IV ONE; -HYDROmorphone 0.5 MG/0.5 ML SYRINGE IVP PRN; -LACTATED RINGERS 1,000 ML IV SCH; -LIDOCAINE 1% (10MG/ML) FOR IV START INTRADERMA PRN; -MIDAZOLAM 2 MG/2 ML VIAL IV PRN; +ONDANSETRON 4 MG/2 ML VIAL IVP PRN; +TRANEXAMIC 1,000 MG/100ML-NACL 1,000 MG in SALINE 1 100ML.BAG IVPB PRN
[2024-06-19] MEDS ORDERED: LIDOCAINE 1% (10MG/ML) FOR IV START INTRADERMA PRN (10:03)
[2024-06-19] MEDS ORDERED: droPERidol 5 MG/2 ML VIAL IVP ONE (10:03)
[2024-06-19] MEDS: LACTATED RINGERS 1,000 ML IV SCH (10:43)
[2024-06-19] MEDS: IV FLUID CONTINUATION 1,000 ML IV ONE (10:44)
[2024-06-19] MEDS: GABAPENTIN 300 MG CAP PO PRN (10:48)
[2024-06-19] MEDS: ACETAMINOPHEN TAB 500 MG TAB PO PRN (10:48)
[2024-06-19] MEDS: DEXAMETHASONE SOD PHOSPHATE 4 MG/ML 1 ML VIAL IVP STA (10:52)
[2024-06-19] MEDS: SCOPOLAMINE 1 MG/72 HR PATCH TRANSDERM STA (10:53)
[2024-06-19] MEDS ORDERED: PHENYLEPHRINE 10 MG/ML VIAL ONE (12:20)
[2024-06-19] MEDS ORDERED: SUCCINYLCHOLINE CHLORIDE 200 MG/10 ML VIAL IV ONE (12:20)
[2024-06-19] MEDS ORDERED: ROCURONIUM 10 MG/ML (5 ML VIAL) IV ONE (12:20)
[2024-06-19] MEDS ORDERED: LIDOCAINE 1% INJ 10MG/ML (20 ML MDV) ONE (12:20)
[2024-06-19] MEDS ORDERED: PROPOFOL 10 MG/ML 20 ML VIAL IV ONE (12:20)
[2024-06-19] MEDS ORDERED: fentaNYL (PF) 50 MCG/ML 2 ML AMP ONE (12:20)
[2024-06-19] MEDS ORDERED: NEOSTIGMINE 1 MG/ML 10 ML VIAL ONE (12:20)
[2024-06-19] MEDS ORDERED: GLYCOPYRROLATE 0.2 MG/ML 2 ML VIAL ONE (12:20)
[2024-06-19] MEDS ORDERED: KETAMINE HCL IN 0.9 % NACL 50 MG/5 ML SYRINGE ONE (12:20)
[2024-06-19] MEDS ORDERED: MIDAZOLAM 2 MG/2 ML VIAL ONE (12:20)
[2024-06-19] MEDS: BUPIVACAINE (PF) 0.5% 30 ML VIAL SQ ONE (13:48)
[2024-06-19] MEDS: LIDOCAINE 2%-EPI 1:100,000 20 ML VIAL SQ ONE (13:48)
[2024-06-19] MEDS: LACTATED RINGERS 1,000 ML IV ONE (14:01)
--- NOTE | 2024-06-19 14:09 | P.HPOR ---
History of Present Illness H&P Date: 04/30/24 [facility] [address], [place] [id number] Patient Name: Kelsea Ovalle Age/Sex: F : MRN: DATE: Apr 30, 2024 3:30PM EDT VISIT: FOLLOW UP Approved 1 DEMOGRAPHICS: Height: 56 Weight: 187 lbs. BMI: 30.18 kg/m2 Occupation: VAS: 7 CHIEF COMPLAINT: ? Re-check on low back pain HISTORY: ? The patient returns to the office today for re-evaluation of her low back pain. She notes continued right-sided low back pain that radiates down into the right buttock, hip, and groin region. She notes intermittent pain around the posterior thigh region. She states her symptoms have significantly worsened since the time of her last office visit. She received a right SI joint injection in November 2023 with 75% relief for only 1 to 2 hours. She has tried several other right SI joint injections over the last 1 year all with only 1 hour of about 70- 80% relief. She states her current symptoms worsen after prolonged sitting, when going from a seated to standing position, and when going up the stairs. She reports severe sleep disturbances related to her ongoing pain and associated symptoms. She has tried all conservative measures listed below with no significant or sustained relief. Otherwise, the patient denies any f/c/sob/cp, perineal numbness or tingling, bowel or bladder incontinence/retention. Patient is ambulatory independently. The patients' past social, medical, family, surgical history, as well as review of systems, have been reviewed. Please refer to the Neurosurgery History and Physical form that has been scanned into our electronic medical record system. 16 points review of systems completed and as stated in HPI, all other systems reviewed are negative. PAST TREATMENTS: PAST IMAGING: -YES TRAUMA RELATED: -NO WORK RELATED: -NO PT IN LAST 6 MONTHS: -YES with no relief PHYSICIAN DIRECTED HOME EXERCISE PROGRAM: -YES with no relief ACTIVITY MODIFICATION: -YES MEDICATIONS: -YES; Tylenol & Gabapentin ALTERNATIVE INTERVENTIONS (CHIROPRACTIC, ACUPUNCTURE, MASSAGE, RICE): -YES; home heat/ice therapies and rest without relief BRACING: -NO INJECTIONS (BLAKE, TF, RFA): -YESx6 right SI joint injections at pain management -OTHER: N/A MEDICAL HISTORY:Past Medical History: Reviewed Past Surgical History: Reviewed Social History: REVIEWED STATED IN CHART Family History: REVIEWED STATED IN CHART Current Medications: REVIEWED STATED IN CHART PHYSICAL EXAM:General: AOX3, NAD, Well hydrate, Well nourished HEENT: No lumps or masses Extremities: No color changes, no pooling INTEGUMENT: Appearance: Normal color and turgor Surgical Incisions: Hairy Patches: ABSENT Dorsal Skin Dimples: Normal [employer] [place] [employer] spots: ABSENT PALPATION: TTP Midline: NO Paracervical: NO Parathoracic: NO Paralumbar: NO SIJ TESTING: TTP YES RIGHT [place] Finger: POSITIVE RIGHT FABER4: POSITIVE RIGHT Compression: POSITIVE RIGHT Distraction:POSITIVE RIGHT Thigh thrust: POSITIVE RIGHT Hip thrust:NEGATIVE RIGHT POSTURAL BALANCE: Coronal: BALANCED Sagittal: BALANCED Shoulder height: LEVEL Pelvic Girdle: LEVEL ROM AND APPEARANCE: Neck: UNRESTRICTED Lumbar: UNRESTRICTED Shoulders: Symmetrical Hips: Symmetrical Knees: Symmetrical Hands: Symmetrical Feet: Symmetrical VASCULAR STATUS: RUE- 2 LUE-2 RLE-2 LLE-2 Edema: NONE NEUROLOGICAL EXAMINATION: Mental Status: Awake, alert, oriented fully with normal attention, concentration and memory. Fluent appropriate speech. CRANIAL NERVES: I: Olfactory not tested. II: Visual acuity normal, no visual field deficit noted with confrontation. III,IV: Normal pupillary reflexes & intact extraocular movements without nystagmus. V,: Intact symmetrical facial sensation. VII: Intact symmetrical facial motor movementVIII: Hearing intact. IX,X: Intact gag, swallow, & normal voice. XI: Sternocleidomastoid, trapezius function intact. XII: Tongue midline with normal movements. TENSIONING: L'HERMITTE'S SIGN: NEGATIVE SPURLING'S SIGN: NEGATIVE CUBITAL COMPRESSION: NEGATIVE TINEL'S AT WRIST: NEGATIVE SLR/CROSSED SLR: NEGATIVE MOTOR EXAM (0-5/5, NT) Muscle appearance: * Symmetrical, without signs of atrophy or dystrophy UPPER EXTREMITY RIGHT LEFT SHOULDER ABDUCTION 5 5 BICEP 5 5 TRICEP 5 5 WRIST EXTENSION 5 5 INTRINSICS 5 5 MATERIAL HANDLER 1ST SHIFT 5 5 LOWER EXTREMITY HIP FLEXION 5 5 KNEE FLEXION 5 5 KNEE EXTENSION 5 5 DORSIFLEXION 5 5 PLANTAR FLEXION 5 5 EHL 5 5 FHL 5 5 REFLEXES (0-4/2, NT): RIGHT LEFT BICEP 2 2 TRICEP 2 2 BRACHIORADIALIS 2 2 PATELLAR 2 2 ACHILLES 2 2 PATHOLOGICAL REFLEXES: RIGHT LEFT HOFFMANS ABSENT ABSENT CLONUS ABSENT ABSENT BABINSKI ABSENT ABSENT Rectal Tone: INTACT SENSATION (0-4, NT): Intact to light touch and pain sensation to C5-T1 as well as L2-S2 except that noted below Hyperesthesia: ABSENT Dermatomal deficit: NO ? Levels: NONE GAIT AND FUNCTIONAL EVALUATION: -Ambulatory aids NO -Rombergs test NEGATIVE -Hand and finger dexterity intact bilaterally? YES -Dysdiadochokinesia examination negative bilaterally? YES -Toe heel walk / heel-toe walk intact while maintaining satisfactory balance? YES -Squatting/straightening w/o assistance to a min of 60 degree knee flexion? YES -Single leg stance: ABLE -Trendelenburg sign NEGATIVE IMAGING: - No new imaging today. Previous studies reviewed. IMPRESSION:It was my pleasure to have seen and examined Kelsea Ovalle. I reviewed the patient's clinical syndrome, physical findings, and imaging studies during the appointment today. It is my impression that the patient has a diagnosis of. 1. SACROILITIS RIGHT 2. LUMBOSACRAL SPONDYLOSIS WITHOUT RADICULOPATHY PLAN: DISCUSSION: ? I have discussed operative versus non-operative treatment options with the patient in detail today. Presently, I have recommended surgical intervention in the form of a right sacroiliac joint fusion secondary to his progressive right sacroiliitis. The patient has tried six right SI joint injections all with only 1 to 2 hours of 75% relief. She has also tried physical therapy, physician directed home exercises, medication management, back braces, home heat/ice therapies, and activity modification all with no significant relief. The patient verbally understands all risks, benefits, and alternatives to the procedure and elects to proceed. She will obtain and complete any pre op testing and clearances prior to her scheduled surgery date. SURGICAL RECOMMENDATION: ? RIGHT SACROILIAC JOINT FUSION THERAPIES: ? Cont with ice as warranted ? Cont with supplementation Vit D, Vit C, Ca2+, High protein diet ? OK for massage or other alternative treatment modalities as possible. If it exacerbates your sx do not continue ACTIVITY ? Advance as tolerated ? 5-10 lbs LIFTING BENDING TWISTING PUSHING PULLING LIMIT ? Recommend walking up to 30 min 2x daily on a flat, easy surface with good support. MEDICATIONS ? Take current pain medications as directed ? Cont home medications as directed by your PCP. Check with your PCP for any medication interactions or issues if needed. IMAGING ? I have ordered a CT scan of the pelvis with SI joint protocol ? I have provided the patient with a script for x-rays of the right hip to be completed at [facility] ? I have provided the patient with a script for x-rays of the right SI joint to be completed at [facility]. FOLLOW UP: PREOP PLAN AT NEXT VISIT: REVIEW TESTING/IMAGING & ADDRESSING ALL SURGICAL QUESTIONS PATIENT EDUCATION: Medications Reviewed: YES In our visit today the patient and I have had a chance to go over my understanding of their current condition, the natural course history without intervention and various interventional options. Questions were invited and answered, and the patient wishes to proceed as outlined above. I will be sure to keep you updated after the patient returns here for further follow-up. Thank you again for your referral. Please do not hesitate to contact me if you have any further questions. Signed and authenticated by: May 05, 2024 6:30PM EDT DO Ml Pedraza [facility] [address] [place] [address] This document is confidential, intended only for the named recipient(s) and may contain information that is privileged or exempt from disclosure under applicable law. If you are not the intended recipient(s), you are notified that the dissemination, distribution or copying of this information is strictly prohibited. If you received this message in error, please notify the sender then delete this message. Past Medical History Past Medical History: Fibromyalgia, GERD/Reflux, Hypertension, Osteoarthritis (OA), Skin Disorder Additional Past Medical History / Comment(s): Hx arrythmia pvc and non sustained atrial tachycardia, migraines, hx kidney stones, hx hiatal hernia, right hip and back pain, eczema. History of Any Multi-Drug Resistant Organisms: None Reported Past Surgical History: Adenoidectomy, Appendectomy, Bariatric Surgery, Breast S urgery, Cholecystectomy, Hernia Repair, Orthopedic Surgery, Tonsillectomy, Tubal Ligation Additional Past Surgical History / Comment(s): GASTRIC BYPASS and repair of hiatal hernia, right OOPHERECTOMY and bilateral salpinectomy, right breast biopsy, lithotripsy several times, colonoscopy, arthroscopic surgery for left torn meniscus, EGD, right shoulder rotator cuff repair. Past Anesthesia/Blood Transfusion Reactions: No Reported Reaction Smoking Status: Former smoker - Past Family History Father Family Medical History: Cancer, Hyperlipidemia, Hypertension, Prostate Disorder Additional Family Medical History / Comment(s): Prostate cancer. Mother Family Medical History: No Reported History Medications and Allergies Home Medications Medication Instructions Recorded Confirmed Type ALPRAZolam [Xanax] 0.25 mg PO DAILY PRN 05/30/18 06/19/24 History Amitriptyline HCl [Elavil] 100 mg PO HS 05/30/18 06/19/24 History Cyanocobalamin (Vitamin B-12) 1,000 mcg PO DAILY 05/30/18 06/13/24 History [Vitamin B-12] Multivitamins, Thera [Multivitamin 1 tab PO DAILY 05/30/18 06/19/24 History (formulary)] DULoxetine HCL [Cymbalta] 60 mg PO QAM 11/22/18 06/19/24 History L.acidoph,Paracasei, B.lactis 1 cap PO DAILY 11/22/18 06/19/24 History [Probiotic] [place]-3 Fatty Acids [[place]-3] 1,000 mg PO DAILY 11/22/18 06/19/24 History Acetaminophen [Tylenol Extra 1,000 mg PO Q6H PRN 12/23/18 06/19/24 History Strength] hydroCHLOROthiazide [Hydrodiuril] 25 mg PO DAILY 04/10/19 06/19/24 History Metoprolol Tartrate [Lopressor] 25 mg PO BID 02/25/20 06/19/24 History Gabapentin [Neurontin] 300 mg PO TID 12/08/20 06/19/24 History Cholecalciferol (Vitamin D3) 125 mcg PO DAILY 02/24/21 06/19/24 History [Vitamin D3 (5000 Iu)] Calcium Carbonate [Calcium] 600 mg PO DAILY 08/11/21 06/19/24 History Cyclobenzaprine [Flexeril] 10 mg PO TID 06/04/24 06/19/24 History Allergies Allergy/AdvReac Type Severity Reaction Status Date / Time aspirin AdvReac does not Verified 06/19/24 10:19 take r/t gastric bypass codeine AdvReac gastric Verified 06/19/24 10:19 pain NSAIDS (Non-Steroidal AdvReac Patient Verified 06/19/24 10:19 Anti-Inflamma states she cannot take due to gastric bypass ondansetron [From Zofran] AdvReac gastric Verified 06/19/24 10:19 pain psyllium [From Metamucil] AdvReac Abdominal Verified 06/19/24 10:19 Pain tramadol AdvReac Abdominal Verified 06/19/24 10:19 Pain oral steroids AdvReac Patient Uncoded 06/19/24 10:19 states she cannot take due to gastric bypass Physical Examination Osteopathic Statement: *. No significant issues noted on an osteopathic structural exam other than those noted in the History and Physical/Consult.
[2024-06-19 14:17] VITALS: TEMP 97.6
--- NOTE | 2024-06-19 14:19 | P.OP ---
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 CHIEF COMPLAINT: RIGHT SIJ PAIN IMPRESSION: It was my pleasure to have seen and examined BLADIMIR I reviewed the patient's clinical syndrome, physical findings, and imaging studies during the appointment today. It is my impression that the patient has a diagnosis of. RIGHT SACROILITIS, SEVERE Spine Surgery Clinical and Risk Review BLADIMIR SHAH is a 63 YO FEMALE presenting for evaluation of R SACROILITIS. It was my pleasure to have seen and examined BLADIMIR. In our visit today we have had a chance to go over subjective complaints, physical examination findings and treatments including the natural course hi story without intervention and various interventional options. The patients imaging demonstrates the following findings: RIGHT SIJ SCLEROSIS, JOINT SPACE NARROWING, DEGENERATIVE CYSTS AND NO LUMBAR PATHOLOGY TO DESCRIBE HER SIJ PAIN On a physical exam, Amanda Up demonstrates the following findings: POSITIVE PROVOCATIVE SIGNS RIGHT SIJ THREE POSITIVE INJECTIONS RIGHT SIJ LOW BACK AND SIJ PAIN TTP OVER SIJ CONTINUED SX DESPITE EXHAUSTIVE CONSERVATIVE TREATMENT I have explained to the patient that as their condition progresses it will cause further neurological deficits and eventual paralysis. Based on the patients imaging, physical exam, and the rapid progression and disabling nature of their symptoms, at this time I recommend surgery in the form of a: RIGHT MIS SIJ FUSION. I discussed the risk and benefits of this procedure at length with BLADIMIR.. The patient agreed to consider pursuing the procedure above mentioned. Prior to surgery, they should follow up with her PCP (Cardio, ID, IM etc) for clearance. Questions were invited and answered, and the patient wishes to proceed as outlined below. Currently, I am recommending: RIGHT SACROILIAC JOINT FUSION, MINIMALLY INVASIVE Description of Procedure: RIGHT SI fusion MIS (REGAN) The patient was seen and examined in the preoperative area. All preoperative protocols were followed. Informed consent was obtained, risks and benefits of the procedure were discussed at length. Risks including bleeding infection damage to the surrounding tissue and risk of reoperation were discussed with the patient. Risk of anesthesia up to and including was discussed with the patient. These are outlined in the risk review. They were willing to accept these risks and all of the risks of surgery. The patient was given a weight- based dose of antibiotics in the form of 2 g Ancef. The patient was seen and evaluated by the anesthesia team who deemed them fit for surgery. The site was marked, the patient was willing to proceed with the procedure. The patient was transferred to the operative suite by the Department of anesthesia. They were then drifted off to sleep by the department anesthesia and GETA was performed. The patient tolerated this well. Once confirmation of lines and ventilation the patient was transferred to a [prone Ivan table very carefully]. All bony prominences including wrists, elbows, axilla, chest, hips, and thighs, and feet were padded very well. Special attention was paid to the genitalia and these were padded accordingly. SCDs were placed on bilateral lower extremities and were connected. Arms were well padded and placed [on arm boards up and out in the 90/90 position]. Once in position, again we confirmed good ventilation capabilities and that lines were running appropriately. The patient's lumbopelvic spine was then exposed. 1010s were placed outlining the incision site. Standard alcohol was used to clean the incision site and allowed to dry. C-arm was used to biomark the patient and confirm level for incision which was marked with a skin marker. Operative briefing was performed with all teams and everyone in agreement to proceed. The patient was then prepped and draped in a normal sterile fashion. Timeout was then performed and all parties were in agreement with the procedure to be performed. Skin nicks were made over the PSIS on the left and pins placed into the PSIS for the tracker. Tracker was placed and a 3D Zhiem spin was obtained and registered. Once it was registered it was confirmed to be accurate. Preoperative pelvic CT and SPin were then merged in the Regan system and screws were pre-planned off the field. Once they were optimal we proceeded with placement. Skin incision was then made over the previously marked area over the RIGHT upper buttock region of the patient following the alar lines and mid sacral line. Blunt dissection was then taken down to the ilium. The first pin was then selected and placed optimally within the SI region superiorly using a navigated Jamshidi to find the path across the SIJ according to the pre planned position on navigation. This was then measured and drilled with a navigated tap and a screw placed using a navigated recycler forklift driver truck driver. This was repeated for the remaining two screws following the previously planned paths as described. All screws had excellent purchase and were confirmed to be in good position on AP lateral inlet and outlet views. Neuro monitoring was then used to test the superior screw for L5 and S1 and these tested above 20 mA. No neuro monitoring changes during surgery, no EMG. Final fluoroscopic images then confirmed good placement of hardware. We then thoroughly irrigated the wound. Deep fascia was closed with 0 Vicryl superficial closed with 2-0 Vicryl and skin closed with strata fix Monocryl. The wound was then cleaned and dressed with skin glue which was allowed to dry and then a Band-Aid. The patient was transferred back to their hospital bed atraumatically. Patient was then awakened and extubated by the department of anesthesia having tolerated the procedure very well with no complications. They were transferred to the postoperative care unit in stable condition.
[2024-06-19] MEDS: fentaNYL (PF) 50 MCG/ML 2 ML AMP IV PRN (14:26)
[2024-06-19] MEDS: HYDROmorphone 0.5 MG/0.5 ML SYRINGE IVP STA (15:10)
[2024-06-19] MEDS: HYDROcodone/APAP 7.5-325MG 1 EACH TAB PO STA (16:14)
[2024-06-19 17:18] VITALS: RESP 16
[2024-06-19 18:06] VITALS: BP 133/76; PULSE 65
--- NOTE | 2024-06-24 18:22 | XR ---
EXAMINATION TYPE: XR sacroiliac joint comp [place], [place] guidance operating room DATE OF EXAM: 06/19/2024 2:08 PM COMPARISON: Pre Operative Images if available both CT/MRI or plain film CLINICAL INDICATION: Female, 63 years old with history of RIGHT SI JOINT FUSION, M46.1; TECHNIQUE: XR sacroiliac joint comp [place], [place] guidance operating room, multiple fluoroscopic images p rovided for procedure. Total fluoroscopy time: 46 seconds Total submitted images to PACS: 3 DAP: 1756.51 cGycm2 . FINDINGS: Fluoroscopic images during internal fixation/arthroplasty demonstrate fixation hardware in appropriat e position. Hardware appears intact. No immediate complication identified. IMPRESSION: 1. No evidence for intraoperative complication. 2. Please see the operative/procedural note for further details. [facility], , 06/24/2024 6:19 PM
== END 2024-06-19 18:15 | disposition home or self-care (01) ==
LOC: OR 09:45
PROVIDERS: ATTEND Orthopaedic Surgery
DX: M46.1 Sacroiliitis, not elsewhere classified
CPT/HCPCS: 72202

== ENCOUNTER → 2024-08-27 | Outpatient (CLI) | payer BC, OTHER ==
--- NOTE | 2024-08-27 10:45 | CT ---
EXAMINATION TYPE: CT lumbar spine wo con, CT pelvis wo con DATE OF EXAM: 08/27/2024 9:52 AM COMPARISON: None. CLINICAL INDICATION: Female, 64 years old with history of M54.16 Z98.1 R10.2 M54.50; PH[facility], Back pain ( accession [id number]), SI joint pain (accession [id number]) TECHNIQUE: Multiple axial images were obtained from the midportion of T11 through the sacroiliac emmy nts. Soft tissue and bone windows in coronal and sagittal planes were obtained and reviewed. Axial images of the pelvis with and without contrast with sagittal coronal reformats. Contrast used: mL of , (None, if empty). Oral contrast used: (None, if empty). CT DLP: 830.9 (accession [id number]), 550.9 (accession [id number]) mGycm, Automated exposure control for dose reduction was used. FINDINGS: Alignment: There are 5 lumbar type vertebral bodies within normal alignment. Bone: No evidence of fracture is identified. Multilevel degeneration changes with osteophyte formati on, disc space narrowing, facet joint arthropathy. Discs: T12-L1: No spinal canal or neural foraminal stenosis is identified. L1-L2: No spinal canal or neural foraminal stenosis is identified. L2-L3: No spinal canal or neural foraminal stenosis is identified. L3-L4: No spinal canal or neural foraminal stenosis is identified. L4-L5: No spinal canal or neural foraminal stenosis is identified. L5-S1: No spinal canal or neural foraminal stenosis is identified. Other: Fat-containing umbilical hernia. Uterus is within normal limits. No evidence for bowel obstruc tion. No lymphadenopathy. Large stool burden in the cecum. Right sacroiliac fixation hardware appears intact. Mild degeneration changes of the hips with osteophyte formation and joint space narrowing. IMPRESSION: 1. No evidence for fracture. 2. No evidence for acute pelvic process. 3. Post surgical changes right sacroiliac joint with hardware intact. 4. Mild degeneration changes throughout spine. [facility], , 08/27/2024 10:43 AM
== END | disposition home or self-care (01) ==
LOC: RADCTMAIN 09:16
PROVIDERS: ATTEND Orthopaedic Surgery
DX: M51.16 Intervertebral disc disorders with radiculopathy, lumbar region (principal); M16.0 Bilateral primary osteoarthritis of hip; M25.752 Osteophyte, left hip; M25.751 Osteophyte, right hip; K42.9 Umbilical hernia without obstruction or gangrene; Z98.1 Arthrodesis status
CPT/HCPCS: 72131; 72192

== ENCOUNTER → 2025-03-04 | Outpatient (CLI) | payer BC, OTHER ==
--- NOTE | 2025-03-04 11:57 | XR ---
EXAMINATION TYPE: XR KUB DATE OF EXAM: 03/04/2025 11:20 AM COMPARISON: Plain film CLINICAL INDICATION: Female, 64 years old with history of N30.01; [facility] TECHNIQUE: One radiographic view of the abdomen was obtained. FINDINGS: There is a moderate to large stool burden, otherwise, the bowel gas pattern is nonspecific without dilated loops of small or large bowel. . Fecal material and gas are demonstrated throughout t he colon and rectum. There is no evidence for organomegaly or pneumoperitoneum. No acute osseous pro cess. No abnormal calcifications are present. Right SI joint fixation hardware appears intact. Quadrant cholecystectomy clips. IMPRESSION: Moderate to large amount of stool in the colon. Nonspecific bowel gas pattern without radiographic ev idence for acute process. [facility], , 03/04/2025 11:55 AM
== END | disposition home or self-care (01) ==
LOC: RADXRMAIN 11:00
PROVIDERS: ATTEND Internal Medicine
DX: N30.01 Acute cystitis with hematuria (principal); R19.5 Other fecal abnormalities
CPT/HCPCS: 74018